=== PATIENT | male | born 1945 | race Caucasian/White ===

== ENCOUNTER → 2016-07-16 | Outpatient (CLI) | payer MEDICARE, OTHER ==
--- NOTE | 2016-07-16 17:12 | CT ---
EXAMINATION TYPE: CT chest w con DATE OF EXAM: 07/16/2016 4:45 PM COMPARISON: 12/24/2014, 09/03/2013, 08/23/2012. HISTORY: 71-year-old male with cough, Follow up nodule TECHNIQUE: Contiguous axial scanning of the chest after the administration of 100 mL of Omnipaque 300 . Coronal/sagittal reconstructions performed. CT DLP: 530.8mGycm. Automatic exposure control utilized for a dose reduction. FINDINGS: Heart is normal size without pericardial effusion. Left anterior chest wall AICD generator with right atrial and right ventricular leads. Upper descending thoracic aorta is borderline aneurysmal at 3.1 cm. There is conventional arch vessel branching anatomy. A mildly enlarged 1.3 cm left tracheobronchial angle lymph node is unchanged from 2013 compatible wit h a benign etiology. Otherwise, no thoracic lymphadenopathy. Evaluation of the lungs shows mild to moderate diffuse bronchial wall thickening and scattered mild c entrilobular emphysema. A right upper lobe pulmonary nodule shows minimal interval enlargement. This measured 5 mm on 3, 6 mm on 12/24/2014, now measures 7 mm, axial image 25. A 5 mm right midlung pulmonary nodule along t he major fissure, axial image 40 is stable and benign as is a 3 mm right middle lobe pulmonary nodule , axial image 44. No new pulmonary nodule is seen. No consolidation or pleural effusion. Left hemicolonic diverticulosis is noted. Bones: Endplate spondylosis mid to lower thoracic spine with chronic healed fracture deformities of m ultiple right-sided ribs. End-stage degenerative change at the right glenohumeral joint with the filomena ent's right arm down as a result. IMPRESSION: 1. COPD with mild emphysema and a prominent component of bronchitis. 2. A 7 mm right upper lobe pulmonary nodule. This is very slowly enlarging. It measured 5 mm in 2012. Consider annual follow-up. 3. Additional 5 and 3 mm pulmonary nodules in the right lung are stable and benign. 4. Left hemicolonic diverticulosis and end-stage right glenohumeral joint.
== END | disposition home or self-care (01) ==
LOC: RADCTMAIN 16:20
PROVIDERS: ATTEND Family Medicine
DX: J44.9 Chronic obstructive pulmonary disease, unspecified (principal); J40 Bronchitis, not specified as acute or chronic; R91.8 Other nonspecific abnormal finding of lung field
CPT/HCPCS: 71260; Q9967

== ENCOUNTER → 2017-01-19 | Outpatient (CLI) | payer MEDICARE, OTHER ==
[2017-01-19 08:45] LABS: Blood Urea Nitrogen 13 mg/dL (9-20); Non-African American GFR(MDRD) >60 (>60 ml/min/1.73 sqM)
--- NOTE | 2017-01-19 10:21 | CT ---
EXAMINATION TYPE: CT chest w con DATE OF EXAM: 01/19/2017 COMPARISON: CT chest July 16, 2016 and older studies back through May 19, 2012. HISTORY: Patient has no complaints at time of study. Follow up study for known lung nodule CT DLP: 613.1 mGycm. Automated Exposure Control for Dose Reduction was Utilized. TECHNIQUE: CT scan of the thorax is performed following with IV Contrast, patient injected with 100 mL of Omnipaque 300. FINDINGS: LUNGS: An 8 x 5 mm nodule in the posterior aspect right upper lobe on axial image 22 is stable or per haps slightly more prominent since 2012 and most recent study. A 5 x 4 mm nodular opacity along fissure right mid lung on axial image 36 is not significantly change d from 2012. A 3 mm hyperdense possibly calcified nodule anteriorly right middle lobe on axial image 41 is stable from 2012. Some linear scarring centrally in left lung base is present. There is no concerning new parenchymal n odule or mass. No pleural effusion or pneumothorax is present bilaterally. Tracheobronchial tree is p atent. Mild underlying emphysematous changes redemonstrated. Mild central peribronchial wall thickeni ng is redemonstrated. MEDIASTINUM: There is stable 1.4 x 1.3 cm left tracheobronchial angle lymph node on axial image 24. T here are no new greater than 1 cm hilar or mediastinal lymph nodes. No pericardial effusion is seen . Heart size is stable and upper limits of normal. A dual lead pacemaker/AICD is redemonstrated. OTHER: There is persistent advanced degenerative change right glenohumeral joint with marked spurring and joint space loss and loss of spherical shape of the humeral head. Moderate to advanced degenerat maria c change left glenohumeral joint is redemonstrated. There is multilevel moderate to severe spurring in the thoracic spine. Multiple old healed fractures posterior right ribs are redemonstrated. Some d iverticula in visualized colon are redemonstrated. IMPRESSION: Mild emphysematous change with persistent slightly more prominent 8 x 5 mm right upper lo be nodule. No new nodules or masses are identified. Consider continued CT monitoring in one year time
== END | disposition home or self-care (01) ==
LOC: RADCTMAIN 08:09
PROVIDERS: ATTEND Family Medicine
DX: J43.9 Emphysema, unspecified (principal); R91.1 Solitary pulmonary nodule; R91.8 Other nonspecific abnormal finding of lung field
CPT/HCPCS: 82565; 84520; 71260; 36415; Q9967

== ENCOUNTER → 2017-02-19 | Outpatient (CLI) | payer MEDICARE, OTHER ==
--- NOTE | 2017-02-20 13:54 | PE ---
EXAMINATION TYPE: PET CT fusion whole body DATE OF EXAM: 02/19/2017 COMPARISON: CT chest 01/19/2017 Prior PET/CT: None HISTORY: Solitary pulmonary nodule posterior right upper lobe TECHNIQUE: Following the intravenous administration of 13.11 mCi of F-18 FDG, whole body images are performed from the skull base to the midthigh. Images are reviewed on the computer in the coronal, a xial, and sagittal planes. Reconstructed rotating images are created on independent workstation and reviewed on the computer. A localization and attenuation correction CT is performed in conjunction with the PET scan. DLP: 453.90 mGycm SCAN: Initial Blood glucose: 121 mg/dL Average Mediastinum SUV: 1.7 Average Liver SUV: 2.5 FINDINGS: NECK: There is some subtle uptake within the left dredge mechanic space may be related to muscular activi ty. PET image 29 with an SUV value of 3.4 this is noted to be asymmetric with the contralateral side and additional dredge mechanic muscles. THORAX: No abnormal uptake is within the right middle lobe punctate nodularity. Image 113. No abnorma l uptake is within the right middle lobe nodule, image 89. No abnormal uptake is within the mediastin al adenopathy. The nodularity within the posterior right upper lobe appears smaller on the current examination than the previous exam. This currently nodule on image 83 has an SUV value of 0.67 the benign range. Monit oring with CT could be performed. ABDOMEN: No abnormal uptake PELVIS: No abnormal uptake OSSEOUS STRUCTURES: No abnormal uptake LOCALIZATION CT: The ascending thoracic aorta at the level of main pulmonary artery is 3.4 cm. The ma in pulmonary artery the bifurcation is 2.4 cm. Pacemaker overlies left chest. Small retention cyst or polyp is in the posterior left maxillary sinus. Degenerative changes are noted bilateral glenohumera l joints. Diverticular changes are through the sigmoid colon. COMPARISON: Lung nodules are stable. The largest may be slightly smaller in size. No lymphadenopathy does not appear increased compared to prior exam. IMPRESSION: 1. No suspicious uptake to suggest primary or metastatic lesions. 2. Pulmonary nodules identified does not have abnormal uptake. Monitoring can be performed with CT est in 6 months. 3. Enlarged mediastinal adenopathy and multiple shotty lymph nodes can be monitored with the CT exami [facility] in 6 months
== END | disposition home or self-care (01) ==
LOC: RADPETMAIN 08:07
PROVIDERS: ATTEND Family Medicine
DX: R91.8 Other nonspecific abnormal finding of lung field (principal); R59.0 Localized enlarged lymph nodes
CPT/HCPCS: 78816; A9552

== ENCOUNTER → 2017-10-04 | Outpatient (CLI) | payer MEDICARE, OTHER ==
[2017-10-04 12:16] LABS: Blood Urea Nitrogen 18 mg/dL (9-20)
--- NOTE | 2017-10-04 15:05 | CT ---
EXAMINATION TYPE: CT chest w con DATE OF EXAM: 10/04/2017 COMPARISON: 01/19/2017, 07/16/2016, 12/24/2014 HISTORY: 72-year-old male Enlarged lymph nodes TECHNIQUE: Contiguous axial scanning of the chest after the administration of 100 mL of Isovue 300. Coronal/sagittal reconstructions performed. CT DLP: 652mGycm. Automatic exposure control utilized for a dose reduction. FINDINGS: Left anterior chest wall AICD generator with right atrial and right ventricular leads. Heart normal size without pericardial effusion. Aorta normal caliber with conventional branching anatomy. A borderline enlarged left tracheobronchial angle lymph node measures 1 cm and is unchanged from 2014 compatible with a benign etiology. Additional scattered small mediastinal lymph nodes are noted. 7 mm right upper lobe pulmonary nodule axial image 20 unchanged from 01/19/2017 but slightly more prom inent from 07/16/2016. An additional one-year follow-up can be performed. 4 mm pulmonary nodule along the major fissure in the right midlung is unchanged from 2014 compatible with a benign etiology. Tiny calcified granuloma right middle lobe axial image 36 is unchanged. Mild emphysematous changes present. No consolidation or pleural effusion. Visualized upper abdomen shows mild diffuse thickening of the left adrenal gland which is unchanged. Low-attenuation of the liver suggests underlying fatty infiltration. Bones: Endplate spondylosis mid to lower thoracic spine. No osseous destructive process. IMPRESSION: 1. COPD with mild emphysema. 2. 7 mm right upper lobe pulmonary nodule unchanged for 9 months. It is slightly more pronounced as c ompared to older priors. Additional one-year follow-up is recommended. 3. Stable borderline enlarged left mediastinal lymph node from 2014 compatible with a benign etiology .
== END | disposition home or self-care (01) ==
LOC: RADCTMAIN 11:30
PROVIDERS: ATTEND Family Medicine
DX: J43.9 Emphysema, unspecified (principal); R91.1 Solitary pulmonary nodule
CPT/HCPCS: 82565; 84520; 71260; 36415; Q9967

== ENCOUNTER → 2019-08-01 | Outpatient (CLI) | payer MEDICARE, OTHER ==
[2019-08-01 12:20] VITALS: BP 134/78; PULSE 60; RESP 18
--- NOTE | 2019-08-01 13:03 | P.PAINCN ---
History of Present Illness - Reason for Consult Consult date: 08/01/19 - History of Present Illness This is initial consultation visit for this 74-year-old gentleman with a chronic history of severe low back pain, with radiation to the posterior aspect of lower extremity bilaterally, and she reported that he has this pain started almost 20 years ago, he denies any initiating event he denies any history of trauma or any falling accident, the pain is constant and increases with any activity, interfere with the quality of life , so patient had some numbness and tingling sensation in both feet, his diagnosed with diabetic neuropathy., Patient able to ambulate on his own but he has difficulty functioning and working more than 6 hours daily He denies any fever he denies any swelling, he denies any change in the bowel movement or urination. Past Medical History Past Medical History: Diabetes Mellitus, Hyperlipidemia, Hypertension, Osteoarthritis (OA) Additional Past Medical History / Comment(s): ARTHRITIS IN SHOULDERS History of Any Multi-Drug Resistant Organisms: None Reported Past Surgical History: Heart Catheterization, Joint Replacement, Pacemaker Additional Past Surgical History / Comment(s): RT KNEE REPLACEMENT 2001, COLONOSCOPY - multiple Past Anesthesia/Blood Transfusion Reactions: No Reported Reaction Type of Cardiac Device: Permanent Pacemaker Device Placement Date:: 2011 Past Psychological History: Anxiety, Depression Smoking Status: Current every day smoker Past Alcohol Use History: Heavy Additional Past Alcohol Use History / Comment(s): SMOKER SINCE AGE 20(1963) 1/2 PPD-HAS 3 OR 4 BEERS 4-5 X A WEEK Past Drug Use History: Marijuana Additional Drug Use History / Comment(s): SMOKES A JOINT 3-4 X A WEEK - Past Family History Mother Family Medical History: Diabetes Mellitus Additional Family Medical History / Comment(s): HEART PROBLEMS Father Family Medical History: Diabetes Mellitus, Hypertension Additional Family Medical History / Comment(s): HEART PROBLEMS Medications and Allergies Home Medications Medication Instructions Recorded Confirmed Type ALPRAZolam [Xanax] 1 mg PO BID 01/20/15 08/01/19 History Aspirin EC [Ecotrin] 81 mg PO DAILY 01/20/15 08/01/19 History Multivitamins, Thera [Theragran] 1 each PO DAILY 01/20/15 08/01/19 History Pravastatin Sodium [Pravachol] 80 mg PO HS 01/20/15 08/01/19 History Vitamin B-12(2500mg) 1,000 mcg PO BID 01/20/15 08/01/19 History Carvedilol 25 mg PO BID 08/01/19 08/01/19 History Diclofenac Sodium [Voltaren] 75 mg PO DAILY 08/01/19 08/01/19 History Glimepiride [Amaryl] 1 mg PO AC-BRKFST 08/01/19 08/01/19 History Sacubitril/Valsartan [Entresto 49 1 each PO BID 08/01/19 08/01/19 History mg-51 mg Tablet] Sertraline [Zoloft] 100 mg PO DAILY 08/01/19 08/01/19 History Sotalol [Betapace] 80 mg PO BID 08/01/19 08/01/19 History Allergies Allergy/AdvReac Type Severity Reaction Status Date / Time No Known Allergies Allergy Verified 08/01/19 12:01 Physical Exam Vitals: Vital Signs Pulse Resp BP Pulse Ox 08/01/19 11:55 60 18 134/78 94 L Intake and Output 07/31/19 08/01/19 08/01/19 22:59 06:59 14:59 Other: Weight 95.254 kg REVIEW OF ORGAN SYSTEMS: CONSTITUTIONAL: No fevers or chills. No recent weight loss. EYES: denies troubles with vision. HEENT: No difficulties with hearing. No nosebleeds. No difficulty swallowing. RESPIRATORY: Denies any troubles with breathing or dyspnea on exertion. CARDIOVASCULAR: Denies any chest pain, palpitations, or recent heart attacks. GASTROINTESTINAL: Denies fatty food intolerance. Has change in bowel habits and gas bloat. GENITOURINARY: Denies any blood in urine. Has increased urinary frequency. NEUROLOGICAL: + numbness and tingling along the distal extremities. No seizure disorders or headaches. MUSCULOSKELETAL: Has back pain. SKIN:no skin cancer. No rash. PSYCHIATRIC: Denies current depression or suicidal thoughts. ENDOCRINE: Denies current thyroid disorders. Denies any blood sugar glucose intolerance. HEME/LYMPHATIC: Denies any lumps and bumps around the neck. History of deep venous thrombosis. ALLERGY/IMMUNOLOGY: No immunoglobulin therapy. No immune deficiencies. BREAST: Denies current breast lumps, pain or nipple discharge. Physical Examinations : Constitutiona : Cooperative , not in acute distress . HEENT : nech : supple , no Lymphadenopathy , normal thyroid size . : eyes no ptosis , no icterus, no photophobia . : ENT normal of hearing , normal oropharynx , no Thrush . Respiratory : Chest clear to auscultations Bilaterally , no wheezing , no Rhonchi . Cardiovascula : regular rate and rhythem , S1 , S2 , no S3 , no S4. Gastrointestina : abdomen soft no tenderness , bowel sounds , no organomegally . Genitourinary : Defferred . neurologic : Cranial nerve II to XII intact , no focal neurological deffecit . psychatric : alert , oriented X 3 , appropriate affect , intact judgment and insight . Lymphatic : no Lymphadenopathy . musculoskeltal : Lumber spine moter stegnth lower extremities ,thigh and legs 5/5 Right side , 5/5 Left side deep tendon reflexes : normal Knee Jerk , normal ankle Jerk lumber facet Loading Test= positive Right , positive Left Range of motion of the lumbar spine Flexion 60 degrees, extension 10 degrees strait leg raising test = negative bilaterally Fabere test= negative bilaterally tenderness over the Sacroiliac joint on the Right , and Left sides Results Comments: Computed tomography scan of the lumbar spine done in 2015 multilevel lumbar degenerative disc disease and lumbar spinal stenosis and multilevel lumbar facet arthropathy Assessment and Plan Plan: Assessment and plan=1-lumbar spondylosis with lumbar facet arthropathy 2-lumbar spinal stenosis We'll order a computed tomography scan of the lumbar spine (he refused to have MRI of the lumbar spine because he is claustrophobic) Patient will be seen in the pain clinic in 1-2 week by that time hopefully we have the results of the computed tomography scan Time with Patient: Greater than 30 PQRS Measure Charge Sheet Measure #130: Documentation of Current Meds in Medical Chart: Patient's medications documented in chart Measure #226: Tobacco Use: Screen & Cessation Intervention: Pt screened for t obacco use AND intervention given Measure #111: Pneumonia Vaccination: Pneumococcal vaccine NOT administered or previously given Measure #47: Advance Care Plan: Advance care planning discussed & documented, pt chose/unable to give Measure #412: Opioid Treatment Agreement: No documentation of signed opioid treatment agreement Measure #408: Opioid Therapy Follow-up Evaluation: Patient had NO f/u eval minimum every 3 months during opioid therapy Measure #317: Preventitive Care & Scrn High Bld Press & F/U: Normal blood pressure, f/u not required Measure #128: Body Mass Index (BMI) Screening & Follow-up: BMI documented ABOVE normal parameters - f/u documented Measure #131: Pain Assessment & Follow-up: Pain positive & plan documented, Follow-up scheduled Measure #431: Unhealthy Alcohol Use Preventative Care & Scrn: Patient not identified as an unhealthy alcohol user PQRS Narrative: Smoking Status Current every day smoker Blood Pressure 134/78 Pain Intensity [Bilateral 9 Shoulder] Pain Intensity [Lower Back] 7 Scale Used Numeric (1 - 10) Hx Alcohol Use (MH) Yes: about 6 beers a day Home Medications: Ambulatory Orders ALPRAZolam [Xanax] 1 mg PO BID 01/20/15 Aspirin EC [Ecotrin] 81 mg PO DAILY 01/20/15 Multivitamins, Thera [Theragran] 1 each PO DAILY 01/20/15 Pravastatin Sodium [Pravachol] 80 mg PO HS 01/20/15 Vitamin B-12(2500mg) 1,000 mcg PO BID 01/20/15 Carvedilol 25 mg PO BID 08/01/19 Diclofenac Sodium [Voltaren] 75 mg PO DAILY 08/01/19 Glimepiride [Amaryl] 1 mg PO AC-BRKFST 08/01/19 Sacubitril/Valsartan [Entresto 49 mg-51 mg Tablet] 1 each PO BID 08/01/19 Sertraline [Zoloft] 100 mg PO DAILY 08/01/19 Sotalol [Betapace] 80 mg PO BID 08/01/19
== END | disposition home or self-care (01) ==
LOC: PNWHC3 11:38
PROVIDERS: ATTEND Specialist
DX: M47.816 Spondylosis without myelopathy or radiculopathy, lumbar region (principal); M48.061 Spinal stenosis, lumbar region without neurogenic claudication; E11.9 Type 2 diabetes mellitus without complications; E78.5 Hyperlipidemia, unspecified; I10 Essential (primary) hypertension; M19.012 Primary osteoarthritis, left shoulder; M19.011 Primary osteoarthritis, right shoulder; F17.200 Nicotine dependence, unspecified, uncomplicated; Z79.82 Long term (current) use of aspirin; Z79.1 Long term (current) use of non-steroidal anti-inflammatories (NSAID); Z79.84 Long term (current) use of oral hypoglycemic drugs; Z79.899 Other long term (current) drug therapy
CPT/HCPCS: 99201

== ENCOUNTER → 2020-06-17 | Outpatient (CLI) | payer MEDICARE, OTHER ==
--- NOTE | 2020-06-17 16:16 | CT ---
EXAMINATION TYPE: CT lumbar spine wo con DATE OF EXAM: 06/17/2020 COMPARISON: 02/14/2015 HISTORY: 75-year-old male chronic low back pain TECHNIQUE: Contiguous axial scanning of the lumbar spine without IV contrast. Coronal and sagittal re constructions performed. CT DLP: 999 mGycm Automated exposure control for dose reduction was used. FINDINGS: Vertebral body heights are preserved. Degenerative grade 1 retrolisthesis L2-L3. Moderate to advanced dissection change throughout the lumbar spine show slight progression from 2014. Especially in the lower lumbar spine at L4-L5, there is loss of disc height with endplate sclerosis, irregularity, and spondylosis. Bulging disks at multiple levels. This likely contributes to [id number] overall spinal canal stenosis at L2-L3 and L3-L4, L4-L5. Vertebral body heights are preserved. On the right, changes resulting in moderate neuroforaminal stenoses at L4-L5 and L5-S1, mild at L2-L3 and L3-L4. Possible moderate to severe at T11-T12. On the left, changes result in moderate to severe narrowing at L4-L5, L5-S1, and T11-T12. Moderate at L3-L4. IMPRESSION: 1. MODERATE TO ADVANCED DISC/ENDPLATE DEGENERATIVE CHANGE ESPECIALLY MID TO LOWER LUMBAR SPINE WITH H YPERTROPHIC FACET ARTHROPATHY, SLIGHTLY PROGRESSED FROM 2014. 2. DEGENERATIVE GRADE 1 RETROLISTHESIS AT L2/L3. NO VERTEBRAL COMPRESSION COLLAPSE. 3. BULGING DISKS CONTRIBUTE TO [id number] SPINAL CANAL NARROWING AT L2-L3, L3-L4, L4-L5. 4. VARIABLE BILATERAL NEUROFORAMINAL STENOSES OUTLINED ABOVE, GREATEST ON BOTH SIDES AT T11-T12 AN D ON THE LEFT AT L4-L5 AND L5-S1.
== END | disposition home or self-care (01) ==
LOC: RADCTMAIN 12:38
PROVIDERS: ATTEND Family Medicine
DX: M48.061 Spinal stenosis, lumbar region without neurogenic claudication (principal); M51.26 Other intervertebral disc displacement, lumbar region; M43.16 Spondylolisthesis, lumbar region; M47.26 Other spondylosis with radiculopathy, lumbar region
CPT/HCPCS: 72131

== ENCOUNTER → 2020-06-30 | Outpatient (CLI) | payer MEDICARE, OTHER ==
[2020-06-30 08:13] VITALS: BP 131/80; PULSE 89; RESP 16; TEMP 98.3
--- NOTE | 2020-06-30 08:43 | P.PN ---
Subjective Progress Note Date: 06/30/20 This is a 75-year-old gentleman with history of back pain with weakness in the lower extremities. The patient denies any pain in his legs however he does walk in a wobbly gait and he does feel some weakness in his legs when he goes up the stairs. He has some change in bowel habits and his last colonoscopy was about 2 years ago. He denies loss of control of his bowel or bladder. His last lumbar spine computed tomography scan showed moderate to advanced dissection throughout the lumbar spine especially in the lower lumbar spine at L4 5 level with moderate neural foraminal stenosis at L4 5 and L5-S1 on the right side and moderate to severe at T11-T12 level on the right side also severe narrowing at L4 5 and L5-S1 level on the left side. The patient takes diclofenac for his pain which does not help his pain. He does have history of pacemaker placement however he denies taking any anticoagulants. He does have history of diabetes with numbness in both feet. Patient denies new-onset weakness, bowel/bladder incontinence, or any other signs or symptoms of cauda equina syndrome. There are no signs of acute intoxication, and no indications of medication diversion or overuse. In addition to above, 13-point review of systems is also negative for chest p ain, shortness of breath, changes in vision, changes in hearing, new onset weakness, abdominal pain, diarrhea, extreme fatigue, malaise, fever, skin changes, homicidal or suicidal ideation, or bowel or bladder incontinence. Vital Signs: Reviewed in EMR Gen: AAOx3, NAD HEENT: PERRLA,hearing grossly normal Pulm: resp unlabored Neck: supple, trachea midline Neuro exam of the lower extremities: Normal muscle strength bilaterally. Decreased but symmetrical knee reflexes and absent ankle reflexes bilaterally Straight leg raising test: Negative bilaterally Malcom's test: Range of motion of the lumbar spine: Decreased Facet loading test: Positive Tenderness in the paravertebral musculature: Positive on the lumbar and thoracic paravertebral musculature bilaterally Neuro: CN II-XII grossly intact, Imaging: Reviewed in EMR/chart Assessment: Lumbar stenosis Lumbar spondylosis without myelopathy Lumbar DDD Diabetes Cardiac pacemaker in place Plan: 1. Explanation: Opioid and psychological risk scores were reviewed. Diagnoses, prognoses, and multiple treatment options including but not limited to physical therapy, interventional therapies, adjuvant medical therapies, narcotic medication therapies, and surgery were discussed with the patient and all questions were answered to the patient's satisfaction. 2. Opioid agreement: Signed with the patient and the patient is warned not to use opioids while driving or before driving and not to combine opioids with benzodiazepines or alcohol. 3. Counseling: The patient was counseled extensively on SMOKING CESSATION, BODY MASS INDEX, EXERCISE. Specifically, the patient was instructed regarding the importance of smoking cessation, obesity, and exercise in the context of both chronic pain and overall health. 4. Procedures: Due to the patient's axial lower back pain we will schedule for a diagnostic lumbar medial branch block under fluoroscopic guidance. The patient may benefit in the future from epidural steroid injection due to his lumbar stenosis. 5. Consultations: The patient may need to see a back surgeon if his weakness in the lower extremities gets worse 6. Investigations: None 7. Medications: None 8. Disposition: Return to the above-mentioned procedure as soon as possible 9. Maps were reviewed and were appropriate. Objective - Vital Signs Vital signs: Vital Signs Temp 98.3 F 06/30/20 08:11 Pulse 89 06/30/20 08:11 Resp 16 06/30/20 08:11 BP 131/80 06/30/20 08:11 Pulse Ox 98 06/30/20 08:11
== END | disposition home or self-care (01) ==
LOC: PNWHC3 07:59
PROVIDERS: ATTEND Anesthesiology
DX: M48.061 Spinal stenosis, lumbar region without neurogenic claudication (principal); M47.816 Spondylosis without myelopathy or radiculopathy, lumbar region; M51.36 Other intervertebral disc degeneration, lumbar region; E11.9 Type 2 diabetes mellitus without complications; Z95.0 Presence of cardiac pacemaker
CPT/HCPCS: 99211

== ENCOUNTER 2020-07-18 07:49 | Day surgery (SDC) | payer MEDICARE, OTHER ==
[2020-07-15 11:02] VITALS: BMI 32.5
[~2020-07-18 07:49] MED LIST: LACTATED RINGERS 1,000 ML IV SCH
[2020-07-18 08:37] LABS: Glucose,Whole Blood 116 mg/dL (75-99)
[2020-07-18 08:39] VITALS: RESP 16; TEMP 97.4
[2020-07-18] MEDS ORDERED: MIDAZOLAM 2 MG/2 ML VIAL ONE (08:51)
[2020-07-18] MEDS ORDERED: ROPIVACAINE 5MG/ML 20ML VIAL ONE (08:51)
--- NOTE | 2020-07-18 09:06 | P.PCN ---
Date of Procedure: 07/18/20 Description of Procedure: Procedure: BILATERAL L3-4, L4-5, L5-S1 Diagnosis: Lumbar spondylosis without myelopathy Anesthesia: Local and IV conscious sedation Imaging: Fluoroscopy was used, images where saved to the medical record The patient was seen and examined in the [facility]. Procedure risks and benefits were fully reviewed with the patient. The patient understands this is a diagnostic if local only is used, as will be the case today. The goal of the procedure is to inject medication onto the medial branch or small nerves that innervate the facet joints. In this way, we can hopefully identify which of these joints, if any, may be contributing to their pain. Informed consent for procedure was obtained. The patient was taken into the office fluoroscopy procedure room and placed prone on the table. A pillow was placed under the abdomen to reduce lumbar lordosis. Vital signs were closely monitored during the procedure. The skin over the area was prepped with Betadine X 3 and draped in usual sterile manner. Sterile technique was observed throughout procedure. Under biplanar fluoroscopic guidance, the target injection area of the L4, L5, Sacral Ala were targeted. A 25 gauge 31/2 inch spinal needle was then placed at the most medial and superior aspect of the transverse process near the "eye of the Philip dog". Aspiration for blood was negative. 1 cc of 0.5% Ropivacaine was injected into the targeted areas separately. [place] were withdrawn intact. No complications were noted during the procedure. The patient tolerated the procedure well. The patient was placed in supine position and transferred to the recovery area for observation and remained stable until discharged home. Home discharge instructions were given to the patient by the staff. The patient will schedule a follow up as directed.
[2020-07-18] MEDS ORDERED: IV FLUID CONTINUATION 1,000 ML IV ONE (09:08)
[2020-07-18 09:29] VITALS: BP 118/75; PULSE 64
--- NOTE | 2020-07-18 09:47 | FL ---
Fluoroscopy INDICATION: Pain FINDINGS: Fluoroscopy time: 10 seconds. Images obtained: 6. IMPRESSIONS: 1. Documentation of fluoroscopy.
== END 2020-07-18 09:39 | disposition home or self-care (01) ==
LOC: ORPAIN 07:49
PROVIDERS: ATTEND Hospitalist
DX: M47.816 Spondylosis without myelopathy or radiculopathy, lumbar region (principal); E11.9 Type 2 diabetes mellitus without complications; I10 Essential (primary) hypertension; E78.5 Hyperlipidemia, unspecified; Z95.0 Presence of cardiac pacemaker; F17.210 Nicotine dependence, cigarettes, uncomplicated; M19.90 Unspecified osteoarthritis, unspecified site; J44.9 Chronic obstructive pulmonary disease, unspecified; Z79.84 Long term (current) use of oral hypoglycemic drugs; Z79.899 Other long term (current) drug therapy; Z79.1 Long term (current) use of non-steroidal anti-inflammatories (NSAID)
CPT/HCPCS: 64493; 64494; 64495; J2250; J2795

== ENCOUNTER 2020-08-22 09:09 | Day surgery (SDC) | payer MEDICARE, OTHER ==
[2020-08-21 11:29] VITALS: BMI 31.7
[2020-08-22 09:38] VITALS: TEMP 97
[2020-08-22] MEDS ORDERED: LACTATED RINGERS 1,000 ML IV ONE (09:43)
[2020-08-22 09:45] LABS: Glucose,Whole Blood 117 mg/dL (75-99)
[2020-08-22] MEDS ORDERED: LIDOCAINE 1% INJ 10MG/ML (20 ML MDV) ONE (10:03)
[2020-08-22] MEDS ORDERED: DEXAMETHASONE SOD PHOSPHATE 10 MG/ML 1 ML VIAL ONE (10:03)
[2020-08-22] MEDS ORDERED: MIDAZOLAM 2 MG/2 ML VIAL ONE (10:03)
[2020-08-22] MEDS ORDERED: fentaNYL (PF) 50 MCG/ML 2 ML AMP ONE (10:03)
[2020-08-22] MEDS ORDERED: ROPIVACAINE 5MG/ML 20ML VIAL ONE (10:03)
--- NOTE | 2020-08-22 10:23 | P.PCN ---
Date of Procedure: 08/22/20 Preoperative Diagnosis: Procedure: BILATERAL L4-5, L5-S1 Diagnosis: Lumbar spondylosis without myelopathy Anesthesia: Local and IV conscious sedation Imaging: Fluoroscopy was used, images where saved to the medical record The patient was seen and examined in the [facility]. Procedure risks and benefits were fully reviewed with the patient. The patient understands this is a diagnostic if local only is used, as will be the case today. The goal of the procedure is to inject medication onto the medial branch or small nerves that innervate the facet joints. In this way, we can hopefully identify which of these joints, if any, may be contributing to their pain. Informed consent for procedure was obtained. The patient was taken into the office fluoroscopy procedure room and placed prone on the table. A pillow was placed under the abdomen to reduce lumbar lordosis. Vital signs were closely monitored during the procedure. The skin over the area was prepped with Betadine X 3 and draped in usual sterile manner. Sterile technique was observed throughout procedure. Under biplanar fluoroscopic guidance, the target injection area of the L4, L5, Sacral Ala were targeted. A 22 gauge 31/2 inch spinal needle was then placed at the most medial and superior aspect of the transverse process near the "eye of the Philip dog". Aspiration for blood was negative. 1 cc of 0.5% Ropivacaine with 2.5mg of dexamethasone and each site was injected into the targeted areas separately. [place] were withdrawn intact. No complications were noted during the procedure. The patient tolerated the procedure well. The patient was placed in supine position and transferred to the recovery area for observation and remained stable until discharged home. Home discharge instructions were given to the patient by the staff. The patient will schedule a follow up as directed.
[2020-08-22] MEDS ORDERED: IV FLUID CONTINUATION 1,000 ML IV ONE ×2 (10:24)
[2020-08-22 10:45] VITALS: BP 110/68; PULSE 64; RESP 20
--- NOTE | 2020-08-22 13:06 | FL ---
EXAMINATION TYPE: FL guided pain mgmt statistic DATE OF EXAM: 08/22/2020 FLUOROSCOPY Fluoroscopy time of 21 seconds was used during bilateral lumbar facet block. 4 image/s document/s th e procedure.
== END 2020-08-22 10:53 | disposition home or self-care (01) ==
LOC: ORPAIN 09:09
PROVIDERS: ATTEND Anesthesiology
DX: M54.5 Low back pain (principal); M47.26 Other spondylosis with radiculopathy, lumbar region; E11.9 Type 2 diabetes mellitus without complications; I11.0 Hypertensive heart disease with heart failure; I50.9 Heart failure, unspecified; E78.5 Hyperlipidemia, unspecified; J44.9 Chronic obstructive pulmonary disease, unspecified; F17.210 Nicotine dependence, cigarettes, uncomplicated; Z97.2 Presence of dental prosthetic device (complete) (partial); Z95.810 Presence of automatic (implantable) cardiac defibrillator
CPT/HCPCS: 64493; 64494; J2250; J1100; J2001; J3010; J2795

== ENCOUNTER → 2020-10-06 | Outpatient (CLI) | payer MEDICARE, OTHER ==
[2020-10-06 10:04] VITALS: BP 121/67; PULSE 64; RESP 18; TEMP 98.5
--- NOTE | 2020-10-06 10:41 | P.PN ---
Subjective Progress Note Date: 10/06/20 This is a follow-up visit for this 75 his old male with a chronic history of severe low back pain, is diagnosed with lumbar spondylosis with lumbar facet arthropathy, degenerative disc disease, lumbar spinal stenosis, and clearly we did diagnostic medial branch block lumbar area at L3, L4, L5 bilaterally, patient gets 80% improvement of his low back pain after each block, and the pain relief was only for short-term VAS was 8 /10 before the block dropped to 0-2/10 after the block, and the pain relief was only for short-term, currently patient complaining of severe low back pain the pain is constant and increases with any activity Objective - Vital Signs Vital signs: Vital Signs Temp 98.5 F 10/06/20 09:59 Pulse 64 10/06/20 09:59 Resp 18 10/06/20 09:59 BP 121/67 10/06/20 09:59 Pulse Ox 96 10/06/20 09:59 - Exam Physical Examinations : Constitutiona : Cooperative , not in acute distress . HEENT : nech : supple , no Lymphadenopathy , normal thyroid size . : eyes no ptosis , no icterus, no photophobia . : ENT normal of hearing , normal oropharynx , no Thrush . Respiratory : Chest clear to auscultations Bilaterally , no wheezing , no Rhonchi . Cardiovascula : regular rate and rhythem , S1 , S2 , no S3 , no S4. Gastrointestina : abdomen soft no tenderness , bowel sounds , no organomegally . Genitourinary : Defferred . neurologic : Cranial nerve II to XII intact , no focal neurological deffecit . psychatric : alert , oriented X 3 , appropriate affect , intact judgment and insight . Lymphatic : no Lymphadenopathy . musculoskeltal : Lumber spine moter stegnth lower extremities ,thigh and legs 5/5 Right side , 5/5 Left side deep tendon reflexes : normal Knee Jerk , normal ankle Jerk lumber facet Loading Test= positive Right , positive Left Range of motion of the lumbar spine Flexion 60 degrees, extension 10 degrees strait leg raising test = negative bilaterally Fabere test= negative bilaterally tenderness over the Sacroiliac joint on the Right , and Left sides Assessment and Plan Plan: Assessment and plan=1-lumbar degenerative disc disease 2-lumbar spinal stenosis. 3-lumbar spondylosis with lumbar facet arthropathy without myelopathy. Patient had 80% improvement in his low back pain after each diagnostic medial branch block, he will be good candidate for RFA The medial branch lumbar area at L3, L4, L5, bilaterally - PQRS measures = - Patient's medications are documented in the chart. -Tobacco use is negative and counseling.Given. -Patient's has not received pneumococcal vaccine. -Advanced care planning discussed, patient not eligible. -Opiate contract not signed. -Pain positive and follow-up visit/procedure is scheduled. -Patient's blood pressure measured [121/67 ] , and documented in the record ,and patient will follow up with the primary care. -Patient's weight was measured and body mass index [ ] above the normal limits and counseling was done. and patient instructed to follow-up with the primary care physician. -Patient was not identified as an unhealthy alcohol user Time with Patient: Less than 30
== END ==
LOC: PNWHC3 09:35
PROVIDERS: ATTEND Specialist
DX: M51.36 Other intervertebral disc degeneration, lumbar region (principal); M48.061 Spinal stenosis, lumbar region without neurogenic claudication; M47.816 Spondylosis without myelopathy or radiculopathy, lumbar region; F17.200 Nicotine dependence, unspecified, uncomplicated
CPT/HCPCS: 99211

== ENCOUNTER → 2020-10-31 | Day surgery (SDC) | payer MEDICARE, OTHER ==
[2020-10-29 14:11] VITALS: BMI 31.7
[~2020-10-31] MED LIST changes: +IV FLUID CONTINUATION 800 ML IV ONE; +LACTATED RINGERS 1,000 ML IV ONE; +MIDAZOLAM 2 MG/2 ML VIAL ONE; +ROPIVACAINE 5MG/ML 20ML VIAL ONE; +TRIAMCINOLONE ACETONIDE 40 MG/ML 1 ML VIAL ONE; +fentaNYL (PF) 50 MCG/ML 2 ML AMP ONE
[2020-10-31 13:25] VITALS: TEMP 97
[2020-10-31 13:35] LABS: Glucose,Whole Blood 101 mg/dL (75-99)
--- NOTE | 2020-10-31 14:35 | P.PCN ---
Date of Procedure: 10/31/20 Procedure(s) Performed: PREOPERATIVE DIAGNOSIS: 1-Lumbar Spondylosis with Facet Arthropathy without myelopathy. 2- Lumber degenerative disc disease. POSTOPERATIVE DIAGNOSIS: 1- Lumbar Spondylosis with Facet Arthropathy without myelopathy. 2- Lumber degenerative disc disease. PROCEDURES : Bilateral Radiofrequency thermocoagulation, L3 , L4 , and L5 medial branch, with fluoroscopic guidance (fluoroscopy images available in the radiology department) ( to denervate the facet joint at L4-5 ,and L5-S1 levels ). ANESTHESIA: monitored anesthesia care as per anesthesia department . EBL: Minimal PROCEDURE INDICATION: The patient with low back pain secondary to lumbar facet arthropathy who had more than 50% relief of her pain with previous diagnostic lumbar medial branch block with bupivacaine. PROCEDURE DESCRIPTION / TECHNIQUE: The patient was seen and identified in the preoperative area. Risks, benefits, complications, including but not limited to risk of infection ,bleeding , allergic reactions to the medications and no complete pain releife , and alternatives were discussed with the patient, the patient agreed to proceed with the procedure and signed the consent. IV was started. Vital signs remained stable throughout the procedure. Patient was taken to the OR and time out was completed. The patient was placed in the prone position on the procedure table. The lumber area was prepped and draped in the usual sterile fashion. . Vital signs were closely monitored during the procedure .IV sedation was used during the procedure to decrease patients anxiety. Using AP and then oblique fluoroscopy, the ``eye of the Philip dog corresponding to the connection between the superior and transverse articular processes of right L3, L4, and L5 were identified, marked, and localized with 1% lidocaine. Subsequently, a 18 -lx (VENUM ) radiofrequency cannula with a 10-mm active tip was advanced guided by fluoroscopy to each of the``eyes of the Philip dog at right L3, L4, and L5. Each site then underwent sensory testing at 50 Hz and 0 to 1 volt and motor testing at 2.5 Hz and 0 to 3 volt with local stimulation, but no radicular symptoms down the legs. Thereafter each sites underwent radiofrequency thermocoagulation at 80 degrees celsius for 90 seconds after injecting 0.5 ml of PF Ropivacaine 1ml, then after the thermocoagulation done , 1 ml of the block solution containing Kenalog 20 mg and 3 ml of Ropivacaine 0.5% was injected at the right L3 , L4 , and L5 , levels after negative aspiration of CSF and blood and with no paresthesias. Cannulas were retracted while injecting lidocaine 1% until the needle is out. The same procedure was repeated at the level of Left L3, L4, and L5 levels. At the end of the procedure, the skin was cleansed and bandages were applied. COMPLICATIONS: No acute complications. DISPOSITION / PLANS: The patient was placed in a supine position and transferred to the recovery area in a stable condition for observation and was discharged from the recovery room after meeting discharge criteria. Home discharge instructions given to the patient by the staff. The patient was reexamined prior to discharge. The patient will schedule a follow up in the clinic in 2-4 weeks.
[2020-10-31 14:41] VITALS: RESP 17
[2020-10-31 15:11] VITALS: BP 100/67; PULSE 64
[2020-10-31 15:21] LABS: Glucose,Whole Blood 89 mg/dL (75-99)
--- NOTE | 2020-11-03 03:55 | FL ---
EXAMINATION TYPE: FL guided pain mgmt statistic DATE OF EXAM: 10/31/2020 FLUOROSCOPY Fluoroscopy time of 27 seconds was used during lumbar radiofrequency ablation. 7 image/s document/s the procedure.
== END ==
LOC: ORPAIN 12:40
PROVIDERS: ATTEND Specialist
DX: M47.816 Spondylosis without myelopathy or radiculopathy, lumbar region (principal); M51.36 Other intervertebral disc degeneration, lumbar region; I10 Essential (primary) hypertension; E78.5 Hyperlipidemia, unspecified; Z87.891 Personal history of nicotine dependence; Z99.81 Dependence on supplemental oxygen; M19.90 Unspecified osteoarthritis, unspecified site; Z79.899 Other long term (current) drug therapy
CPT/HCPCS: 64635; 64636; J2250; J3301; J3010; J2795

== ENCOUNTER → 2020-12-08 | Outpatient (CLI) | payer MEDICARE, OTHER ==
[2020-12-08 09:50] VITALS: BP 149/91; PULSE 63; RESP 18; TEMP 97.6
--- NOTE | 2020-12-08 09:55 | P.PN ---
Subjective Progress Note Date: 12/08/20 This is a 75-year-old gentleman with history of lower back pain with radiation to the lower extremities bilaterally and mild weakness in the lower extremities which gets worse after walking. The patient had lumbar medial branch RFA recently which gave him good pain relief for only 2 weeks and his pain now is back to its baseline. The patient failed to respond to tramadol for his pain previously which was prescribed to him by his primary care physician. Right now he takes Neurontin and alprazolam 1 mg twice a day. Patient denies new-onset weakness, bowel/bladder incontinence, or any other signs or symptoms of cauda equina syndrome. There are no signs of acute intoxication, and no indications of medication diversion or overuse. In addition to above, 13-point review of systems is also negative for chest pain, shortness of breath, changes in vision, changes in hearing, new onset weakness, abdominal pain, diarrhea, extreme fatigue, malaise, fever, skin changes, homicidal or suicidal ideation, or bowel or bladder incontinence. Vital Signs: Reviewed in EMR Gen: AAOx3, NAD HEENT: PERRLA,hearing grossly normal Pulm: resp unlabored Neck: supple, trachea midline Neuro exam of the lower extremities: Decreased left knee reflex and absent right knee reflex due to previous knee replacement surgery on the right side, absent ankle reflex bilaterally, decreased but symmetrical muscle strength to 4 out of 5 bilaterally in the major muscle groups in the lower extremities. Straight leg raising test: Negative bilaterally Facet loading test: Negative Tenderness in the paravertebral musculature: Positive on the lumbar paravertebral musculature bilaterally Neuro: CN II-XII grossly intact, Imaging: Reviewed in EMR/chart Assessment: Lumbar spondylosis without myelopathy status post lumbar medial branch RFA bilaterally for the medial branches L3, L4 and L5 Lumbar DDD Lumbar stenosis Diabetes Pacemaker in place Plan: 1. Explanation: Opioid and psychological risk scores were reviewed. Diagnoses, prognoses, and multiple treatment options including but not limited to physical therapy, interventional therapies, adjuvant medical therapies, narcotic medication therapies, and surgery were discussed with the patient and all questions were answered to the patient's satisfaction. 2. Opioid agreement: Signed with the patient and the patient is warned not to use opioids while driving or before driving and not to combine opioids with benzodiazepines or alcohol. 3. Counseling: The patient was counseled extensively on SMOKING CESSATION, BODY MASS INDEX, EXERCISE. Specifically, the patient was instructed regarding the importance of smoking cessation, obesity, and exercise in the context of both chronic pain and overall health. 4. Procedures: The patient may benefit from getting lumbar epidural steroid injection for his lumbar stenosis however he prefers to try physical therapy first. 5. Consultations: Referral for a course of physical therapy 6. Investigations: None 7. Medications: Give him prescription for only 10 pills of Guston 5 mg to be used as needed for severe uncontrolled pain 8. Disposition: Return to clinic as needed 9. Maps were reviewed and were appropriate.
== END ==
LOC: PNWHC3 09:31
PROVIDERS: ATTEND Anesthesiology
DX: M47.816 Spondylosis without myelopathy or radiculopathy, lumbar region (principal); M51.36 Other intervertebral disc degeneration, lumbar region; M48.061 Spinal stenosis, lumbar region without neurogenic claudication; E11.9 Type 2 diabetes mellitus without complications; F17.200 Nicotine dependence, unspecified, uncomplicated; Z95.0 Presence of cardiac pacemaker
CPT/HCPCS: 99211

== ENCOUNTER 2021-12-29 07:45 | Day surgery (SDC) | payer MEDICARE, OTHER ==
[2021-12-29] MEDS ORDERED: diazePAM 5 MG TAB PO STA (08:56)
[2021-12-29 09:10] LABS: Glucose,Whole Blood 98 mg/dL (70-110)
[2021-12-29 09:25] VITALS: RESP 18; TEMP 97.7
--- NOTE | 2021-12-29 10:42 | FL ---
PROCEDURE: FL myelogram lumbosacral DATE: 12/29/2021 CLINICAL HISTORY: 76-year-old male M5 4.10, L5-S1 bilateral radiculopathy. COMPLICATIONS: None SEDATION: 5 mg oral Valium administered by radiology nursing. The patient and the patient's vital signs were m onitored by qualified independent radiology personnel. TECHNIQUE: The procedure and potential risks were explained to patient and an informed consent was obtained with teach back. Site and side was verified. A time out was performed. The patient was placed prone on the fluoroscopy table and the L3-L4 level was localized and the skin was marked and was prepped and draped in the usual sterile fashion. Lidocaine was used for local anesthesia. Utilizing fluoroscopic guidance and a 5 inch 22-gauge spinal needle, multiple attempts were made to access the subarachnoid space. 2 attempts were made via diffe rent trajectories at the L3-L4 level and an additional attempt was made at the L5-S1 level. These wer e the only levels where we could see possible patent interlaminar spaces for needle placement. Bone w as accounted prematurely at each attempt. Extensive patient manipulation and needle manipulation was utilized. A second radiologist also attempted patient positioning for visualization of access. We were unable to access the subarachnoid space. The patient tolerated the procedure well and was sent back to the recovery room in satisfactory condi tion. The estimated blood loss was minimal. The patient's condition was unchanged following the procedure. Fluoroscopy time: 2 minutes 52 seconds Total images: 3 IMPRESSION: Unsuccessful 3 separate attempts at lumbar spine subarachnoid access for CT myelogram. Attempts were made by 2 different radiologist.
[2021-12-29 10:52] VITALS: BP 118/72; PULSE 58
== END 2021-12-29 10:30 | disposition home or self-care (01) ==
LOC: RADPROMAIN 07:45
PROVIDERS: ATTEND Nurse Practitioner Family
DX: M54.10 Radiculopathy, site unspecified (principal); Z53.8 Procedure and treatment not carried out for other reasons
CPT/HCPCS: 62304; J2001

== ENCOUNTER 2022-08-03 08:07 | Inpatient (IN) | payer MEDICARE, OTHER ==
[2022-07-28 10:47] VITALS: BMI 31.7
--- NOTE | 2022-08-02 17:32 | P.HPOR ---
History of Present Illness H&P Date: 07/26/22 .D:Date: 07/26/22 : 02:09pm .T:Title: *[facility] H&P Date of :[birth year] Age: 76 year Height: 5'9" Weight: 210 lbs BP:130/80 BMI: 31.01 kg/m2 Occupation: Retired VAS: 5 CHIEF COMPLAINT: Pre operative appointment DOI:Chronic DOS: N/A Duration of current treatment regiment: >5 months HISTORY: Xrays No new xrays taken in office Trauma or injury No Work-Related No Pain description aching, burning, increasing . Location diffuse Patient notes that their pain radiates to bilateral lower extremities Activity Modification yes Cane Hand Dominance right TREATMENTS COMPLETED: 6 weeks of PT completed? Month and Year of last PT date? 2020 Yes How many sessions? 12 Did it help? yes he is continuing exercises at home. Physician directed home exercise completed? Patient has trialed the physician directed home exercise program for 1year with slight relief of their symptoms. Medications List: mobic without relief of his symptoms. Alternative interventions Chiropractic: No Massage therapy: No R.I.C.E: yes Brace: No Injections Yes, about a year ago How many? 2 Did they help? No RFA: yes with relief SUBJECTIVE: Mr. Nixon returns to the office today for a recheck of their low back pain. Patient reports worsening lumbar pain ongoing for greater than 1 year with no known injury or trauma to indicate an exact onset of their symptoms. In addition to their lumbar pain, they do report that it radiates into the bilateral lower extremities (R>L), associated with numbness and tingling through the bilateral feet. Overall the patient has seen a progressive increase in symptoms since their onset. Mr. Nixon symptoms are exacerbated with prolonged standing, ambulation, and high impact movements like walking up and down stairs, due to this they notes that it is increasingly difficult for Mr. Nixon to complete many of their daily tasks. Patient is having severe sleep disturbances as well due to their ongoing pain and associated symptoms. Regarding treatments, the patient has previously trialed both formal physical therapy in 2020 and currently a home exercise program with slight relief. Additionally he did have 2 prior lumbar JUANITO's without relief. Patient denies trialing any other modalities at this time. For their symptoms, the patient has been taking mobic without relief of his symptoms. Otherwise the patient denies any f/c/sob/cp, no incision concerns, no bladder or bowel reten tion/incontinence, no perineal numbness/tingling, and ambulates with the use of a cane. HPI: Mr. Nixon returns to the office 06/17/2022 for a recheck of their low back pain. Patient reports worsening lumbar pain ongoing for greater than 1 year with no known injury or trauma to indicate an exact onset of their symptoms. In addition to their lumbar pain, they do report that it radiates into the bilateral lower extremities (R>L), associated with numbness and tingling through the bilateral feet. Overall the patient has seen a progressive increase in symptoms since their onset. Mr. Nixon symptoms are exacerbated with prolonged standing, ambulation, and high impact movements like walking up and down stairs, due to this they notes that it is increasingly difficult for Mr. Nixon to complete many of their daily tasks. Patient is having severe sleep disturbances as well due to their ongoing pain and associated symptoms. Regarding treatments, the patient has previously trialed both formal physical therapy in 2020 and currently a home exercise program with slight relief. Additionally he did have 2 prior lumbar JUANITO's without relief. Patient denies trialing any other modalities at this time. For their symptoms, the patient has been taking Tramadol, Ibuprofen, and gabapentin all without relief of his symptoms. Otherwise the patient denies any f/c/sob/cp, no incision concerns, no bladder or bowel retention/incontinence, no perineal numbness/tingling, and ambulates with the use of a cane. Mr. Nixon last returned to the office on 01/15/22 for a recheck of their low back pain. Patient reports a worsening lumbar pain ongoing for greater than 1 year with no known injury or trauma to indicate an exact onset of their symptoms. In addition to their lumbar pain, they do report that it radiates into the bilateral lower extremities (R>L), associated with numbness and tingling through the bilateral feet. Overall the patient has seen a progressive increase in symptoms since their onset. Mr. Nixon symptoms are exacerbated with prolonged standing, ambulation, and high impact movements like walking up and down stairs, due to this they notes that it is increasingly difficult for Mr. Nixon to complete many of their daily tasks. Patient is having severe sleep disturbances as well due to their ongoing pain and associated symptoms. Regarding treatments, the patient has previously trialed both formal physical therapy in 2020 and currently a home exercise program with slight relief. Additionally he did have 2 prior lumbar JUANITO's without relief. Patient denies trialing any other modalities at this time. For their symptoms, the patient has been taking Tramadol, Ibuprofen, and gabapentin all without relief of his symptoms. Otherwise the patient denies any f/c/sob/cp, no incision concerns, no bladder or bowel retention/incontinence, no perineal numbness/tingling, and ambulates with the use of a cane. Mr. Nixon was last seen on 10/26/2021 regarding low back pain that has worsened over the past year. Patient states the pain radiates down bilateral lower extremities with the right side being worse. Patient has complaint of bilateral feet numbness. He does state that he loses his balance frequently. He denies any trauma or falls at this time. Patient is ambulatory with a cane. He states that he has no loss of bowel or bladder. Mr. Nixon states that he has completed a course of physical therapy and has been doing exercises with the bands for approximately a year 2-3 times a week. He had an ablation last year with relief, JUANITO injections about a year ago with no relief. Patient was prescribed tramadol by PCP, patient states that it does not really work. The patients' past social, medical, family, surgical history, as well as review of systems, have been reviewed. Please refer to the Neurosurgery History and Physical form that has been scanned in to our electronic medical record system. 16 points review of systems completed and as stated in HPI, all other systems r eviewed are negative. Social History: Reviewed, see appropriate section of the chart for details. P3 Social History: Smoking: significant cut back to 2 cig/day from previous. Pt is almost quit and will be 4 weeks quit by the time surgery happens. Alcohol: None P3 Family History: Reviewed, see appropriate section of the chart for details. P2 Past Medical History: Reviewed, see appropriate section of the chart for details. B2Dkselqb Medications: Rx: ALPRAZolam Ref: 0 Rx: ASPIRIN EC 81MG ORAL Tablet, Ref: 0 Rx: DICLOFENAC SODIUM 75MG ORAL Tablet, Ref: 0 Rx: glimepiride 1 mg tablet Ref: 0 Rx: PRAVASTATIN SODIUM 80MG ORAL Tablet, Ref: 0 Rx: sertraline 100 mg tablet Ref: 0 Rx: SOTALOL HCL (AF) 80MG ORAL Tablet, Ref: 0 Rx: bumetanide 0.5 mg tablet Ref: 0 Rx: Entresto 97 mg-103 mg tablet Ref: 0 Rx: traMADol 50 mg tablet Ref: 0 Rx: Vitamin Ref: 0 Rx: vitamin B complex Ref: 0 Rx: ibuprofen 600 mg tablet Ref: 0 Rx: meloxicam 15 mg tablet Ref: 0 PHYSICAL EXAMINATION: General: Awake, alert, appropriate for age, in no acute distress. HEENT: No unusual neck masses around region of lateral neck triangle, thyroid, supraclavicular groove Heart: Regular rate and rhythm, normal S1, S2 and no murmur/gallop. Lungs: Clear to auscultation bilaterally with no use of accessory muscles. Extremities: Skin warm and dry without acute lesions, coloration, temperature, skin intact, no tenderness or erythema Integument: Hairy patches: Absent Dorsal skin dimples: Absent Cafe au lait spots: Absent Surgical incisions: No Palpation: Please see Pain drawing on Intake sheet for further detail. Midline spinal tenderness: yes E6 Paralumbar tenderness: No E6 Parathoracic tenderness: No E6 Buttocks tenderness: No E6 Special findings: No POSTURAL and MUSCULO-SKELETAL EVALUATION: Coronal Balance: NEUTRAL Recumbent testing: Patient is able to lay flat on back Sagittal Balance: NEUTRAL Shoulder Profile: LEVEL Pelvic Girdle: LEVEL Neck ROM: UNRESTRICTED Lumbar ROM: RESTRICTED Shoulder ROM: Symmetrical Hip ROM: Symmetrical Knee ROM: Symmetrical Hands: Normal appearance, symmetrical Feet: Normal appearance, Symmetrical VASCULAR STATUS : LEFT RIGHT Wrist Pulses INTACT INTACT Pedal Pulses (Dors. pedis & post.tibialis) INTACT INTACT Color NORMAL NORMAL Edema Absent Absent NEUROLOGIC EXAMINATION: Mental Status:Awake and alert, fully oriented, with normal attention, concentration and memory, and fluent, appropriate speech. Cranial Nerves: I: Olfactory not tested. II: Visual acuity normal, no visual field deficit noted with confrontation. III,IV: Normal pupillary reflexes & intact extraocular movements without nystagmus. V,: Intact symmetrical facial sensation. VII: Intact symmetrical facial motor movement VIII: Hearing intact. IX,X: Intact gag, swallow, & normal voice. XI: Sternocleidomastoid, trapezius function intact. XII: Tongue midline with normal movements. L'hermitte's Sign: Negative / absent Spurling'Sign: Absent bilaterally. Cubital percussion test: Absent bilaterally. Borges-Tinel sign - Carpal region: Absent bilaterally. Straight Leg Raising: Absent bilaterally. Crossed straight leg raise: negative O8 MOTOR EXAM (0-5/5, N/T) STRENGTH RIGHT LEFT Shoulder Abd (not part of the TONY score) 5 5 Elbow Flexors 5 5 Elbow Extensor 5 5 Wrist Dorsiflexors 5 5 Finger Abductor 5 5 Fruit Packer 5 5 Hip Flexor (Not part of TONY Motor score) 4 5 Knee Flexor 4 5 Knee Extensor 4 5 Ankle dorsiflexor 4 4 Ankle plantarflexion 4 4 Extensor hallucis 4 4 Positive left foot drop REFLEXES(0-4/2, NT) RIGHT LEFT Upper Extremities 2 2 Lower Extremities 2 2 Pathological Reflexes RIGHT LEFT Borges's Absent Absent Clonus Absent Absent Babinski Absent Absent # Indicates mechanical impairment Muscle appearance: Symmetrical, without signs of atrophy or dystrophy. Sensory system (0-4, N/T) Test type RU MARYSOL RL LL Joint-Position 2 2 2 2 Vibration 2 2 2 2 Pain & LT sense 2 2 2 2 Dermatomal Deficit: None None None None Gait and Functional Evaluation: Ambulatory aids: Cane Romberg's test: Intact bilaterally Toe heel walk / heel-toe walk intact while maintaining satisfactory balance? yes Squatting/straightening w/o assistance to a min of 60 degree knee flexion? No Single leg stance: No Hand and finger dexterity intact bilaterally? yes Disdiadochokinesis examination negative bilaterally? yes RADIOGRAPHIC STUDIES: CT myelogram scan from06/03/22 at [facility] of LumbarSpine: This demonstrates severe spondylotic changes from L2-S1 with vacuum disc, disc collapse, osteophyte posteriorly, b/l facet arthrosis causing significant stenosis along with ligamental hypertyrophy and disc bulges that causes the same. No acute fractures. No lesions noted. XRay 5 views, multiview taken on 10/26/21 at [facility] of Lumbar Spine and Pelvis: lumbar spine alignment appears normal. Spondylytic changes noted throughout lumbar region. Facet arthropathy L4 to L5 and L5 to S1. L5 to S1 grade 1 retrolisthesis. No acute osseous abnormalities. CT scanwithout contrast from 06/17/2020 at [facility] of Lumbar Spine: 1. MODERATE TO ADVANCED DISC/ENDPLATE DEGENERATIVE CHANGE ESPECIALLY MID TO LOWER LUMBAR SPINE WITH HYPERTROPHIC FACET ARTHROPATHY, SLIGHTLY PROGRESSED FROM 2015. 2. DEGENERATIVE GRADE 1 RETROLISTHESIS AT L2/L3. NO VERTEBRAL COMPRESSION COLLAPSE. 3. BULGING DISKS CONTRIBUTE TO [id number] SPINAL CANAL NARROWING AT L2- L3, L3-L4, L4-L5. 4. VARIABLE BILATERAL NEUROFORAMINAL STENOSES OUTLINED ABOVE, GREATEST ON BOTH SIDES AT T11-T12 AND ON THE LEFT AT L4-L5 AND L5-S1. IMPRESSION: It was my pleasure to have seen and examined Lan. I reviewed the patient's clinical syndrome, physical findings, and imaging studies during the appointment today. It is my impression that the patient has a diagnosis of. 1. L2-S1 spondylosis with severe stenosis 2. neurogenic claudication 3. left lower extremity weakness 4. Left foot drop I outlined the natural course history without intervention and various interventional options. PLAN: Based on my findings I suggest the following course of action: - I discussed treatment options with the patient, including operative and non-operative options, and they have elected to proceed with the following surgical procedure: lumbar (L2-Pelvis) Decompression and Fusion The indications, risks, benefits, and alternatives to surgery were discussed wit h the patient and family at length. Specifically (but not limited to) the risks of infection, stiffness, recurrence of symptoms, need for revision surgery, local numbness, neurovascular injury, and blood clots were discussed. The patient's questions were answered. The decision to proceed was made. Consent will be obtained for the procedure. SMOKING CESSATION FOLLOW UP The patient and I have discussed their current Stop Smoking plan and how the plan has been going. They state they have been cutting back and are down to nearly less than 2 cigarettes a day wich is a large improvement, and that it is going well. They state they have noticed the effects of their plan and are happy with their progress. We discussed again their plan as well as the benefits of quitting. We have adjusted their plan as necessary, and the patient is comfortable with this. We will check back with them on our next visit to see how they are doing with this. Time Spent: 3-10 min Spine Surgery Risk Review Mr. Deriemacker is presenting for evaluation of low back pain. It was my pleasure to have seen and examined Mr. Nixon. In our visit today we have had a chance to go over subjective complaints, physical examination findings and treatments including the natural course history without intervention and various interventional options. The patients imaging demonstrates: CT myelogram scan from06/03/22 at [facility] of LumbarSpine: This demonstrates severe spondylotic changes from L2-S1 with vacuum disc, disc collapse, osteophyte posteriorly, b/l facet arthrosis causing significant stenosis along with ligamental hypertyrophy and disc bulges that causes the same. No acute fractures. No lesions noted. XRay 5 views, multiview taken on 10/26/21 at [facility] of Lumbar Spine and Pelvis: lumbar spine alignment appears normal. Spondylytic changes noted throughout lumbar region. Facet arthropathy L4 to L5 and L5 to S1. L5 to S1 grade 1 retrolisthesis. No acute osseous abnormalities. CT scanwithout contrast from 06/17/2020 at [facility] of Lumbar Spine: 1. MODERATE TO ADVANCED DISC/ENDPLATE DEGENERATIVE CHANGE ESPECIALLY MID TO LOW ER LUMBAR SPINE WITH HYPERTROPHIC FACET ARTHROPATHY, SLIGHTLY PROGRESSED FROM 2014. 2. DEGENERATIVE GRADE 1 RETROLISTHESIS AT L2/L3. NO VERTEBRAL COMPRESSION COLLAPSE. 3. BULGING DISKS CONTRIBUTE TO UOGU-DA-IEREHQLR SPINAL CANAL NARROWING AT L2- L3, L3-L4, L4-L5. 4. VARIABLE BILATERAL NEUROFORAMINAL STENOSES OUTLINED ABOVE, GREATEST ON BOTH SIDES AT T11-T12 AND ON THE LEFT AT L4-L5 AND L5-S1 On physical exam, Mr. Nixon demonstrates significantly restricted lumbar ROM regarding flexion/extension/twisting due to pain. Furthermore the patient demonstrates bilateral lower extremity raiduclopathy and weakness impacting his gait stability. Overall functional testing is very limited due to pain. Patient ambulating with the use of a cane for stability. I have explained to the patient that as their condition progresses it will cause further neurological deficits and eventual paralysis. Based on the patients imaging, physical exam, and the rapid progression and disabling nature of their symptoms, at this time I recommend surgery in the form or a: lumbar (L2- Pelvis) Decompression and Fusion . I discussed the risk and benefits of this procedure at length with Mr. Nixon. The patient agreed to considered pursuing the procedure abovementioned. Prior to surgery, she should follow up with her PCP (Cardio, ID, IM etc) for clearance. Questions were invited and answered, and the patient wishes to proceed as outlined below. Currently, I am recommendin.lumbar (L2-Pelvis) Decompression and Fusion 2.Follow up with PCP for surgical clearance 3.Review of surgical risks and benefits as well as an educational packet on the proposed surgical procedure. Risks: All surgical procedures come with inherent risks, including those related to positioning, anesthesia, intraoperative findings, and postoperative complications. It is important to understand that surgery does not come with any guarantee of a successful outcome as complications and adverse events are al ways possible. The patient was given a handout in office today discussing the surgical procedure and risks associated with the intervention, both of which were discussed with the patient. These risks include but are not limited to the following: * Experiencing same, different or even worse symptoms in back, neck, arms, or legs compared to before surgery. Requiring further surgery or other forms of treatment presently or at some time in the future at same or other levels of the intended spine surgery. On an extreme but fortunately relatively rare basis severe complication cormier ch as blindness, stroke, heart attack, temporary and/or permanent nerve injury, paralysis, coma, or may occur, sometimes without known explanation. Surgical complications may include but are not limited to risk of infection, fluid accumulation in the surgical dissection site, including a seroma or hematoma, that requires additional surgery, wound drainage, bleeding, new numbness or weakness, vision changes/loss, spinal fluid leakage, non-healing and/or infected incision, headaches, difficulty or inability to swallow, hoarseness, hemopneumothorax, pneumothorax, impotence, retrograde ejaculation, vaginal dryness; injury to nerves, spinal cord, blood vessels, lymphatics or other vital organs (i.e., bowel injury, injury to the great vessels); heterotopic bone formation; complications related to the hardware such as screws, rods, cages including misplaced hardware, device failure, instrumentation at the wrong spine level, hardware fracture/breakage, or hardware loosening; vertebral failure of the spinal column above or below the newly placed hardware; retained surgical instrumentations or devices and the need for further surgery. * Medical risks of the planned spine surgery include but are not limited to generalized Infections to the whole body or local areas outside of the surgical site (sepsis), heart attack, bleeding, anaphylaxis, meningitis, seizure, epilepsy, hearing loss, burn fowler, laceration of the head or other areas of the body, bruising, hypersensitivity of the skin, bladder over distension; allergic reaction; shoulder injury related to positioning; fat, blood and air clots to other areas of the body like heart, lungs, brain; failure of internal organs such as lungs, kidneys, liver and excessive bleeding. If blood transfusions are necessary, note that transfusions may cause intolerance reactions such as anaphylaxis or other complex reactions. Despite best efforts, the results of spine surgery might not heal in terms of bone, soft tissues such as skin, fascia, ligaments, and joints. Additionally, in order to achieve best possible results, spine surgery may be carried out beyond the initially planned levels and involve decompression, fusion including insertion of hardware at levels other than the original intended area of surgical interest change some portions of the procedure in order to ensure the best possible outcomes. With spine surgery and spinal fusion, there are different off label uses of instrumentation (devices, implants and hardware) as well as biological substances (bone morphogenic proteins, demineralized bone matrix) as well as using extra bone from allograft sources (i.e. cadaver bone) or autograft (iliac crest bone, ribs, or the spine itself). The patient has been given information about these practices and their inherent risks and benefits. [facility] is an educational center that serves as a training facility for neurosurgical and orthopedic COIL ASSEMBLER and Nursing students. Physician assistants are medically trained surgical providers who function in the outpatient, inpatient, and operating room setting under the direct supervision of the attending surgeon. [facility] has multiple operating rooms with single and overlapping rooms running daily. They currently function under the required guidelines as produced by the [facility] Finance Committee with regards to the overlapping rooms and will continue to comply with changes to this policy as they occur. The requirements include and are complied with as follows: (1) the critical portions of the overlapping rooms will not occur at the same time, (2) the attending physician will be physically present during the critical portions of the procedure and immediately available during the entire case, and (3) a back-up attending is designated should the primary attending not be immediately available. The patient has had a chance to review all the listed information, has been given print outs detailing this information, and has had all his/her questions answered to their satisfaction. It was my pleasure to have seen and examined Mr. Nixon. In our visit today we have had a chance to go over my understanding of our patient's current condition, the natural course history without intervention and various interventional options. Questions were invited and answered, and the patient wishes to proceed as outlined above. I have seen and examined the patient for 25 minutes and we have spent more than 50% of the time in repeat and detailed counseling about the patient's condition, its natural course history with out and as much as can be predicted with surgery and re-review of various surgical treatment options. In conclusion, Mr. Nixon requested we proceed with the above suggested surgery and are willing to accept risks and limitations of the suggested surgery as nature of the disease process and our best attempts at treatment for the condition. Thank you again for allowing us to be part of your patient's care. Please don't hesitate to contact me if you have any further questions. Signed and authenticated by: FOLLOW-UP DEL Post procedure Pt Education (Informational booklet, instructions, etc) given at today's appointment: DEL Yes .ED:Patient Education: Y Medications Reviewed: YES Attestation: In our visit today Mr. Nixon and I have had a chance to go over my understanding of the patient's current condition, the natural course history without intervention and various interventional options. Questions were invited and answered, and the patient wishes to proceed as outlined above. I will be sure to keep you updated afterMr. Nixon returns here for further follow-up. Thank you again for your referral. Please do not hesitate to contact me if you have any further questions. Signed and authenticated by: Abdi Tate [facility] [address] [facility], [address] [address] This message is confidential, intended only for the named recipient(s) and may contain information that is privileged or exempt from disclosure under applicable law. If you are not the intended recipient(s), you are notified that the dissemination, distribution or copying of this information is strictly prohibited. If you received this message in error, please notify the sender then delete this message. Patient verbalizes understanding of the information discussed. The above note was initiated by Debo Bravo, physician recording accounting manager assistant controller for Dr. Abdi Curry. This note has been reviewed by Dr. Curry, who has made his personal changes and impressions for this document. CC: Morro Kelly M.D. Past Medical History Past Medical History: Cancer, Heart Failure, COPD, Diabetes Mellitus, Hyperlipidemia, Hypertension, Osteoarthritis (OA), Renal Disease, Sleep Apnea/CPAP/BIPAP Additional Past Medical History / Comment(s): hx melanoma., arthritis back and shoulders., oxygen at 2L 3-4 hrs /day., uses c-pap machine. lower back pain, pacemaker. History of Any Multi-Drug Resistant Organisms: None Reported Past Surgical History: Heart Catheterization, Joint Replacement, Pacemaker Additional Past Surgical History / Comment(s): RT KNEE REPLACEMENT 2001, COLONOSCOPY - multiple pain clinic procedure , cataracts., pacemaker at [facility] and battery change 4-5 years ago. Past Anesthesia/Blood Transfusion Reactions: No Reported Reaction Type of Cardiac Device: Permanent Pacemaker Device Placement Date:: 2011 Past Psychological History: Anxiety, Depression Smoking Status: Former smoker Past Alcohol Use History: None Reported Additional Past Alcohol Use History / Comment(s): SMOKER SINCE AGE 20(1963) 1/2 PPD-quit 10/22/20 Past Drug Use History: Marijuana Additional Drug Use History / Comment(s): no current use - Past Family History Mother Family Medical History: Diabetes Mellitus Additional Family Medical History / Comment(s): HEART PROBLEMS. Father Family Medical History: Diabetes Mellitus, Hypertension Additional Family Medical History / Comment(s): HEART PROBLEMS. Medications and Allergies Home Medications Medication Instructions Recorded Confirmed Type ALPRAZolam [Xanax] 1 mg PO BID PRN 01/20/15 07/28/22 History Pravastatin Sodium [Pravachol] 80 mg PO HS 01/20/15 07/28/22 History Sertraline [Zoloft] 100 mg PO DAILY 08/01/19 07/28/22 History Sotalol [Betapace] 80 mg PO BID 08/01/19 07/28/22 History Sacubitril/Valsartan [Entresto 97 1 each PO BID 06/23/20 07/28/22 History mg-103 mg Tablet] Glimepiride [Amaryl] 1 mg PO AC-BRKFST 07/15/20 07/28/22 History Gabapentin 300 mg PO TID 11/19/21 07/28/22 History Fluticasone/Umeclidin/Vilanter 1 puff INHALATION DAILY 07/28/22 07/28/22 History [Trelegy Ellipta 200-62.5-25] Meloxicam [Mobic] 15 mg PO DAILY 07/28/22 07/28/22 History Vitamin B Complex 1 each PO DAILY 07/28/22 07/28/22 History Allergies Allergy/AdvReac Type Severity Reaction Status Date / Time No Known Allergies Allergy Verified 07/28/22 10:14 Physical Examination Osteopathic Statement: *. No significant issues noted on an osteopathic structural exam other than those noted in the History and Physical/Consult.
[~2022-08-03 08:07] MED LIST changes: +ACETAMINOPHEN TAB 500 MG TAB PO PRN; +GABAPENTIN 300 MG CAP PO PRN; -IV FLUID CONTINUATION 800 ML IV ONE; -LACTATED RINGERS 1,000 ML IV ONE; -LACTATED RINGERS 1,000 ML IV SCH; +LIDOCAINE 1% (10MG/ML) FOR IV START INTRADERMA PRN; -MIDAZOLAM 2 MG/2 ML VIAL ONE; +ONDANSETRON 4 MG/2 ML VIAL IVP ONE; +ONDANSETRON 4 MG/2 ML VIAL IVP PRN; -ROPIVACAINE 5MG/ML 20ML VIAL ONE; +TRANEXAMIC ACID IN NACL,ISO-OS 1,000 MG in SALINE 1 100ML.BAG IVPB PRN; -TRIAMCINOLONE ACETONIDE 40 MG/ML 1 ML VIAL ONE; -fentaNYL (PF) 50 MCG/ML 2 ML AMP ONE
[2022-08-03] MEDS: LACTATED RINGERS 1,000 ML IV SCH (09:04)
[2022-08-03 09:16] LABS: Glucose,Whole Blood 105 mg/dL (70-110)
[2022-08-03 09:43] LABS: Prothrombin Time 10.9 sec (9.0-12.0)
[2022-08-03] MEDS ORDERED: MIDAZOLAM 2 MG/2 ML VIAL IVP ONE (09:49)
[2022-08-03] MEDS ORDERED: fentaNYL (PF) 50 MCG/1 ML VIAL IVP ONE (09:49)
[2022-08-03] MEDS ORDERED: HYDROCORTISONE SUCCINATE 100 MG/2 ML VIAL IVP ONE (10:15)
[2022-08-03] MEDS ORDERED: ROCURONIUM 10 MG/ML (5 ML VIAL) IV ONE (10:28)
[2022-08-03] MEDS ORDERED: SUCCINYLCHOLINE CHLORIDE 200 MG/10 ML VIAL IV ONE (10:28)
[2022-08-03] MEDS ORDERED: PROPOFOL 10 MG/ML 20 ML VIAL IV ONE (10:28)
[2022-08-03] MEDS ORDERED: fentaNYL (PF) 50 MCG/ML 2 ML AMP ONE (10:28)
[2022-08-03] MEDS ORDERED: KETAMINE 10 MG/ML 20 ML VIAL ONE (10:28)
[2022-08-03] MEDS ORDERED: ceFAZolin 1,000 MG VIAL ONE (10:28)
[2022-08-03] MEDS ORDERED: LIDOCAINE 2% INJ 20 MG/ML (2 ML VIAL) ONE (10:28)
[2022-08-03] MEDS ORDERED: PHENYLEPHRINE-0.9% NACL SYG 1,000 MCG/10 ML SYRINGE ONE (10:28)
[2022-08-03] MEDS ORDERED: TRANEXAMIC ACID IN NACL,ISO-OS 1,000 MG/100 ML BAG ONE (10:28)
[2022-08-03] MEDS ORDERED: SODIUM CHLORIDE 0.9% 100 ML BAG ONE (10:28)
[2022-08-03] MEDS ORDERED: LACTATED RINGERS 1,000 ML IV ONE ×2 (11:48→15:58)
[2022-08-03] MEDS ORDERED: HYDROcodone/APAP 5-325MG 1 EACH TAB PO PRN (11:58)
[2022-08-03] MEDS ORDERED: HYDROcodone/APAP 10-325MG 1 EACH TAB PO PRN (11:58)
[2022-08-03] MEDS ORDERED: MAGNESIUM HYDROXIDE 2,400 MG/10 ML CUP PO PRN (11:58)
[2022-08-03] MEDS ORDERED: SENNOSIDES-DOCUSATE SODIUM 1 EACH TAB PO PRN (11:58)
[2022-08-03] MEDS ORDERED: HYDROmorphone 0.5 MG/0.5 ML SYRINGE IVP PRN (11:58)
[2022-08-03] MEDS ORDERED: GENTAMICIN 80 MG in SODIUM CHLORIDE 0.9% IRRIGATIO 3,000 ML IRRIGATION ONE (12:00)
[2022-08-03] MEDS ORDERED: ceFAZolin 3,000 MG in SODIUM CHLORIDE 0.9% IRRIGATIO 3,000 ML IRRIGATION ONE (12:02)
[2022-08-03] MEDS ORDERED: THROMBIN (BOVINE) 5,000 UNIT VIAL TOPICAL ONE ×2 (12:23)
[2022-08-03] MEDS ORDERED: GELATIN SPONGE,ABSORB (LARGE) 1 EACH SPONGE TOPICAL ONE (12:23)
[2022-08-03] MEDS ORDERED: VANCOMYCIN 1,000 MG VIAL MISCELLANE ONE (15:36)
--- NOTE | 2022-08-03 15:50 | XR ---
Intraoperative/procedural fluoroscopic services were provided for L2-pelvis fusion. Total fluoroscopy time is 1 minute 49 seconds with a total of 11 submitted images to PACS. Total DAP 2812.725. Please see the operative note for further details.
[2022-08-03] MEDS: HYDROmorphone 0.5 MG/0.5 ML SYRINGE IVP PRN ×2 (16:37→16:45)
--- NOTE | 2022-08-03 16:52 | XR ---
EXAMINATION TYPE: XR chest 1V confirm line [facility] DATE OF EXAM: 08/03/2022 COMPARISON: NONE HISTORY: Line placement TECHNIQUE: Single view FINDINGS: There is right jugular catheter with tip in the superior vena cava. There is coarsening of the interstitial markings. Heart is borderline enlarged. There is left axillary pacemaker. No heart f ailure seen. No definite pleural effusion. IMPRESSION: Mild Pulmonary fibrosis. Central venous catheter in good position in the superior vena ca va.
[2022-08-03 17:05] LABS: Glucose,Whole Blood 119 mg/dL (70-110)
[2022-08-03] MEDS: GABAPENTIN 300 MG CAP PO SCH ×2 (18:36→21:09)
[2022-08-03] MEDS: ACETAMINOPHEN TAB 325 MG TAB PO SCH ×2 (18:52→23:55)
[2022-08-03] MEDS: HYDROmorphone 1 MG/ML 1 ML SYRINGE IVP PRN (18:53)
[2022-08-03 20:21] LABS: Glucose,Whole Blood 108 mg/dL (70-110)
--- NOTE | 2022-08-03 22:25 | CT ---
EXAMINATION TYPE: CT lumbar spine wo con DATE OF EXAM: 08/03/2022 COMPARISON: None HISTORY: post op lumbar fusion CT DLP: 2215.6 mGycm Automated exposure control for dose reduction was used. Images obtained from the level of T12-S3 vertebra with no contrast. The vertebra have normal alignment. There are rods and screws fusing posteriorly the lumbar spine fro m the level of S2 to the L2 vertebral body. There is posterior skin dyllan. There is multilevel lami nectomy defect. There is some minimal soft tissue air at the incision site posteriorly. The exam is l imited by metal artifact. No compression fracture. There is disc prosthesis from L2 to S1. No evidence of paraspinal mass. Ther e is significant atrophy of the right psoas muscle. No retroperitoneal adenopathy. No focal bone dest ruction. IMPRESSION: 1 the level posterior fusion surgery. Spondylotic multilevel degenerative disc changes. No complicati ng process seen. Right psoas muscle atrophy.
--- NOTE | 2022-08-04 03:15 | P.CONS ---
History of Present Illness - Reason for Consult Consult date: 08/03/22 - History of Present Illness The patient is a 77-year-old male with a PMH of type II DM, hypertension, COPD, and chronic lower back pain who was admitted for an elective lumbar decompression and fusion. The patient underwent the procedure earlier today and was seen postoperatively on the surgical unit. Patient reported ongoing pain, rated at a 6 out of 10 at the time of interview in his lower back. The patient denied any additional complaints. He denied experiencing chest discomfort, shortness of breath, fever, chills, cough, sore throat, nausea, vomiting. Patient reports compliance with all his home medications. Review of systems: Pertinent positives and negatives as discussed in HPI, a complete review of s ystems was performed and all other systems are negative. Physical examination: Vital signs reviewed General: non toxic, no distress, appears at stated age, obese Derm: no unusual rashes/lesions, warm Head: atraumatic, normocephalic, symmetric Eyes: EOMI, no lid lag, anicteric sclera, pupils equal round reactive to light ENT: Nose and ears atraumatic Neck: No cervical lymphadenopathy, trachea midline, supple Mouth: no lip lesion, mucus membranes moist Cardiovascular: S1S2 reg, no murmur, positive dorsalis pedis pulse bilateral, no edema Lungs: CTA bilateral, no rhonchi, no rales, no accessory muscle use Abdominal: soft, nontender to palpation, no guarding Ext: muscle strength 4 out of 5 of bilateral lower extremities, strength 5 out of 5 in bilateral upper extremities, no gross muscle atrophy, no contractures, Neuro: CN II-XI grossly intact, no gross focal neuro deficits Psych: Alert, oriented, appropriate affect Assessment: Chronic conditions: Hypertension, COPD, type II DM Status post lumbar decompression and fusion Data Review: Laboratory evaluation reviewed with potassium 5.0, glucose 105, INR 1.0. Plan: Continue the following home medications: -Pravachol 80 mg by mouth daily at bedtime -Trelegy inhaler qd -Sotalol 80 mg po bid -Zoloft 100 mg po qd -Entresto po bid Insulin sliding scale blood glucose monitoring Defer management of pain control and DVT prophylaxis to the primary surgery ser vice Past Medical History Past Medical History: Cancer, Heart Failure, COPD, Diabetes Mellitus, Hyperlipidemia, Hypertension, Osteoarthritis (OA), Renal Disease, Sleep Apnea/CPAP/BIPAP Additional Past Medical History / Comment(s): hx melanoma., arthritis back and shoulders., oxygen at 2L 3-4 hrs /day., uses c-pap machine. lower back pain, pacemaker. History of Any Multi-Drug Resistant Organisms: None Reported Past Surgical History: Heart Catheterization, Joint Replacement, Pacemaker Additional Past Surgical History / Comment(s): RT KNEE REPLACEMENT 2001, COLONOSCOPY - multiple pain clinic procedure , cataracts., pacemaker at [facility] and battery change 4-5 years ago. Past Anesthesia/Blood Transfusion Reactions: No Reported Reaction Type of Cardiac Device: Permanent Pacemaker Device Placement Date:: 2011 Past Psychological History: Anxiety, Depression Smoking Status: Former smoker Past Alcohol Use History: None Reported Additional Past Alcohol Use History / Comment(s): SMOKER SINCE AGE 20(1962) 1/2 PPD-quit 10/22/20 Past Drug Use History: Marijuana Additional Drug Use History / Comment(s): no current use - Past Family History Mother Family Medical History: Diabetes Mellitus Additional Family Medical History / Comment(s): HEART PROBLEMS. Father Family Medical History: Diabetes Mellitus, Hypertension Additional Family Medical History / Comment(s): HEART PROBLEMS. Medications and Allergies Home Medications Medication Instructions Recorded Confirmed Type ALPRAZolam [Xanax] 1 mg PO BID PRN 01/20/15 07/28/22 History Pravastatin Sodium [Pravachol] 80 mg PO HS 01/20/15 08/03/22 History Sertraline [Zoloft] 100 mg PO DAILY 08/01/19 07/28/22 History Sotalol [Betapace] 80 mg PO BID 08/01/19 07/28/22 History Sacubitril/Valsartan [Entresto 97 1 each PO BID 06/23/20 07/28/22 History mg-103 mg Tablet] Glimepiride [Amaryl] 1 mg PO AC-BRKFST 07/15/20 08/03/22 History Gabapentin 300 mg PO TID 11/19/21 07/28/22 History Fluticasone/Umeclidin/Vilanter 1 puff INHALATION DAILY 07/28/22 08/03/22 History [Trelegy Ellipta 200-62.5-25] Meloxicam [Mobic] 15 mg PO DAILY 07/28/22 07/28/22 History Vitamin B Complex 1 each PO DAILY 07/28/22 08/03/22 History Allergies Allergy/AdvReac Type Severity Reaction Status Date / Time No Known Allergies Allergy Verified 08/03/22 08:38 Physical Exam Vitals: Vital Signs Temp Pulse Pulse Resp BP BP Pulse Ox 08/03/22 20:00 98.1 F 55 L 17 122/66 96 08/03/22 18:04 60 16 165/75 100 08/03/22 17:49 60 16 153/77 100 08/03/22 17:34 60 16 147/65 98 08/03/22 17:19 60 16 165/72 99 08/03/22 16:56 58 L 16 138/65 97 08/03/22 16:40 67 16 147/70 100 08/03/22 16:25 96.8 F L 62 18 154/77 99 08/03/22 10:19 64 16 135/71 99 08/03/22 10:14 64 16 125/76 99 08/03/22 10:09 62 16 126/65 97 08/03/22 10:04 64 16 108/67 93 L 08/03/22 09:59 64 16 101/63 93 L 08/03/22 08:41 97.5 F L 54 L 18 114/61 94 L Intake and Output 08/03/22 08/03/22 08/04/22 14:59 22:59 06:59 Intake Total 2051 250 Output Total 1655 Balance 2051 -140 Intake: IV 2051 250 Output: Urine 855 Estimated Blood Loss 800 Other: Voiding Method Indwelling Catheter Weight 97.7 kg 97.7 kg Results CBC & Chem 7: 08/03/22 09:09 Labs: Abnormal Lab Results - Last 24 Hours (Table) 08/03/22 Range/Units 17:03 POC Glucose (mg/dL) 119 H (70-110) mg/dL
[2022-08-04] MEDS: ACETAMINOPHEN TAB 325 MG TAB PO SCH ×4 (05:32→23:32)
[2022-08-04] MEDS: LACTATED RINGERS 1,000 ML IV SCH (06:03)
[2022-08-04 06:10] LABS: Glucose,Whole Blood 108 mg/dL (70-110)
[2022-08-04] MEDS: INSULIN ASPART (NovoLOG) 100 UNIT/ML VIAL SQ SCH ×4 (06:24→20:43)
[2022-08-04] MEDS: IPRATROPIUM 0.5 MG/2.5 ML NEBU INHALATION SCH ×4 (07:57→20:47)
[2022-08-04] MEDS: SYMBICORT 160-4.5 MCG INHALER INHALATION SCH ×2 (07:57→20:47)
[2022-08-04] MEDS: SERTRALINE 100 MG TAB PO SCH (08:07)
[2022-08-04] MEDS: HYDROmorphone 1 MG/ML 1 ML SYRINGE IVP PRN ×2 (08:07→15:42)
[2022-08-04] MEDS: GABAPENTIN 300 MG CAP PO SCH ×3 (08:07→20:43)
[2022-08-04] MEDS: SACUBITRIL/VALSARTAN 97 MG-103 MG TABLET PO SCH ×2 (08:08→20:43)
[2022-08-04] MEDS: SOTALOL 80 MG TAB PO SCH ×2 (08:08→20:43)
--- NOTE | 2022-08-04 08:20 | P.PN ---
Subjective Progress Note Date: 08/04/22 Principal diagnosis: 1. L2-S1 spondylosis with severe stenosis 2. Neurogenic claudication 3. Left lower extremity weakness 4. Left foot drop Patient seen and examined this morning. Patient was resting in bed. Upon entering the room Hemovac was laying on the floor, no longer able to hold suction due to being pulled from patient. Hemovac drain was removed, informed RN that there was an output of 180 mLs. Suture removed and dressing reapplied. Overall patient is doing well, states he has sat up in bed since procedure and is tolerating activity well. Patient reports improvement of his symptoms in bilateral lower extremities and feels that he has increased strength in his left foot. Carrillo catheter present, may be removed this morning. Encouraged patient to work with physical therapy today. LSO brace prescription has been placed in chart patient will require this for discharge, required to wear during transportation. Patient has been afebrile, denies nausea/vomiting, or chest pain. Objective - Vital Signs Vital signs: Vital Signs Temp 98.8 F 08/04/22 07:05 Pulse 66 08/04/22 07:05 Resp 16 08/04/22 07:05 BP 128/67 08/04/22 07:05 Pulse Ox 92 L 08/04/22 07:05 FiO2 Intake & Output 08/03/22 08/04/22 08/04/22 18:59 06:59 18:59 Intake Total 2302 Output Total 1655 750 Balance 647 -750 Weight 97.7 kg Intake: IV 2302 Output: Drainage 200 Back 200 Urine 855 550 Estimated Blood Loss 800 Other: Voiding Method Indwelling Catheter - Exam Physical Examination General: The patient is awake and alert, in no acute distress Skin: Skin is warm and dry with no obvious rashes or lesions. Surgical incision to the lumbar spine, dressing is clean dry and intact. Hemovac drain has been removed, 380 mL output overnight. Eye: Pupils are equal, round and reactive to light, extra-ocular movements are intact; there is normal conjunctiva bilaterally. Neck: The neck is supple, there is no tenderness and ROM intact. Cardiovascular: There is a regular rate and rhythm. No murmur, rub or gallop is appreciated. Respiratory: Lungs are clear to auscultation, respirations are non-labored, breath sounds are equal. Gastrointestinal: Soft, non-distended, non-tender abdomen. Back: There is no tenderness to palpation in the midline, paralumbar, parathoracic or buttocks region. There is no obvious deformity . Musculoskeletal: ROM limited secondary to pain and stiffness from surgical procedure. Muscle strength in all major muscle groups of bilateral upper extremities 5/5, bilateral lower extremities 4-/5, left dorsiflexion and plantar flexion 4/5. Neurological: CN 2-12 intact. There are no obvious motor or sensory deficits. Movement and coordination equal and intact. Sensory exam to light touch intact C5-T1 and intact from L2-S1. Reflexes 2/4 in bilateral upper and lower extremities. Negative Hoffmans, babinski, and clonus signs. Psychiatric: Cooperative, appropriate mood & affect, normal judgment. - Labs CBC & Chem 7: 08/03/22 09:09 Labs: Abnormal Lab Results - Last 24 Hours (Table) 08/03/22 Range/Units 17:03 POC Glucose (mg/dL) 119 H (70-110) mg/dL Assessment and Plan Assessment: Postop day 1: [id number] decompression and fusion 1. L2-S1 spondylosis with severe stenosis 2. neurogenic claudication 3. left lower extremity weakness 4. Left foot drop Plan: -Appreciate child development consultant and team management. -Activity: Ambulate QID, OOB all meals, up and about, limit lifting bending twisting to less than 5 lbs. Use walker or cane if needed for stability. -Daily PT/OT, increase ambulation strength and balance. -Brace when up and about, not needed in bed or chair -Prescription for LSO brace placed in chart. Pateint will require this before discharge. He will require to wear this during transportation. -Pain control: Adequate at this time -Meds: reviewed -GI ppx: senna, Miralax -DC carrillo when up and about, bedside commode if needed -DVT PPX: OK to restart Heparin tonight -Hygiene: Shower today. Maintain dressing clean and dry. Meticulous cleaning after BMs away from the incision site -Encourage IS 10x/hr -Dispo: Anticipate discharge home with homecare in the next 24-48hrs *I reviewed and discussed this case with my attending Dr. Curry, whom has reviewed this chart and films and is in agreement with assessment and plan of care as outlined above. I have personally seen and examined the patient, performed the documentation and the assessment and plan as written. Number of minutes spent on the visit: 20m.
[2022-08-04] MEDS ORDERED: HYDROcodone/APAP 5-325MG 1 EACH TAB PO PRN (09:03)
[2022-08-04 09:49] LABS: Basophils # (A) 0.03 X 10*3/uL (0.00-0.10); Basophils % (A) 0.2 %; Eosinophils # (A) 0 X 10*3/uL (0.04-0.35); Eosinophils % (A) 0 %; HCT 34.1 % (39.6-50.0); HGB 10.5 g/dL (13.0-17.0); Immature Grans, Automated 0.5 %; Lymphocytes # (A) 1.25 X 10*3/uL (0.90-5.00); Lymphocytes % (A) 7.3 %; MCH 28.8 pg (27.0-32.0); MCHC 30.8 g/dL (32.0-37.0); MCV 93.4 fL (80.0-97.0); Mean Platelet Volume 12.6 fL (9.5-12.2); Monocytes # (A) 1.17 X 10*3/uL (0.20-1.00); Monocytes % (A) 6.8 %; NRBC Per 100 WBC 0 /100 WBCS (0.0-0.0); Neutrophils # (A) 14.69 X 10*3/uL (1.80-7.70); Neutrophils % (A) 85.2 %; Platelet Count 176 X 10*3/uL (140-440); RBC 3.65 X 10*6/uL (4.40-5.60); RDW 12.8 % (11.5-14.5); WBC 17.22 X 10*3/uL (4.50-10.00)
[2022-08-04 10:03] LABS: Anion Gap 12.1 mmol/L (10.00-18.00); BUN/Creat Ratio 23.4 Ratio (12.00-20.00); Blood Urea Nitrogen 23.4 mg/dL (9.0-27.0); Calcium 8.6 mg/dL (8.7-10.3); Carbon Dioxide 24.9 mmol/L (20.0-27.5); Non-African American GFR(CKD) 73.3 (60.0-200.0); Potassium 4.7 mmol/L (3.5-5.5)
[2022-08-04 11:03] LABS: Glucose,Whole Blood 115 mg/dL (70-110)
[2022-08-04] MEDS: SENNOSIDES-DOCUSATE SODIUM 1 EACH TAB PO SCH (11:50)
[2022-08-04] MEDS: HYDROcodone/APAP 10-325MG 1 EACH TAB PO PRN ×2 (11:51→20:46)
--- NOTE | 2022-08-04 12:20 | P.PN ---
Progress Note - Text Diagnosis: Status post [id number] decompression and fusion We would like patient's hospital status to be considered inpatient at this time due to the severity of the patient's surgery along with his postoperative care. Patient is utilizing the urinary catheter at this time, we will hopefully be discontinuing in the next 2448 hours, we will definitely monitoring for urinary retention. Patient also will require a specific brace to be utilized for his postoperative care, this will require him to be in this brace while up ambulati ng with a walker. Patient may also require subacute rehab placement pending his progress his hospital stay.
--- NOTE | 2022-08-04 14:47 | P.PN ---
Subjective Progress Note Date: 08/04/22 The patient is a 77-year-old male with a PMH of type II DM, hypertension, COPD, and chronic lower back pain who was admitted for an elective lumbar decompression and fusion. Patient was seen and examined. No acute events overnight. Patient reports 8 out of 10 pain in his lower back. He is working with PT and OT. He has no other complaints. General: non toxic, no distress, appears at stated age Derm: warm, dry Head: atraumatic, normocephalic, symmetric Eyes: EOMI, no lid lag, anicteric sclera Mouth: no lip lesion, mucus membranes moist Cardiovascular: S1S2 reg, no murmur Lungs: CTA bilateral, no rhonchi, no rales , no accessory muscle use Ext: no gross muscle atrophy, no edema, no contractures Neuro: no focal neuro deficits Psych: Alert, oriented, appropriate affect #Leukocytosis #Acute blood loss anemia #Status post lumbar decompression and fusion Chronic conditions: Hypertension, COPD, type II DM, VELIA Based on my assessment of this patient, this patient meets a moderate complexity level of care. I have reviewed the following consultant electronics notes: Orthopedic surgery note 08/04, daily PT/OT, OK to restart Heparin tonight, anticipate discharge home with homecare in the next 24-48hrs. I have reviewed the results of the following tests: CBC shows WBC count of 17.2 and hemoglobin of 10.5. [id number] glucose 105-119 over the past 24 hours. I have ordered the following tests: Agree with CBC ordered for tomorrow morning. I have discussed the care of this patient with the following independent historian: None. I have independently interpreted the following test below: None. I have discussed the management of this patient with the following physician: None. This patient has a moderate risk of morbidity due to the following reasons: Patient has a new diagnosis of acute blood loss anemia and leukocytosis with uncertain prognosis. Patient is a hemoglobin of 10.5. Unknown baseline. Expected results of surgery. No indication for blood transfusion. Plans to repeat CBC tomorrow morning. Patient's WBC count of 17.2 with neutrophilia. Currently with no signs of active infection. Likely reactive. Plans to repeat CBC tomorrow morning. Objective - Vital Signs Vital signs: Vital Signs Temp 98.6 F 08/04/22 13:40 Pulse 68 08/04/22 13:40 Resp 16 08/04/22 13:40 BP 100/60 08/04/22 13:40 Pulse Ox 94 L 08/04/22 13:40 FiO2 Intake & Output 08/03/22 08/04/22 08/04/22 18:59 06:59 18:59 Intake Total 2302 Output Total 1655 750 500 Balance 647 -750 -500 Weight 97.7 kg Intake: IV 2302 Output: Drainage 200 200 Back 200 200 Urine 855 550 300 Estimated Blood Loss 800 Other: Voiding Method Indwelling Catheter Indwelling Catheter - Labs CBC & Chem 7: 08/04/22 05:30 08/04/22 05:30 Labs: Abnormal Lab Results - Last 24 Hours (Table) 08/03/22 08/04/22 08/04/22 Range/Units 17:03 05:30 05:30 WBC 17.22 H (4.50-10.00) X 10*3/uL RBC 3.65 L (4.40-5.60) X 10*6/uL Hgb 10.5 L (13.0-17.0) g/dL Hct 34.1 L (39.6-50.0) % MCHC 30.8 L (32.0-37.0) g/dL MPV 12.6 H (9.5-12.2) fL Immature Gran # 0.08 H (0.00-0.04) X 10*3/uL Neutrophils # 14.69 H (1.80-7.70) X 10*3/uL Monocytes # 1.17 H (0.20-1.00) X 10*3/uL Eosinophils # 0 L (0.04-0.35) X 10*3/uL BUN/Creatinine Ratio 23.40 H (12.00-20.00) Ratio Glucose 113 H (70-110) mg/dL POC Glucose (mg/dL) 119 H (70-110) mg/dL Calcium 8.6 L (8.7-10.3) mg/dL 08/04/22 Range/Units 11:02 WBC (4.50-10.00) X 10*3/uL RBC (4.40-5.60) X 10*6/uL Hgb (13.0-17.0) g/dL Hct (39.6-50.0) % MCHC (32.0-37.0) g/dL MPV (9.5-12.2) fL Immature Gran # (0.00-0.04) X 10*3/uL Neutrophils # (1.80-7.70) X 10*3/uL Monocytes # (0.20-1.00) X 10*3/uL Eosinophils # (0.04-0.35) X 10*3/uL BUN/Creatinine Ratio (12.00-20.00) Ratio Glucose (70-110) mg/dL POC Glucose (mg/dL) 115 H (70-110) mg/dL Calcium (8.7-10.3) mg/dL
[2022-08-04 16:11] LABS: Glucose,Whole Blood 199 mg/dL (70-110)
[2022-08-04] MEDS: PRAVASTATIN SODIUM 80 MG TAB PO SCH (20:43)
[2022-08-04 20:51] LABS: Glucose,Whole Blood 154 mg/dL (70-110)
--- NOTE | 2022-08-04 21:18 | CONS ---
CONSULTATION HISTORY OF PRESENT ILLNESS: This 77-year-old white male, type 2 diabetes mellitus, hypertension, COPD, lower back pain status post lumbar decompression and fusion. Pain 6/. Start all his home medications. back. REVIEW OF SYSTEMS: A 14-point review of systems otherwise negative. HOME MEDICINES: Reviewed. SURGICAL HISTORY: Reviewed. FAMILY HISTORY: Reviewed. ASSESSMENT: Chronic hypertension, chronic obstructive pulmonary disease, type 2 diabetes mellitus, status post decompression and fusion. Started his home medicines insulin to scale. Continue current treatment including home medicines. Consult over Morro my sign of. MMODL / IJN: [id number] /
[2022-08-05] MEDS: HYDROcodone/APAP 10-325MG 1 EACH TAB PO PRN ×4 (02:07→20:41)
[2022-08-05] MEDS: HYDROmorphone 1 MG/ML 1 ML SYRINGE IVP PRN ×3 (02:07→16:22)
[2022-08-05] MEDS: LACTATED RINGERS 1,000 ML IV SCH (05:46)
[2022-08-05 05:59] LABS: Glucose,Whole Blood 140 mg/dL (70-110)
[2022-08-05] MEDS: INSULIN ASPART (NovoLOG) 100 UNIT/ML VIAL SQ SCH ×4 (06:03→20:41)
[2022-08-05] MEDS: ACETAMINOPHEN TAB 325 MG TAB PO SCH ×4 (06:11→23:58)
[2022-08-05 06:38] LABS: Basophils % (A) 0 %; Eosinophils % (A) 0 %; HCT 33.4 % (39.0-53.0); HGB 10.8 gm/dL (13.0-17.5); Lymphocytes # (A) 1.3 k/uL (1.0-4.8); Lymphocytes % (A) 7 %; MCH 29.6 pg (25.0-35.0); MCHC 32.3 g/dL (31.0-37.0); MCV 91.8 fL (80.0-100.0); Mean Platelet Volume 10.6; Monocytes # (A) 0.9 k/uL (0-1.0); Monocytes % (A) 6 %; Neutrophils # (A) 14.7 k/uL (1.3-7.7); Neutrophils % (A) 86 %; Platelet Count 164 k/uL (150-450); RBC 3.64 m/uL (4.30-5.90); RDW 13.1 % (11.5-15.5); WBC 17.1 k/uL (3.8-10.6)
[2022-08-05 06:49] LABS: African American GFR (CKD) 89 (>60 ml/min/1.73 sqM); Anion Gap 6 mmol/L; Blood Urea Nitrogen 23 mg/dL (9-20); Calcium 8.2 mg/dL (8.4-10.2); Carbon Dioxide 27 mmol/L (22-30); Chloride 100 mmol/L (98-107); Glucose 123 mg/dL (74-99); Non-African American GFR(CKD) 77 (>60 ml/min/1.73 sqM); Potassium 4.6 mmol/L (3.5-5.1); Sodium 133 mmol/L (137-145)
--- NOTE | 2022-08-05 08:24 | P.PN ---
Subjective Progress Note Date: 08/05/22 Principal diagnosis: 1. L2-S1 spondylosis with severe stenosis 2. Neurogenic claudication 3. Left lower extremity weakness 4. Left foot drop Patient seen and examined this morning. Patient was resting in bed. Surgical incision is CDI, no shadowing present. Patient continues to report improvement of his symptoms in bilateral lower extremities. Patient states he has been up and about within room with walker and staff. Encouraged patient to work with physical therapy today. Prescriptions for LSO brace and rolling walker with seat provided. He is urinating without difficulty, passing gas, no BM as of yet. Patient has been afebrile, denies nausea/vomiting, or chest pain. Objective - Vital Signs Vital signs: Vital Signs Temp 98.2 F 08/05/22 07:00 Pulse 57 L 08/05/22 07:00 Resp 18 08/05/22 07:00 BP 99/50 08/05/22 07:00 Pulse Ox 94 L 08/05/22 07:00 FiO2 Intake & Output 08/04/22 08/05/22 08/05/22 18:59 06:59 18:59 Intake Total 340 Output Total 680 1050 Balance -680 -710 Intake: Oral 340 Output: Drainage 380 Back 380 Urine 300 1050 Other: Voiding Method Indwelling Catheter # Voids 1 - Exam Physical Examination General: The patient is awake and alert, in no acute distress Skin: Skin is warm and dry with no obvious rashes or lesions. Surgical incision to the lumbar spine, dressing is clean dry and intact. Eye: Pupils are equal, round and reactive to light, extra-ocular movements are intact; there is normal conjunctiva bilaterally. Neck: The neck is supple, there is no tenderness and ROM intact. Cardiovascular: There is a regular rate and rhythm. No murmur, rub or gallop is appreciated. Respiratory: Lungs are clear to auscultation, respirations are non-labored, breath sounds are equal. Gastrointestinal: Soft, non-distended, non-tender abdomen. Back: There is no tenderness to palpation in the midline, paralumbar, par athoracic or buttocks region. There is no obvious deformity . Musculoskeletal: ROM limited secondary to pain and stiffness from surgical procedure. Muscle strength in all major muscle groups of bilateral upper extremities 5/5, bilateral lower extremities 4/5. Neurological: CN 2-12 intact. There are no obvious motor or sensory deficits. Movement and coordination equal and intact. Sensory exam to light touch intact C5-T1 and intact from L2-S1. Reflexes 2/4 in bilateral upper and lower extremities. Negative Hoffmans, babinski, and clonus signs. Psychiatric: Cooperative, appropriate mood & affect, normal judgment. - Labs CBC & Chem 7: 08/05/22 05:43 08/05/22 05:43 Labs: Abnormal Lab Results - Last 24 Hours (Table) 08/04/22 08/04/22 08/04/22 Range/Units 05:30 05:30 11:02 WBC 17.22 H (4.50-10.00) X 10*3/uL RBC 3.65 L (4.40-5.60) X 10*6/uL Hgb 10.5 L (13.0-17.0) g/dL Hct 34.1 L (39.6-50.0) % MCHC 30.8 L (32.0-37.0) g/dL MPV 12.6 H (9.5-12.2) fL Immature Gran # 0.08 H (0.00-0.04) X 10*3/uL Neutrophils # 14.69 H (1.80-7.70) X 10*3/uL Monocytes # 1.17 H (0.20-1.00) X 10*3/uL Eosinophils # 0 L (0.04-0.35) X 10*3/uL Sodium (137-145) mmol/L BUN (9-20) mg/dL BUN/Creatinine Ratio 23.40 H (12.00-20.00) Ratio Glucose 113 H (70-110) mg/dL POC Glucose (mg/dL) 115 H (70-110) mg/dL Calcium 8.6 L (8.7-10.3) mg/dL 08/04/22 08/04/22 08/05/22 Range/Units 16:10 20:40 05:43 WBC 17.1 H (4.50-10.00) X 10*3/uL RBC 3.64 L (4.40-5.60) X 10*6/uL Hgb 10.8 L (13.0-17.0) g/dL Hct 33.4 L (39.6-50.0) % MCHC (32.0-37.0) g/dL MPV (9.5-12.2) fL Immature Gran # (0.00-0.04) X 10*3/uL Neutrophils # 14.7 H (1.80-7.70) X 10*3/uL Monocytes # (0.20-1.00) X 10*3/uL Eosinophils # (0.04-0.35) X 10*3/uL Sodium (137-145) mmol/L BUN (9-20) mg/dL BUN/Creatinine Ratio (12.00-20.00) Ratio Glucose (70-110) mg/dL POC Glucose (mg/dL) 199 H 154 H (70-110) mg/dL Calcium (8.7-10.3) mg/dL 08/05/22 08/05/22 Range/Units 05:43 05:57 WBC (4.50-10.00) X 10*3/uL RBC (4.40-5.60) X 10*6/uL Hgb (13.0-17.0) g/dL Hct (39.6-50.0) % MCHC (32.0-37.0) g/dL MPV (9.5-12.2) fL Immature Gran # (0.00-0.04) X 10*3/uL Neutrophils # (1.80-7.70) X 10*3/uL Monocytes # (0.20-1.00) X 10*3/uL Eosinophils # (0.04-0.35) X 10*3/uL Sodium 133 L (137-145) mmol/L BUN 23 H (9-20) mg/dL BUN/Creatinine Ratio (12.00-20.00) Ratio Glucose 123 H (70-110) mg/dL POC Glucose (mg/dL) 140 H (70-110) mg/dL Calcium 8.2 L (8.7-10.3) mg/dL Assessment and Plan Assessment: Postop day 2: [id number] decompression and fusion 1. L2-S1 spondylosis with severe stenosis 2. neurogenic claudication 3. left lower extremity weakness 4. Left foot drop Plan: -Appreciate sap plant maintenance consultant and team management. -Activity: Ambulate QID, OOB all meals, up and about, limit lifting bending twisting to less than 5 lbs. Use walker or cane if needed for stability. -Daily PT/OT, increase ambulation strength and balance. -Brace when up and about, not needed in bed or chair -Pain control: Adequate at this time -Meds: reviewed -GI ppx: senna, Miralax -DVT PPX: Heparin, TEDS -Hygiene: Shower today. Maintain dressing clean and dry. Meticulous cleaning after BMs away from the incision site -Encourage IS 10x/hr -Dispo: Anticipate discharge home with homecare in the next 24hrs *I reviewed and discussed this case with my attending Dr. Curry, whom has reviewed this chart and films and is in agreement with assessment and plan of care as outlined above. I have personally seen and examined the patient, performed the documentation and the assessment and plan as written. Number of minutes spent on the visit: 20m.
[2022-08-05] MEDS: SERTRALINE 100 MG TAB PO SCH (08:44)
[2022-08-05] MEDS: GABAPENTIN 300 MG CAP PO SCH ×3 (08:44→20:41)
[2022-08-05] MEDS: SACUBITRIL/VALSARTAN 97 MG-103 MG TABLET PO SCH ×2 (08:44→20:41)
[2022-08-05] MEDS: SOTALOL 80 MG TAB PO SCH ×2 (08:45→20:41)
[2022-08-05] MEDS: SENNOSIDES-DOCUSATE SODIUM 1 EACH TAB PO SCH (08:45)
[2022-08-05] MEDS: CYCLOBENZAPRINE 5 MG TAB PO PRN ×2 (08:54→20:41)
[2022-08-05] MEDS: IPRATROPIUM 0.5 MG/2.5 ML NEBU INHALATION SCH ×4 (09:31→20:11)
[2022-08-05] MEDS: SYMBICORT 160-4.5 MCG INHALER INHALATION SCH ×2 (09:31→20:11)
[2022-08-05 11:04] LABS: Glucose,Whole Blood 143 mg/dL (70-110)
--- NOTE | 2022-08-05 16:06 | P.PN ---
Subjective Progress Note Date: 08/05/22 The patient is a 77-year-old male with a PMH of type II DM, hypertension, COPD, and chronic lower back pain who was admitted for an elective lumbar decompression and fusion. Patient was seen and examined. No acute events overnight. Patient reports 8 out of 10 pain in his lower back. He is working with PT and OT. He has no other complaints. General: non toxic, no distress, appears at stated age Derm: warm, dry Head: atraumatic, normocephalic, symmetric Eyes: EOMI, no lid lag, anicteric sclera Mouth: no lip lesion, mucus membranes moist Cardiovascular: S1S2 reg, no murmur Lungs: CTA bilateral, no rhonchi, no rales , no accessory muscle use Ext: no gross muscle atrophy, no edema, no contractures Neuro: no focal neuro deficits Psych: Alert, oriented, appropriate affect #Leukocytosis #Acute blood loss anemia #Hyponatremia due to dehydration #Status post lumbar decompression and fusion Chronic conditions: Hypertension, COPD, type II DM, VELIA Based on my assessment of this patient, this patient meets a moderate complexity level of care. I have reviewed the following leadership development consultant notes: Orthopedic surgery note 08/05, daily PT/OT, anticipate discharge home with home care in the next 24hrs I have reviewed the results of the following tests: CBC shows WBC count of 17.1 and hemoglobin of 10.8. BMP shows sodium 133 BUN of 23. This is likely due to dehydration. [id number]-[id number] glucose 115-154 over the past 24 hours. I have ordered the following tests: None. I have discussed the care of this patient with the following independent histo su: None. I have independently interpreted the following test below: None. I have discussed the management of this patient with the following physician: None. This patient has a moderate risk of morbidity due to the following reasons: Patient has a new diagnosis of acute blood loss anemia and leukocytosis with uncertain prognosis. Patient is a hemoglobin of 10.8. Unknown baseline. Expected results of surgery. No indication for blood transfusion. Patient's WBC count of 17.1 with neutrophilia. Currently with no signs of active infection. Likely reactive. Objective - Vital Signs Vital signs: Vital Signs Temp 98.2 F 08/05/22 14:00 Pulse 81 08/05/22 14:00 Resp 16 08/05/22 14:00 BP 106/76 08/05/22 14:00 Pulse Ox 97 08/05/22 14:00 FiO2 Intake & Output 08/04/22 08/05/22 08/05/22 18:59 06:59 18:59 Intake Total 340 Output Total 680 1050 300 Balance -772 -059 -300 Intake: Oral 340 Output: Drainage 380 Back 380 Urine 300 1050 300 Other: Voiding Method Indwelling Catheter # Voids 1 1 - Labs CBC & Chem 7: 08/05/22 05:43 08/05/22 05:43 Labs: Abnormal Lab Results - Last 24 Hours (Table) 08/04/22 08/04/22 08/05/22 Range/Units 16:10 20:40 05:43 WBC 17.1 H (3.8-10.6) k/uL RBC 3.64 L (4.30-5.90) m/uL Hgb 10.8 L (13.0-17.5) gm/dL Hct 33.4 L (39.0-53.0) % Neutrophils # 14.7 H (1.3-7.7) k/uL Sodium (137-145) mmol/L BUN (9-20) mg/dL Glucose (74-99) mg/dL POC Glucose (mg/dL) 199 H 154 H (70-110) mg/dL Calcium (8.4-10.2) mg/dL 08/05/22 08/05/22 08/05/22 Range/Units 05:43 05:57 11:03 WBC (3.8-10.6) k/uL RBC (4.30-5.90) m/uL Hgb (13.0-17.5) gm/dL Hct (39.0-53.0) % Neutrophils # (1.3-7.7) k/uL Sodium 133 L (137-145) mmol/L BUN 23 H (9-20) mg/dL Glucose 123 H (74-99) mg/dL POC Glucose (mg/dL) 140 H 143 H (70-110) mg/dL Calcium 8.2 L (8.4-10.2) mg/dL
[2022-08-05 16:12] LABS: Glucose,Whole Blood 166 mg/dL (70-110)
[2022-08-05 20:03] LABS: Glucose,Whole Blood 160 mg/dL (70-110)
[2022-08-05] MEDS: PRAVASTATIN SODIUM 80 MG TAB PO SCH (20:41)
[2022-08-06] MEDS: HYDROcodone/APAP 10-325MG 1 EACH TAB PO PRN (00:07)
[2022-08-06] MEDS: HYDROmorphone 1 MG/ML 1 ML SYRINGE IVP PRN (03:34)
[2022-08-06] MEDS: ACETAMINOPHEN TAB 325 MG TAB PO SCH ×2 (06:00→11:35)
[2022-08-06 06:27] LABS: Glucose,Whole Blood 160 mg/dL (70-110)
[2022-08-06] MEDS: INSULIN ASPART (NovoLOG) 100 UNIT/ML VIAL SQ SCH ×2 (06:51→11:40)
--- NOTE | 2022-08-06 07:13 | P.PN ---
Subjective Progress Note Date: 08/06/22 Principal diagnosis: 1. L2-S1 spondylosis with severe stenosis 2. Neurogenic claudication 3. Left lower extremity weakness 4. Left foot drop Patient seen and examined this morning. Patient is currently sitting up in chair and eating breakfast, tolerating well. Surgical incision is well approximated with dyllan intact, slight shadowing to dressing, this has been changed this morning. Patient has been working with physical therapy and states he is tolerating activity well, although he feels unsteady. Patient would like to go to subacute rehab at discharge. He states his pain is managed on current regimen. Patient has been afebrile, denies nausea/vomiting, or chest pain. Objective - Vital Signs Vital signs: Vital Signs Temp 98.2 F 08/06/22 02:00 Pulse 80 08/06/22 02:00 Resp 17 08/06/22 02:00 BP 109/61 08/06/22 02:00 Pulse Ox 96 08/06/22 02:00 FiO2 Intake & Output 08/05/22 08/06/22 08/06/22 18:59 06:59 18:59 Intake Total 680 Output Total 300 900 Balance -300 -220 Intake: Oral 680 Output: Urine 300 900 Other: # Voids 1 1 # Bowel Movements 1 1 - Exam Physical Examination General: The patient is awake and alert, in no acute distress Skin: Skin is warm and dry with no obvious rashes or lesions. Surgical incision to the lumbar spine, dressing is clean dry and intact. Eye: Pupils are equal, round and reactive to light, extra-ocular movements are intact; there is normal conjunctiva bilaterally. Neck: The neck is supple, there is no tenderness and ROM intact. Cardiovascular: There is a regular rate and rhythm. No murmur, rub or gallop is appreciated. Respiratory: Lungs are clear to auscultation, respirations are non-labored, breath sounds are equal. Gastrointestinal: Soft, non-distended, non-tender abdomen. Back: There is no tenderness to palpation in the midline, paralumbar, parathoracic or buttocks region. There is no obvious deformity. . Musculoskeletal: ROM limited secondary to pain and stiffness from surgical procedure. Muscle strength in all major muscle groups of bilateral upper extremities 5/5, bilateral lower extremities 4/5. Neurological: CN 2-12 intact. There are no obvious motor or sensory deficits. Movement and coordination equal and intact. Sensory exam to light touch intact C5-T1 and intact from L2-S1. Reflexes 2/4 in bilateral upper and lower extremities. Negative Hoffmans, babinski, and clonus signs. Psychiatric: Cooperative, appropriate mood & affect, normal judgment. - Labs CBC & Chem 7: 08/05/22 05:43 08/05/22 05:43 Labs: Abnormal Lab Results - Last 24 Hours (Table) 08/05/22 08/05/22 08/05/22 Range/Units 11:03 16:11 20:01 POC Glucose (mg/dL) 143 H 166 H 160 H (70-110) mg/dL 08/06/22 Range/Units 06:25 POC Glucose (mg/dL) 160 H (70-110) mg/dL Assessment and Plan Assessment: Postop day 3: [id number] decompression and fusion 1. L2-S1 spondylosis with severe stenosis 2. neurogenic claudication 3. left lower extremity weakness 4. Left foot drop Plan: -Appreciate human capital consultant and team management. -Activity: Ambulate QID, OOB all meals, up and about, limit lifting bending twisting to less than 5 lbs. Use walker or cane if needed for stability. -Daily PT/OT, increase ambulation strength and balance. -Brace when up and about, not needed in bed or chair -Pain control: Adequate at this time -Meds: reviewed -GI ppx: senna, Miralax -DVT PPX: Heparin, TEDS -Hygiene: Shower today. Maintain dressing clean and dry. Meticulous cleaning after BMs away from the incision site -Encourage IS 10x/hr -Dispo: Patient is cleared from orthopedic standpoint for discharge to subacute rehab when bed available. *I reviewed and discussed this case with my attending Dr. Curry, whom has reviewed this chart and films and is in agreement with assessment and plan of care as outlined above. I have personally seen and examined the patient, performed the documentation and the assessment and plan as written. Number of minutes spent on the visit: 20m.
[2022-08-06 07:31] VITALS: RESP 18; TEMP 98.4
[2022-08-06] MEDS: SERTRALINE 100 MG TAB PO SCH (08:20)
[2022-08-06] MEDS: HYDROcodone/APAP 10-325MG 1 EACH TAB PO SCH ×3 (08:20→15:33)
[2022-08-06] MEDS: SOTALOL 80 MG TAB PO SCH (08:21)
[2022-08-06] MEDS: GABAPENTIN 300 MG CAP PO SCH ×2 (08:21→15:33)
[2022-08-06] MEDS: SENNOSIDES-DOCUSATE SODIUM 1 EACH TAB PO SCH (08:21)
[2022-08-06] MEDS: SACUBITRIL/VALSARTAN 97 MG-103 MG TABLET PO SCH (08:21)
--- NOTE | 2022-08-06 08:27 | P.OP ---
Date of Procedure: 08/03/22 Preoperative Diagnosis: 1. L2-S1 spondylosis, severe with severe stenosis 2. LE weakness with radiculopathy 3. LE paresthesias 4. Low back pain Postoperative Diagnosis: 1. L2-S1 spondylosis, severe with severe stenosis 2. LE weakness with radiculopathy 3. LE paresthesias 4. Low back pain Procedure(s) Performed: 1. L4-5, L5-S1 intradiscal osteotomy for deformity correction, 3 column (29103, 10295) 2. L2-3, L3-4, L4-5, L5-S1 posteriolateral and interbody fusion (86611, [id number]) 3. Bilateral laminectomy, complete facetectomy and foraminotomy L2-S1 for deformity correction and complete decompression beyond that needed for cage placement (52087, [id number]) 4. Segmental instrumentation L2-Pelvis (43028) 5. Attachment of the caudal end of the construct to the bony pelvis not the sacrum (61710) 6. INsertion of biomechanical devices ([id number]) 7. Use of Kliqed navigation for screw placement (21808) Use of IONM all screws testing above 18 mA Implants: Globus Cre o screw and mague system Zivation cages x4 MagnatOs, Allocel, iFactor, Autograft Anesthesia: GETA Surgeon: Abdi Curry Race Relations Professor #1: Theo Jin (Was present and assisted with all aspects of the case from positioning to dressing placement) Estimated Blood Loss (ml): 800 IV fluids (ml): 2,500 Urine output (ml): 405 Pathology: none sent Condition: stable Disposition: PACU Indications for Procedure: Mr. Nixon is presenting for evaluation of low back pain. It was my pleasure to have seen and examined Mr. Nixon. In our visit today we have had a chance to go over subjective complaints, physical examination findings and treatments including the natural course history without intervention and various interventional options. The patients imaging demonstrates: CT myelogram scan from06/03/22 at [facility]: This demonstrates severe spondylotic changes from L2-S1 with vacuum disc, disc collapse, osteophyte posteriorly, b/l facet arthrosis causing significant stenosis along with ligamental hypertyrophy and disc bulges that causes the same. No acute fractures. No lesions noted. XRay 5 views, multiview taken on 10/26/21 at [facility] of Lumbar Spine and Pelvis: lumbar spine alignment appears normal. Spondylytic changes noted throughout lumbar region. Facet arthropathy L4 to L5 and L5 to S1. L5 to S1 grade 1 retrolisthesis. No acute osseous abnormalities. CT scanwithout contrast from 06/17/2020 at [facility] of Lumbar Spine: 1. MODERATE TO ADVANCED DISC/ENDPLATE DEGENERATIVE CHANGE ESPECIALLY MID TO LOWER LUMBAR SPINE WITH HYPERTROPHIC FACET ARTHROPATHY, SLIGHTLY PROGRESSED FROM 2014. 2. DEGENERATIVE GRADE 1 RETROLISTHESIS AT L2/L3. NO VERTEBRAL COMPRESSION COLLAPSE. 3. BULGING DISKS CONTRIBUTE TO EUTO-EM-GAYDZYRS SPINAL CANAL NARROWING AT L2- L3, L3-L4, L4-L5. 4. VARIABLE BILATERAL NEUROFORAMINAL STENOSES OUTLINED ABOVE, GREATEST ON BOTH SIDES AT T11-T12 AND ON THE LEFT AT L4-L5 AND L5-S1 On physical exam, Mr. Nixon demonstrates significantly restricted lumbar ROM regarding flexion/extension/twisting due to pain. Furthermore the patient demonstrates bilateral lower extremity raiduclopathy and weakness impacting his gait stability. Overall functional testing is very limited due to pain. Patient ambulating with the use of a cane for stability. I have explained to the patient that as their condition progresses it will cause further neurological deficits and eventual paralysis. Based on the patients imaging, physical exam, and the rapid progression and disabling nature of their symptoms, at this time I recommend surgery in the form or a: lumbar (L2- Pelvis) Decompression and Fusion . I discussed the risk and benefits of this procedure at length with Mr. Nixon. The patient agreed to considered pursuing the procedure abovementioned. Prior to surgery, she should follow up with her PCP (Cardio, ID, IM etc) for clearance. Questions were invited and answered, and the patient wishes to proceed as outlined below. Currently, I am recommendin.lumbar (L2-Pelvis) Decompression and Fusion Description of Procedure: L2-Pelvis Decompression and fusion The patient was seen and examined in the preoperative area. All preoperative protocols were followed. Informed consent was obtained, risks and benefits of the procedure were discussed at length. Risks including bleeding infection damage to the surrounding tissue and risk of re-operation were discussed with the patient. Risk of anesthesia up to and including was discussed with the patient. These are outlined in the risk review. They were willing to accept these risks and all the risks of surgery. The patient was given a weight-based dose of antibiotics in the form of 3 g Ancef. The patient was seen and evaluated by the anesthesia team who deemed them fit for surgery. The site was marked, the patient was willing to proceed with the procedure. The patient was transferred to the operative suite by the Department of sekou avalos. They were then drifted off to sleep by the department anesthesia and GETA was performed. The patient tolerated this well. Mclaughlin catheter was placed by nursing staff, a-traumatically. Once confirmation of lines and ventilation the patient was transferred to a prone Trios spine table very carefully. The head was secured and stable. Xray confirmed alignment. All bony prominences including wrists, elbows, axilla, chest, hips, and thighs, and feet were padded very well. Special attention was paid to the genitalia, and these were padded accordingly. SCDs were placed on bilateral lower extremities and were connected. Arms were well padded and placed at 90/90 up and out and well padded. Safety strap and tape placed on the patient. Once in position, again we confirmed good ventilation capabilities and that lines were running appropriately. The patients lumbosacral pelvic was then exposed. Hair was removed for incision. 1010s were placed outlining the incision site. Standard a lcohol was used to clean the incision site and allowed to dry. C-arm was used to bio-desmond the patient and confirm level for incision which was marked with a skin marker. Operative briefing was performed with all teams and everyone in agreement to proceed. The patient was then prepped and draped in a normal sterile fashion. Timeout was then performed, and all parties agreed with the procedure to be performed. Midline skin incision was then made over the previously bookmarked area and dissection taken down to the lumbosacral fascia which was identified and cleaned with a farris. There was excessive sub-q adipose that was obtrusive and needed to be retracted. Once midline was identified, fasciotomy was made over the SP of L1-S1 and pelvis. Subperiosteal dissection was then taken down over the lamina and facet joints and TPs were exposed and trough made posterolateral. TPs were then decorticated with a high speed santo for lateral fusion. Dissection was taken out over the sacrum to the pelvis. SI joint identified and modified Blas starting point for pelvic screws identified as well. Retractors placed. Wound was irrigated and lateral image with penfield 4 placed at the pars of L4 confirmed levels for operation. SP clamp was then placed for the Kliqed navigation tracker and secured. The wound was then filled with NSS and Z-drape placed. A 3D Zhiem spin was then obtained and registered. Once confirmation of accuracy screws were then placed from L2-Pelvis using navigation. Navigated high speed santo was used to make a foundry tender hole followed by a navigated awl-tap passed through the pedicle into the body. A ball tip probe then confirmed within the pedicle. Screw was then measured and placed using a navigated screwdriver. After screws were placed from L2-S1, AP image confirmed safe placement of screws. Lateral images as well as navigation were then used to place bilateral pelvic screws. Starting point selected just lateral to the SI joint and S2 pseudo facet. Lateral image taken and santo used to make the foundry tender hole. Gearshift then used to pass into the pelvis under lateral imaging just above the sciatic notch. 30 deg/30deg iliac oblique then taken to confirm within the teardrop and ball tip probe used to probe good bone. Screw was then measured and selected and placed under lateral imaging. This was repeated on the contralateral side. Screws were then visualized and appeared safe. A second Zheim spin was obtained and confirmed safe screw placement. Only partial pelvis was viewed in this spin due to the patient's body habitus. Screws were then tested, and reliably tested screws tested above 20 mA. There was an issue with IONM that precluded all screws from being successfully tested at the time. We then proceeded to decompression and interbody placement. Starting at L5-S1, bilateral laminectomy, complete facetectomy and foraminotomies were performed using high speed bur, Kerrison rongure. There was exuberant bone formation, osteophytes and scar tissue surrounding these joints as well as the dura. Once exposed the neural elements were protected and an intradiscal osteotomy, 3 column, was performed for deformity correction at L5- S1. Osteotome was used to make osteotomy in L5 and S1 and for complete disc removal. A box osteotome was then used to widen this bilaterally. This was passed into the anterior 1/3 of L5. This allowed for loosening of this level and correction. A cage was then selected based on shaving and trials. Bleeding endplates were encountered and cartilage removed. Autograft, allograft were then placed anterior to the cage. The cage was then impacted into place under lateral imaging while protecting neural elements. The cage was then expanded into position and showed good lift and correction. Judaism of lordosis and height achieved. Meticulous hemostasis then performed. Cage was backfilled with DBM and the area irrigated. We then proceeded to L4-5. At L4-5, bilateral laminectomy, complete facetectomy and foraminotomy was performed as described above. Again, exuberant scar tissue and bone formation was encountered and at this level specifically around the pars due to the defect and slip in this area. There was also a large disc osteophyte complex that was identified once disc space was found. The dura was carefully dissected off this anteriorly and b/l. Once encountered, the disc space was then accessed in a similar fashion and neural elements protected. Intradiscal, 3 column osteotomies, for deformity correction was then performed again at this level as described above. Once completed and complete discectomy performed there was good mobility at this level. Cage was then sized and selected. Autograft and allograft was then placed anterior in the disc space and the cage was then inserted and impacted into place under lateral. AP image, as before, was taken to ensure midline placement. The cage was then expanded into position. During expansion, the cage seemed to fail to expand completely on the RHS. The LHS expanded very well and recreated height and lordosis. The cage was tested and was very stable and since it was in safe position without any other issues it was elected to keep the cage in position. The wound was irrigated. Meticulous hemostasis then performed, and attention turned to L3-4. At L3-4 again bilateral laminectomy, complete facetectomy and foraminotomy were performed. The neural elements were less scared at this level; however, it was very unstable. The elements were then protected, and disc space accessed. Sequential shaving performed until desired height and lordosis. Cage selected, and graft placed anterior to the cage within the disc space. Cage was then placed under lateral image, expanded and had good height, lordosis and deformity correction. The wound was irrigated, and meticulous hemostasis performed once again. At L2-3 bilateral laminectomy, complete facetectomy and foraminotomy were performed. The neural elements were less scared at this level. The elements were then protected, and disc space accessed. Sequential shaving performed until desired height and lordosis. Cage selected, and graft placed anterior to the cage within the disc space. Cage was then placed under lateral image, expanded and had good height, lordosis and deformity correction. The wound was irrigated, and meticulous hemostasis performed once again. Attention was then drawn to mague placement. Rods were selected, measured, cut and bent to appropriate lordosis. They were then secured into pelvic screws b/l. Sequential reduction then done into each screw and set screw placed. Set screws were then final tightened and lateral image showed good lordosis reduction with increase around 10 deg from starting. Once rods were secured, cross links were selected and placed and final tightened. The wound was then irrigated with 3L Ancef irrigation, 3L gentamicin irrigation and 3L NSS. Surgicel was then placed on the dura, which was inspected and had no injury. Then, in the posterolateral gutter was placed, MagnatOs, Autograft and allograft. This was impacted into position and surgical placed over it. 2g Vanco powder was then placed deep in the wound. A deep, subfascial drain was placed and a superficial facial drain placed. We then proceeded with layered closure. #1 PDS placed in the deep fascia. 0 Vicryl placed in the deep subq, 2-0 placed in the superficial subq and dyllan placed in the skin. The wound edges approximated very well. The wound was then cleaned with ETOH and dressed with optifoam dressing, drain sponges and tegaderms. Drains sewed into position. IONM confirmed no changes. The patient was then transferred off the [facility] spine table to their hospital bed a-traumatically. Drains continued to hold suction. The patient was then extubated and transferred to the ICU in stable condition having tolerated the procedure with no complications.
[2022-08-06] MEDS: IPRATROPIUM 0.5 MG/2.5 ML NEBU INHALATION SCH ×3 (09:24→15:06)
[2022-08-06] MEDS: SYMBICORT 160-4.5 MCG INHALER INHALATION SCH (09:25)
[2022-08-06] MEDS ORDERED: RX INFO: IV CONTRAST WAS GIVEN 1 EACH MISC MISCELLANE PRN (11:04)
[2022-08-06 11:35] LABS: Glucose,Whole Blood 136 mg/dL (70-110)
[2022-08-06] MEDS: ALBUTEROL NEBULIZED 2.5 MG/3 ML INHALATION SCH ×2 (11:49→15:05)
--- NOTE | 2022-08-06 13:06 | P.DS ---
Providers Date of admission: 08/04/22 12:20 Expected date of discharge: 08/06/22 Attending physician: Abdi Curry DO Consults: 08/03/22 11:58 Consult Physician Routine Consulting Provider: Kat Lopez Consult Reason/Comments: s/p L2-pelvis decompression-fusion Do you want consulting provider notified?: Yes 08/04/22 15:44 Consult Physician Routine Consulting Provider: Morro Kelly Reason/Comments: medical management Do you want consulting provider notified?: Yes Primary care physician: Morro Kelly [facility] Course: Date of admission: 08/03/2022 Date of discharge: 08/06/2022 Admission diagnosis: 1. L2-S1 spondylosis, severe with severe stenosis 2. LE weakness with radiculopathy 3. LE paresthesias 4. Low back pain Discharge diagnosis: Same Attending physician: Dr. Curry Surgical procedures: [id number] and decompression with posterior lateral and interbody fusion Brief history: Patient is a 77-year-old male with a history of low back pain, lower extremity paresthesias along with weakness and radiculopathy, severe lumbar spondylosis with stenosis. At this point patient has failed conservative treatment measures and has opted to proceed with a elective [id number] decompression with posterior lateral and interbody fusion. Hospital course: Details of patient's surgery can be found in operative report. Patient tolerated the procedure well and was subsequently transported to orthopedic floor. Patient's orthopeidc and medical care was provided daily. Patient had daily laboratory tests performed for evaluation of overall blood counts, Patient had daily physical therapy to include strengthening range of motion as well as education with walker ambulation. Patient was treated with compression stockings and SCDs for their postoperative DVT prophylaxis during their inpatient stay. Patient was noted to have a relatively uneventful postoperative course. Patient reported satisfactory pain control with oral pain medications by postoperative day 1. Patient showed satisfactory progress with physical therapy. Patient moved steadily through the program and had no difficulty meeting the goals by postoperative day 3. Given patient's otherwise satisfactory course and having met physical therapy goals, plan is to discharge patient rehab on postoperative day 3. Discharge condition/disposition: Patient will be discharged i rehabn stable condition. Discharge medications: Instructions are given on resumption of patient's normal daily medications per primary care recommendation, in addition patient will be prescribed [place] 10 mg/325 mg, gabapentin 300 mg, Flexeril 5 mg, senna S, Duricef 500 mg. Spine Discharge and Recovery Instructions All medication refills should be obtained through your primary care doctor or your clinic spine surgeon. Please discuss prescription refills at your follow up appointment. Do not call the hospital for medication refills. Dressing: Leave your dressing in place for a total of 5 days post operatively. Then you may remove your dressing and leave open to air. Keep the area clean and if not able to keep area clean, then cover with sterile gauze and tape. Showering: You may shower 3 days after your procedure allowing soap and water to run over incision. Do not scrub. Do not soak. Blot dry. Follow up: Please confirm a follow up appointment with your surgeon 3 weeks post operatively. Please make an appointment to follow up with your PCP in 1-2 weeks after surgery for evaluation 3 phase, 3-week plan POST OP WEEKS 1-3 1. Lifting/carrying/pushing/pulling limited to less than 5 pounds. 2. Do not sit for longer than 15 minutes at one time. Get up and walk around. Prolonged sitting is NOT advised. If you lay down, see if you can tolerate laying down on you front (belly side) 3. Walk for periods of 15 minutes = 1 mile but no longer; do it multiple times times each day. 4. Ice your low back after activity. POST OP WEEKS 3-6 1. Lifting limited to less than 20 pounds. 2. Do not sit for longer than 30 minutes at a time. Frequently change positions. Use a sit-to stand workstation or take frequent breaks from sitting if you have returned to work. 3. Walk for 30 minutes each day. If possible, do these three or more times a day POST OP WEEKS 6+ At your 6-week appointment we will give you a physical therapy referral to focus on a core stabilization and strengthening program. You should also work on leg & buttock strengthening, hamstring & quadriceps stretching, and continue a low impact aerobic activity program such as swimming, walking, or riding a stationary bicycle. During the initial 6 weeks after your surgery, you are at the highest risk of re-injuring your spine. You should generally avoid BLTs (bending, lifting and twisting combination motions) and follow the above guidelines to reduce the willis ce of reinjury. You can anticipate post op appointments in our office at approximately 3 weeks and 6 weeks after your surgery. INCISION CARE: If your incision is not draining you do NOT need to cover it with a dressing. Keep your incision clean, dry and intact. In most cases, we apply skin glue, dyllan or sutures to the incision at the time of surgery. This will be like a crust or have the appearance of a scab and will fall off in time on its own. The stitches or dyllan need to be removed at 3 weeks post op appointment. You may begin to shower 3 days after surgery (this allows the glue to abarca well). However, please avoid scrubbing the incision site or peeling off any of the skin glue. This will ensure optimal healing of your incision. Also, during this time avoid soaking the incision area in water - this includes swimming pools, hot tubs or baths. No ointments, lotions or oils on the incision until your surgeon allows. Leave dyllan, sutures or glue in place. Neurological dysfunction that comes on suddenly can also be a sign of a stroke. Below some common symptoms of a stroke are listed: B - balance difficulty such as sudden onset walking or leaning to one side - NEW E - eye problem such as sudden double vision or trouble seeing on one side - NEW F - Facial weakness or numbness on one side - NEW A - Arm or leg weakness or numbness on one side - NEW S - Slurred speech or difficulty with word finding - NEW T - Time is BRAIN! Call 911 as soon as you recognize these symptoms Diet: Consume a regular diet rich in vegetables and lean protein such as chicken or fish. You should consume in a ratio of approximately 20% fats|40% carbohydrates|40%protein. Vegetables, sweet potatoes, brown rice or quinoa are examples of good carbohydrates. Chips, white bread, cookies and sweets/sugar are examples of bad carbohydrates. Limit your bad carbs, go wild with good carbs. "Life's Simple 7" Guidelines as per [place] [employer] These will help you reclaim your life after surgery and car repairer helper in your recovery, keeping in mind your restrictions. (1) Get Active. Physical activity can help people lose weight, control high blood pressure and cholesterol, feel emotionally better, and sleep better. (2) Control Cholesterol. Avoid a diet high in saturated fat, trans fat, & cholesterol. Limit whole milk & cream, ice cream, butter, egg yolks, processed meats (like sausage and hot dogs), and fatty meats. Choose healthy foods that are low in saturated fat, trans fat and cholesterol which include: Fruits and vegetables, fiber rich grain products (like whole grain pasta and brown rice), lean meat such as chicken, fish, nuts, seeds, and legumes. (3) Eat Better. Eat small portions. Shop at the grocery with a list and do not stray from it. Tips for a healthy diet include: Limit sodium intake to less than 1500mg daily, avoid prepackaged, processed, and fast foods, choose a diet rich in fruits, vegetables, and whole grain, high fiber foods, and limit saturated & cholesterol in your diet. (4) Manage Blood Pressure. If you have high blood pressure, you should have a cuff at home so that you can check your blood pressure regularly. Be sure you have a good cuff. An arm one is generally better than a wrist one. Bring the cuff to a doctor's appointment to validate that the measurements that your cuff are taking are accurate. Take your blood pressure twice daily when you are sitting down and relaxing. Record the numbers in a log and bring this log with you to your doctors' appointments. (5) Lose Weight if your BMI is above 25. A healthy BMI is between 19-25. To calculate Your BMI, you may use a Standard BMI Calculator on the NIH BMI website: <www.nhlbi.nih.gov/guidelines/obesity/BMI/bmicalc.htm>. Weigh oneself daily. If you are overweight, set a goal to lose weight. A pound a week loss if needed is a good target. (6) Reduce Blood Sugar. Limit foods and liquids with "added sugars." (Added sugars include sucrose, fructose, glucose, maltose, dextrose, high fructose corn syrup, corn syrup, concentrated fruit juice and honey). (7) Stop Smoking. If you smoke, quitting smoking is one of the best things that you can do for your health. Smoking increases your risk of heart attack, stroke, and peripheral vascular disease, which is a build-up of plaque in your arteries. Please discard all the cigarettes and lighters in your house. Have a plan for what you will do when you have the urge to smoke. Direct and second- hand smoke shortens your life as well as the lives of your family, friends and others around you. For your health and the health of those around you, please consider quitting! Proper Bending Body Mechanics: Maintain a wide stance with one foot slightly in front of the other. Keep your back straight. Bend utilizing the strength in your hips and knees. Do not bend at the waist. Maintain the lifted object at your waist-level close to your body. Avoid lifting weight that causes immediately pain or pain anywhere in the body afterwards. Smoking/Nicotine If there was ever one thing that you could do to increase your overall health, decrease your risk of cardiovascular problems by about 39% the second you make the choice, it is to STOP SMOKING. Your body's most instant gratification is the second you stop smoking. We have all heard the studies, read the articles but it is true, smoking is extremely bad for your overall health, and moreover it is detrimental to your bone health. Nicotine, IN ANY FORM, kills bone cells, prevents your body from healing fractures, and significantly prolongs healing after surgery. In spine surgery specifically, it increases your risk of not healing your bones to create a fusion and increases your risk of having a revision surgery due to this up to 60%. I know it is hard. I know it feels impossible. But there are ways. Take control of your life. We are here to help you through it. And when you are ready, ask us and we can direct you to help if you desire. Use the START Plan to Quit Smoking (please visit the Helpguide.org website listed below for more information): S = Set a quit date. Choose a date within the next 2 weeks, so you have enough time to prepare without losing your motivation to quit. If you mainly smoke at work, quit on the weekend, so you have a few days to adjust to the change. T = Tell family, friends, and co-workers that you plan to quit. Let your friends and family in on your plan to quit smoking and tell them you need their support and encouragement to stop. Look for a quit aurelio who wants to stop smoking as well. You can help each other get through the rough times. A = Anticipate and plan for the challenges you'll face while quitting. Most people who begin smoking again do so within the first 3 months. You can help yourself make it through by preparing ahead for common challenges, such as nicotine withdrawal and cigarette cravings. R = Remove cigarettes and other tobacco products from your home, car, and work. Throw away all your cigarettes (no emergency pack!), lighters, ashtrays, and matches. Wash your clothes and freshen up anything that smells like smoke. Shampoo your car, clean your drapes and carpet, and steam your furniture. T = Talk to your doctor about getting help to quit. Your doctor can prescribe medication to help with withdrawal and suggest other alternatives. If you can't see a doctor, you can get many products over the counter at your local pharmacy or grocery store, including the nicotine patch, nicotine lozenges, and nicotine gum. Resources for Quitting Smoking: <https://www.[place].gov/documents/[facility]/Quit_Tobacco_Resources_for_patients_313 480_7.pdf> Supplementation: Take recommended dosages of Vitamin D and Calcium to help fortify your bones and help them to heal. See your health maintenance packet for dosages and recommended levels. DVT/VTE prophylaxis: You will be given compression stockings from the hospital. Wear these daily for the first two weeks after surgery. You may take them off at night. You may be prescribed a medication to help thin your blood. Take this as directed. If you are not prescribed this medication, early and frequent ambulation has been shown to be the best prophylaxis to deep vein thrombosis and sequelae related to this event. Procedures: [id number] decompression with posterolateral and interbody fusion Patient Condition at Discharge: Good Plan - Discharge Summary Discharge Rx Participant: No New Discharge Prescriptions: New Gabapentin 300 mg PO TID #90 cap HYDROcodone/APAP 10-325MG [[place] 10-325] 1 tab PO Q4HR PRN #56 tab PRN Reason: Pain Sennosides/Docusate Sodium [Senna Plus 8.6-50 mg Softgel] 1 each PO DAILY PRN #20 capsule PRN Reason: Constipation cefaDROXiL [Duricef] 500 mg PO Q12HR 5 Days #10 cap Cyclobenzaprine [Flexeril] 5 mg PO TID #90 tablet No Action ALPRAZolam [Xanax] 1 mg PO BID PRN PRN Reason: Anxiety Pravastatin Sodium [Pravachol] 80 mg PO HS Sotalol [Betapace] 80 mg PO BID Sertraline [Zoloft] 100 mg PO DAILY Sacubitril/Valsartan [Entresto 97 mg-103 mg Tablet] 1 each PO BID Glimepiride [Amaryl] 1 mg PO AC-BRKFST Gabapentin 300 mg PO TID Meloxicam [Mobic] 15 mg PO DAILY Fluticasone/Umeclidin/Vilanter [Trelegy Ellipta 200-62.5-25] 1 puff INHALATION DAILY Vitamin B Complex 1 each PO DAILY Discharge Medication List ALPRAZolam [Xanax] 1 mg PO BID PRN 01/20/15 [History] Pravastatin Sodium [Pravachol] 80 mg PO HS 01/20/15 [History] Sertraline [Zoloft] 100 mg PO DAILY 08/01/19 [History] Sotalol [Betapace] 80 mg PO BID 08/01/19 [History] Sacubitril/Valsartan [Entresto 97 mg-103 mg Tablet] 1 each PO BID 06/23/20 [History] Glimepiride [Amaryl] 1 mg PO AC-BRKFST 07/15/20 [History] Gabapentin 300 mg PO TID 11/19/21 [History] Fluticasone/Umeclidin/Vilanter [Trelegy Ellipta 200-62.5-25] 1 puff INHALATION DAILY 07/28/22 [History] Meloxicam [Mobic] 15 mg PO DAILY 07/28/22 [History] Vitamin B Complex 1 each PO DAILY 07/28/22 [History] Cyclobenzaprine [Flexeril] 5 mg PO TID #90 tablet 08/06/22 [Rx] Gabapentin 300 mg PO TID #90 cap 08/06/22 [Rx] HYDROcodone/APAP 10-325MG [[place] 10-325] 1 tab PO Q4HR PRN #56 tab 08/06/22 [Rx] Sennosides/Docusate Sodium [Senna Plus 8.6-50 mg Softgel] 1 each PO DAILY PRN #20 capsule 08/06/22 [Rx] cefaDROXiL [Duricef] 500 mg PO Q12HR 5 Days #10 cap 08/06/22 [Rx] Follow up Appointment(s)/Referral(s): Morro Kelly MD [Primary Care Provider] - 1 Week [facility] [[facility]] - 1-2 Days ([facility] will call you to schedule your in home physical therapy and nursing visits. ) Abdi Curry DO [Doctor of Osteopathic Medicine] - 08/17/22 10:40 am (With Tem[facility]) [employer] [NON-STAFF] - As Needed (Please call Deven if you have questions regarding your LSO brace. ) Activity/Diet/Wound Care/Special Instructions: Spine Discharge and Recovery Instructions Medications: See medication list All medication refills should be obtained through your primary care doctor or your clinic spine surgeon. Please discuss prescription refills at your follow up appointment. Do not call the hospital for medication refills. Dressing: Leave your dressing in place for a total of 5 days post operatively. Then you may remove your dressing and leave open to air. Keep the area clean and if not able to keep area clean, then cover with sterile gauze and tape. Showering: You may shower 3 days after your procedure allowing soap and water to run over incision. Do not scrub. Do not soak. Blot dry. Follow up: Please confirm a follow up appointment with your surgeon 3 weeks post operativ melissa. Please make an appointment to follow up with your PCP in 1-2 weeks after surgery for evaluation 3 phase, 3-week plan POST OP WEEKS 1-3 1. Lifting/carrying/pushing/pulling limited to less than 5 pounds. 2. Do not sit for longer than 15 minutes at one time. Get up and walk around. Prolonged sitting is NOT advised. If you lay down, see if you can tolerate laying down on you front (belly side) 3. Walk for periods of 15 minutes = 1 mile but no longer; do it multiple times times each day. 4. Ice your low back after activity. POST OP WEEKS 3-6 1. Lifting limited to less than 20 pounds. 2. Do not sit for longer than 30 minutes at a time. Frequently change positions. Use a sit-to stand workstation or take frequent breaks from sitting if you have returned to work. 3. Walk for 30 minutes each day. If possible, do these three or more times a day POST OP WEEKS 6+ At your 6-week appointment we will give you a physical therapy referral to focus on a core stabilization and strengthening program. You should also work on leg & buttock strengthening, hamstring & quadriceps stretching, and continue a low impact aerobic activity program such as swimming, walking, or riding a stationary bicycle. During the initial 6 weeks after your surgery, you are at the highest risk of re-injuring your spine. You should generally avoid BLTs (bending, lifting and twisting combination motions) and follow the above guidelines to reduce the chance of reinjury. You can anticipate post op appointments in our office at approximately 3 weeks and 6 weeks after your surgery. INCISION CARE: If your incision is not draining you do NOT need to cover it with a dressing. Keep your incision clean, dry and intact. In most cases, we apply skin glue, dyllan or sutures to the incision at the time of surgery. This will be like a crust or have the appearance of a scab and will fall off in time on its own. The stitches or dyllan need to be removed at 3 weeks post op appointment. You may begin to shower 3 days after surgery (this allows the glue to abarca well). However, please avoid scrubbing the incision site or peeling off any of the skin glue. This will ensure optimal healing of your incision. Also, during this time avoid soaking the incision area in water - this includes swimming pools, hot tubs or baths. No ointments, lotions or oil s on the incision until your surgeon allows. Leave dyllan, sutures or glue in place. Neurological dysfunction that comes on suddenly can also be a sign of a stroke. Below some common symptoms of a stroke are listed: B - balance difficulty such as sudden onset walking or leaning to one side - NEW E - eye problem such as sudden double vision or trouble seeing on one side - NEW F - Facial weakness or numbness on one side - NEW A - Arm or leg weakness or numbness on one side - NEW S - Slurred speech or difficulty with word finding - NEW T - Time is BRAIN! Call 911 as soon as you recognize these symptoms Diet: Consume a regular diet rich in vegetables and lean protein such as chicken or fish. You should consume in a ratio of approximately 20% fats|40% carbohydrates|40%protein. Vegetables, sweet potatoes, brown rice or quinoa are examples of good carbohydrates. Chips, white bread, cookies and sweets/sugar are examples of bad carbohydrates. Limit your bad carbs, go wild with good carbs. "Life's Simple 7" Guidelines as per [place] [employer] These will help you reclaim your life after surgery and car repairer helper in your recovery, keeping in mind your restrictions. (1) Get Active. Physical activity can help people lose weight, control high blood pressure and cholesterol, feel emotionally better, and sleep better. (2) Control Cholesterol. Avoid a diet high in saturated fat, trans fat, & cholesterol. Limit whole milk & cream, ice cream, butter, egg yolks, processed meats (like sausage and hot dogs), and fatty meats. Choose healthy foods that are low in saturated fat, trans fat and cholesterol which include: Fruits and vegetables, fiber rich grain products (like whole grain pasta and brown rice), lean meat such as chicken, fish, nuts, seeds, and legumes. (3) Eat Better. Eat small portions. Shop at the grocery with a list and do not stray from it. Tips for a healthy diet include: Limit sodium intake to less than 1500mg daily, avoid prepackaged, processed, and fast foods, choose a diet rich in fruits, vegetables, and whole grain, high fiber foods, and limit saturated & cholesterol in your diet. (4) Manage Blood Pressure. If you have high blood pressure, you should have a cuff at home so that you can check your blood pressure regularly. Be sure you have a good cuff. An arm one is generally better than a wrist one. Bring the cuff to a doctor's appointment to validate that the measurements that your cuff are taking are accurate. Take your blood pressure twice daily when you are sitting down and relaxing. Record the numbers in a log and bring this log with you to your doctors' appointments. (5) Lose Weight if your BMI is above 25. A healthy BMI is between 19-25. To calculate Your BMI, you may use a Standard BMI Calculator on the NIH BMI website: <www.nhlbi.nih.gov/guidelines/obesity/BMI/bmicalc.htm>. Weigh oneself daily. If you are overweight, set a goal to lose weight. A pound a week loss if needed is a good target. (6) Reduce Blood Sugar. Limit foods and liquids with "added sugars." (Added sugars include sucrose, fructose, glucose, maltose, dextrose, high fructose corn syrup, corn syrup, concentrated fruit juice and honey). (7) Stop Smoking. If you smoke, quitting smoking is one of the best things that you can do for your health. Smoking increases your risk of heart attack, stroke, and peripheral vascular disease, which is a build-up of plaque in your arteries. Please discard all the cigarettes and lighters in your house. Have a plan for what you will do when you have the urge to smoke. Direct and second- hand smoke shortens your life as well as the lives of your family, friends and others around you. For your health and the health of those around you, please consider quitting! Proper Bending Body Mechanics: Maintain a wide stance with one foot slightly in front of the other. Keep your back straight. Bend utilizing the strength in your hips and knees. Do not bend at the waist. Maintain the lifted object at your waist-level close to your body. Avoid lifting weight that causes immediately pain or pain anywhere in the body afterwards. Smoking/Nicotine If there was ever one thing that you could do to increase your overall health, decrease your risk of cardiovascular problems by about 39% the second you make the choice, it is to STOP SMOKING. Your body's most instant gratification is the second you stop smoking. We have all heard the studies, read the articles but it is true, smoking is extremely bad for your overall health, and moreover it is detrimental to your bone health. Nicotine, IN ANY FORM, kills bone cells, prevents your body from healing fractures, and significantly prolongs healing after surgery. In spine surgery specifically, it increases your risk of not healing your bones to create a fusion and increases your risk of having a revision surgery due to this up to 60%. I know it is hard. I know it feels impossible. But there are ways. Take control of your life. We are here to help you through it. And when you are ready, ask us and we can direct you to help if you desire. Use the START Plan to Quit Smoking (please visit the Helpguide.org website listed below for more information): S = Set a quit date. Choose a date within the next 2 weeks, so you have enough time to prepare without losing your motivation to quit. If you mainly smoke at work, quit on the weekend, so you have a few days to adjust to the change. T = Tell family, friends, and co-workers that you plan to quit. Let your friends and family in on your plan to quit smoking and tell them you need their support and encouragement to stop. Look for a quit aurelio who wants to stop smoking as well. You can help each other get through the rough times. A = Anticipate and plan for the challenges you'll face while quitting. Most people who begin smoking again do so within the first 3 months. You can help yourself make it through by preparing ahead for common challenges, such as nicotine withdrawal and cigarette cravings. R = Remove cigarettes and other tobacco products from your home, car, and work. Throw away all your cigarettes (no emergency pack!), lighters, ashtrays, and matches. Wash your clothes and freshen up anything that smells like smoke. Shampoo your car, clean your drapes and carpet, and steam your furniture. T = Talk to your doctor about getting help to quit. Your doctor can prescribe medication to help with withdrawal and suggest other alternatives. If you can't see a doctor, you can get many products over the counter at your local pharmacy or grocery store, including the nicotine patch, nicotine lozenges, and nicotine gum. Resources for Quitting Smoking: <https://www.[place].gov/documents/[facility]/Quit_Tobacco_Resources_for_patients_313 480_7.pdf> Supplementation: Take recommended dosages of Vitamin D and Calcium to help fortify your bones and help them to heal. See your health maintenance packet for dosages and recommended levels. DVT/VTE prophylaxis: You will be given compression stockings from the hospital. Wear these daily for the first two weeks after surgery. You may take them off at night. You may be prescribed a medication to help thin your blood. Take this as directed. If you are not prescribed this medication, early and frequent ambulation has been shown to be the best prophylaxis to deep vein thrombosis and sequelae related to this event. Discharge Disposition: TRANSFER TO SNF/ECF
--- NOTE | 2022-08-06 13:39 | PN ---
PROGRESS NOTE SUBJECTIVE: He is improving with his mobility. Wants to go to a [place] [facility]. Wait for placement. His breathing is low. He is on 2 L oxygen, 92% oxygen. We are going to do a CAT scan of his chest today. Continue home medicines, order [employer] gatesrafts q.i.d. OBJECTIVE: GENERAL: He is alert and oriented x3, giving appropriate answers, wearing oxygen, does not appear in any respiratory distress. CARDIOVASCULAR: S1, S2. LUNGS: Clear. GI: Soft. EXTREMITIES: Negative Homans. ASSESSMENT: Status post lumbar laminectomy, chronic obstructive pulmonary disease, anxiety, chronic hypoxemic respiratory failure. We will wean him off oxygen and order CAT scan of the chest. Continue with breathing treatments. Prognosis guarded. [place] [facility] [place]. MMODL / IJN: [id number] /
--- NOTE | 2022-08-06 13:45 | PN ---
PROGRESS NOTE DATE OF SERVICE: 08/05/2022 give him updrafts for his breathing. Continue with PT, OT, came in to [facility] [place] [facility] for rehab per his 's request. CHIDI / BRIAN: [id number] /
--- NOTE | 2022-08-06 13:52 | CT ---
EXAMINATION TYPE: CT chest w con DATE OF EXAM: 08/06/2022 COMPARISON: 10/04/2017 HISTORY: COPD, hypoxemia CT DLP: 835.8 mGycm Automated exposure control for dose reduction was used. TECHNIQUE: CT scan of the chest is performed with IV Contrast, patient injected with 100 mL of Isovue 370. MIP Images are created on CT scanner and reviewed. 3D reconstructed images are created on an independent workstation and reviewed. FINDINGS: There are 3 stable right lung pulmonary nodules largest of which is approximately 8 mm. No new or gayatri picious lung nodule is seen. There is no abnormal airspace or interstitial density. There is no pleural effusion or pneumothorax. The great vessels chest are normal. No mediastinal, hilar or axillary adenopathy. There is cardiac pa cemaker. Limited scanning the upper and reveals stable mild thickening of the left adrenal gland. The osseous structures are grossly intact postsurgical changes visualized portion thoracolumbar junct ion. IMPRESSION: 1. No acute cardiopulmonary disease. 2. 3 stable right lung nodules. 3. Continue routine screening yearly intervals.
--- NOTE | 2022-08-06 14:14 | P.PN ---
Subjective Progress Note Date: 08/06/22 The patient is a 77-year-old male with a PMH of type II DM, hypertension, COPD, and chronic lower back pain who was admitted for an elective lumbar decompression and fusion. Patient was seen and examined. No acute events overnight. Patient reports well controlled pain in his lower back. He is agreeable for SNF. General: non toxic, no distress, appears at stated age Derm: warm, dry Head: atraumatic, normocephalic, symmetric Eyes: EOMI, no lid lag, anicteric sclera Mouth: no lip lesion, mucus membranes moist Cardiovascular: S1S2 reg, no murmur Lungs: CTA bilateral, no rhonchi, no rales , no accessory muscle use Ext: no gross muscle atrophy, no edema, no contractures Neuro: no focal neuro deficits Psych: Alert, oriented, appropriate affect #Leukocytosis #Acute blood loss anemia #Hyponatremia due to dehydration #Status post lumbar decompression and fusion Chronic conditions: Hypertension, COPD, type II DM, VELIA Based on my assessment of this patient, this patient meets a moderate complexity level of care. I have reviewed the following labor relations consultant notes: Orthopedic surgery note 08/06, patient is cleared from orthopedic standpoint I have reviewed the results of the following tests: [id number]-[id number] glucose 136-166 over the past 24 hours. I have ordered the following tests: None. I have discussed the care of this patient with the following independent historian: None. I have independently interpreted the following test below: None. I have discussed the management of this patient with the following physician: None. This patient has a moderate risk of morbidity due to the following reasons: Patient has a new diagnosis of acute blood loss anemia and leukocytosis with uncertain prognosis. Patient is a hemoglobin of 10.8. Unknown baseline. Expected results of surgery. No indication for blood transfusion. Patient's WBC count of 17.1 with neutrophilia. Currently with no signs of active infection. Likely reactive. Objective - Vital Signs Vital signs: Vital Signs Temp 98.4 F 08/06/22 07:11 Pulse 86 08/06/22 07:11 Resp 18 08/06/22 07:11 BP 91/61 08/06/22 07:11 Pulse Ox 92 L 08/06/22 09:32 FiO2 Intake & Output 08/05/22 08/06/22 08/06/22 18:59 06:59 18:59 Intake Total 680 Output Total 300 900 Balance -300 -220 Intake: Oral 680 Output: Urine 300 900 Other: # Voids 1 1 # Bowel Movements 1 1 - Labs CBC & Chem 7: 08/05/22 05:43 08/05/22 05:43 Labs: Abnormal Lab Results - Last 24 Hours (Table) 08/05/22 08/05/22 08/06/22 Range/Units 16:11 20:01 06:25 POC Glucose (mg/dL) 166 H 160 H 160 H (70-110) mg/dL 08/06/22 Range/Units 11:34 POC Glucose (mg/dL) 136 H (70-110) mg/dL
[2022-08-06 14:41] VITALS: BP 95/53; PULSE 67
[2022-08-06] MEDS ORDERED: PANTOPRAZOLE 40 MG TABLET PO SCH (17:30)
== END 2022-08-06 16:52 | DRG 454 ==
LOC: OR 08:07 → 4SSUR 16:09 → OR 08-04 12:20 → 4SSUR 08-04 12:20
PROVIDERS: ADMIT Orthopaedic Surgery; ATTEND Orthopaedic Surgery
PROC: 0SG1071 Fusion of 2 or more Lumbar Vertebral Joints with Autologous Tissue Substitute, Posterior Approach, Posterior Column, Open Approach (ICD-10-PCS; 2022-08-03)
PROC: 0QS00ZZ Reposition Lumbar Vertebra, Open Approach (ICD-10-PCS; 2022-08-03)
PROC: 0QS10ZZ Reposition Sacrum, Open Approach (ICD-10-PCS; 2022-08-03)
PROC: 01NB0ZZ Release Lumbar Nerve, Open Approach (ICD-10-PCS; 2022-08-03)
PROC: 01NR0ZZ Release Sacral Nerve, Open Approach (ICD-10-PCS; 2022-08-03)
PROC: 0SG3071 Fusion of Lumbosacral Joint with Autologous Tissue Substitute, Posterior Approach, Posterior Column, Open Approach (ICD-10-PCS; 2022-08-03)
PROC: 0ST40ZZ Resection of Lumbosacral Disc, Open Approach (ICD-10-PCS; 2022-08-03)
PROC: 0SB20ZZ Excision of Lumbar Vertebral Disc, Open Approach (ICD-10-PCS; 2022-08-03)
PROC: 8E0WXBZ Computer Assisted Procedure of Trunk Region (ICD-10-PCS; 2022-08-03)
PROC: 0SG10AJ Fusion of 2 or more Lumbar Vertebral Joints with Interbody Fusion Device, Posterior Approach, Anterior Column, Open Approach (ICD-10-PCS; principal; 2022-08-03 10:15)
DX: M47.26 Other spondylosis with radiculopathy, lumbar region (principal); D62 Acute posthemorrhagic anemia; E87.1 Hypo-osmolality and hyponatremia; J96.11 Chronic respiratory failure with hypoxia; I11.0 Hypertensive heart disease with heart failure; I50.9 Heart failure, unspecified; E86.0 Dehydration; D72.829 Elevated white blood cell count, unspecified; E11.9 Type 2 diabetes mellitus without complications; J44.9 Chronic obstructive pulmonary disease, unspecified; M48.062 Spinal stenosis, lumbar region with neurogenic claudication; M47.27 Other spondylosis with radiculopathy, lumbosacral region; M48.07 Spinal stenosis, lumbosacral region; M21.372 Foot drop, left foot; G47.33 Obstructive sleep apnea (adult) (pediatric); F41.9 Anxiety disorder, unspecified; E78.5 Hyperlipidemia, unspecified; G89.29 Other chronic pain; M25.78 Osteophyte, vertebrae; Z96.651 Presence of right artificial knee joint; Z99.81 Dependence on supplemental oxygen; Z28.311 Partially vaccinated for COVID-19; Z95.0 Presence of cardiac pacemaker; Z87.891 Personal history of nicotine dependence; Z79.84 Long term (current) use of oral hypoglycemic drugs; Z79.899 Other long term (current) drug therapy; Z79.1 Long term (current) use of non-steroidal anti-inflammatories (NSAID); Z79.51 Long term (current) use of inhaled steroids
CPT/HCPCS: 71260; 72100; 72131; 80048; 84132; 85025; 85610; 86850; 86900; 86901; 94640; 94660; 94760

== ENCOUNTER 2022-08-30 07:59 | Inpatient (IN) | payer MEDICARE, OTHER ==
[2022-08-30] MEDS ORDERED: MORPHINE SULFATE 4 MG/ML SYRINGE IV STA (08:34)
[2022-08-30] MEDS ORDERED: SODIUM CHLORIDE 0.9% 1,000 ML IV STA ×3 (08:34→08:59)
[2022-08-30] MEDS ORDERED: ACETAMINOPHEN TAB 500 MG TAB PO STA (08:34)
[2022-08-30] MEDS ORDERED: VANCOMYCIN IV PER PHARMACY 1 EACH MISC MISCELLANE PRN (08:38)
[2022-08-30] MEDS ORDERED: VANCOMYCIN 1,500 MG in SODIUM CHLORIDE 0.9% 500 ML 500 ML IVPB STA (08:43)
--- NOTE | 2022-08-30 08:50 | ED ---
General Adult HPI - General Chief complaint: Skin/Abscess/Foreign Body Stated complaint: Poss Sepsis Time Seen by Provider: 08/30/22 08:32 Source: patient, EMS, RN notes reviewed, old records reviewed Mode of arrival: EMS Limitations: no limitations - History of Present Illness Initial comments: Patient is a 77-year-old male who [facility] where he has been since a spinal fusion done by Dr. Curry last month who presents emergency Department after being sent in by nursing staff over concern for infection. Patient has a skin tear over his left arm from last week that has had purulent discharge. Patient also has recent surgery. He's had high fevers as well as tachycardia. He has also had some increasing confusion. Patient endorses chronic low back pain as well as chronic feet paresthesias. Endorses some mild left arm discomfort as well as mild confusion but otherwise is oriented. Denies any shortness of breath or chest pain. Does have a history of COPD and 2-3 L baseline nasal cannula at home. Patient does have a pacemaker as well. History of pulmonary fibrosis. Presents for further evaluation at this time. He seems somewhat confused but is able to answer basic questions. Denies chest pain or shortness of breath. Denies abdominal pain, nausea, vomiting. Denies any urinary complaints at this time. Denies any saddle anesthesias. Denies any urinary or bowel retention or incontinence. Denies any acute weakness in the bilateral lower extremities. Presents for further evaluation at this time.[facility] paperwork from 08/07/2022 shows that the patient was made DO NOT RESUSCITATE by Dr. Renate Ardon. - Related Data Home Medications Medication Instructions Recorded Confirmed Sertraline [Zoloft] 100 mg PO DAILY 08/01/19 08/30/22 Sotalol [Betapace] 80 mg PO BID@0700,1900 08/01/19 08/30/22 Sacubitril/Valsartan [Entresto 97 1 tab PO BID 06/23/20 08/30/22 mg-103 mg Tablet] Glimepiride [Amaryl] 1 mg PO AC-BRKFST 07/15/20 08/30/22 Gabapentin 300 mg PO BID@0700,1800 11/19/21 08/30/22 Fluticasone/Umeclidin/Vilanter 1 puff INHALATION RT-DAILY 07/28/22 08/30/22 [Trelegy Ellipta 200-62.5-25] Acetaminophen Tab [Tylenol] 650 mg PO Q6H PRN MDD 3 grams 08/30/22 08/30/22 Atorvastatin [Lipitor] 20 mg PO HS 08/30/22 08/30/22 Cephalexin [Keflex] 500 mg PO BID@0700,1900 08/30/22 08/30/22 Cyclobenzaprine [Flexeril] 5 mg PO DIRECTED 08/30/22 08/30/22 Melatonin 3 mg PO HS PRN 08/30/22 08/30/22 Omeprazole [PriLOSEC] 20 mg PO BID 08/30/22 08/30/22 Previous Rx's Medication Instructions Recorded HYDROcodone/APAP 10-325MG [[place] 1 tab PO Q4HR PRN #56 tab 08/06/22 10-325] Allergies Allergy/AdvReac Type Severity Reaction Status Date / Time No Known Allergies Allergy Verified 08/30/22 08:43 Review of Systems ROS Statement: Those systems with pertinent positive or pertinent negative responses have been documented in the HPI. Review of Systems: CONST: Endorses fever EYES: Denies blurry vision ENT: Denies nasal congestion C/V: Denies Chest pain RESP: Denies shortness of breath GI: Denies abdominal pain : Denies dysuria SKIN: Denies rash. MSK: Endorses chronic back pain, elbow pain NEURO: Denies headache ROS Other: All systems not noted in ROS Statement are negative. Past Medical History Past Medical History: Cancer, Heart Failure, COPD, Diabetes Mellitus, Hyperlipidemia, Hypertension, Osteoarthritis (OA), Renal Disease, Sleep Apnea/CPAP/BIPAP Additional Past Medical History / Comment(s): hx melanoma., arthritis back and s houlders., oxygen at 2L 3-4 hrs /day., uses c-pap machine. lower back pain, pacemaker. History of Any Multi-Drug Resistant Organisms: None Reported Past Surgical History: Heart Catheterization, Joint Replacement, Pacemaker Additional Past Surgical History / Comment(s): RT KNEE REPLACEMENT 2001, COLONOSCOPY - multiple pain clinic procedure , cataracts., pacemaker at formerly [facility] and battery change 4-5 years ago. Past Anesthesia/Blood Transfusion Reactions: No Reported Reaction Type of Cardiac Device: Permanent Pacemaker Device Placement Date:: 2011 Past Psychological History: Anxiety, Depression Smoking Status: Former smoker Past Alcohol Use History: None Reported Past Drug Use History: Marijuana - Past Family History Mother Family Medical History: Diabetes Mellitus Additional Family Medical History / Comment(s): HEART PROBLEMS. Father Family Medical History: Diabetes Mellitus, Hypertension Additional Family Medical History / Comment(s): HEART PROBLEMS. General Exam - General Exam Comments Initial Comments: General: Appears in mild discomfort. Febrile. HEAD: Normal with no signs of head trauma. EYES: PERRLA, EOMI, conjunctiva normal, no discharge. ENT: Hearing grossly intact, normal oropharynx. RESPIRATORY: Clear breath sounds bilaterally. No wheezes, rales, or rhonchi. C/V: Tachycardic with a regular rhythm. S1 and S2 auscultated. Peripheral pulses 2+ and intact throughout. No peripheral edema. ABD: Abd is soft, nontender, nondistended EXT: Normal range of motion, no obvious deformity SKIN: Abrasions located over both anterior shins. Patient also has a erythematous, warm draining wound located over the left elbow that has some purulent material draining from it. Surgical incision appears well healed and clean. No erythema. Low concern for skin infection at this time. Minimal tenderness to palpation. NEURO: Alert and oriented x 4. Cranial nerves II-XII intact. No focal sensory or strength deficits. Slight confusion, however patient appears to be alert and oriented. GCS of 15. Limitations: no limitations Course Vital Signs 08/30/22 08/30/22 08/30/22 07:59 09:41 10:45 Temperature 102.6 F H 101.0 F H 100.8 F H Pulse Rate 117 H 111 H Respiratory 20 24 Rate Blood Pressure 161/86 146/82 O2 Sat by Pulse 96 96 Oximetry 08/30/22 12:00 Temperature 100.1 F H Pulse Rate 112 H Respiratory 22 Rate Blood Pressure 141/95 O2 Sat by Pulse 96 Oximetry Procedures - Sepsis Sepsis Focused Exam #1 Time Sepsis Criteria Met: 08:44 Sepsis Focused Exam Date: 08/30/22 Sepsis Focused Exam Time: 11:50 Sepsis Focused Exam Complete: Yes Vital Signs & RN Notes Reviewed: Yes Capillary Refill: < 2 Seconds: Fingers, Toes Peripheral Pulses: Normal: Radial (R), Radial (L) Skin Color: Normal for Patient Respiratory Exam: normal lung sounds Cardiovascular Exam: regular rate, normal rhythm Medical Decision Making - Medical Decision Making Was pt. sent in by a medical professional or institution (, PA, TRANSCRIBING OPERATOR HEAD, urgent care, hospital, or senior care...) When possible be specific @ -Sent by nursing facility [facility] Did you speak to anyone other than the patient for history (EMS, parent, family, police, friend...)? What history was obtained from this source @ -No Did you review nursing and triage notes (agree or disagree)? Why? @ -I reviewed and agree with nursing and triage notes Were old charts reviewed (outside hosp., previous admission, EMS record, old EKG, old radiological studies, urgent care reports/EKG's, senior care records)? Report findings @ -Old charts from previous admission from July 2022 were reviewed Differential Diagnosis (chest pain, altered mental status, abdominal pain women, abdominal pain men, vaginal bleeding, weakness, fever, dyspnea, syncope, headache, dizziness, GI bleed, back pain, seizure, CVA, palpatations, mental health, musculoskeletal)? @ -Differential Fever: Pneumonia, viral URI, endocarditis, myocarditis, pericarditis, otitis, sinusitis, peritonsillar Abscess, retropharyngeal Abscess, epiglottitis, peritonitis, appendicitis, Yenny cystitis, diverticulitis, hepatitis, colitis, UTI, PID, TOA, pyelonephritis, prostatitis, epididymitis, meningitis, encephalitis, pulmonary embolism, CVA, thyroid storm, pancreatitis, adrenal crisis, cavernous sinus thrombosis, spinal epidural abscess this is not meant to be an all-inclusive list. EKG interpreted by me (3pts min.). @ -As above X-rays interpreted by me (1pt min.). @ -Elbow x-ray reveals no obvious bony trauma or injury. Chest x-ray reveals no obvious cardio pulmonary process. CT interpreted by me (1pt min.). @ -CT brain reveals a contusion to the posterior occiput but no obvious acute intracranial process. Spinal CT with contrast reveals no obvious evidence for infection at this time. There is limited due to artifact imaging. U/S interpreted by me (1pt. min.). @ -None done What testing was considered but not performed or refused? (CT, X-rays, U/S, labs)? Why? @ -None What meds were considered but not given or refused? Why? @ -None Did you discuss the management of the patient with other professionals (professionals i.e. , PA, TRANSCRIBING OPERATOR HEAD, lab, RT, psych nurse, social media editor, housekeeping aid, teacher, surveillance sensor officer, nurse case management)? Give summary @ -No Was smoking cessation discussed for >3mins.? @ -No Was critical care preformed (if so, how long)? @ -Yes, 35 minutes Were there social determinants of health that impacted care today? How? (Homelessness, low income, unemployed, alcoholism, drug addiction, transportation, low edu. Level, literacy, decrease access to med. care, long term, rehab)? @ -No Was there de-escalation of care discussed even if they declined (Discuss DNR or withdrawal of care, Hospice)? DNR status @ -No What co-morbidities impacted this encounter? (DM, HTN, Smoking, COPD, CAD, Cancer, CVA, ARF, Chemo, Hep., AIDS, mental health diagnosis, sleep apnea, morbid obesity)? @ -History of recent spinal fusion. Was patient admitted / discharged? Hospital course, mention meds given and route, prescriptions, significant lab abnormalities, going to OR and other pertinent info. @ -Based on the patient's presentation and physical exam, he presents complaining of some weakness, as well as fevers and tachycardia. has generalized lower back pain which is chronic. Concern for sepsis from senior care. Patient is tachycardic with a fever but otherwise blood pressure is with in acceptable limits. Patient is chronically on 2-3 L nasal cannula and is saturating well on it. Has no upper respiratory symptoms. Does have the obvious skin wound located over the left elbow. He is actively draining. We will obtain broad workup including CT imaging the spine to evaluate for possible spinal abscess status post surgery. Source is still likely the left elbow skin wound. Patient was in agreement this plan. Patient did meet sepsis criteria at 0844 due to meeting 2/4 serious criteria. Patient was started on broad-spectrum vancomycin and cefepime. He was given a 2 L IV fluid bolus and will be then started on maintenance fluids. He'll be given 4 mg of IV morphine for pain control. She Is updated. He'll also receive oral Tylenol for his fever. Patient was in agreement this plan. Vital signs within acceptable limits other than the fever which is likely causing his tachycardia. He'll continue his home nasal cannula oxygen. EKG showed no signs of acute ischemia. Imaging was unremarkable including no evidence of spinal abscess. Labs remarkable for mild leukocytosis of 11. ESR is elevated at 32. CRP is elevated to 18. Patient is hyponatremic and hypokalemic clinic at 128 and 93. Lactic acid within normal limits. Covid/flu/rsv negative. Remainder of the labs are within acceptable limits. On reevaluation, I discussed the workup the patient. He expressed understanding. I do suspect that the likely source of his infection is the left arm as he does have purulent discharge as well as erythema and warmth at the site. We will continue the broad-spectrum vancomycin and cefepime at this time. I will consult the patient's orthopedic surgeon who performed the spine surgery, Dr. Curry for evaluation of the patient. I spoke with the admitting physician, Dr. Cormier who accepted the admission. Patient was admitted and serous condition. Vital signs remained improved at this time. Heart rate as well as temporal are both improved at this time. Remains hemodynamically stable. Undiagnosed new problem with uncertain prognosis? @ -No Drug Therapy requiring intensive monitoring for toxicity (Heparin, Nitro, Insulin, Cardizem)? @ -No Were any procedures done? @ -No Diagnosis/symptom? @ -Sepsis, likely source cellulitis of the left arm Acute, or Chronic, or Acute on Chronic? @ -Acute Uncomplicated (without systemic symptoms) or Complicated (systemic symptoms)? @ -Complicated Side effects of treatment? @ -none Exacerbation, Progression, or Severe Exacerbation] @ -no Poses a threat to life or bodily function? @ -Yes Diagnosis/symptom? @ -Hyponatremia Acute, or Chronic, or Acute on Chronic? @ -Acute Uncomplicated (without systemic symptoms) or Complicated (systemic symptoms)? @ -Uncomplicated Side effects of treatment? @ -none Exacerbation, Progression, or Severe Exacerbation] @ -no Poses a threat to life or bodily function? @ -no. Diagnosis/symptom? @ -Recent spinal fusion Acute, or Chronic, or Acute on Chronic? @ -Acute Uncomplicated (without systemic symptoms) or Complicated (systemic symptoms)? @ -Uncomplicated Side effects of treatment? @ -none Exacerbation, Progression, or Severe Exacerbation] @ -no Poses a threat to life or bodily function? @ -no - Lab Data Result diagrams: 08/30/22 08:40 08/30/22 08:40 Lab Results 08/30/22 08/30/22 08/30/22 Range/Units 08:40 08:40 08:40 WBC 11.0 H (3.8-10.6) k/uL RBC 3.80 L (4.30-5.90) m/uL Hgb 10.7 L (13.0-17.5) gm/dL Hct 32.4 L (39.0-53.0) % MCV 85.3 D (80.0-100.0) fL MCH 28.1 (25.0-35.0) pg MCHC 32.9 (31.0-37.0) g/dL RDW 13.3 (11.5-15.5) % Plt Count 186 (150-450) k/uL MPV 8.8 Neutrophils % 93 % Lymphocytes % 2 % Monocytes % 4 % Eosinophils % 0 % Basophils % 0 % Neutrophils # 10.2 H (1.3-7.7) k/uL Lymphocytes # 0.2 L (1.0-4.8) k/uL Monocytes # 0.5 (0-1.0) k/uL Eosinophils # 0.0 (0-0.7) k/uL Basophils # 0.0 (0-0.2) k/uL ESR 32 H (0-15) mm/hr PT 12.0 (9.0-12.0) sec INR 1.2 H (<1.2) APTT 27.8 (22.0-30.0) sec Sodium (137-145) mmol/L Potassium (3.5-5.1) mmol/L Chloride (98-107) mmol/L Carbon Dioxide (22-30) mmol/L Anion Gap mmol/L BUN (9-20) mg/dL Creatinine (0.66-1.25) mg/dL Est GFR (CKD-EPI)AfAm (>60 ml/min/1.73 sqM) Est GFR (CKD-EPI)NonAf (>60 ml/min/1.73 sqM) Glucose (74-99) mg/dL Plasma Lactic Acid Angel (0.7-2.0) mmol/L Calcium (8.4-10.2) mg/dL Magnesium (1.6-2.3) mg/dL Total Bilirubin (0.2-1.3) mg/dL AST (17-59) U/L ALT (4-49) U/L Alkaline Phosphatase (38-126) U/L C-Reactive Protein (<1.0) mg/dL Total Protein (6.3-8.2) g/dL Albumin (3.5-5.0) g/dL Urine Color Yellow Urine Appearance Clear (Clear) Urine pH 5.5 (5.0-8.0) Ur Specific [place] 1.024 (1.001-1.035) Urine Protein 2+ H (Negative) Urine Glucose (UA) Negative (Negative) Urine Ketones 1+ H (Negative) Urine Blood Small H (Negative) Urine Nitrite Negative (Negative) Urine Bilirubin Negative (Negative) Urine Urobilinogen 2.0 (<2.0) mg/dL Ur Leukocyte Esterase Negative (Negative) Urine WBC 1 (0-5) /hpf Ur Squamous Epith Cells <1 (0-4) /hpf Hyaline Casts 1 (0-2) /lpf Urine Mucus Rare H (None) /hpf Influenza Type A (PCR) (Not Detectd) Influenza Type B (PCR) (Not Detectd) RSV (PCR) (Not Detectd) SARS-CoV-2 (PCR) (Not Detectd) 08/30/22 08/30/22 08/30/22 Range/Units 08:40 08:40 09:42 WBC (3.8-10.6) k/uL RBC (4.30-5.90) m/uL Hgb (13.0-17.5) gm/dL Hct (39.0-53.0) % MCV (80.0-100.0) fL MCH (25.0-35.0) pg MCHC (31.0-37.0) g/dL RDW (11.5-15.5) % Plt Count (150-450) k/uL MPV Neutrophils % % Lymphocytes % % Monocytes % % Eosinophils % % Basophils % % Neutrophils # (1.3-7.7) k/uL Lymphocytes # (1.0-4.8) k/uL Monocytes # (0-1.0) k/uL Eosinophils # (0-0.7) k/uL Basophils # (0-0.2) k/uL ESR (0-15) mm/hr PT (9.0-12.0) sec INR (<1.2) APTT (22.0-30.0) sec Sodium 128 L (137-145) mmol/L Potassium 3.8 (3.5-5.1) mmol/L Chloride 93 L (98-107) mmol/L Carbon Dioxide 27 (22-30) mmol/L Anion Gap 8 mmol/L BUN 18 (9-20) mg/dL Creatinine 0.73 (0.66-1.25) mg/dL Est GFR (CKD-EPI)AfAm >90 (>60 ml/min/1.73 sqM) Est GFR (CKD-EPI)NonAf >90 (>60 ml/min/1.73 sqM) Glucose 106 H (74-99) mg/dL Plasma Lactic Acid Angel 0.9 (0.7-2.0) mmol/L Calcium 7.7 L (8.4-10.2) mg/dL Magnesium 1.9 (1.6-2.3) mg/dL Total Bilirubin 0.6 (0.2-1.3) mg/dL AST 35 (17-59) U/L ALT 32 (4-49) U/L Alkaline Phosphatase 136 H (38-126) U/L C-Reactive Protein 18.1 H (<1.0) mg/dL Total Protein 5.8 L (6.3-8.2) g/dL Albumin 3.0 L (3.5-5.0) g/dL Urine Color Urine Appearance (Clear) Urine pH (5.0-8.0) Ur Specific [place] (1.001-1.035) Urine Protein (Negative) Urine Glucose (UA) (Negative) Urine Ketones (Negative) Urine Blood (Negative) Urine Nitrite (Negative) Urine Bilirubin (Negative) Urine Urobilinogen (<2.0) mg/dL Ur Leukocyte Esterase (Negative) Urine WBC (0-5) /hpf Ur Squamous Epith Cells (0-4) /hpf Hyaline Casts (0-2) /lpf Urine Mucus (None) /hpf Influenza Type A (PCR) Not Detected (Not Detectd) Influenza Type B (PCR) Not Detected (Not Detectd) RSV (PCR) Not Detected (Not Detectd) SARS-CoV-2 (PCR) Not Detected (Not Detectd) - EKG Data -: EKG Interpreted by Me EKG Comments: 12-lead Electrocardiogram Interpretation Note EKG was reviewed and interpreted by myself. 12-lead ECG performed at 0812 is interpreted by me as revealing normal sinus rhythm at a rate of 113 beats per minute. [place] is normal. OK interval is 125 ms, QRS duration is 93 ms, QTc is 127 ms.. There are subtle ST segment depressions in V5 and V6 with reciprocal changes. No old EKG for comparison. PVCs are present.. R wave progression across the precordium was satisfactory. No prior EKGs for comparison in our system.. Critical Care Time Critical Care Time: Yes Total Critical Care Time: 35 Critical Care Time: Upon my evaluation, this patient had a high probability of imminent or life- threatening deterioration due to sepsis, which required my direct attention, intervention, and personal management. I have personally provided 35 minutes of critical care time exclusive of time spent on separately billable procedures. Time includes review of laboratory data, radiology results, discussion with consultants, and monitoring for potential decompensation. Interventions were performed as documented in my note. Disposition Clinical Impression: Sepsis, Cellulitis, Hyponatremia, History of spinal fusion Disposition: ADMITTED IP TO THIS HOSP Condition: Serious Time of Disposition: 11:15
[2022-08-30 08:52] LABS: Basophils % (A) 0 %; Eosinophils % (A) 0 %; HCT 32.4 % (39.0-53.0); HGB 10.7 gm/dL (13.0-17.5); Lymphocytes # (A) 0.2 k/uL (1.0-4.8); Lymphocytes % (A) 2 %; MCH 28.1 pg (25.0-35.0); MCHC 32.9 g/dL (31.0-37.0); Mean Platelet Volume 8.8; Monocytes # (A) 0.5 k/uL (0-1.0); Monocytes % (A) 4 %; Neutrophils # (A) 10.2 k/uL (1.3-7.7); Neutrophils % (A) 93 %; Platelet Count 186 k/uL (150-450); RDW 13.3 % (11.5-15.5)
[2022-08-30] MEDS ORDERED: DIPH,PERTUS(ACELL)TETVAC-LF 0.5 ML VIAL IM ONE (08:53)
[2022-08-30] MEDS: CEFEPIME 2 GM in SODIUM CHLORIDE 0.9% 100 ML IVPB SCH ×3 (08:54→23:29)
[2022-08-30 08:57] LABS: INR 1.2 (<1.2); Partial Thromboplastin Time 27.8 sec (22.0-30.0)
[2022-08-30 09:01] LABS: ALT 32 U/L (4-49); AST 35 U/L (17-59); African American GFR (CKD) >90 (>60 ml/min/1.73 sqM); Alkaline Phosphatase 136 U/L (38-126); Anion Gap 8 mmol/L; Blood Urea Nitrogen 18 mg/dL (9-20); Calcium 7.7 mg/dL (8.4-10.2); Carbon Dioxide 27 mmol/L (22-30); Chloride 93 mmol/L (98-107); Glucose 106 mg/dL (74-99); Magnesium 1.9 mg/dL (1.6-2.3); Non-African American GFR(CKD) >90 (>60 ml/min/1.73 sqM); Potassium 3.8 mmol/L (3.5-5.1); Sodium 128 mmol/L (137-145); Total Bilirubin 0.6 mg/dL (0.2-1.3); Total Protein 5.8 g/dL (6.3-8.2)
[2022-08-30 09:18] LABS: MCV 85.3 fL (80.0-100.0)
--- NOTE | 2022-08-30 09:25 | XR ---
EXAMINATION TYPE: XR chest 2V DATE OF EXAM: 08/30/2022 COMPARISON: 08/03/2022 HISTORY: Shortness of breath TECHNIQUE: Frontal and lateral views of the chest are obtained. FINDINGS: Scattered senescent parenchymal changes noted. Hyperinflation compatible with COPD. No evidence for infiltrate. No evidence for atelectasis. Heart size is stable. Mediastinal structures are stable and grossly unremarkable. No evidence for hilar prominence. Degenerative changes dorsal spine. IMPRESSION: 1. No evidence for acute pulmonary disease.
--- NOTE | 2022-08-30 09:26 | XR ---
EXAMINATION TYPE: XR elbow complete LT DATE OF EXAM: 08/30/2022 CLINICAL HISTORY: pain TECHNIQUE: Frontal, lateral and oblique images of the left elbow are obtained. COMPARISON: None. FINDINGS: There is no acute fracture/dislocation evident of the elbow. No abnormal fat pad signs ar e seen. Posterior soft tissue calcifications. Soft tissue swelling olecranon region may reflect olecr anon bursitis. IMPRESSION: There is no acute fracture or dislocation of the elbow. ICD 10 NO FRACTURE, INITIAL EVALUATION
[2022-08-30 09:31] LABS: Appearance,Urine Clear (Clear); Bilirubin,Urine Negative (Negative); Blood,Urine Small (Negative); Color,Urine Yellow; Glucose,Urine (UA) Negative (Negative); Hyaline Casts,Urine 1 /lpf (0-2); Ketones,Urine 1+ (Negative); Leukocyte Esterase,Urine Negative (Negative); Mucus,Urine Rare /hpf; Nitrite,Urine Negative (Negative); PH, Urine 5.5 (5.0-8.0); Protein,Urine 2+ (Negative); Specific Gravity,Urine 1.024 (1.001-1.035); Squamous Epithelial Cell,Urine <1 /hpf (0-4); WBC,Urine 1 /hpf (0-5)
[2022-08-30 09:44] LABS: C Reactive Protein 18.1 mg/dL (<1.0)
--- NOTE | 2022-08-30 10:49 | CT ---
EXAMINATION TYPE: CT brain wo con DATE OF EXAM: 08/30/2022 COMPARISON: None INDICATION: Fever, Recent spinal fusion DLP: 1217.4 mGycm, Automated exposure control for dose reduction was used. CONTRAST: None CT of the brain is performed utilizing 3 mm thick sections through the posterior fossa and 3 mm thick sections through the remaining calvarium. Study is performed within 24 hours of arrival to the hosp ital. No abnormal hyperdensity is present to suggest an acute intracranial hemorrhage. No mass lesion is evident. No acute infarcts are evident. Some minimal periventricular white matter hypodensity may be present s uggesting some mild chronic underlying microvascular ischemic change. Ventricles and sulci are prominent for the patient age. Paranasal sinuses and mastoid air cells within the [id number] are clear. There is a higher density collection in the posterior right occipital region. Correlate for recent he ad trauma. Hemorrhage could be considered. Given the patient's fever consider infection within the di fferential. Series 201, image 41. IMPRESSIONS: 1. Atrophy with minimal chronic appearing periventricular white matter ischemic-type changes. 2. High density collection posterior right occipital region. Correlate for recent trauma and extracra nial hematoma. Given the patient's fever, consider infection.
[2022-08-30 10:51] LABS: Erythrocyte Sedimentation Rate 32 mm/hr (0-15)
--- NOTE | 2022-08-30 11:13 | CT ---
EXAMINATION TYPE: CT CervThorLumbar spine w con DATE OF EXAM: 08/30/2022 COMPARISON: CT lumbar spine 08/03/2022 HISTORY: Fever, Recent spinal fusion CT DLP: 2376.6 mGycm Automated exposure control for dose reduction was used. Contrast: 100 mL [id number] Technique: Axial images 2 mm thick sections. Reconstructed images in the coronal and sagittal plane. FINDINGS: Cervical spine: Some uncovertebral joint hypertrophy is present on left with mild foraminal narrowing . Lower cervical spine and right foraminal narrowing from uncovertebral joint hypertrophy is noted. N o AP spinal canal stenosis present. Anterior vertebral body spurring is noted. A disc bulge at C2-3 i s present. No spinal canal stenosis is present. There may be disc bulging is seen 3 4 Thoracic spine: Very minimal right posterior lateral endplate change may be present with anterior the renzo sac compression. No cord contact or spinal canal stenosis is present. Note made of degenerative d isc change this level. Small amount of air is within the spinal canal in the left paraspinal region at this level can be related to recent surgery. No suspicious enhancement is identified. Lumbar spine: There is been interval placement of pedicle screws L2-S1. This causes some beam hardeni ng artifact limiting portions of the evaluation. Disc spacers are present. No suspicious epidural abscess is identified by CT. No soft tissue abscess or infection is identified . IMPRESSION: 1. NO SUSPICIOUS CHANGES TO ACCOUNT FOR FEVER POSTSURGERY. 2. THERE IS SOME LIMITATION DURING PORTIONS OF THE EXAMINATION DUE TO BEAM HARDENING ARTIFACT.
[2022-08-30] MEDS ORDERED: NALOXONE 0.4 MG/ML 1 ML VIAL IV PRN (11:29)
[2022-08-30] MEDS ORDERED: IBUPROFEN 800 MG TAB PO STA (11:32)
[2022-08-30] MEDS ORDERED: IBUPROFEN 400 MG TAB PO PRN (11:32)
[2022-08-30] MEDS ORDERED: ACETAMINOPHEN TAB 500 MG TAB PO PRN (11:33)
[2022-08-30] MEDS: HYDROcodone/APAP 10-325MG 1 EACH TAB PO PRN ×3 (11:57→21:14)
[2022-08-30] MEDS ORDERED: ACETAMINOPHEN TAB 325 MG TAB PO PRN (12:41)
--- NOTE | 2022-08-30 13:28 | P.HPIM ---
History of Present Illness H&P Date: 08/30/22 Chief Complaint: Fever 77-year-old gentleman with past medical history significant for degenerative disease of lumbar spine, patient had recent spinal surgery, history of diabetes mellitus, COPD, hypertension, heart failure, sleep apnea presented to the emergency department with complaints of fever and left arm pain. Patient said he has been having fever for the last 48 hours, he decided to come to the emergency since we will was breaking. CBC obtained showed white cell count of 11, basic metabolic panel showed sodium of 128. Patient had x-ray of left elbow done which was negative for acute fracture. CT brain was done which was negative for acute process however density collection in the posterior right occipital region was noted. Patient was alert and oriented 4 nonspecific finding is noted on CT however we will continue to monitor. Infectious disease sr solutions consultant and spine surgery consulted as well since patient had recent surgery Review of Systems REVIEW OF SYSTEMS: CONSTITUTIONAL: Fever, elbow pain diaphoresis. HEENT: No recent visual problems or hearing problems. Denied any sore throat. CARDIOVASCULAR: No chest pain, orthopnea, PND, no palpitations, no syncope. PULMONARY: No shortness of breath, no cough, no hemoptysis. GASTROINTESTINAL: No diarrhea, no nausea, no vomiting, no abdominal pain. NEUROLOGICAL: No headaches, no weakness, no numbness. HEMATOLOGICAL: Denies any bleeding or petechiae. GENITOURINARY: Denies any burning micturition, frequency, or urgency. MUSCULOSKELETAL/RHEUMATOLOGICAL: Denies any joint pain, swelling, or any muscle pain. ENDOCRINE: Denies any polyuria or polydipsia. Past Medical History Past Medical History: Cancer, Heart Failure, COPD, Diabetes Mellitus, Hyperlipidemia, Hypertension, Osteoarthritis (OA), Renal Disease, Sleep Apnea/CPAP/BIPAP Additional Past Medical History / Comment(s): hx melanoma., arthritis back and shoulders., oxygen at 2L 3-4 hrs /day., uses c-pap machine. lower back pain, pacemaker. History of Any Multi-Drug Resistant Organisms: None Reported Past Surgical History: Heart Catheterization, Joint Replacement, Pacemaker Additional Past Surgical History / Comment(s): RT KNEE REPLACEMENT 2001, COLONOSCOPY - multiple pain clinic procedure , cataracts., pacemaker at [facility] and battery change 4-5 years ago. Past Anesthesia/Blood Transfusion Reactions: No Reported Reaction Type of Cardiac Device: Permanent Pacemaker Device Placement Date:: 2011 Past Psychological History: Anxiety, Depression Smoking Status: Former smoker Past Alcohol Use History: None Reported Past Drug Use History: Marijuana - Past Family History Mother Family Medical History: Diabetes Mellitus Additional Family Medical History / Comment(s): HEART PROBLEMS. Father Family Medical History: Diabetes Mellitus, Hypertension Additional Family Medical History / Comment(s): HEART PROBLEMS. Medications and Allergies Home Medications Medication Instructions Recorded Confirmed Type Sertraline [Zoloft] 100 mg PO DAILY 08/01/19 08/30/22 History Sotalol [Betapace] 80 mg PO BID@0700,1900 08/01/19 08/30/22 History Sacubitril/Valsartan [Entresto 97 1 tab PO BID 06/23/20 08/30/22 History mg-103 mg Tablet] Glimepiride [Amaryl] 1 mg PO AC-BRKFST 07/15/20 08/30/22 History Gabapentin 300 mg PO BID@0700,1800 11/19/21 08/30/22 History Fluticasone/Umeclidin/Vilanter 1 puff INHALATION RT-DAILY 07/28/22 08/30/22 History [Trelegy Ellipta 200-62.5-25] HYDROcodone/APAP 10-325MG [[place] 1 tab PO Q4HR PRN #56 tab 08/06/22 08/30/22 Rx 10-325] Acetaminophen Tab [Tylenol] 650 mg PO Q6H PRN MDD 3 grams 08/30/22 08/30/22 History Atorvastatin [Lipitor] 20 mg PO HS 08/30/22 08/30/22 History Cephalexin [Keflex] 500 mg PO BID@0700,1900 08/30/22 08/30/22 History Cyclobenzaprine [Flexeril] 5 mg PO DIRECTED 08/30/22 08/30/22 History Melatonin 3 mg PO HS PRN 08/30/22 08/30/22 History Omeprazole [PriLOSEC] 20 mg PO BID 08/30/22 08/30/22 History Allergies Allergy/AdvReac Type Severity Reaction Status Date / Time No Known Allergies Allergy Verified 08/30/22 08:43 Physical Exam Vitals: Vital Signs Temp Pulse Pulse Resp BP BP Pulse Ox 08/30/22 12:43 98.2 F 109 H 18 122/83 97 08/30/22 12:00 100.1 F H 112 H 22 141/95 96 08/30/22 10:45 100.8 F H 08/30/22 09:41 101.0 F H 111 H 24 146/82 96 08/30/22 07:59 102.6 F H 117 H 20 161/86 96 Intake and Output 08/29/22 08/30/22 08/30/22 22:59 06:59 14:59 Other: Weight 97.522 kg PHYSICAL EXAMINATION: GENERAL: The patient is alert and oriented x3, in appearance, diaphoretic a more toxic HEENT: Pupils are round and equally reacting to light. EOMI. No scleral icterus. No conjunctival pallor. Normocephalic, atraumatic. No pharyngeal erythema. No thyromegaly. CARDIOVASCULAR: S1 and S2 present. No murmurs, rubs, or gallops. PULMONARY: Chest is clear to auscultation, no wheezing or crackles. ABDOMEN: Soft, nontender, nondistended, normoactive bowel sounds. No palpable organomegaly. MUSCULOSKELETAL: Left elbow swelling, purulent drainage noted, cellulitis noted. EXTREMITIES: No cyanosis, clubbing, or pedal edema. NEUROLOGICAL: Alert and oriented 4, no focal deficit noted SKIN: tenderness from left elbow Results CBC & Chem 7: 08/30/22 08:40 08/30/22 08:40 Labs: Abnormal Lab Results - Last 24 Hours (Table) 08/30/22 08/30/22 08/30/22 Range/Units 08:40 08:40 08:40 WBC 11.0 H (3.8-10.6) k/uL RBC 3.80 L (4.30-5.90) m/uL Hgb 10.7 L (13.0-17.5) gm/dL Hct 32.4 L (39.0-53.0) % Neutrophils # 10.2 H (1.3-7.7) k/uL Lymphocytes # 0.2 L (1.0-4.8) k/uL ESR 32 H (0-15) mm/hr INR 1.2 H (<1.2) Sodium (137-145) mmol/L Chloride (98-107) mmol/L Glucose (74-99) mg/dL Calcium (8.4-10.2) mg/dL Alkaline Phosphatase (38-126) U/L C-Reactive Protein (<1.0) mg/dL Total Protein (6.3-8.2) g/dL Albumin (3.5-5.0) g/dL Urine Protein 2+ H (Negative) Urine Ketones 1+ H (Negative) Urine Blood Small H (Negative) Urine Mucus Rare H (None) /hpf 08/30/22 Range/Units 08:40 WBC (3.8-10.6) k/uL RBC (4.30-5.90) m/uL Hgb (13.0-17.5) gm/dL Hct (39.0-53.0) % Neutrophils # (1.3-7.7) k/uL Lymphocytes # (1.0-4.8) k/uL ESR (0-15) mm/hr INR (<1.2) Sodium 128 L (137-145) mmol/L Chloride 93 L (98-107) mmol/L Glucose 106 H (74-99) mg/dL Calcium 7.7 L (8.4-10.2) mg/dL Alkaline Phosphatase 136 H (38-126) U/L C-Reactive Protein 18.1 H (<1.0) mg/dL Total Protein 5.8 L (6.3-8.2) g/dL Albumin 3.0 L (3.5-5.0) g/dL Urine Protein (Negative) Urine Ketones (Negative) Urine Blood (Negative) Urine Mucus (None) /hpf Assessment and Plan Assessment: Assessment and plan * Left elbow cellulitis * Sepsis secondary to left elbow cellulitis * History of congestive heart failure * Hypertension * Recent lumbar spine surgery * History of COPD * For left elbow cellulitis and abscess CT left elbow ordered to rule out posterior mellitus, x-rays reviewed, infectious disease consulted , patient had bedside I&D done in ED. Continue cefepime and vancomycin * Blood cultures collected * Regards to hypertension patient is on Crestor which will be continued * Regards to COPD continue patient on breathing treatments bronchodilator * On subcu heparin for DVT prophylaxis * CODE STATUS is no CODE
[2022-08-30] MEDS: MORPHINE SULFATE 4 MG/ML SYRINGE IV PRN (14:14)
[2022-08-30] MEDS: IPRATROPIUM 0.5 MG/2.5 ML NEBU INHALATION SCH ×2 (15:21→20:24)
[2022-08-30] MEDS: GABAPENTIN 300 MG CAP PO SCH (17:56)
[2022-08-30] MEDS: PANTOPRAZOLE 40 MG TABLET PO SCH (17:56)
[2022-08-30] MEDS: SOTALOL 80 MG TAB PO SCH (17:58)
[2022-08-30] MEDS: SYMBICORT 80-4.5 MCG INHALER INHALATION SCH (20:24)
[2022-08-30] MEDS: SACUBITRIL/VALSARTAN 97 MG-103 MG TABLET PO SCH (20:44)
[2022-08-30] MEDS: HEPARIN SODIUM,PORCINE/PF 5,000 UNIT/0.5 ML SYRINGE SQ SCH (20:44)
[2022-08-30] MEDS: ATORVASTATIN 20 MG TAB PO SCH (20:44)
[2022-08-30] MEDS: VANCOMYCIN 1,500 MG in SODIUM CHLORIDE 0.9% 500 ML 500 ML IVPB SCH (20:49)
--- NOTE | 2022-08-30 21:31 | P.CONS ---
History of Present Illness - Reason for Consult Consult date: 08/30/22 - History of Present Illness 1 patient is a 77-year-old male with a past medical his significant for hypertension hyperlipidemia COPD heart failure with recently did have a lumbar surgery done by Dr. Luis 7 on 08/03/2022 patient is now presenting to the ER this morning from the local assisted as nursing staff was concern for infection to his left elbow area apparently the patient did have a skin tear from a fall to the left elbow area last week and the patient did have a nonhealing wound to that area and the nursing staff noticed some purulent drainage patient did have a fever and was also noted to be tachycardic and did have some confusion for the patient was sent to the ER for further evaluation p atient currently denies having any headache or URI symptoms no chest pain no shortness of breath or cough no nausea no vomiting no abdominal pain no diarrhea he did have some mild dull aching pain to the left elbow area and minimal drainage as mentioned above patient did mention that his abdominal incision site is healing well and denies any worsening lower back pain no bowel or bladder problem patient on presentation to the hospital was febrile with a temperature of 102 F patient did have a white count of 11,000 with a left shift kidney function has been normal liver enzymes are normal CRP was elevated urine was negative influenza RSV and COVID testing was negative patient did have a chest x-ray no evidence of acute cardiopulmonary disease patient did have a CT of the cervical thoracic and lumbar spine no suspicious changes to account for fever or surgery patient has been started on cefepime and vancomycin infectious disease was consulted for further management of antibiotic therapy Past Medical History Past Medical History: Cancer, Heart Failure, COPD, Diabetes Mellitus, Hyperlipidemia, Hypertension, Osteoarthritis (OA), Renal Disease, Sleep Apnea/CPAP/BIPAP Additional Past Medical History / Comment(s): hx melanoma., arthritis back and shoulders., oxygen at 2L 3-4 hrs /day., uses c-pap machine. lower back pain, pacemaker. History of Any Multi-Drug Resistant Organisms: None Reported Past Surgical History: Heart Catheterization, Joint Replacement, Pacemaker Additional Past Surgical History / Comment(s): RT KNEE REPLACEMENT 2001, [place] LONOSCOPY - multiple pain clinic procedure , cataracts., pacemaker at [facility] and battery change 4-5 years ago. Past Anesthesia/Blood Transfusion Reactions: No Reported Reaction Type of Cardiac Device: Permanent Pacemaker Device Placement Date:: 2011 Past Psychological History: Anxiety, Depression Smoking Status: Former smoker Past Alcohol Use History: None Reported Past Drug Use History: Marijuana - Past Family History Mother Family Medical History: Diabetes Mellitus Additional Family Medical History / Comment(s): HEART PROBLEMS. Father Family Medical History: Diabetes Mellitus, Hypertension Additional Family Medical History / Comment(s): HEART PROBLEMS. Medications and Allergies Home Medications Medication Instructions Recorded Confirmed Type Sertraline [Zoloft] 100 mg PO DAILY 08/01/19 08/30/22 History Sotalol [Betapace] 80 mg PO BID@0700,1900 08/01/19 08/30/22 History Sacubitril/Valsartan [Entresto 97 1 tab PO BID 06/23/20 08/30/22 History mg-103 mg Tablet] Glimepiride [Amaryl] 1 mg PO AC-BRKFST 07/15/20 08/30/22 History Gabapentin 300 mg PO BID@0700,1800 11/19/21 08/30/22 History Fluticasone/Umeclidin/Vilanter 1 puff INHALATION RT-DAILY 07/28/22 08/30/22 History [Trelegy Ellipta 200-62.5-25] HYDROcodone/APAP 10-325MG [[place] 1 tab PO Q4HR PRN #56 tab 08/06/22 08/30/22 Rx 10-325] Acetaminophen Tab [Tylenol] 650 mg PO Q6H PRN MDD 3 grams 08/30/22 08/30/22 History Atorvastatin [Lipitor] 20 mg PO HS 08/30/22 08/30/22 History Cephalexin [Keflex] 500 mg PO BID@0700,1900 08/30/22 08/30/22 History Cyclobenzaprine [Flexeril] 5 mg PO DIRECTED 08/30/22 08/30/22 History Melatonin 3 mg PO HS PRN 08/30/22 08/30/22 History Omeprazole [PriLOSEC] 20 mg PO BID 08/30/22 08/30/22 History Allergies Allergy/AdvReac Type Severity Reaction Status Date / Time No Known Allergies Allergy Verified 08/30/22 08:43 Physical Exam Vitals: Vital Signs Temp Pulse Pulse Resp BP BP Pulse Ox 08/30/22 12:43 98.2 F 109 H 18 122/83 97 08/30/22 12:00 100.1 F H 112 H 22 141/95 96 08/30/22 10:45 100.8 F H 08/30/22 09:41 101.0 F H 111 H 24 146/82 96 08/30/22 07:59 102.6 F H 117 H 20 161/86 96 Intake and Output 08/30/22 08/30/22 08/30/22 06:59 14:59 22:59 Other: Weight 97.522 kg Results CBC & Chem 7: 08/30/22 08:40 08/30/22 08:40 Labs: Abnormal Lab Results - Last 24 Hours (Table) 08/30/22 08/30/22 08/30/22 Range/Units 08:40 08:40 08:40 WBC 11.0 H (3.8-10.6) k/uL RBC 3.80 L (4.30-5.90) m/uL Hgb 10.7 L (13.0-17.5) gm/dL Hct 32.4 L (39.0-53.0) % Neutrophils # 10.2 H (1.3-7.7) k/uL Lymphocytes # 0.2 L (1.0-4.8) k/uL ESR 32 H (0-15) mm/hr INR 1.2 H (<1.2) Sodium (137-145) mmol/L Chloride (98-107) mmol/L Glucose (74-99) mg/dL Calcium (8.4-10.2) mg/dL Alkaline Phosphatase (38-126) U/L C-Reactive Protein (<1.0) mg/dL Total Protein (6.3-8.2) g/dL Albumin (3.5-5.0) g/dL Urine Protein 2+ H (Negative) Urine Ketones 1+ H (Negative) Urine Blood Small H (Negative) Urine Mucus Rare H (None) /hpf 08/30/22 Range/Units 08:40 WBC (3.8-10.6) k/uL RBC (4.30-5.90) m/uL Hgb (13.0-17.5) gm/dL Hct (39.0-53.0) % Neutrophils # (1.3-7.7) k/uL Lymphocytes # (1.0-4.8) k/uL ESR (0-15) mm/hr INR (<1.2) Sodium 128 L (137-145) mmol/L Chloride 93 L (98-107) mmol/L Glucose 106 H (74-99) mg/dL Calcium 7.7 L (8.4-10.2) mg/dL Alkaline Phosphatase 136 H (38-126) U/L C-Reactive Protein 18.1 H (<1.0) mg/dL Total Protein 5.8 L (6.3-8.2) g/dL Albumin 3.0 L (3.5-5.0) g/dL Urine Protein (Negative) Urine Ketones (Negative) Urine Blood (Negative) Urine Mucus (None) /hpf Assessment and Plan Plan: 1patient presented to hospital with sepsis since we did have a fever elevated white count has been complaining of pain and drainage from the left elbow area in this patient recently did have a trauma and nonhealing wound daily concern for possible olecranon bursitis and no need to call for the gram-positive skin isaias to be the likely pathogen patient currently did have a negative UA chest x-ray was negative and the lumbosacral spine incision looks clean CT did not show any evidence of fluid collection suspicious for postoperative infection at that site 2-await Ortho evaluation for the left elbow area 3-we will follow-up on the cultures obtained in the ER 4-continue with the vancomycin and cefepime while waiting for the culture to finalize We will follow on clinical condition and cultures to further adjust medication if needed Thank you for this consultation we will follow the patient along with you Time with Patient: Greater than 30
[2022-08-31] MEDS: MORPHINE SULFATE 4 MG/ML SYRINGE IV PRN ×2 (01:29→07:31)
[2022-08-31] MEDS: SYMBICORT 80-4.5 MCG INHALER INHALATION SCH ×3 (08:27→20:13)
[2022-08-31] MEDS: IPRATROPIUM 0.5 MG/2.5 ML NEBU INHALATION SCH ×4 (08:27→20:10)
[2022-08-31] MEDS: CEFEPIME 2 GM in SODIUM CHLORIDE 0.9% 100 ML IVPB SCH (08:29)
[2022-08-31] MEDS: GABAPENTIN 300 MG CAP PO SCH ×2 (08:39→17:51)
[2022-08-31] MEDS: HEPARIN SODIUM,PORCINE/PF 5,000 UNIT/0.5 ML SYRINGE SQ SCH ×2 (08:39→20:35)
[2022-08-31] MEDS: PANTOPRAZOLE 40 MG TABLET PO SCH (08:40)
[2022-08-31] MEDS: GLIMEPIRIDE 1 MG TAB PO SCH (08:40)
[2022-08-31] MEDS: SERTRALINE 100 MG TAB PO SCH (08:40)
[2022-08-31] MEDS: SOTALOL 80 MG TAB PO SCH ×2 (08:40→17:50)
[2022-08-31] MEDS: SACUBITRIL/VALSARTAN 97 MG-103 MG TABLET PO SCH ×2 (08:40→20:35)
[2022-08-31] MEDS: CYCLOBENZAPRINE 5 MG TAB PO SCH ×2 (08:46→17:51)
[2022-08-31] MEDS: VANCOMYCIN 1,500 MG in SODIUM CHLORIDE 0.9% 500 ML 500 ML IVPB SCH ×2 (10:35→20:35)
[2022-08-31 11:19] LABS: HCT 35.9 % (39.6-50.0); HGB 10.8 g/dL (13.0-17.0); MCH 26.7 pg (27.0-32.0); MCHC 30.1 g/dL (32.0-37.0); MCV 88.6 fL (80.0-97.0); Mean Platelet Volume 11.4 fL (9.5-12.2); NRBC Per 100 WBC 0 /100 WBCS (0.0-0.0); Platelet Count 185 X 10*3/uL (140-440); RBC 4.05 X 10*6/uL (4.40-5.60); RDW 13.6 % (11.5-14.5); WBC 11.42 X 10*3/uL (4.50-10.00)
[2022-08-31 11:27] LABS: African American GFR (CKD) 101.1 (60.0-200.0); Anion Gap 12.5 mmol/L (10.00-18.00); BUN/Creat Ratio 27.49 Ratio (12.00-20.00); Blood Urea Nitrogen 22.1 mg/dL (9.0-27.0); Calcium 8.3 mg/dL (8.7-10.3); Carbon Dioxide 21.5 mmol/L (20.0-27.5); Non-African American GFR(CKD) 87.2 (60.0-200.0); Potassium 3.6 mmol/L (3.5-5.5)
--- NOTE | 2022-08-31 12:14 | P.CNOR ---
History of Present Illness - [facility] Consult date: 08/31/22 Consult reason: other (Recent back surgery, left olecranon bursitis ) History of present illness: Patient is a 77-year-old male who was recently admitted to [facility] after being transferred from a subacute rehab due to concerns of an infection involving his left elbow region. Upon arrival to the hospital, imaging and lab tests were done. Elevated white count and CRP was noted. Patient was also running a fever and tachycardic. He was admitted under internal medicine sepsis protocol for further workup and evaluation, infectious disease has been consulted, our orthopedic team was also consulted. Patient was evaluated today at bedside, Dr. Curry was also available to examine the patient. Patient does seem confused on exam today. He seems quite out of it when asking him questions and very irritable while resting in bed. He notes discomfort to the left elbow. He also has some minor discomfort in the low back. He cannot tell me any further orthopedic issues is having at this time. Patient was evaluated in the outpatient setting for his postop visit for his recent lumbar surgery a week or so ago, incision was well healing, a few dyllan were left in width instructions for rehab to remove within a few days. According to previous notes were reviewed, there was concern for a fall with possible skin tear of the left elbow. Review of Systems Constitutional: Reports as per HPI Past Medical History Past Medical History: Cancer, Heart Failure, COPD, Diabetes Mellitus, Hyperlipidemia, Hypertension, Osteoarthritis (OA), Renal Disease, Sleep Apnea/CPAP/BIPAP Additional Past Medical History / Comment(s): hx melanoma., arthritis back and shoulders., oxygen at 2L 3-4 hrs /day., uses c-pap machine. lower back pain, pacemaker. History of Any Multi-Drug Resistant Organisms: None Reported Past Surgical History: Heart Catheterization, Joint Replacement, Pacemaker Additional Past Surgical History / Comment(s): RT KNEE REPLACEMENT 2001, COLONOSCOPY - multiple pain clinic procedure , cataracts., pacemaker at [facility] and battery change 4-5 years ago. Past Anesthesia/Blood Transfusion Reactions: No Reported Reaction Type of Cardiac Device: Permanent Pacemaker Device Placement Date:: 2011 Past Psychological History: Anxiety, Depression Smoking Status: Former smoker Past Alcohol Use History: None Reported Past Drug Use History: Marijuana - Past Family History Mother Family Medical History: Diabetes Mellitus Additional Family Medical History / Comment(s): HEART PROBLEMS. Father Family Medical History: Diabetes Mellitus, Hypertension Additional Family Medical History / Comment(s): HEART PROBLEMS. Medications and Allergies Home Medications Medication Instructions Recorded Confirmed Type Sertraline [Zoloft] 100 mg PO DAILY 08/01/19 08/30/22 History Sotalol [Betapace] 80 mg PO BID@0700,1900 08/01/19 08/30/22 History Sacubitril/Valsartan [Entresto 97 1 tab PO BID 06/23/20 08/30/22 History mg-103 mg Tablet] Glimepiride [Amaryl] 1 mg PO AC-BRKFST 07/15/20 08/30/22 History Gabapentin 300 mg PO BID@0700,1800 11/19/21 08/30/22 History Fluticasone/Umeclidin/Vilanter 1 puff INHALATION RT-DAILY 07/28/22 08/30/22 History [Trelegy Ellipta 200-62.5-25] HYDROcodone/APAP 10-325MG [[place] 1 tab PO Q4HR PRN #56 tab 08/06/22 08/30/22 Rx 10-325] Acetaminophen Tab [Tylenol] 650 mg PO Q6H PRN MDD 3 grams 08/30/22 08/30/22 History Atorvastatin [Lipitor] 20 mg PO HS 08/30/22 08/30/22 History Cephalexin [Keflex] 500 mg PO BID@0700,1900 08/30/22 08/30/22 History Cyclobenzaprine [Flexeril] 5 mg PO DIRECTED 08/30/22 08/30/22 History Melatonin 3 mg PO HS PRN 08/30/22 08/30/22 History Omeprazole [PriLOSEC] 20 mg PO BID 08/30/22 08/30/22 History Allergies Allergy/AdvReac Type Severity Reaction Status Date / Time No Known Allergies Allergy Verified 08/30/22 08:43 Physical Examination Gen. orthopedic exam: Lumbar incision is well healing at this time, there are no dyllan visible. There is no erythema surrounding the area. The skin remains completely closed at this time. There is no fluctuance appreciated on exam. There is no tenderness with palpation surrounding the midline or paraspinal region Left upper extremity: Bandage was removed from the elbow at bedside. There is a small skin opening noted over the olecranon bursa with granulation tissue and purulent material noted on dressing. There is surrounding erythema in that region. No effusion is appreciated involving the elbow Passive range of motion with extension and flexion along with pronation and supination reproduces no significant pain at the elbow. He has mild tenderness with palpation surrounding the olecranon region. Passive range of motion of the shoulder reproduces no pain, passive range of motion of the wrist and hand also reproduces no pain Extension and flexion are intact at the wrist and elbow. [employer] strength is intact Sensation to light touch is intact throughout the extremity Radial and ulnar pulses are 2+ Results - Labs Labs: Abnormal Lab Results - Last 24 Hours (Table) 08/31/22 08/31/22 Range/Units 06:17 06:17 WBC 11.42 H (4.50-10.00) X 10*3/uL RBC 4.05 L (4.40-5.60) X 10*6/uL Hgb 10.8 L (13.0-17.0) g/dL Hct 35.9 L (39.6-50.0) % MCH 26.7 L (27.0-32.0) pg MCHC 30.1 L (32.0-37.0) g/dL BUN/Creatinine Ratio 27.49 H (12.00-20.00) Ratio Calcium 8.3 L (8.7-10.3) mg/dL Microbiology - Last 24 Hours (Table) 08/30/22 09:42 Gram Stain - Preliminary Elbow - Left Wound Culture - Preliminary Presumptive MRSA 08/30/22 08:40 Blood Culture Gram Stain - Preliminary Blood 08/30/22 08:40 Blood Culture Gram Stain - Preliminary Blood 08/30/22 08:40 Blood Culture - Final Blood 08/30/22 08:40 Blood Culture - Final Blood 08/30/22 09:42 Anaerobic Culture - Preliminary Elbow - Left H & H 08/30/22 08/31/22 Range/Units 08:40 06:17 Hgb 10.7 L 10.8 L (13.0-17.5) gm/dL Hct 32.4 L 35.9 L (39.0-53.0) % Coagulation 08/30/22 Range/Units 08:40 INR 1.2 H (<1.2) Result Diagrams: 08/31/22 06:17 08/31/22 06:17 - Diagnostic results Elbow x-ray: report reviewed, image reviewed (X-rays of the left elbow demonstrate no acute fractures or dislocations, no obvious foreign bodies) Assessment and Plan Assessment: Left elbow septic olecranon bursitis Recent lumbar surgery, [id number] decompression with posterior/lateral and interbody fusion, stable appearing components Other medical comorbidities Plan: After discussion with attending Dr. Curry, we will like to proceed with surgical intervention, this including incision and drainage with irrigation and debridement of left elbow. Plan is to proceed with surgery on 09/02/2022. We will continue to update the patient along with family with regards to current treatment plan. Hardware involving the lumbar spine appears stable at this time, no acute signs or symptoms along with imaging studies result that point at infective process Recommend IV fluids and continuing IV antibiotics Internal medicine and infectious disease recommendations appreciated Pain control, patient has resumed his normal prescribed pain medication DVT prophylaxis per primary medical service Weight-bear as tolerated with walker, would recommend use of LSO brace when up and ambulating Nothing by mouth after midnight on 09/01/2022 Further recommendations to follow Time with Patient: Less than 30
[2022-08-31 12:40] LABS: Basophils # (A) 0.02 X 10*3/uL (0.00-0.10); Basophils % (A) 0.2 %; Eosinophils # (A) 0 X 10*3/uL (0.04-0.35); Eosinophils % (A) 0 %; Immature Grans, Automated 0.6 %; Lymphocytes # (A) 0.33 X 10*3/uL (0.90-5.00); Lymphocytes % (A) 2.9 %; Monocytes % (A) 7.9 %; Neutrophils % (A) 88.4 %; RBC Morphology NORMAL
--- NOTE | 2022-08-31 13:41 | P.PN ---
Subjective Progress Note Date: 08/31/22 Principal diagnosis: Sepsis from left elbow cellulitis SUBJECTIVE : 08/31> patient seen and evaluated bedside, patient is alert however does get full wakeful during conversation sleeping easily arousable. Blood culture positive for MRSA wound culture positive for MRSA REVIEW OF SYSTEMS: NEGATIVE EXCEPT FOR left elbow pain improved, fever, diaphoresis improved CONSTITUTIONAL: No fever, no malaise, no fatigue. HEENT: No recent visual problems or hearing problems. Denied any sore throat. CARDIOVASCULAR: No chest pain, orthopnea, PND, no palpitations, no syncope. PULMONARY: No shortness of breath, no cough, no hemoptysis. GASTROINTESTINAL: No diarrhea, no nausea, no vomiting, no abdominal pain. NEUROLOGICAL: No headaches, no weakness, no numbness. HEMATOLOGICAL: Denies any bleeding or petechiae. GENITOURINARY: Denies any burning micturition, frequency, or urgency. MUSCULOSKELETAL/RHEUMATOLOGICAL: Denies any joint pain, swelling, or any muscle pain. ENDOCRINE: Denies any polyuria or polydipsia. PHYSICAL EXAMINATION: Vitals reviewed GENERAL: The patient is alert and oriented x 2 , not in any acute distress. Well developed, well nourished. Slow to respond easily arousable HEENT: Pupils are round and equally reacting to light. EOMI. No scleral icterus. No conjunctival pallor. Normocephalic, atraumatic. No pharyngeal erythema. No thyromegaly. CARDIOVASCULAR: S1 and S2 present. No murmurs, rubs, or gallops. PULMONARY: Chest is clear to auscultation, no wheezing or crackles. ABDOMEN: Soft, nontender, nondistended, normoactive bowel sounds. No palpable organomegaly. MUSCULOSKELETAL: Left ELBOW incision and drainage EXTREMITIES: No cyanosis, clubbing, or pedal edema. NEUROLOGICAL: Gross neurological examination did not reveal any focal deficits. SKIN: No rashes. ASSESMENT & PLAN * Left elbow septic Olecranon Bursitis * Sepsis with MRSA bacteremia * MRSA bursitis * History of congestive heart failure not in exacerbation * Hypertension * History of COPD * Recent lumbar spine surgery * Diabetes mellitus type 2 * For sepsis and MRSA bacteremia patient seen by infectious disease. Initially on cefepime discontinued, continue IV vancomycin. Blood cultures 08/30 +1 out of 2 bottles, will repeat blood cultures * For septic bursitis wound culture positive for MRSA continue IV antibiotics orthopedic following * For history of congestive heart failure continue to monitor for fluid overload continue Entresto * For diabetes mellitus continue oral hypoglycemic agent continue sliding-scale insulin * On subcu heparin for DVT prophylaxis Objective - Vital Signs Vital signs: Vital Signs Temp 98.4 F 08/31/22 07:58 Pulse 108 H 08/31/22 11:43 Resp 13 08/31/22 07:58 BP 148/59 08/31/22 07:58 Pulse Ox 94 L 08/31/22 08:28 FiO2 Intake & Output 08/30/22 08/31/22 08/31/22 18:59 06:59 18:59 Intake Total 1100 Output Total 300 Balance 1100 -300 Weight 97.522 kg Intake: Intake, IV Titration 600 Amount Cefepime 2 gm In Sodium 100 Chloride 0.9% 100 ml @ 25 mls/hr IVPB Q8HR [facility] Rx# :[id number] Vancomycin 1,500 mg In 500 Sodium Chloride 0.9% 500 ml 500 ml @ 167 mls/hr IVPB Q12HR [facility] Rx#: [id number] Oral 500 Output: Urine 300 Other: Voiding Method Incontinent Urinal # Voids 1 2 1 - Labs CBC & Chem 7: 08/31/22 06:17 08/31/22 06:17 Labs: Abnormal Lab Results - Last 24 Hours (Table) 08/31/22 08/31/22 Range/Units 06:17 06:17 WBC 11.42 H (4.50-10.00) X 10*3/uL RBC 4.05 L (4.40-5.60) X 10*6/uL Hgb 10.8 L (13.0-17.0) g/dL Hct 35.9 L (39.6-50.0) % MCH 26.7 L (27.0-32.0) pg MCHC 30.1 L (32.0-37.0) g/dL Immature Gran # 0.07 H (0.00-0.04) X 10*3/uL Neutrophils # 10.10 H (1.80-7.70) X 10*3/uL Lymphocytes # 0.33 L (0.90-5.00) X 10*3/uL Eosinophils # 0 L (0.04-0.35) X 10*3/uL BUN/Creatinine Ratio 27.49 H (12.00-20.00) Ratio Calcium 8.3 L (8.7-10.3) mg/dL Microbiology - Last 24 Hours (Table) 08/30/22 08:40 Blood Culture Gram Stain - Preliminary Blood Blood Culture - Preliminary Staphylococcus aureus 08/30/22 09:42 Gram Stain - Preliminary Elbow - Left Wound Culture - Preliminary Presumptive MRSA 08/30/22 08:40 Blood Culture Gram Stain - Preliminary Blood 08/30/22 08:40 Blood Culture - Final Blood 08/30/22 08:40 Blood Culture - Final Blood 08/30/22 09:42 Anaerobic Culture - Preliminary Elbow - Left
[2022-08-31] MEDS ORDERED: MORPHINE SULFATE 2 MG/ML SYRINGE IV PRN (13:44)
[2022-08-31] MEDS ORDERED: SODIUM CHLORIDE 0.9% 1,000 ML IV SCH (13:45)
--- NOTE | 2022-08-31 15:39 | P.PN ---
Progress Note - Text Progress Note Date: 08/31/22 Pt s/e. Left septic olecranon bursitis with purulent drainage and pain. Pt is poor historian and not with it currently. Will place him on schedule for to follow for washout.
--- NOTE | 2022-08-31 15:46 | CT ---
EXAMINATION TYPE: CT elbow LT w con DATE OF EXAM: 08/31/2022 COMPARISON: HISTORY: abscess CT DLP: 721.1 mGycm Automated exposure control for dose reduction was used. CONTRAST: Performed with IV Contrast, patient injected with 100ml mL of Isovue 300. FINDINGS: Exam is limited as the patient had difficulty cooperate with exam and there is significant artifact. Diffuse soft tissue edema. There is soft tissue ossification seen along the posterior margin of the d istal humerus. Tiny olecranon spur noted and there appears to be a questionable ulceration or soft tissue injury inv olving the soft tissues just posterior to the olecranon process. No obvious osseous destruction. Bony densities along the radial margin of the distal humeral lateral epicondyles and radial head appear chronic and well corticated. There does appear to be arthropathy o f the humeral\radials\ulnar joints. No erosive changes. No diagnostic evidence of acute fracture. Assessment for abscess is limited and grossly no enhancing encapsulated fluid collection identified. There does appear to be a small amount of fluid posterior t o the distal humerus which is nondescript and nonspecific. IMPRESSION: 1. Markedly limited exam due to artifact demonstrates no obvious diagnostic evidence of abscess cavit y. There is soft tissue edema greater posteriorly near the olecranon correlate for cellulitis. Mild o lecranon bursitis would not be excluded given limitations of exam. Due to the limitations of the exam if there is a strong consideration for abscess or infected joint effusion recommend correlation with MRI.
[2022-08-31 17:14] LABS: Glucose,Whole Blood 80 mg/dL (70-110)
[2022-08-31] MEDS: INSULIN ASPART (NovoLOG) 100 UNIT/ML VIAL SQ SCH ×2 (17:17→20:44)
[2022-08-31] MEDS: HYDROcodone/APAP 10-325MG 1 EACH TAB PO PRN (17:50)
--- NOTE | 2022-08-31 19:22 | P.PN ---
Subjective Progress Note Date: 08/31/22 Principal diagnosis: Left elbow infection and bacteremia Patient is a 77 year old male with multiple comorbidities has been sent to the hospital for evaluation of left elbow wound and drainage concerning for infection. On today's evaluation that is 08/31/2022, the patient is afebrile the patient is currently sleepy and did not provide any history no changes has been reported by the nursing staff Objective - Vital Signs Vital signs: Vital Signs Temp 98.4 F 08/31/22 07:58 Pulse 108 H 08/31/22 11:43 Resp 13 08/31/22 07:58 BP 148/59 08/31/22 07:58 Pulse Ox 94 L 08/31/22 08:28 FiO2 Intake & Output 08/30/22 08/31/22 08/31/22 18:59 06:59 18:59 Intake Total 1100 Output Total 300 Balance 1100 -300 Weight 97.522 kg Intake: Intake, IV Titration 600 Amount Cefepime 2 gm In Sodium 100 Chloride 0.9% 100 ml @ 25 mls/hr IVPB Q8HR [facility] Rx# :[id number] Vancomycin 1,500 mg In 500 Sodium Chloride 0.9% 500 ml 500 ml @ 167 mls/hr IVPB Q12HR [facility] Rx#: [id number] Oral 500 Output: Urine 300 Other: Voiding Method Incontinent Urinal # Voids 1 2 1 - Exam GENERAL DESCRIPTION: An elderly male lying in bed in no distress RESPIRATORY SYSTEM: Unlabored breathing , decreased breath sounds at bases HEART: S1 S2 regular rate and rhythm , ABDOMEN: Soft , no tenderness EXTREMITIES: Left elbow is currently dressed no drainage on the dressing - Labs CBC & Chem 7: 08/31/22 06:17 08/31/22 06:17 Labs: Abnormal Lab Results - Last 24 Hours (Table) 08/31/22 08/31/22 Range/Units 06:17 06:17 WBC 11.42 H (4.50-10.00) X 10*3/uL RBC 4.05 L (4.40-5.60) X 10*6/uL Hgb 10.8 L (13.0-17.0) g/dL Hct 35.9 L (39.6-50.0) % MCH 26.7 L (27.0-32.0) pg MCHC 30.1 L (32.0-37.0) g/dL Immature Gran # 0.07 H (0.00-0.04) X 10*3/uL Neutrophils # 10.10 H (1.80-7.70) X 10*3/uL Lymphocytes # 0.33 L (0.90-5.00) X 10*3/uL Eosinophils # 0 L (0.04-0.35) X 10*3/uL BUN/Creatinine Ratio 27.49 H (12.00-20.00) Ratio Calcium 8.3 L (8.7-10.3) mg/dL Microbiology - Last 24 Hours (Table) 08/30/22 08:40 Blood Culture Gram Stain - Preliminary Blood Blood Culture - Preliminary Staphylococcus aureus 08/30/22 09:42 Gram Stain - Preliminary Elbow - Left Wound Culture - Preliminary Presumptive MRSA 08/30/22 08:40 Blood Culture Gram Stain - Preliminary Blood 08/30/22 08:40 Blood Culture - Final Blood 08/30/22 08:40 Blood Culture - Final Blood 08/30/22 09:42 Anaerobic Culture - Preliminary Elbow - Left Assessment and Plan (1) Olecranon bursitis, left elbow Current Visit: Yes Status: Acute Code(s): M70.22 - OLECRANON BURSITIS, LEFT ELBOW SNOMED Code(s): 741933336405454 (2) MRSA bacteremia Current Visit: Yes Status: Acute Code(s): R78.81 - BACTEREMIA; B95.62 - METHICILLIN RESIS STAPH INFCT CAUSING DISEASES [facility] SNOMED Code(s): 99849990333334782 Plan: 1patient presented to hospital with sepsis since we did have a fever elevated white count has been complaining of pain and drainage from the left elbow area in this patient recently did have a trauma and nonhealing wound daily concern for possible olecranon bursitis and no need to cover for the gram-positive skin isaias to be the likely pathogen patient currently did have a negative UA chest x-ray was negative and the lumbosacral spine incision looks clean CT did not show any evidence of fluid collection suspicious for postoperative infection at that site 2- patient did have a positive blood culture with presumptive MRSA and local cultures also growing staph aureus likely the source of bacteremia, blood cultures will be repeated documented redness of his bacteremia 3-patient to continue with vancomycin we will discontinue cefepime
[2022-08-31] MEDS: ATORVASTATIN 20 MG TAB PO SCH (20:35)
[2022-08-31 20:36] LABS: Glucose,Whole Blood 247 mg/dL (70-110)
[2022-09-01] MEDS: CYCLOBENZAPRINE 5 MG TAB PO SCH ×2 (06:09→17:59)
[2022-09-01] MEDS: SOTALOL 80 MG TAB PO SCH ×2 (06:09→17:59)
[2022-09-01] MEDS: GABAPENTIN 300 MG CAP PO SCH ×2 (06:09→17:59)
[2022-09-01 07:08] LABS: Glucose,Whole Blood 76 mg/dL (70-110)
[2022-09-01] MEDS ORDERED: VANCOMYCIN TROUGH DUE 1 EACH MISC MISCELLANE ONE (08:00)
[2022-09-01] MEDS: IPRATROPIUM 0.5 MG/2.5 ML NEBU INHALATION SCH ×4 (08:34→20:40)
[2022-09-01] MEDS: SYMBICORT 80-4.5 MCG INHALER INHALATION SCH ×2 (08:34→20:40)
[2022-09-01 09:16] LABS: HCT 36.5 % (39.0-53.0); HGB 11.3 gm/dL (13.0-17.5); Hypochromasia Marked; MCH 27.8 pg (25.0-35.0); MCHC 31.1 g/dL (31.0-37.0); MCV 89.6 fL (80.0-100.0); Mean Platelet Volume 9.6; Platelet Count 187 k/uL (150-450); RBC 4.07 m/uL (4.30-5.90); RDW 13.8 % (11.5-15.5); WBC 12.6 k/uL (3.8-10.6)
[2022-09-01] MEDS: SACUBITRIL/VALSARTAN 97 MG-103 MG TABLET PO SCH ×2 (09:16→20:09)
[2022-09-01] MEDS: PANTOPRAZOLE 40 MG TABLET PO SCH (09:16)
[2022-09-01] MEDS: SERTRALINE 100 MG TAB PO SCH (09:16)
[2022-09-01] MEDS: HEPARIN SODIUM,PORCINE/PF 5,000 UNIT/0.5 ML SYRINGE SQ SCH ×2 (09:16→20:09)
[2022-09-01] MEDS: GLIMEPIRIDE 1 MG TAB PO SCH (09:16)
[2022-09-01] MEDS: INSULIN ASPART (NovoLOG) 100 UNIT/ML VIAL SQ SCH ×4 (09:25→20:23)
--- NOTE | 2022-09-01 09:44 | P.PN ---
Subjective Progress Note Date: 09/01/22 Principal diagnosis: Left elbow septic olecranon bursitis, sepsis, history of recent back surgery Patient is evaluated today at bedside, he is resting comfortably in his hospital bed. Patient is much more alert and oriented today bedside. He states he is feeling a little bit better. He does complain of left elbow pain. He notes minimal discomfort in his back at this time. He was able to get up at bedside with the help of physical therapy today. He is being followed by multiple medical specialties at this time Objective - Vital Signs Vital signs: Vital Signs Temp 94.5 F L 09/01/22 07:50 Pulse 86 09/01/22 09:13 Resp 20 09/01/22 07:50 BP 150/92 09/01/22 09:13 Pulse Ox 98 09/01/22 08:36 FiO2 Intake & Output 08/31/22 09/01/22 09/01/22 18:59 06:59 18:59 Output Total 600 Balance -600 Output: Urine 600 Other: Voiding Method Urinal Urinal # Voids 1 3 1 - Exam Left upper extremity: Bandages in position and condition at this time No effusion is appreciated involving the elbow Passive range of motion with extension and flexion along with pronation and supination reproduces no significant pain at the elbow. He has mild tenderness with palpation surrounding the olecranon region. Passive range of motion of the shoulder reproduces no pain, passive range of motion of the wrist and hand also reproduces no pain Extension and flexion are intact at the wrist and elbow. Cooker Pie Filling strength is intact Sensation to light touch is intact throughout the extremity Radial and ulnar pulses are 2+ - Labs CBC & Chem 7: 09/01/22 08:35 08/31/22 06:17 Labs: Abnormal Lab Results - Last 24 Hours (Table) 08/31/22 08/31/22 08/31/22 Range/Units 06:17 06:17 20:35 WBC 11.42 H (4.50-10.00) X 10*3/uL RBC 4.05 L (4.40-5.60) X 10*6/uL Hgb 10.8 L (13.0-17.0) g/dL Hct 35.9 L (39.6-50.0) % MCH 26.7 L (27.0-32.0) pg MCHC 30.1 L (32.0-37.0) g/dL Immature Gran # 0.07 H (0.00-0.04) X 10*3/uL Neutrophils # 10.10 H (1.80-7.70) X 10*3/uL Lymphocytes # 0.33 L (0.90-5.00) X 10*3/uL Eosinophils # 0 L (0.04-0.35) X 10*3/uL BUN/Creatinine Ratio 27.49 H (12.00-20.00) Ratio POC Glucose (mg/dL) 247 H (70-110) mg/dL Calcium 8.3 L (8.7-10.3) mg/dL 09/01/22 Range/Units 08:35 WBC 12.6 H (4.50-10.00) X 10*3/uL RBC 4.07 L (4.40-5.60) X 10*6/uL Hgb 11.3 L (13.0-17.0) g/dL Hct 36.5 L (39.6-50.0) % MCH (27.0-32.0) pg MCHC (32.0-37.0) g/dL Immature Gran # (0.00-0.04) X 10*3/uL Neutrophils # (1.80-7.70) X 10*3/uL Lymphocytes # (0.90-5.00) X 10*3/uL Eosinophils # (0.04-0.35) X 10*3/uL BUN/Creatinine Ratio (12.00-20.00) Ratio POC Glucose (mg/dL) (70-110) mg/dL Calcium (8.7-10.3) mg/dL Microbiology - Last 24 Hours (Table) 08/30/22 08:40 Blood Culture Gram Stain - Preliminary Blood Blood Culture - Preliminary Presumptive MRSA 08/30/22 08:40 Blood Culture Gram Stain - Preliminary Blood Blood Culture - Preliminary Staphylococcus aureus 08/30/22 09:42 Gram Stain - Preliminary Elbow - Left Wound Culture - Preliminary Presumptive MRSA Assessment and Plan Assessment: Left elbow septic olecranon bursitis Recent lumbar surgery, [id number] decompression with posterior/lateral and interbody fusion, stable appearing components Other medical comorbidities Plan: Planning for surgery on 09/02/2022, incision and drainage with irrigation and debridement left elbow Recommend IV fluids and continuing IV antibiotics Internal medicine and infectious disease recommendations appreciated Pain control, patient has resumed his normal prescribed pain medication DVT prophylaxis per primary medical service Weight-bear as tolerated with walker, would recommend use of LSO brace when up and ambulating Nothing by mouth after midnight on 09/01/2022 Continue to follow during inpatient stay Time with Patient: Less than 30
[2022-09-01] MEDS: VANCOMYCIN 1,500 MG in SODIUM CHLORIDE 0.9% 500 ML 500 ML IVPB SCH ×2 (09:51→20:32)
[2022-09-01] MEDS: HYDROcodone/APAP 10-325MG 1 EACH TAB PO PRN ×3 (09:56→20:36)
[2022-09-01 10:49] LABS: African American GFR (CKD) >90 (>60 ml/min/1.73 sqM); Anion Gap 10 mmol/L; Blood Urea Nitrogen 24 mg/dL (9-20); Calcium 8.3 mg/dL (8.4-10.2); Carbon Dioxide 20 mmol/L (22-30); Chloride 104 mmol/L (98-107); Glucose 65 mg/dL (74-99); Non-African American GFR(CKD) >90 (>60 ml/min/1.73 sqM); Potassium 3.8 mmol/L (3.5-5.1); Sodium 134 mmol/L (137-145)
[2022-09-01 11:02] LABS: C Reactive Protein 25.3 mg/dL (<1.0)
[2022-09-01 11:10] LABS: Glucose,Whole Blood 84 mg/dL (70-110)
--- NOTE | 2022-09-01 12:08 | CA ---
Transthoracic Echo Report Name: Lan Nixon Age: 77 Gender: M : 1945 Exam Date: 09/01/2022 11:15 Exam Location: [facility] Ht (in): 69 Wt (lb): 215 Ordering Physician: Paula Cormier MD Attending/Referring Phys: Caramel Cutter Machine Ailyn Carver RDCS Procedure CPT: Indications: Marsa bacteremia rule out endocarditis Cardiac Hx: Technical Quality: Fair Contrast 1: Total Dose (mL): Contrast 2: Total Dose (mL): MEASUREMENTS (Male / Female) Normal Values 2D ECHO LV Diastolic Diameter PLAX 5.2 cm 4.2 - 5.9 / 3.9 - 5.3 cm LV Systolic Diameter PLAX 4.7 cm IVS Diastolic Thickness 1.1 cm 0.6 - 1.0 / 0.6 - 0.9 cm LVPW Diastolic Thickness 1.0 cm 0.6 - 1.0 / 0.6 - 0.9 cm LV Relative Wall Thickness 0.4 RV Internal Dim ED PLAX 3.4 cm LA Systolic Diameter LX 3.3 cm 3.0 - 4.0 / 2.7 - 3.8 cm LV Diastolic Volume MOD 4C 168.3 cm??? LV Systolic Volume MOD 4C 123.1 cm??? LV Ejection Fraction MOD 4C 26.9 % LV Diastolic Length 4C 8.5 cm LV Systolic Length 4C 7.3 cm LV Diastolic Volume MOD 2C 121.4 cm??? LV Systolic Volume MOD 2C 94.1 cm??? LV Ejection Fraction MOD 2C 22.5 % LV Diastolic Length 2C 9.2 cm LV Systolic Length 2C 8.5 cm LA Volume 64.0 cm??? 18 - 58 / 22 - 52 cm??? M-MODE Aortic Root Diameter MM 3.5 cm MV E Point Septal Separation 2.1 cm AV Cusp Separation MM 2.2 cm DOPPLER AV Peak Velocity 134.5 cm/s AV Peak Gradient 7.2 mmHg MV Area PHT 7.1 cm??? Mitral E Point Velocity 83.1 cm/s Mitral A Point Velocity 113.5 cm/s Mitral E to A Ratio 0.7 MV Deceleration Time 106.2 ms MV E' Velocity 3.8 cm/s Mitral E to MV E' Ratio 22.0 TR Peak Velocity 250.3 cm/s TR Peak Gradient 25.1 mmHg Right Ventricular Systolic Press 29.0 mmHg FINDINGS Left Ventricle Left ventricular ejection fraction is estimated at 20-25 %. Left ventricular cavity size normal. Left ventricular wall thickness normal. Severely reduced global left ventricular systolic function. Right Ventricle Mild right ventricular dilatation. Right ventricular systolic pressure within normal limits. Right Atrium Normal right atrial size. Left Atrium Mildly increased left atrial volume. Mildly increased left atrial area. Mitral Valve Structurally normal mitral valve. Trace to mild mitral regurgitation. Aortic Valve Trileaflet aortic valve. No aortic valve stenosis or regurgitation. Tricuspid Valve Structurally normal tricuspid valve. Mild tricuspid regurgitation. Pulmonic Valve Structurally normal pulmonic valve. No pulmonic regurgitation. Pericardium Normal pericardium. No pericardial effusion. Aorta Normal size aortic root and proximal ascending aorta. CONCLUSIONS Severe LV dysfunction Previewed by: Dr. Kenji Elena MD (Electronically Signed) Final Date: 01 September 2022 12:07
--- NOTE | 2022-09-01 14:47 | P.PN ---
Subjective Progress Note Date: 09/01/22 Principal diagnosis: Sepsis from left elbow cellulitis Interval history: 77-year-old gentleman with past medical history significant for degenerative di sease of lumbar spine, patient had recent spinal surgery, history of diabetes mellitus, COPD, hypertension, heart failure, sleep apnea presented to the emergency department with complaints of fever and left arm pain. Patient was noted to have MRSA bacteremia and left elbow cellulitis, bursitis with MRSA and blood. Seen by orthopedic and infectious disease SUBJECTIVE : 08/31> patient seen and evaluated bedside, patient is alert however does get full wakeful during conversation sleeping easily arousable. Blood culture positive for MRSA wound culture positive for MRSA 09/01: Patient seen and evaluated bedside, patient states left elbow pain is better, orthopedic pending incision and drainage, repeat blood cultures ordered REVIEW OF SYSTEMS: NEGATIVE EXCEPT FOR left elbow pain improved, fever, diaphoresis improved CONSTITUTIONAL: No fever, no malaise, no fatigue. HEENT: No recent visual problems or hearing problems. Denied any sore throat. CARDIOVASCULAR: No chest pain, orthopnea, PND, no palpitations, no syncope. PULMONARY: No shortness of breath, no cough, no hemoptysis. GASTROINTESTINAL: No diarrhea, no nausea, no vomiting, no abdominal pain. NEUROLOGICAL: No headaches, no weakness, no numbness. HEMATOLOGICAL: Denies any bleeding or petechiae. GENITOURINARY: Denies any burning micturition, frequency, or urgency. MUSCULOSKELETAL/RHEUMATOLOGICAL: Denies any joint pain, swelling, or any muscle pain. ENDOCRINE: Denies any polyuria or polydipsia. PHYSICAL EXAMINATION: Vitals reviewed GENERAL: The patient is alert and oriented x 2 , not in any acute distress. Well developed, well nourished. Slow to respond easily arousable HEENT: Pupils are round and equally reacting to light. EOMI. No scleral icterus. No conjunctival pallor. Normocephalic, atraumatic. No pharyngeal erythema. No thyromegaly. CARDIOVASCULAR: S1 and S2 present. No murmurs, rubs, or gallops. PULMONARY: Chest is clear to auscultation, no wheezing or crackles. ABDOMEN: Soft, nontender, nondistended, normoactive bowel sounds. No palpable organomegaly. MUSCULOSKELETAL: Left ELBOW incision and drainage EXTREMITIES: No cyanosis, clubbing, or pedal edema. NEUROLOGICAL: Gross neurological examination did not reveal any focal deficits. SKIN: No rashes. ASSESMENT & PLAN * Left elbow septic Olecranon Bursitis * Sepsis with MRSA bacteremia * MRSA bursitis * History of congestive heart failure not in exacerbation * Hypertension * History of COPD * Recent lumbar spine surgery * Diabetes mellitus type 2 * For sepsis and MRSA bacteremia patient seen by infectious disease. Initially on cefepime discontinued, continue IV vancomycin. Blood cultures 08/30 +1 out of 2 bottles, will repeat blood cultures 09/01>> echocardiogram ordered * For septic bursitis wound culture positive for MRSA continue IV antibiotics orthopedic following>> plan for incision and drainage * For history of congestive heart failure continue to monitor for fluid overload continue Entresto * For diabetes mellitus continue oral hypoglycemic agent continue sliding-scale insulin * On subcu heparin for DVT prophylaxis Objective - Vital Signs Vital signs: Vital Signs Temp 97.7 F 09/01/22 13:57 Pulse 98 09/01/22 13:57 Resp 20 09/01/22 13:57 BP 108/69 09/01/22 13:57 Pulse Ox 94 L 09/01/22 13:57 FiO2 Intake & Output 08/31/22 09/01/22 09/01/22 18:59 06:59 18:59 Output Total 600 Balance -600 Output: Urine 600 Other: Voiding Method Urinal Urinal Diaper # Voids 1 3 1 - Labs CBC & Chem 7: 09/01/22 08:35 09/01/22 08:35 Labs: Abnormal Lab Results - Last 24 Hours (Table) 08/31/22 09/01/22 09/01/22 Range/Units 20:35 08:35 08:35 WBC 12.6 H (3.8-10.6) k/uL RBC 4.07 L (4.30-5.90) m/uL Hgb 11.3 L (13.0-17.5) gm/dL Hct 36.5 L (39.0-53.0) % ESR (0-15) mm/hr Sodium 134 L (137-145) mmol/L Carbon Dioxide 20 L (22-30) mmol/L BUN 24 H (9-20) mg/dL Creatinine 0.59 L (0.66-1.25) mg/dL Glucose 65 L (74-99) mg/dL POC Glucose (mg/dL) 247 H (70-110) mg/dL Calcium 8.3 L (8.4-10.2) mg/dL C-Reactive Protein 25.3 H (<1.0) mg/dL 09/01/22 Range/Units 11:42 WBC (3.8-10.6) k/uL RBC (4.30-5.90) m/uL Hgb (13.0-17.5) gm/dL Hct (39.0-53.0) % ESR 48 H (0-15) mm/hr Sodium (137-145) mmol/L Carbon Dioxide (22-30) mmol/L BUN (9-20) mg/dL Creatinine (0.66-1.25) mg/dL Glucose (74-99) mg/dL POC Glucose (mg/dL) (70-110) mg/dL Calcium (8.4-10.2) mg/dL C-Reactive Protein (<1.0) mg/dL Microbiology - Last 24 Hours (Table) 08/30/22 09:42 Gram Stain - Final Elbow - Left Wound Culture - Final Methicillin resist S. aureus 08/30/22 08:40 Blood Culture Gram Stain - Preliminary Blood Blood Culture - Preliminary Presumptive MRSA 08/30/22 08:40 Blood Culture Gram Stain - Preliminary Blood Blood Culture - Preliminary Staphylococcus aureus
--- NOTE | 2022-09-01 15:03 | P.PN ---
Subjective Progress Note Date: 09/01/22 Principal diagnosis: Left elbow infection and bacteremia Patient is a 77 year old male with multiple comorbidities has been sent to the hospital for evaluation of left elbow wound and drainage concerning for infection. On today's evaluation that is 09/01/2022, the patient remains to be afebrile the patient is more awake and alert today, patient mentioned feeling better breathing comfortably no chest pain shortness of breath or cough and denies any worsening pain to the left elbow area Objective - Vital Signs Vital signs: Vital Signs Temp 94.5 F L 09/01/22 07:50 Pulse 85 09/01/22 12:11 Resp 20 09/01/22 10:55 BP 150/92 09/01/22 09:13 Pulse Ox 98 09/01/22 08:36 FiO2 Intake & Output 08/31/22 09/01/22 09/01/22 18:59 06:59 18:59 Output Total 600 Balance -600 Output: Urine 600 Other: Voiding Method Urinal Urinal Diaper # Voids 1 3 1 - Exam GENERAL DESCRIPTION: An elderly male lying in bed in no distress RESPIRATORY SYSTEM: Unlabored breathing , decreased breath sounds at bases HEART: S1 S2 regular rate and rhythm , ABDOMEN: Soft , no tenderness EXTREMITIES: Left elbow is currently dressed no drainage on the dressing - Labs CBC & Chem 7: 09/01/22 08:35 09/01/22 08:35 Labs: Abnormal Lab Results - Last 24 Hours (Table) 08/31/22 09/01/22 09/01/22 Range/Units 20:35 08:35 08:35 WBC 12.6 H (3.8-10.6) k/uL RBC 4.07 L (4.30-5.90) m/uL Hgb 11.3 L (13.0-17.5) gm/dL Hct 36.5 L (39.0-53.0) % Sodium 134 L (137-145) mmol/L Carbon Dioxide 20 L (22-30) mmol/L BUN 24 H (9-20) mg/dL Creatinine 0.59 L (0.66-1.25) mg/dL Glucose 65 L (74-99) mg/dL POC Glucose (mg/dL) 247 H (70-110) mg/dL Calcium 8.3 L (8.4-10.2) mg/dL C-Reactive Protein 25.3 H (<1.0) mg/dL Microbiology - Last 24 Hours (Table) 08/30/22 09:42 Gram Stain - Final Elbow - Left Wound Culture - Final Methicillin resist S. aureus 08/30/22 08:40 Blood Culture Gram Stain - Preliminary Blood Blood Culture - Preliminary Presumptive MRSA 08/30/22 08:40 Blood Culture Gram Stain - Preliminary Blood Blood Culture - Preliminary Staphylococcus aureus Assessment and Plan (1) Olecranon bursitis, left elbow Current Visit: Yes Status: Acute Code(s): M70.22 - OLECRANON BURSITIS, LEFT ELBOW SNOMED Code(s): 583695795261887 (2) MRSA bacteremia Current Visit: Yes Status: Acute Code(s): R78.81 - BACTEREMIA; B95.62 - METHICILLIN RESIS STAPH INFCT [facility] Code(s): 85916811017669788 Plan: 1patient presented to hospital with sepsis since we did have a fever elevated white count has been complaining of pain and drainage from the left elbow area in this patient recently did have a trauma and nonhealing wound daily concern for possible olecranon bursitis and no need to cover for the gram-positive skin isaias to be the likely pathogen patient currently did have a negative UA chest x-ray was negative and the lumbosacral spine incision looks clean CT did not show any evidence of fluid collection suspicious for postoperative infection at that site, orthopedic is planning for a I&D of the left elbow tomorrow 2- patient did have a positive blood culture with presumptive MRSA and local cultures also growing staph aureus likely the source of bacteremia, blood cultures has been be repeated documented clearance of his bacteremia 3-patient to continue with vancomycin and monitor his kidney function closely Time with Patient: Less than 30
[2022-09-01 16:56] LABS: Glucose,Whole Blood 94 mg/dL (70-110)
[2022-09-01] MEDS: ATORVASTATIN 20 MG TAB PO SCH (20:08)
[2022-09-01 20:17] LABS: Glucose,Whole Blood 104 mg/dL (70-110)
[2022-09-02 07:10] LABS: Glucose,Whole Blood 90 mg/dL (70-110)
[2022-09-02] MEDS: GABAPENTIN 300 MG CAP PO SCH ×2 (07:54→17:05)
[2022-09-02] MEDS: CYCLOBENZAPRINE 5 MG TAB PO SCH ×2 (07:54→18:31)
[2022-09-02] MEDS: SOTALOL 80 MG TAB PO SCH ×2 (07:55→18:31)
[2022-09-02] MEDS: GLIMEPIRIDE 1 MG TAB PO SCH (07:55)
[2022-09-02] MEDS: PANTOPRAZOLE 40 MG TABLET PO SCH (07:55)
[2022-09-02] MEDS: INSULIN ASPART (NovoLOG) 100 UNIT/ML VIAL SQ SCH ×4 (07:57→21:12)
[2022-09-02] MEDS: VANCOMYCIN 1,500 MG in SODIUM CHLORIDE 0.9% 500 ML 500 ML IVPB SCH ×2 (08:44→21:13)
[2022-09-02] MEDS: SACUBITRIL/VALSARTAN 97 MG-103 MG TABLET PO SCH ×2 (08:52→21:13)
[2022-09-02] MEDS: SERTRALINE 100 MG TAB PO SCH (08:52)
[2022-09-02] MEDS: HEPARIN SODIUM,PORCINE/PF 5,000 UNIT/0.5 ML SYRINGE SQ SCH ×2 (08:52→21:13)
[2022-09-02 09:14] LABS: C Reactive Protein 17.8 mg/dL (0.00-0.80)
[2022-09-02] MEDS: IPRATROPIUM 0.5 MG/2.5 ML NEBU INHALATION SCH ×4 (09:14→19:50)
[2022-09-02] MEDS: SYMBICORT 80-4.5 MCG INHALER INHALATION SCH ×2 (09:14→19:50)
[2022-09-02 09:23] LABS: Anion Gap 9.4 mmol/L (10.00-18.00); BUN/Creat Ratio 29.67 Ratio (12.00-20.00); Blood Urea Nitrogen 17.8 mg/dL (9.0-27.0); Calcium 8.4 mg/dL (8.7-10.3); Carbon Dioxide 23.6 mmol/L (20.0-27.5); Non-African American GFR(CKD) 98.4 (60.0-200.0); Potassium 3.7 mmol/L (3.5-5.5)
[2022-09-02 09:28] LABS: HCT 33.4 % (39.6-50.0); HGB 10.5 g/dL (13.0-17.0); MCH 27.3 pg (27.0-32.0); MCHC 31.4 g/dL (32.0-37.0); Mean Platelet Volume 11.7 fL (9.5-12.2); NRBC Per 100 WBC 0 /100 WBCS (0.0-0.0); Platelet Count 198 X 10*3/uL (140-440); RBC 3.84 X 10*6/uL (4.40-5.60); RDW 14.1 % (11.5-14.5)
[2022-09-02 11:40] LABS: Glucose,Whole Blood 81 mg/dL (70-110)
--- NOTE | 2022-09-02 14:21 | P.PN ---
Subjective Progress Note Date: 09/02/22 Principal diagnosis: Left elbow infection and bacteremia Patient is a 77 year old male with multiple comorbidities has been sent to the hospital for evaluation of left elbow wound and drainage concerning for infection. On today's evaluation that is 09/02/2022, the patient continues to be afebrile the patient is breathing comfortably on 2.5 L nasal cannula oxygen, the patient denies chest pain shortness of breath or cough and denies any worsening pain to the left elbow area Objective - Vital Signs Vital signs: Vital Signs Temp 98.1 F 09/02/22 11:33 Pulse 112 H 09/02/22 12:27 Resp 18 09/02/22 11:33 BP 157/89 09/02/22 11:33 Pulse Ox 95 09/02/22 11:33 FiO2 Intake & Output 09/01/22 09/02/22 09/02/22 18:59 06:59 18:59 Intake Total 118 Balance 118 Intake: Oral 118 Other: Voiding Method Diaper Diaper Diaper # Voids 2 1 - Exam GENERAL DESCRIPTION: An elderly male lying in bed in no distress RESPIRATORY SYSTEM: Unlabored breathing , decreased breath sounds at bases HEART: S1 S2 regular rate and rhythm , ABDOMEN: Soft , no tenderness EXTREMITIES: Left elbow open wound with some slough tissue and surrounding swelling - Labs CBC & Chem 7: 09/02/22 05:22 09/02/22 05:22 Labs: Abnormal Lab Results - Last 24 Hours (Table) 09/01/22 09/02/22 09/02/22 Range/Units 11:42 05:22 05:22 WBC 11.40 H (4.50-10.00) X 10*3/uL RBC 3.84 L (4.40-5.60) X 10*6/uL Hgb 10.5 L (13.0-17.0) g/dL Hct 33.4 L (39.6-50.0) % MCHC 31.4 L (32.0-37.0) g/dL ESR 48 H (0-15) mm/hr Sodium 134 L (135-145) mmol/L Anion Gap 9.40 L (10.00-18.00) mmol/L BUN/Creatinine Ratio 29.67 H (12.00-20.00) Ratio Calcium 8.4 L (8.7-10.3) mg/dL C-Reactive Protein 17.80 H (0.00-0.80) mg/dL Microbiology - Last 24 Hours (Table) 08/30/22 08:40 Blood Culture Gram Stain - Final Blood Blood Culture - Final Methicillin resist S. aureus 08/30/22 08:40 Blood Culture Gram Stain - Final Blood Blood Culture - Final Methicillin resist S. aureus 09/01/22 08:35 Blood Culture - Preliminary Blood No Growth after 24 hours 08/30/22 09:42 Anaerobic Culture - Preliminary Elbow - Left 08/30/22 09:42 Gram Stain - Final Elbow - Left Wound Culture - Final Methicillin resist S. aureus Assessment and Plan (1) Olecranon bursitis, left elbow Current Visit: Yes Status: Acute Code(s): M70.22 - OLECRANON BURSITIS, LEFT ELBOW SNOMED Code(s): 265364796056038 (2) MRSA bacteremia Current Visit: Yes Status: Acute Code(s): R78.81 - BACTEREMIA; B95.62 - METHICILLIN RESIS STAPH INFCT [facility] Code(s): 45966297155392344 Plan: 1patient presented to hospital with sepsis since we did have a fever elevated white count has been complaining of pain and drainage from the left elbow area in this patient recently did have a trauma and nonhealing wound daily concern for possible olecranon bursitis and no need to cover for the gram-positive skin isaias to be the likely pathogen patient currently did have a negative UA chest x-ray was negative and the lumbosacral spine incision looks clean CT did not show any evidence of fluid collection suspicious for postoperative infection at that site, orthopedic is planning for a I&D of the left elbow this afternoon 2- patient did have a positive blood culture with presumptive MRSA and local cultures also growing MRSA likely the source of bacteremia, blood cultures has b een be repeated documented clearance of his bacteremia, which are negative so far 3-patient to continue with vancomycin and continue supportive care Time with Patient: Less than 30
--- NOTE | 2022-09-02 14:34 | P.PN ---
Subjective Progress Note Date: 09/02/22 77-year-old gentleman with past medical history significant for degenerative disease of lumbar spine, patient had recent spinal surgery, history of diabetes mellitus, COPD, hypertension, heart failure, sleep apnea presented to the emergency department with complaints of fever and left arm pain. Patient was noted to have MRSA bacteremia and left elbow cellulitis, bursitis with MRSA and blood. Seen by orthopedic and infectious disease 09/02. Patient seen and examined. Currently nothing by mouth getting for surgery today. Still has pain in left elbow REVIEW OF SYSTEMS: CONSTITUTIONAL: No fever, no malaise,. CARDIOVASCULAR: No chest pain, no palpitations, no syncope. PULMONARY: No shortness of breath, no cough, GASTROINTESTINAL: No diarrhea, no nausea, no vomiting, no abdominal pain. NEUROLOGICAL: No headaches, no weakness, PHYSICAL EXAMINATION: GENERAL: The patient is alert and oriented x3, not in any acute distress. Well developed, well nourished. HEENT: Pupils are round and equally reacting to light. EOMI. No scleral icterus. No conjunctival pallor. Normocephalic, atraumatic. No pharyngeal erythema. No thyromegaly. CARDIOVASCULAR: S1 and S2 present. No murmurs, rubs, or gallops. PULMONARY: Chest is clear to auscultation, no wheezing or crackles. ABDOMEN: Soft, nontender, nondistended, normoactive bowel sounds. No palpable organomegaly. MUSCULOSKELETAL: Left elbow swollen, opened wound seen EXTREMITIES: No cyanosis, clubbing, or pedal edema. NEUROLOGICAL: Gross neurological examination did not reveal any focal deficits. SKIN: No rashes. Assessment and plan Left elbow septic Olecranon Bursitis * Sepsis with MRSA bacteremia * MRSA bursitis * History of congestive heart failure not in exacerbation * Hypertension * History of COPD * Recent lumbar spine surgery * Diabetes mellitus type 2 Plan; * Monitor vital signs * Monitor CBC * Monitor CMP * continue IV vancomycin. Blood cultures 08/30 +1 out of 2 bottles, will repeat blood cultures 09/01>> * Echocardiogram done showed LVEF of 20% to 25%, no vegetations seen * For septic bursitis wound culture positive for MRSA continue IV antibiotics orthopedic following>> plan for incision and drainage today * For history of congestive heart failure continue to monitor for fluid overload continue Entresto * For diabetes mellitus continue oral hypoglycemic agent continue sliding-scale insulin * Follow-up on ID recommendations Objective - Vital Signs Vital signs: Vital Signs Temp 97.5 F L 09/02/22 07:06 Pulse 113 H 09/02/22 09:24 Resp 18 09/02/22 07:06 BP 152/97 09/02/22 07:06 Pulse Ox 98 09/02/22 09:16 FiO2 Intake & Output 09/01/22 09/02/22 09/02/22 18:59 06:59 18:59 Intake Total 118 Balance 118 Intake: Oral 118 Other: Voiding Method Diaper Diaper # Voids 2 1 - Labs CBC & Chem 7: 09/02/22 05:22 09/02/22 05:22 Labs: Abnormal Lab Results - Last 24 Hours (Table) 09/01/22 09/01/22 09/02/22 Range/Units 08:35 11:42 05:22 WBC 11.40 H (4.50-10.00) X 10*3/uL RBC 3.84 L (4.40-5.60) X 10*6/uL Hgb 10.5 L (13.0-17.0) g/dL Hct 33.4 L (39.6-50.0) % MCHC 31.4 L (32.0-37.0) g/dL ESR 48 H (0-15) mm/hr Sodium 134 L (137-145) mmol/L Carbon Dioxide 20 L (22-30) mmol/L Anion Gap (10.00-18.00) mmol/L BUN 24 H (9-20) mg/dL Creatinine 0.59 L (0.66-1.25) mg/dL BUN/Creatinine Ratio (12.00-20.00) Ratio Glucose 65 L (74-99) mg/dL Calcium 8.3 L (8.4-10.2) mg/dL C-Reactive Protein 25.3 H (<1.0) mg/dL 09/02/22 Range/Units 05:22 WBC (4.50-10.00) X 10*3/uL RBC (4.40-5.60) X 10*6/uL Hgb (13.0-17.0) g/dL Hct (39.6-50.0) % MCHC (32.0-37.0) g/dL ESR (0-15) mm/hr Sodium 134 L (137-145) mmol/L Carbon Dioxide (22-30) mmol/L Anion Gap 9.40 L (10.00-18.00) mmol/L BUN (9-20) mg/dL Creatinine (0.66-1.25) mg/dL BUN/Creatinine Ratio 29.67 H (12.00-20.00) Ratio Glucose (74-99) mg/dL Calcium 8.4 L (8.4-10.2) mg/dL C-Reactive Protein 17.80 H (<1.0) mg/dL Microbiology - Last 24 Hours (Table) 08/30/22 09:42 Anaerobic Culture - Preliminary Elbow - Left 08/30/22 09:42 Gram Stain - Final Elbow - Left Wound Culture - Final Methicillin resist S. aureus 08/30/22 08:40 Blood Culture Gram Stain - Preliminary Blood Blood Culture - Preliminary Presumptive MRSA
[2022-09-02] MEDS ORDERED: LACTATED RINGERS 1,000 ML IV ONE (15:04)
--- NOTE | 2022-09-02 15:09 | P.PN ---
Progress Note - Text Progress Note Date: 09/02/22 Orthopedic Surgery Risk Review Lan Nixon is a 77-year-old male presenting for evaluation of sudden onset right elbow pain, painful range of motion and drainage. It was my pleasure to have seen and examined Lan Nixon. In our visit today we have had a chance to go over subjective complaints, physical examination findings and treatments including the natural course history without intervention and various interventional options. His imaging demonstrates no acute fracture or dislocation of the elbow no significant osseous abnormalities. CT of the lumbar spine shows postsurgical changes with hardware in good position no evidence of fracture dislocation interval changes or fluid collections.. On physical exam, Lan Nixon demonstrates pain with motion of left elbow with drainage from a lesion along the olecranon bursa, which is NV intact at this time. I have explained to the patient that this fracture needs stabilization. Based on the patients imaging, physical exam, and the rapid progression and disabling nature of her symptoms, at this time I recommend surgery in the form or a: Incision and drainage with irrigation debridement left elbow olecranon bursa I discussed the risk and benefits of this procedure at length with Lan Nixon and his family at bedside. Questions were invited and answered, and the patient wishes to proceed as outlined below. Currently, I am recommendin. Incision and drainage with irrigation and debridement left elbow olecranon bursa 2. Review of surgical risks and benefits as well as an educational packet on the proposed surgical procedure. Risks: All surgical procedures come with inherent risks, including those related to positioning, anesthesia, intraoperative findings, and postoperative complications. It is important to understand that surgery does not come with any guarantee of a successful outcome as complications and adverse events are always possible. The patient was given a handout discussing the surgical procedure and risks associated with the intervention, both of which were discussed with the patient. These risks include but are not limited to the following: - Experiencing same, different or even worse symptoms compared to before surgery. - Requiring further surgery or other forms of treatment presently or at some time in the future . - On an extreme but fortunately relatively rare basis severe complication such as blindness, stroke, heart attack, temporary and/or permanent nerve injury, paralysis, coma, or may occur, sometimes without known explanation. - Surgical complications may include but are not limited to risk of infection, fluid accumulation in the surgical dissection site, including a seroma or hematoma, that requires additional surgery, wound drainage, bleeding, new numbness or weakness, vision changes/loss, spinal fluid leakage, non-healing and/or infected incision, headaches, difficulty or inability to swallow, hoarseness, hemopneumothorax, pneumothorax, injury to nerves, spinal cord, blood vessels, lymphatics or other vital organs (i.e., bowel injury, injury to the great vessels); heterotopic bone formation; complications related to the hardware such as screws, rods, including misplaced hardware, device failure, hardware fracture/breakage, or hardware loosening; retained surgical instrumentations or devices and the need for further surgery. - Medical risks of the planned surgery include but are not limited to generalized Infections to the whole body or local areas outside of the surgical site (sepsis), heart attack, bleeding, anaphylaxis, meningitis, seizure, epilepsy, hearing loss, burn fowler, laceration of the head or other areas of the body, bruising, hypersensitivity of the skin, bladder over distension; allergic reaction; shoulder injury related to positioning; fat, blood and air clots to other areas of the body like heart, lungs, brain; failure of internal organs such as lungs, kidneys, liver and excessive bleeding. If blood transfusions are necessary, note that transfusions may cause intolerance reactions such as anaphylaxis or other complex reactions. Despite best efforts, the results of surgery might not heal in terms of bone, soft tissues such as skin, fascia, ligaments, and joints. [facility] has multiple operating rooms with single and overlapping rooms running daily. They currently function under the required guidelines as produced by the Senate Finance Committee with regards to the overlapping rooms and will continue to comply with changes to this policy as they occur. The requirements include and are complied with as follows: (1) the critical portions of the overlapping rooms will not occur at the same time, (2) the attending physician will be physically present during the critical portions of the procedure and immediately available during the entire case, and (3) a back-up attending is designated should the primary attending not be immediately available. The patient has had a chance to review all the listed information, has been given print outs detailing this information, and has had all his/her questions answered to their satisfaction. It was my pleasure to have seen and examined Lan Nixon. In our visit today we have had a chance to go over my understanding of our patient's current condition, the natural course history without intervention and various interventional options. Questions were invited and answered, and the patient wi shes to proceed as outlined above. I have seen and examined the patient for 25 minutes and we have spent more than 50% of the time in repeat and detailed counseling about the patient's condition, its natural course history with out and as much as can be predicted with surgery and re-review of various surgical treatment options. In conclusion, Lan Nixon and family at bedside requested we proceed with the above suggested surgery and are willing to accept risks and limitations of the suggested surgery as nature of the disease process and our best attempts at treatment for the condition. Thank you again for allowing us to be part of your patient's care. Please don't hesitate to contact me if you have any further questions. Signed and authenticated by: Abdi De La [facility] [address] [facility], [address] [address]
[2022-09-02 15:11] LABS: Glucose,Whole Blood 81 mg/dL (70-110)
[2022-09-02] MEDS ORDERED: ONDANSETRON 4 MG/2 ML VIAL ONE (15:37)
[2022-09-02] MEDS ORDERED: PROPOFOL 10 MG/ML 20 ML VIAL IV ONE (15:38)
[2022-09-02] MEDS ORDERED: fentaNYL (PF) 50 MCG/ML 2 ML AMP ONE (15:38)
[2022-09-02] MEDS ORDERED: LIDOCAINE 2% INJ 20 MG/ML (2 ML VIAL) ONE (15:38)
[2022-09-02] MEDS ORDERED: MIDAZOLAM 2 MG/2 ML VIAL ONE (15:38)
[2022-09-02] MEDS ORDERED: ONDANSETRON 4 MG/2 ML VIAL IVP ONE (15:41)
[2022-09-02] MEDS ORDERED: DEXAMETHASONE SOD PHOSPHATE 4 MG/ML 1 ML VIAL IVP ONE (15:41)
[2022-09-02] MEDS ORDERED: SODIUM CHLORIDE 0.9% 50 ML with ceFAZolin 2,000 MG IV ONE ×2 (16:03)
[2022-09-02] MEDS ORDERED: ceFAZolin 3,000 MG in SODIUM CHLORIDE 0.9% IRRIGATIO 3,000 ML IRRIGATION ONE (16:05)
[2022-09-02 16:56] LABS: Glucose,Whole Blood 75 mg/dL (70-110)
--- NOTE | 2022-09-02 17:12 | CDI ---
This patient has the documented diagnosis of "history of congestive heart failure not in exacerbation" in the H&P 08/30 and daily PN. Additional information regarding the type of CHF is requested. History/Risk Factors: Per the H&P 08/30 "history of diabetes mellitus, COPD, hypertension, heart failure, sleep apnea" Patient presented to ED with c/o left elbow pain and fever. Clinical Indicators: Echocardiogram Results: 09/01 Severe LV dysfunction, EF 20-25% Chest X Ray 08/30 - no acute process PN 09/01 "For history of congestive heart failure continue to monitor for fluid overload continue Entresto" Treatment: Entresto 1 tab po BID (home medication continued on admission) Betapace 80 mg po QD (home medication continued on admission) O2 at 2L NC In your professional opinion, can you please clarify the type of CHF if known? [ ] Chronic Systolic Heart Failure (reduced EF) [ ] Other, please specify [ ] Unable to determine MTDD
[2022-09-02 20:11] LABS: Glucose,Whole Blood 92 mg/dL (70-110)
[2022-09-02] MEDS: ATORVASTATIN 20 MG TAB PO SCH (21:13)
[2022-09-02] MEDS: HYDROcodone/APAP 10-325MG 1 EACH TAB PO PRN (21:23)
[2022-09-03] MEDS: SOTALOL 80 MG TAB PO SCH ×2 (06:19→16:57)
[2022-09-03] MEDS: GABAPENTIN 300 MG CAP PO SCH ×2 (06:19→16:57)
[2022-09-03] MEDS: CYCLOBENZAPRINE 5 MG TAB PO SCH ×2 (06:19→16:57)
[2022-09-03 07:27] LABS: Glucose,Whole Blood 103 mg/dL (70-110)
[2022-09-03] MEDS: INSULIN ASPART (NovoLOG) 100 UNIT/ML VIAL SQ SCH ×4 (07:41→21:34)
[2022-09-03] MEDS: SERTRALINE 100 MG TAB PO SCH (08:24)
[2022-09-03] MEDS: GLIMEPIRIDE 1 MG TAB PO SCH (08:24)
[2022-09-03] MEDS: PANTOPRAZOLE 40 MG TABLET PO SCH (08:24)
[2022-09-03] MEDS: HEPARIN SODIUM,PORCINE/PF 5,000 UNIT/0.5 ML SYRINGE SQ SCH ×2 (08:24→21:41)
[2022-09-03] MEDS: VANCOMYCIN 1,500 MG in SODIUM CHLORIDE 0.9% 500 ML 500 ML IVPB SCH ×2 (08:25→21:41)
[2022-09-03] MEDS: IPRATROPIUM 0.5 MG/2.5 ML NEBU INHALATION SCH ×4 (08:44→20:27)
[2022-09-03] MEDS: SYMBICORT 80-4.5 MCG INHALER INHALATION SCH ×2 (08:44→20:27)
[2022-09-03] MEDS: SACUBITRIL/VALSARTAN 97 MG-103 MG TABLET PO SCH ×2 (09:33→21:40)
[2022-09-03 11:08] LABS: Glucose,Whole Blood 96 mg/dL (70-110)
--- NOTE | 2022-09-03 13:07 | P.PN ---
Subjective Progress Note Date: 09/03/22 77-year-old gentleman with past medical history significant for degenerative disease of lumbar spine, patient had recent spinal surgery, history of diabetes mellitus, COPD, hypertension, heart failure, sleep apnea presented to the emergency department with complaints of fever and left arm pain. Patient was noted to have MRSA bacteremia and left elbow cellulitis, bursitis with MRSA and blood. Seen by orthopedic and infectious disease 09/02. Patient seen and examined. Currently nothing by mouth getting for surgery today. Still has pain in left elbow 09/03. Patient seen and examined. Status post I and D of left elbow. States pain is better controlled REVIEW OF SYSTEMS: CONSTITUTIONAL: No fever, no malaise,. CARDIOVASCULAR: No chest pain, no palpitations, no syncope. PULMONARY: No shortness of breath, no cough, GASTROINTESTINAL: No diarrhea, no nausea, no vomiting, no abdominal pain. NEUROLOGICAL: No headaches, no weakness, PHYSICAL EXAMINATION: GENERAL: The patient is alert and oriented x3, not in any acute distress. Well developed, well nourished. HEENT: Pupils are round and equally reacting to light. EOMI. No scleral icterus. No conjunctival pallor. Normocephalic, atraumatic. No pharyngeal erythema. No thyromegaly. CARDIOVASCULAR: S1 and S2 present. No murmurs, rubs, or gallops. PULMONARY: Chest is clear to auscultation, no wheezing or crackles. ABDOMEN: Soft, nontender, nondistended, normoactive bowel sounds. No palpable organomegaly. MUSCULOSKELETAL: Left elbow bandage seen EXTREMITIES: No cyanosis, clubbing, or pedal edema. NEUROLOGICAL: Gross neurological examination did not reveal any focal deficits. SKIN: No rashes. Assessment and plan Left elbow septic Olecranon Bursitis * Sepsis with MRSA bacteremia * MRSA bursitis * Chronic systolic heart failure * Hypertension * History of COPD * Recent lumbar spine surgery * Diabetes mellitus type 2 Plan; * Monitor vital signs * Monitor CBC * Monitor CMP * continue IV vancomycin. Blood cultures 08/30 +1 out of 2 bottles, will repeat blood cultures 09/01>> * Echocardiogram done showed LVEF of 20% to 25%, no vegetations seen * For septic bursitis wound culture positive for MRSA continue IV antibiotics orthopedic following>> underwent incision and drainage on 09/02 * For history of congestive heart failure continue to monitor for fluid overload continue Entresto * For diabetes mellitus continue oral hypoglycemic agent continue sliding-scale insulin * Follow-up on ID recommendations Objective - Vital Signs Vital signs: Vital Signs Temp 98.0 F 09/03/22 07:22 Pulse 90 09/03/22 08:57 Resp 16 09/03/22 08:40 BP 122/91 09/03/22 07:22 Pulse Ox 95 09/03/22 08:44 FiO2 Intake & Output 09/02/22 09/03/22 09/03/22 18:59 06:59 18:59 Intake Total 3870 500 Output Total 5 Balance 3865 500 Intake: IV 3750 Intake, IV Titration 500 Amount Vancomycin 1,500 mg In 500 Sodium Chloride 0.9% 500 ml 500 ml @ 167 mls/hr IVPB Q12HR [facility] Rx#: [id number] Oral 120 Output: Estimated Blood Loss 5 Other: Voiding Method Diaper Diaper Diaper # Voids 1 3 - Labs CBC & Chem 7: 09/02/22 05:22 09/02/22 05:22 Labs: Microbiology - Last 24 Hours (Table) 08/30/22 08:40 Blood Culture Gram Stain - Final Blood Blood Culture - Final Methicillin resist S. aureus 08/30/22 08:40 Blood Culture Gram Stain - Final Blood Blood Culture - Final Methicillin resist S. aureus 09/01/22 08:35 Blood Culture - Preliminary Blood No Growth after 24 hours
--- NOTE | 2022-09-03 14:38 | P.PN ---
Subjective Progress Note Date: 09/03/22 Principal diagnosis: Left elbow olecranon septic bursitis Patient was seen at bedside is morning with Jules bandage present to left elbow and holding left elbow in semiflexed position. Patient says he is having minimal pain to the left elbow at this time. Patient says he has been performing some gentle range of motion exercises on the left elbow. Patient has no other complaints at this time about his left elbow. Patient does mention some pain in the left wrist secondary to IV placement. Patient denies chest pain, nausea, vomiting, change in vision, loss pulse of bladder control. Objective - Vital Signs Vital signs: Vital Signs Temp 98.0 F 09/03/22 07:22 Pulse 90 09/03/22 08:57 Resp 16 09/03/22 08:40 BP 122/91 09/03/22 07:22 Pulse Ox 95 09/03/22 08:44 FiO2 Intake & Output 09/02/22 09/03/22 09/03/22 18:59 06:59 18:59 Intake Total 3870 500 Output Total 5 Balance 3865 500 Intake: IV 3750 Intake, IV Titration 500 Amount Vancomycin 1,500 mg In 500 Sodium Chloride 0.9% 500 ml 500 ml @ 167 mls/hr IVPB Q12HR [facility] Rx#: [id number] Oral 120 Output: Estimated Blood Loss 5 Other: Voiding Method Diaper Diaper Diaper # Voids 1 3 - Exam Jules bandage was present over left elbow. Patient is holding left elbow in semiflexed position. The Jules bandage was taken down and Kerlix and Telfa was present beneath. Sutures appear to be well aligned and intact at this time. some swelling present. Negative for any active drainage. Negative for any fluctuance/purulence. There is some spotting over the Telfa. new kerlix bandage placed over incision. Patient does have some limited range of motion left elbow secondary to referred pain in the left elbow. Patient has full range of motion in left wrist and flexion. There is some limited range of motion in left wrist and extension secondary to IV and pain referred from the left elbow. Patient does have full range of motion in throughout right upper extremity and in left upper extremity in shoulder for elevation/abduction/external and internal rotation. There is some tenderness to palpation over the incision on left elbow. Nontender to palpation throughout rest of exam. 4+/5 in all major motor groups in right upper extremity. 4/5 in resisted left elbow flexion/extension. Neurovascular status intact 5. Cap refill under 3 seconds in digits upper extremity. Radial pulses intact, 2+ bilaterally. Negative Homans bilaterally. - Labs CBC & Chem 7: 09/02/22 05:22 09/02/22 05:22 Labs: Microbiology - Last 24 Hours (Table) 09/01/22 08:35 Blood Culture - Preliminary Blood No Growth after 48 hours 08/30/22 08:40 Blood Culture Gram Stain - Final Blood Blood Culture - Final Methicillin resist S. aureus 08/30/22 08:40 Blood Culture Gram Stain - Final Blood Blood Culture - Final Methicillin resist S. aureus Assessment and Plan Assessment: 1. Left elbow olecranon septic bursitis - Postop day 1 status post left elbow irrigation debridement of olecranon bursa Plan: 1. Left elbow olecranon septic bursitis - patient sterile bedside this morning with Jules wrap bandage present over left elbow. Surgery was performed yesterday for irrigation debridement left elbow olecranon bursa. Jules bandage was taken down at bedside. There was some spotting present over Telfa. Sutures over the elbow seemed to be well aligned and intact at this time. New kerlix dressing placed over incision. Continue pain medication as needed. We'll continue to be available as needed for the elbow. 2. Appreciate medical and infectious disease management - patient currently on Vanco IV 3. Pain management - [place]; Tylenol; gabapentin; Flexeril 4. DVT prophylaxis - heparin 5. GI prophylaxis - Protonix 6. PT/OT - weightbearing as tolerated with walker. May perform gentle range of motion exercises the LUE 7. Encourage incentive spirometer use Time with Patient: Less than 30
[2022-09-03 17:00] LABS: Glucose,Whole Blood 81 mg/dL (70-110)
[2022-09-03 21:20] LABS: Glucose,Whole Blood 110 mg/dL (70-110)
[2022-09-03] MEDS: ATORVASTATIN 20 MG TAB PO SCH (21:40)
[2022-09-04] MEDS: SOTALOL 80 MG TAB PO SCH ×2 (06:36→18:09)
[2022-09-04] MEDS: GABAPENTIN 300 MG CAP PO SCH ×2 (06:36→18:09)
[2022-09-04] MEDS: CYCLOBENZAPRINE 5 MG TAB PO SCH ×2 (06:36→18:09)
[2022-09-04 07:04] LABS: ALT 34 U/L (4-49); AST 53 U/L (17-59); African American GFR (CKD) >90 (>60 ml/min/1.73 sqM); Albumin 2.3 g/dL (3.5-5.0); Albumin/Globulin Ratio 0.9; Alkaline Phosphatase 131 U/L (38-126); Anion Gap 9 mmol/L; Blood Urea Nitrogen 16 mg/dL (9-20); Calcium 7.9 mg/dL (8.4-10.2); Carbon Dioxide 24 mmol/L (22-30); Chloride 100 mmol/L (98-107); Globulin 2.6 g/dL; Glucose 91 mg/dL (74-99); Non-African American GFR(CKD) >90 (>60 ml/min/1.73 sqM); Potassium 3.3 mmol/L (3.5-5.1); Sodium 133 mmol/L (137-145); Total Bilirubin 0.5 mg/dL (0.2-1.3); Total Protein 4.9 g/dL (6.3-8.2)
[2022-09-04] MEDS: IPRATROPIUM 0.5 MG/2.5 ML NEBU INHALATION SCH ×4 (08:20→20:11)
[2022-09-04] MEDS: SYMBICORT 80-4.5 MCG INHALER INHALATION SCH ×2 (08:20→20:11)
[2022-09-04 08:33] LABS: Glucose,Whole Blood 112 mg/dL (70-110)
[2022-09-04] MEDS: INSULIN ASPART (NovoLOG) 100 UNIT/ML VIAL SQ SCH ×4 (08:38→21:08)
[2022-09-04 09:49] LABS: HCT 33.1 % (39.6-50.0); HGB 10.3 g/dL (13.0-17.0); MCH 26.6 pg (27.0-32.0); MCHC 31.1 g/dL (32.0-37.0); MCV 85.5 fL (80.0-97.0); Mean Platelet Volume 10.9 fL (9.5-12.2); NRBC Per 100 WBC 0 /100 WBCS (0.0-0.0); Platelet Count 295 X 10*3/uL (140-440); RBC 3.87 X 10*6/uL (4.40-5.60); RDW 14.4 % (11.5-14.5)
[2022-09-04] MEDS: GLIMEPIRIDE 1 MG TAB PO SCH (10:03)
[2022-09-04] MEDS: VANCOMYCIN 1,500 MG in SODIUM CHLORIDE 0.9% 500 ML 500 ML IVPB SCH ×2 (10:03→21:07)
[2022-09-04] MEDS: HEPARIN SODIUM,PORCINE/PF 5,000 UNIT/0.5 ML SYRINGE SQ SCH ×2 (10:03→21:08)
[2022-09-04] MEDS: SERTRALINE 100 MG TAB PO SCH (10:03)
[2022-09-04] MEDS: PANTOPRAZOLE 40 MG TABLET PO SCH (10:03)
[2022-09-04] MEDS: SACUBITRIL/VALSARTAN 97 MG-103 MG TABLET PO SCH ×2 (10:03→21:08)
[2022-09-04 11:18] LABS: Glucose,Whole Blood 100 mg/dL (70-110)
--- NOTE | 2022-09-04 12:02 | P.PN ---
Subjective Progress Note Date: 09/04/22 Principal diagnosis: Left elbow septic olecranon bursitis, sepsis, history of recent back surgery Patient was examined today at bedside, nursing staff was in the room putting a new IV and. After discussion with the nurse, she states that overnight they had to put in multiple IVs due to patient's confusion/agitation. Patient at bedside today is an oh 2. He does seem gently confused on exam. He notes minimal discomfort in his low back and elbow. He states that the elbow pain seems improved since surgery in the back pain hasn't worsened significantly since his recent surgery. Patient had a very difficult time moving around in bed, specifically when attempting a lower extremity exam. He states that he trying to but he is getting no movement of the lower extremities. There is been no acute signs of loss of bowel or bladder function at this time. Patient denies a ny numbness or tingling in the peroneal or genital region. Objective - Vital Signs Vital signs: Vital Signs Temp 97.9 F 09/04/22 08:05 Pulse 84 09/04/22 08:31 Resp 18 09/04/22 08:05 BP 157/77 09/04/22 08:05 Pulse Ox 97 09/04/22 08:05 FiO2 Intake & Output 09/03/22 09/04/22 09/04/22 18:59 06:59 18:59 Intake Total 360 Balance 360 Intake: Oral 360 Other: Voiding Method Diaper Diaper Diaper Incontinent Incontinent # Voids 5 4 - Exam Left upper extremity: Bandage was changed today at bedside, nylon sutures are all in good position and condition. A new bulky padded dressing was placed. No effusion is appreciated involving the elbow Passive range of motion with extension and flexion along with pronation and supination reproduces no significant pain at the elbow. He has mild tenderness with palpation surrounding the olecranon region. Passive range of motion of the shoulder reproduces no pain, passive range of motion of the wrist and hand also reproduces no pain Extension and flexion are intact at the wrist and elbow. Cover Creaser strength is intact Sensation to light touch is intact throughout the extremity Radial and ulnar pulses are 2+ Bilateral lower extremity exam: Passive range of motion of the bilateral lower extremities reproduces no pain throughout the extremities, this to include the groin bilaterally, he demonstrates a negative straight leg raise Patient is unable to actively move the lower extremities after significant coaching, I did appreciate mild wiggling of the toes on the left lower extremity I was unable to reproduce any clonus in the bilateral lower extremities Patient sensation to light touch was intact throughout the upper thigh, knee, lower leg. He admits to numbness and tingling in the bilateral feet have been present for many years I was able to roll the patient to examine his previous lumbar incision, it remains well healed, there is no openings in the skin, there is no erythema, there is no fluctuance appreciated - Labs CBC & Chem 7: 09/04/22 06:09 09/04/22 06:09 Labs: Abnormal Lab Results - Last 24 Hours (Table) 09/04/22 09/04/22 09/04/22 Range/Units 06:09 06:09 08:31 WBC 14.00 H (4.50-10.00) X 10*3/uL RBC 3.87 L (4.40-5.60) X 10*6/uL Hgb 10.3 L (13.0-17.0) g/dL Hct 33.1 L (39.6-50.0) % MCH 26.6 L (27.0-32.0) pg MCHC 31.1 L (32.0-37.0) g/dL Sodium 133 L (137-145) mmol/L Potassium 3.3 L (3.5-5.1) mmol/L Creatinine 0.61 L (0.66-1.25) mg/dL POC Glucose (mg/dL) 112 H (70-110) mg/dL Calcium 7.9 L (8.4-10.2) mg/dL Alkaline Phosphatase 131 H (38-126) U/L Total Protein 4.9 L (6.3-8.2) g/dL Albumin 2.3 L (3.5-5.0) g/dL Microbiology - Last 24 Hours (Table) 09/01/22 08:35 Blood Culture - Preliminary Blood No Growth after 72 hours 09/02/22 16:01 Gram Stain - Preliminary Elbow - Left Wound Culture - Preliminary 09/02/22 16:01 Gram Stain - Preliminary Elbow - Left Wound Culture - Preliminary 09/02/22 16:01 Fungal Culture - Preliminary Elbow - Left 09/02/22 16:01 Anaerobic Culture - Preliminary Elbow - Left 09/02/22 16:01 Fungal Culture - Preliminary Elbow - Left 09/02/22 16:01 Anaerobic Culture - Preliminary Elbow - Left 08/30/22 09:42 Anaerobic Culture - Final Elbow - Left Assessment and Plan Assessment: Left elbow septic olecranon bursitis, postoperative day #2 status post incision and drainage with irrigation and debridement left olecranon bursa Recent lumbar surgery, [id number] decompression with posterior/lateral and interbody fusion Severe bilateral lower extremity weakness Other medical comorbidities Plan: I was able to discuss my acute exam findings with Dr. Curry over the phone. I did order a stat CT with and without contrast to compare to most recent computed tomography scan that was without contrast. Patient is unable to have an MRI due to his pacemaker. Difficult to determine if this is a lumbar pathology causing the severe weakness/paralysis of the lower extremities versus patient's recent history noted mental confusion and septic state. Patient's white blood cell count was noted to be elevated today when compared to yesterday's labs I did adjust oral pain medication today to see if that helps with patient's confusion Continue to monitor bandage on the left upper extremity DVT prophylaxis, continue current medication Internal medicine recommendations appreciated Further recommendations to follow Time with Patient: Less than 30
--- NOTE | 2022-09-04 14:14 | CT ---
EXAMINATION TYPE: CT lumbar spine wo/w con CT DLP: 4623.40 mGycm, Automated exposure control for dose reduction was used. DATE OF EXAM: 09/04/2022 1:59 PM COMPARISON: CT cervical thoracolumbar spine 08/30/2022, CT lumbar spine 08/03/2022. CLINICAL INDICATION:Male, 77 years old with history of bilateral lower extremity paralysis, hx of sep sis; PHH, bilateral lower extremity paralysis, hx of sepsis TECHNIQUE: Multiple axial images were obtained from the midportion of T11 through the sacroiliac nyasia nts performed after the uneventful administration of 100 cc of Isovue-300 intravenously. Soft tissue and bone windows in coronal and sagittal planes were obtained and reviewed. FINDINGS: Alignment: There are 5 lumbar type vertebral bodies within normal alignment. Bone: Acute appearing fracture involving the superior and posterior endplate of the L1 vertebral body without retropulsion or vertebral body height loss (series 4, image 37). There is associated paraspi nal edema. Remote air right 11th and posterior left 12th rib fractures. Post surgical changes with bi lateral pedicular screws and rods involving L2-L5 with laminectomy changes and disc spacers. Addition al screws extend into the bilateral ischial bones. Hardware appears intact. This creates streak artif act limiting evaluation. No osseous erosions demonstrated. Atrophy of the right iliopsoas muscle. No rim-enhancing fluid collections identified to suggest absce ss. Multilevel degenerative disc disease without significant central canal or neural foraminal stenos is within limitations of streak artifact from fusion hardware. Small bilateral pleural effusions with associated atelectasis. Partial visualization of cardiac pacem aking leads. Small hiatal hernia. As described calcification of the aorta and its branches. Colonic d iverticulosis without evidence for acute diverticulitis. Moderate distended urinary bladder. Presacra l edema. IMPRESSION: 1. Acute appearing L1 vertebral body fracture involving the superior and posterior endplates. No retr opulsion or height loss. 2. Extensive postsurgical changes of the lumbosacral spine. This creates streak artifact limiting linda luation. No organized fluid collection identified. 3. Small bilateral pleural effusions associated atelectasis.
--- NOTE | 2022-09-04 14:53 | P.PN ---
Subjective Progress Note Date: 09/04/22 77-year-old gentleman with past medical history significant for degenerative disease of lumbar spine, patient had recent spinal surgery, history of diabetes mellitus, COPD, hypertension, heart failure, sleep apnea presented to the emergency department with complaints of fever and left arm pain. Patient was noted to have MRSA bacteremia and left elbow cellulitis, bursitis with MRSA and blood. Seen by orthopedic and infectious disease 09/02. Patient seen and examined. Currently nothing by mouth getting for surgery today. Still has pain in left elbow 09/03. Patient seen and examined. Status post I and D of left elbow. States pain is better controlled 09/04. Patient seen and examined. at the bedside. White count this morning is 14, hemoglobin is 10.3, potassium is 3.3. Patient is having a difficult time getting out of the bed REVIEW OF SYSTEMS: CONSTITUTIONAL: No fever, no malaise,. CARDIOVASCULAR: No chest pain, no palpitations, no syncope. PULMONARY: No shortness of breath, no cough, GASTROINTESTINAL: No diarrhea, no nausea, no vomiting, no abdominal pain. NEUROLOGICAL: No headaches, no weakness, PHYSICAL EXAMINATION: GENERAL: The patient is alert , not in any acute distress. Well developed, well nourished. HEENT: Pupils are round and equally reacting to light. EOMI. No scleral icterus. No conjunctival pallor. Normocephalic, atraumatic. No pharyngeal erythema. No thyromegaly. CARDIOVASCULAR: S1 and S2 present. No murmurs, rubs, or gallops. PULMONARY: Chest is clear to auscultation, no wheezing or crackles. ABDOMEN: Soft, nontender, nondistended, normoactive bowel sounds. No palpable organomegaly. MUSCULOSKELETAL: Left elbow bandage seen EXTREMITIES: No cyanosis, clubbing, or pedal edema. NEUROLOGICAL: Gross neurological examination did not reveal any focal deficits. SKIN: No rashes. Assessment and plan Left elbow septic Olecranon Bursitis * Sepsis with MRSA bacteremia * MRSA bursitis * Chronic systolic heart failure * Hypertension * History of COPD * Recent lumbar spine surgery * Diabetes mellitus type 2 Plan; * Monitor vital signs * Monitor CBC * Monitor CMP * continue IV vancomycin. Blood cultures 08/30 +1 out of 2 bottles, will repeat blood cultures 09/01>> * Echocardiogram done showed LVEF of 20% to 25%, no vegetations seen * For septic bursitis wound culture positive for MRSA continue IV antibiotics orthopedic following>> underwent incision and drainage on 09/02 * For history of congestive heart failure continue to monitor for fluid overload continue Entresto * For diabetes mellitus continue oral hypoglycemic agent continue sliding-scale insulin * Follow-up on ID recommendations * Orthopedic order CT lumbar spine Objective - Vital Signs Vital signs: Vital Signs Temp 97.9 F 09/04/22 08:05 Pulse 83 09/04/22 12:26 Resp 18 09/04/22 08:05 BP 157/77 09/04/22 08:05 Pulse Ox 97 09/04/22 08:05 FiO2 Intake & Output 09/03/22 09/04/22 09/04/22 18:59 06:59 18:59 Intake Total 360 Balance 360 Intake: Oral 360 Other: Voiding Method Diaper Diaper Diaper Incontinent Incontinent # Voids 5 4 - Labs CBC & Chem 7: 09/04/22 06:09 09/04/22 06:09 Labs: Abnormal Lab Results - Last 24 Hours (Table) 09/04/22 09/04/22 09/04/22 Range/Units 06:09 06:09 08:31 WBC 14.00 H (4.50-10.00) X 10*3/uL RBC 3.87 L (4.40-5.60) X 10*6/uL Hgb 10.3 L (13.0-17.0) g/dL Hct 33.1 L (39.6-50.0) % MCH 26.6 L (27.0-32.0) pg MCHC 31.1 L (32.0-37.0) g/dL Sodium 133 L (137-145) mmol/L Potassium 3.3 L (3.5-5.1) mmol/L Creatinine 0.61 L (0.66-1.25) mg/dL POC Glucose (mg/dL) 112 H (70-110) mg/dL Calcium 7.9 L (8.4-10.2) mg/dL Alkaline Phosphatase 131 H (38-126) U/L Total Protein 4.9 L (6.3-8.2) g/dL Albumin 2.3 L (3.5-5.0) g/dL Microbiology - Last 24 Hours (Table) 09/02/22 16:01 Gram Stain - Preliminary Elbow - Left Wound Culture - Preliminary Presumptive Staph aureus 09/02/22 16:01 Gram Stain - Preliminary Elbow - Left Wound Culture - Preliminary Presumptive Staph aureus 09/01/22 08:35 Blood Culture - Preliminary Blood No Growth after 72 hours 09/02/22 16:01 Fungal Culture - Preliminary Elbow - Left 09/02/22 16:01 Anaerobic Culture - Preliminary Elbow - Left 09/02/22 16:01 Fungal Culture - Preliminary Elbow - Left 09/02/22 16:01 Anaerobic Culture - Preliminary Elbow - Left 08/30/22 09:42 Anaerobic Culture - Final Elbow - Left
--- NOTE | 2022-09-04 15:42 | P.PN ---
Subjective Progress Note Date: 09/03/22 Principal diagnosis: Left elbow infection and bacteremia Patient is a 77 year old male with multiple comorbidities has been sent to the hospital for evaluation of left elbow wound and drainage concerning for infection. Patient is status post left elbow bursectomy I&D completed on 09/02/2022 On today's evaluation that is 09/03/2022, the patient remains to be afebrile the patient is breathing comfortably on 2 L nasal cannula oxygen, the patient denies chest pain shortness of breath or cough and the patient pain to the left elbow area is currently controlled Objective - Vital Signs Vital signs: Vital Signs Temp 97.4 F L 09/03/22 11:03 Pulse 90 09/03/22 12:12 Resp 16 09/03/22 11:03 BP 150/81 09/03/22 11:03 Pulse Ox 94 L 09/03/22 11:03 FiO2 Intake & Output 09/02/22 09/03/22 09/03/22 18:59 06:59 18:59 Intake Total 3870 500 Output Total 5 Balance 3865 500 Intake: IV 3750 Intake, IV Titration 500 Amount Vancomycin 1,500 mg In 500 Sodium Chloride 0.9% 500 ml 500 ml @ 167 mls/hr IVPB Q12HR [facility] Rx#: [id number] Oral 120 Output: Estimated Blood Loss 5 Other: Voiding Method Diaper Diaper Diaper # Voids 1 3 - Exam GENERAL DESCRIPTION: An elderly male lying in bed in no distress RESPIRATORY SYSTEM: Unlabored breathing , decreased breath sounds at bases HEART: S1 S2 regular rate and rhythm , ABDOMEN: Soft , no tenderness EXTREMITIES: Left elbow open wound with some slough tissue and surrounding swelling - Labs CBC & Chem 7: 09/04/22 06:09 09/04/22 06:09 Labs: Microbiology - Last 24 Hours (Table) 08/30/22 09:42 Anaerobic Culture - Final Elbow - Left 09/01/22 08:35 Blood Culture - Preliminary Blood No Growth after 48 hours 08/30/22 08:40 Blood Culture Gram Stain - Final Blood Blood Culture - Final Methicillin resist S. aureus 08/30/22 08:40 Blood Culture Gram Stain - Final Blood Blood Culture - Final Methicillin resist S. aureus Assessment and Plan (1) Olecranon bursitis, left elbow Current Visit: Yes Status: Acute Code(s): M70.22 - OLECRANON BURSITIS, LEFT ELBOW SNOMED Code(s): 426079589653517 (2) MRSA bacteremia Current Visit: Yes Status: Acute Code(s): R78.81 - BACTEREMIA; B95.62 - METHICILLIN RESIS STAPH INFCT CAUSING DISEASES CLASSD [id number] SNOMED Code(s): 47434208651579600 Plan: 1patient presented to hospital with sepsis since we did have a fever elevated white count has been complaining of pain and drainage from the left elbow area in this patient recently did have a trauma and nonhealing wound daily concern for possible olecranon bursitis and no need to cover for the gram-positive skin isaias to be the likely pathogen patient currently did have a negative UA chest x-ray was negative and the lumbosacral spine incision looks clean CT did not show any evidence of fluid collection suspicious for postoperative infection at that site, patient is status post I&D of the left elbow and bursectomy completed on 09/02/2022 2- patient did have a positive blood culture with presumptive MRSA and local cultures also growing MRSA likely the source of bacteremia, blood cultures has been be repeated on 09/01/2022 and they have been negative so far 3-patient to continue with vancomycin and monitor his clinical course closely
--- NOTE | 2022-09-04 15:44 | P.PN ---
Subjective Progress Note Date: 09/04/22 Principal diagnosis: Left elbow infection and bacteremia Patient is a 77 year old male with multiple comorbidities has been sent to the hospital for evaluation of left elbow wound and drainage concerning for infection. Patient is status post left elbow bursectomy I&D completed on 09/02/2022 On today's evaluation that is 09/04/2022, the patient continues to be afebrile the patient is breathing comfortably on 2 L nasal cannula oxygen, the patient denies chest pain shortness of breath or cough and the patient pain to the left elbow area is currently controlled, patient noticed to have a acute weakness to the lower extremity CT lumbosacral spine has been done by orthopedics Objective - Vital Signs Vital signs: Vital Signs Temp 97.3 F L 09/04/22 14:55 Pulse 78 09/04/22 14:55 Resp 19 09/04/22 14:55 BP 149/93 09/04/22 14:55 Pulse Ox 92 L 09/04/22 14:55 FiO2 Intake & Output 09/03/22 09/04/22 09/04/22 18:59 06:59 18:59 Intake Total 360 Balance 360 Intake: Oral 360 Other: Voiding Method Diaper Diaper Diaper Incontinent Incontinent # Voids 5 4 - Exam GENERAL DESCRIPTION: An elderly male lying in bed in no distress RESPIRATORY SYSTEM: Unlabored breathing , decreased breath sounds at bases HEART: S1 S2 regular rate and rhythm , ABDOMEN: Soft , no tenderness EXTREMITIES: Left elbow open wound with some slough tissue and surrounding swelling - Labs CBC & Chem 7: 09/04/22 06:09 09/04/22 06:09 Labs: Abnormal Lab Results - Last 24 Hours (Table) 09/04/22 09/04/22 09/04/22 Range/Units 06:09 06:09 08:31 WBC 14.00 H (4.50-10.00) X 10*3/uL RBC 3.87 L (4.40-5.60) X 10*6/uL Hgb 10.3 L (13.0-17.0) g/dL Hct 33.1 L (39.6-50.0) % MCH 26.6 L (27.0-32.0) pg MCHC 31.1 L (32.0-37.0) g/dL Sodium 133 L (137-145) mmol/L Potassium 3.3 L (3.5-5.1) mmol/L Creatinine 0.61 L (0.66-1.25) mg/dL POC Glucose (mg/dL) 112 H (70-110) mg/dL Calcium 7.9 L (8.4-10.2) mg/dL Alkaline Phosphatase 131 H (38-126) U/L Total Protein 4.9 L (6.3-8.2) g/dL Albumin 2.3 L (3.5-5.0) g/dL Microbiology - Last 24 Hours (Table) 09/02/22 16:01 Gram Stain - Preliminary Elbow - Left Wound Culture - Preliminary Presumptive Staph aureus 09/02/22 16:01 Gram Stain - Preliminary Elbow - Left Wound Culture - Preliminary Presumptive Staph aureus 09/01/22 08:35 Blood Culture - Preliminary Blood No Growth after 72 hours 09/02/22 16:01 Fungal Culture - Preliminary Elbow - Left 09/02/22 16:01 Anaerobic Culture - Preliminary Elbow - Left 09/02/22 16:01 Fungal Culture - Preliminary Elbow - Left 09/02/22 16:01 Anaerobic Culture - Preliminary Elbow - Left Assessment and Plan (1) Olecranon bursitis, left elbow Current Visit: Yes Status: Acute Code(s): M70.22 - OLECRANON BURSITIS, LEFT ELBOW SNOMED Code(s): 126195184859843 (2) MRSA bacteremia Current Visit: Yes Status: Acute Code(s): R78.81 - BACTEREMIA; B95.62 - METHICILLIN RESIS STAPH INFCT CAUSING DISEASES CLASSD [facility] SNOMED Code(s): 71893974433124318 Plan: 1patient presented to hospital with sepsis since we did have a fever elevated white count has been complaining of pain and drainage from the left elbow area in this patient recently did have a trauma and nonhealing wound daily concern for possible olecranon bursitis and no need to cover for the gram-positive skin isaias to be the likely pathogen patient currently did have a negative UA chest x-ray was negative and the lumbosacral spine incision looks clean CT did not show any evidence of fluid collection suspicious for postoperative infection at that site, patient is status post I&D of the left elbow and bursectomy completed on 09/02/2022 2- patient did have a positive blood culture with presumptive MRSA and local cultures also growing MRSA likely the source of bacteremia, blood cultures has been be repeated on 09/01/2022 and they have been negative so far 3-patient to continue with vancomycin and plan is for IV vancomycin on discharge for which PICC line will be placed 4patient did have a acute L1 fracture on the CT being ordered by orthopedics a wait further recommendation at the bedside questions concerns were answered Time with Patient: Less than 30
[2022-09-04 17:39] LABS: Glucose,Whole Blood 96 mg/dL (70-110)
[2022-09-04] MEDS ORDERED: POTASSIUM CHLORIDE ER 20 MEQ TAB.ER PO STA (18:27)
[2022-09-04 20:40] LABS: Glucose,Whole Blood 103 mg/dL (70-110)
[2022-09-04] MEDS: ATORVASTATIN 20 MG TAB PO SCH (21:08)
[2022-09-05] MEDS: CYCLOBENZAPRINE 5 MG TAB PO SCH ×2 (06:13→17:28)
[2022-09-05] MEDS: SOTALOL 80 MG TAB PO SCH ×2 (06:14→20:31)
[2022-09-05] MEDS: GABAPENTIN 300 MG CAP PO SCH ×2 (06:14→17:28)
[2022-09-05] MEDS ORDERED: VANCOMYCIN TROUGH DUE 1 EACH MISC MISCELLANE ONE (08:00)
[2022-09-05] MEDS: INSULIN ASPART (NovoLOG) 100 UNIT/ML VIAL SQ SCH ×4 (08:03→20:32)
[2022-09-05 08:11] LABS: Glucose,Whole Blood 100 mg/dL (70-110)
[2022-09-05] MEDS: VANCOMYCIN 1,500 MG in SODIUM CHLORIDE 0.9% 500 ML 500 ML IVPB SCH ×2 (08:44→09:51)
[2022-09-05] MEDS: HEPARIN SODIUM,PORCINE/PF 5,000 UNIT/0.5 ML SYRINGE SQ SCH ×2 (08:44→20:32)
[2022-09-05] MEDS: SERTRALINE 100 MG TAB PO SCH (08:44)
[2022-09-05] MEDS: SACUBITRIL/VALSARTAN 97 MG-103 MG TABLET PO SCH ×2 (08:44→20:32)
[2022-09-05] MEDS: PANTOPRAZOLE 40 MG TABLET PO SCH (08:44)
[2022-09-05] MEDS: GLIMEPIRIDE 1 MG TAB PO SCH (08:44)
[2022-09-05] MEDS: HYDROcodone/APAP 5-325MG 1 EACH TAB PO PRN ×2 (08:50→17:27)
[2022-09-05 08:55] LABS: Basophils % (A) 0 %; Eosinophils % (A) 0 %; HCT 37.2 % (39.0-53.0); HGB 11.4 gm/dL (13.0-17.5); Hypochromasia Moderate; Lymphocytes # (A) 0.6 k/uL (1.0-4.8); Lymphocytes % (A) 5 %; MCHC 30.6 g/dL (31.0-37.0); MCV 88.1 fL (80.0-100.0); Mean Platelet Volume 8.1; Monocytes # (A) 0.7 k/uL (0-1.0); Monocytes % (A) 6 %; Neutrophils # (A) 10.8 k/uL (1.3-7.7); Neutrophils % (A) 89 %; Platelet Count 312 k/uL (150-450); RBC 4.22 m/uL (4.30-5.90); RDW 14.3 % (11.5-15.5); WBC 12.2 k/uL (3.8-10.6)
[2022-09-05] MEDS: SYMBICORT 80-4.5 MCG INHALER INHALATION SCH ×2 (08:56→19:39)
[2022-09-05] MEDS: IPRATROPIUM 0.5 MG/2.5 ML NEBU INHALATION SCH ×4 (08:56→19:39)
--- NOTE | 2022-09-05 09:14 | P.PN ---
Subjective Progress Note Date: 09/05/22 Pt s/e this AM. He is somewhat more with it cognitively. He does not c/o of any pain in his back, legs, elbow or any other areas at this time. He states he has not walked now tho in 2 weeks. In asking him about this more he states he has had two falls at rehab and the last one about two weeks ago and since then he has been declining and getting more weak in his legs. He states after the fall he had pain in his back but it has gotten somewhat better on pain meds here. He states he has no issues with surgery on elbow. No f/c/sob/cp overnight. Objective - Vital Signs Vital signs: Vital Signs Temp 98.9 F 09/05/22 07:45 Pulse 81 09/05/22 07:45 Resp 18 09/05/22 07:45 BP 131/86 09/05/22 07:45 Pulse Ox 97 09/05/22 07:45 FiO2 Intake & Output 09/04/22 09/05/22 09/05/22 18:59 06:59 18:59 Intake Total 500 120 Balance 500 120 Intake: Intake, IV Titration 500 Amount Vancomycin 1,500 mg In 500 Sodium Chloride 0.9% 500 ml 500 ml @ 167 mls/hr IVPB Q12HR [facility] Rx#: [id number] Oral 120 Other: Voiding Method Diaper Diaper Incontinent Incontinent # Voids 1 - Exam Patient is alert and oriented 3 appears well-nourished well-hydrated is in no acute distress. They do not appear septic. On exam the patient has no tenderness to palpation of her thoracic or lumbar sp ine. There is no edema or ballottement sign. Lower extremities with 2/5 strength in all major muscle groups. Which is apparently new since the fall 2 weeks ago Upper extremities show [4]/5 strength in all major muscle groups. [2]/4DTR all UE and LE b/l Patient shows a negative Homans, Borges's, negative Babinski's negative clonus bilaterally. negative straight leg raise bilaterally. No tensioning signs. Cranial nerves II through XII are grossly intact. There is FROM that is painless of the b/l UE and LE in all major joints [w/o pain]. They are intact to light touch sensation in L2 to S1 nerve distribution. Patient has palpable dorsalis pedis was posterior tibial pulses. Compartments are soft and compressible. - Labs CBC & Chem 7: 09/05/22 08:16 09/04/22 06:09 Labs: Abnormal Lab Results - Last 24 Hours (Table) 09/04/22 09/05/22 Range/Units 06:09 08:16 WBC 14.00 H 12.2 H (4.50-10.00) X 10*3/uL RBC 3.87 L 4.22 L (4.40-5.60) X 10*6/uL Hgb 10.3 L 11.4 L (13.0-17.0) g/dL Hct 33.1 L 37.2 L (39.6-50.0) % MCH 26.6 L (27.0-32.0) pg MCHC 31.1 L 30.6 L (32.0-37.0) g/dL Neutrophils # 10.8 H (1.3-7.7) k/uL Lymphocytes # 0.6 L (1.0-4.8) k/uL Microbiology - Last 24 Hours (Table) 09/02/22 16:01 Gram Stain - Preliminary Elbow - Left Wound Culture - Preliminary Presumptive Staph aureus 09/02/22 16:01 Gram Stain - Preliminary Elbow - Left Wound Culture - Preliminary Presumptive Staph aureus 09/01/22 08:35 Blood Culture - Preliminary Blood No Growth after 72 hours Assessment and Plan Assessment: 1. POD3 Left elbow olecranon bursa I&D 2. L2 fracture with L2-3 extension type injury, disc involvement, pending instability 3. s/p ffs at rehab 4. LE weakness 5. s/p L2-P decompression fusion 6. Complex medical patient Plan: -Discussed with the patient different options. At this time due to the fracture and his leg weakness I would recommend extension of his surgery up to at least T11 along with exploration and decompression. CT scan of the back shows an L2 vertebral body fracture with L2-3 disc involvement in a hyperextension type injury with pending instability. There is propogation of the fracture through the pedicle and SAP of L2 creating L2-3 instability. -Spoke with and updated her. -Tentatively on schedule for Tuesday to follow
[2022-09-05 09:29] LABS: African American GFR (CKD) >90 (>60 ml/min/1.73 sqM); Anion Gap 8 mmol/L; Blood Urea Nitrogen 17 mg/dL (9-20); C Reactive Protein 8.1 mg/dL (<1.0); Calcium 7.8 mg/dL (8.4-10.2); Carbon Dioxide 23 mmol/L (22-30); Chloride 103 mmol/L (98-107); Glucose 77 mg/dL (74-99); Non-African American GFR(CKD) >90 (>60 ml/min/1.73 sqM); Potassium 3.2 mmol/L (3.5-5.1); Sodium 134 mmol/L (137-145)
[2022-09-05 09:48] LABS: Erythrocyte Sedimentation Rate 30 mm/hr (0-15)
[2022-09-05 11:09] LABS: Glucose,Whole Blood 114 mg/dL (70-110)
[2022-09-05] MEDS ORDERED: Potassium Replacement Protocol 1 EACH MISC MISCELLANE PRN (14:19)
[2022-09-05] MEDS: POTASSIUM CHLORIDE ER 20 MEQ TAB.ER PO SCH (14:27)
--- NOTE | 2022-09-05 14:27 | P.PN ---
Subjective Progress Note Date: 09/05/22 77-year-old gentleman with past medical history significant for degenerative disease of lumbar spine, patient had recent spinal surgery, history of diabetes mellitus, COPD, hypertension, heart failure, sleep apnea presented to the emergency department with complaints of fever and left arm pain. Patient was noted to have MRSA bacteremia and left elbow cellulitis, bursitis with MRSA and blood. Seen by orthopedic and infectious disease 09/02. Patient seen and examined. Currently nothing by mouth getting for surgery today. Still has pain in left elbow 09/03. Patient seen and examined. Status post I and D of left elbow. States pain is better controlled 09/04. Patient seen and examined. at the bedside. White count this morning is 14, hemoglobin is 10.3, potassium is 3.3. Patient is having a difficult time getting out of the bed 09/05. Patient seen and examined. Temperature 98.7, heart rate 76, respirations 16 blood pressure 132/75. WBC 12.2, hemoglobin 11.4. CT lumbar spine showed acute. L1 vertebral body fracture involving the superior posterior and posterior end plates Patient currently not having bowel or urinary incontinence REVIEW OF SYSTEMS: CONSTITUTIONAL: No fever, no malaise,. CARDIOVASCULAR: No chest pain, no palpitations, no syncope. PULMONARY: No shortness of breath, no cough, GASTROINTESTINAL: No diarrhea, no nausea, no vomiting, no abdominal pain. NEUROLOGICAL: No headaches, no weakness, PHYSICAL EXAMINATION: GENERAL: The patient is alert , not in any acute distress. Well developed, well nourished. HEENT: Pupils are round and equally reacting to light. EOMI. No scleral icterus. No conjunctival pallor. Normocephalic, atraumatic. No pharyngeal erythema. No thyromegaly. CARDIOVASCULAR: S1 and S2 present. No murmurs, rubs, or gallops. PULMONARY: Chest is clear to auscultation, no wheezing or crackles. ABDOMEN: Soft, nontender, nondistended, normoactive bowel sounds. No palpable organomegaly. MUSCULOSKELETAL: Left elbow bandage seen EXTREMITIES: No cyanosis, clubbing, or pedal edema. NEUROLOGICAL: Cranial nerves II to 12 intact, has weakness of lower extremities SKIN: No rashes. Assessment and plan Left elbow septic Olecranon Bursitis L2 fracture with L2-3 extension type injury, disc involvement, pending instability * Sepsis with MRSA bacteremia * MRSA bursitis * Chronic systolic heart failure * Hypertension * History of COPD * Recent lumbar spine surgery * Diabetes mellitus type 2 Plan; * Monitor vital signs * Monitor CBC * Monitor CMP * continue IV vancomycin * Echocardiogram done showed LVEF of 20% to 25%, no vegetations seen * For septic bursitis wound culture positive for MRSA continue IV antibiotics orthopedic following>> underwent incision and drainage on 09/02 * For history of congestive heart failure continue to monitor for fluid overload continue Entresto * For diabetes mellitus continue oral hypoglycemic agent continue sliding-scale insulin * Follow-up on ID recommendations, possible discharge on IV vancomycin with PICC line placement * CT lumbar spine showed acute. L1 vertebral body fracture involving the superior posterior and posterior end plates. Orthopedic surgery reviewed CT scans recommend extension of his surgery up to at least T11 along with exploration and decompression. Discussed with patient and patient's , surgery is scheduled for Objective - Vital Signs Vital signs: Vital Signs Temp 98.7 F 09/05/22 02:47 Pulse 76 09/05/22 02:47 Resp 16 09/05/22 02:47 BP 132/75 09/05/22 02:47 Pulse Ox 95 09/05/22 02:47 FiO2 Intake & Output 09/04/22 09/05/22 09/05/22 18:59 06:59 18:59 Intake Total 500 120 Balance 500 120 Intake: Intake, IV Titration 500 Amount Vancomycin 1,500 mg In 500 Sodium Chloride 0.9% 500 ml 500 ml @ 167 mls/hr IVPB Q12HR [facility] Rx#: [id number] Oral 120 Other: Voiding Method Diaper Diaper Incontinent Incontinent # Voids 1 - Labs CBC & Chem 7: 09/05/22 08:16 09/05/22 08:16 Labs: Abnormal Lab Results - Last 24 Hours (Table) 09/04/22 09/05/22 Range/Units 06:09 08:16 WBC 14.00 H 12.2 H (4.50-10.00) X 10*3/uL RBC 3.87 L 4.22 L (4.40-5.60) X 10*6/uL Hgb 10.3 L 11.4 L (13.0-17.0) g/dL Hct 33.1 L 37.2 L (39.6-50.0) % MCH 26.6 L (27.0-32.0) pg MCHC 31.1 L 30.6 L (32.0-37.0) g/dL Neutrophils # 10.8 H (1.3-7.7) k/uL Lymphocytes # 0.6 L (1.0-4.8) k/uL Microbiology - Last 24 Hours (Table) 09/02/22 16:01 Gram Stain - Preliminary Elbow - Left Wound Culture - Preliminary Presumptive Staph aureus 09/02/22 16:01 Gram Stain - Preliminary Elbow - Left Wound Culture - Preliminary Presumptive Staph aureus 09/01/22 08:35 Blood Culture - Preliminary Blood No Growth after 72 hours
--- NOTE | 2022-09-05 16:56 | P.PN ---
Subjective Progress Note Date: 09/05/22 Principal diagnosis: Left elbow infection and bacteremia Patient is a 77 year old male with multiple comorbidities has been sent to the hospital for evaluation of left elbow wound and drainage concerning for infection. Patient is status post left elbow bursectomy I&D completed on 09/02/2022 On today's evaluation that is 09/05/2022, the patient remains to be afebrile the patient is breathing comfortably on 2 L nasal cannula oxygen, the patient slightly lethargic today and did not answer any question no vomiting diarrhea or any other changes reported by the nursing staff Objective - Vital Signs Vital signs: Vital Signs Temp 97.5 F L 09/05/22 14:10 Pulse 76 09/05/22 16:07 Resp 17 09/05/22 14:10 BP 126/74 09/05/22 14:10 Pulse Ox 97 09/05/22 14:10 FiO2 Intake & Output 09/04/22 09/05/22 09/05/22 18:59 06:59 18:59 Intake Total 500 120 Balance 500 120 Intake: Intake, IV Titration 500 Amount Vancomycin 1,500 mg In 500 Sodium Chloride 0.9% 500 ml 500 ml @ 167 mls/hr IVPB Q12HR [facility] Rx#: [id number] Oral 120 Other: Voiding Method Diaper Diaper Diaper Incontinent Incontinent Incontinent # Voids 1 - Exam GENERAL DESCRIPTION: An elderly male lying in bed in no distress RESPIRATORY SYSTEM: Unlabored breathing , decreased breath sounds at bases HEART: S1 S2 regular rate and rhythm , ABDOMEN: Soft , no tenderness EXTREMITIES: Left elbow open wound with some slough tissue and surrounding swelling - Labs CBC & Chem 7: 09/05/22 08:16 09/05/22 08:16 Labs: Abnormal Lab Results - Last 24 Hours (Table) 09/05/22 09/05/22 09/05/22 Range/Units 08:16 08:16 11:08 WBC 12.2 H (3.8-10.6) k/uL RBC 4.22 L (4.30-5.90) m/uL Hgb 11.4 L (13.0-17.5) gm/dL Hct 37.2 L (39.0-53.0) % MCHC 30.6 L (31.0-37.0) g/dL Neutrophils # 10.8 H (1.3-7.7) k/uL Lymphocytes # 0.6 L (1.0-4.8) k/uL ESR 30 H (0-15) mm/hr Sodium 134 L (137-145) mmol/L Potassium 3.2 L (3.5-5.1) mmol/L Creatinine 0.65 L (0.66-1.25) mg/dL POC Glucose (mg/dL) 114 H (70-110) mg/dL Calcium 7.8 L (8.4-10.2) mg/dL C-Reactive Protein 8.1 H (<1.0) mg/dL Microbiology - Last 24 Hours (Table) 09/02/22 16:01 Anaerobic Culture - Preliminary Elbow - Left 09/02/22 16:01 Anaerobic Culture - Preliminary Elbow - Left 09/02/22 16:01 Gram Stain - Final Elbow - Left Wound Culture - Final Methicillin resist S. aureus 09/02/22 16:01 Gram Stain - Final Elbow - Left Wound Culture - Final Methicillin resist S. aureus 09/01/22 08:35 Blood Culture - Preliminary Blood No Growth after 96 hours Assessment and Plan (1) Olecranon bursitis, left elbow Current Visit: Yes Status: Acute Code(s): M70.22 - OLECRANON BURSITIS, LEFT ELBOW SNOMED Code(s): 299417974580510 (2) MRSA bacteremia Current Visit: Yes Status: Acute Code(s): R78.81 - BACTEREMIA; B95.62 - METHICILLIN RESIS STAPH INFCT CAUSING DISEASES [facility] SNOMED Code(s): 73757764941563520 Plan: 1patient presented to hospital with sepsis since we did have a fever elevated white count has been complaining of pain and drainage from the left elbow area in this patient recently did have a trauma and nonhealing wound daily concern for possible olecranon bursitis and no need to cover for the gram-positive skin isaias to be the likely pathogen patient currently did have a negative UA chest x-ray was negative and the lumbosacral spine incision looks clean CT did not show any evidence of fluid collection suspicious for postoperative infection at that site, patient is status post I&D of the left elbow and bursectomy completed on 09/02/2022 2- patient did have a positive blood culture with presumptive MRSA and local cultures also growing MRSA likely the source of bacteremia, blood cultures has been be repeated on 09/01/2022 and they have been negative so far 3-patient to continue with vancomycin and plan is for IV vancomycin on discharge for which PICC line will be placed 4patient did have a acute L1 fracture on the CT being ordered by orthopedics and possible plan for repeat surgery on Tuesday will monitor his clinical course closely Time with Patient: Less than 30
[2022-09-05 17:22] LABS: Glucose,Whole Blood 113 mg/dL (70-110)
[2022-09-05] MEDS ORDERED: POTASSIUM CHLORIDE ER 20 MEQ TAB.ER PO SCH (20:00)
[2022-09-05 20:29] LABS: Glucose,Whole Blood 243 mg/dL (70-110)
[2022-09-05] MEDS: ATORVASTATIN 20 MG TAB PO SCH (20:32)
[2022-09-05] MEDS: VANCOMYCIN 1,250 MG in SODIUM CHLORIDE 0.9% 250 ML IVPB SCH (22:25)
[2022-09-06] MEDS: CYCLOBENZAPRINE 5 MG TAB PO SCH ×2 (06:34→17:10)
[2022-09-06] MEDS: GABAPENTIN 300 MG CAP PO SCH ×2 (06:34→17:10)
[2022-09-06] MEDS: SOTALOL 80 MG TAB PO SCH ×2 (06:34→22:00)
[2022-09-06 07:16] LABS: Glucose,Whole Blood 146 mg/dL (70-110)
[2022-09-06] MEDS: INSULIN ASPART (NovoLOG) 100 UNIT/ML VIAL SQ SCH ×4 (08:08→20:50)
[2022-09-06] MEDS: SYMBICORT 80-4.5 MCG INHALER INHALATION SCH ×2 (08:31→18:26)
[2022-09-06] MEDS: IPRATROPIUM 0.5 MG/2.5 ML NEBU INHALATION SCH ×4 (08:31→18:26)
--- NOTE | 2022-09-06 08:34 | P.PN ---
Subjective Progress Note Date: 09/06/22 Principal diagnosis: Left elbow septic olecranon bursitis Sepsis History of recent back surgery: L2-Pelvis decompression and fusion Patient seen and examined this morning. Patient is resting comfortably in bed. Pain has been managed on current regimen. Dressing to left elbow CDI. No acute events overnight. Order for carrillo catheter is present, instructed RN that it may be placed prior to scheduled surgery on Tuesday09/07/22. Patient has been afebrile, no complaints of nausea/vomiting, or chest pain. Objective - Vital Signs Vital signs: Vital Signs Temp 98.4 F 09/06/22 07:12 Pulse 78 09/06/22 07:12 Resp 18 09/06/22 07:12 BP 128/79 09/06/22 07:12 Pulse Ox 98 09/06/22 07:12 FiO2 Intake & Output 09/05/22 09/06/22 09/06/22 18:59 06:59 18:59 Other: Voiding Method Diaper Diaper Incontinent Incontinent # Voids 2 - Exam Physical Examination General: The patient is awake and alert, in no acute distress Skin: Skin is warm and dry with no obvious rashes or lesions. Surgical incision to left elbow, dressing CDI. Healing lumbar incision. Eye: Pupils are equal, round and reactive to light, extra-ocular movements are intact; there is normal conjunctiva bilaterally. Neck: The neck is supple, there is no tenderness and ROM intact. Cardiovascular: There is a regular rate and rhythm. No murmur, rub or gallop is appreciated. Respiratory: Lungs are clear to auscultation, respirations are non-labored, breath sounds are equal. Gastrointestinal: Soft, non-distended, non-tender abdomen. Back: There is moderate tenderness to palpation in the midline lumbar region. There is no obvious deformity . Musculoskeletal: ROM limited secondary to pain and stiffness from surgical procedure. Muscle strength in all major muscle groups of bilateral upper extremities 4/5, bilateral lower extremities 3+/5. Neurological: CN 2-12 intact. There are no obvious motor or sensory deficits. Movement and coordination equal and intact. Sensory exam to light touch intact C 5-T1 and intact from L2-S1. Reflexes 2/4 in bilateral upper and lower extremities. Negative Hoffmans, babinski, and clonus signs. Psychiatric: Cooperative, appropriate mood & affect, normal judgment. - Labs CBC & Chem 7: 09/05/22 08:16 09/05/22 18:04 Labs: Abnormal Lab Results - Last 24 Hours (Table) 09/05/22 09/05/22 09/05/22 Range/Units 08:16 08:16 11:08 WBC 12.2 H (3.8-10.6) k/uL RBC 4.22 L (4.30-5.90) m/uL Hgb 11.4 L (13.0-17.5) gm/dL Hct 37.2 L (39.0-53.0) % MCHC 30.6 L (31.0-37.0) g/dL Neutrophils # 10.8 H (1.3-7.7) k/uL Lymphocytes # 0.6 L (1.0-4.8) k/uL ESR 30 H (0-15) mm/hr Sodium 134 L (137-145) mmol/L Potassium 3.2 L (3.5-5.1) mmol/L Creatinine 0.65 L (0.66-1.25) mg/dL POC Glucose (mg/dL) 114 H (70-110) mg/dL Calcium 7.8 L (8.4-10.2) mg/dL C-Reactive Protein 8.1 H (<1.0) mg/dL 09/05/22 09/05/22 09/06/22 Range/Units 17:21 20:19 07:15 WBC (3.8-10.6) k/uL RBC (4.30-5.90) m/uL Hgb (13.0-17.5) gm/dL Hct (39.0-53.0) % MCHC (31.0-37.0) g/dL Neutrophils # (1.3-7.7) k/uL Lymphocytes # (1.0-4.8) k/uL ESR (0-15) mm/hr Sodium (137-145) mmol/L Potassium (3.5-5.1) mmol/L Creatinine (0.66-1.25) mg/dL POC Glucose (mg/dL) 113 H 243 H 146 H (70-110) mg/dL Calcium (8.4-10.2) mg/dL C-Reactive Protein (<1.0) mg/dL Microbiology - Last 24 Hours (Table) 09/02/22 16:01 Anaerobic Culture - Preliminary Elbow - Left 09/02/22 16:01 Anaerobic Culture - Preliminary Elbow - Left 09/02/22 16:01 Gram Stain - Final Elbow - Left Wound Culture - Final Methicillin resist S. aureus 09/02/22 16:01 Gram Stain - Final Elbow - Left Wound Culture - Final Methicillin resist S. aureus 09/01/22 08:35 Blood Culture - Preliminary Blood No Growth after 96 hours Assessment and Plan Assessment: 1. Post-Op Day 4: Left elbow olecranon bursa I&D 2. L2 fracture with L2-3 extension type injury, disc involvement, pending instability 3. s/p ffs at rehab 4. LE weakness 5. s/p L2-P decompression fusion 6. Complex medical patient Plan: Appreciate consult and team management Surgical procedure scheduled for Tuesday09/07/22: Revision of L2-Pelvis to stabilize fracture to include T11 along with exploration and decompression NPO at [place] Insert carrillo cath prior to patient going to Pre-Op Continue with pain management Continue to monitor bandage on the left upper extremity DVT prophylaxis, continue current medication Internal medicine recommendations appreciated
[2022-09-06] MEDS: GLIMEPIRIDE 1 MG TAB PO SCH (08:50)
[2022-09-06] MEDS: HEPARIN SODIUM,PORCINE/PF 5,000 UNIT/0.5 ML SYRINGE SQ SCH ×2 (08:50→22:00)
[2022-09-06] MEDS: VANCOMYCIN 1,250 MG in SODIUM CHLORIDE 0.9% 250 ML IVPB SCH ×2 (08:50→22:05)
[2022-09-06] MEDS: SACUBITRIL/VALSARTAN 97 MG-103 MG TABLET PO SCH ×2 (08:50→22:00)
[2022-09-06] MEDS: PANTOPRAZOLE 40 MG TABLET PO SCH (08:51)
[2022-09-06] MEDS: SERTRALINE 100 MG TAB PO SCH (08:51)
[2022-09-06 08:59] LABS: Basophils # (A) 0.04 X 10*3/uL (0.00-0.10); Basophils % (A) 0.3 %; Eosinophils # (A) 0.08 X 10*3/uL (0.04-0.35); Eosinophils % (A) 0.6 %; HCT 34.6 % (39.6-50.0); HGB 10.4 g/dL (13.0-17.0); Lymphocytes # (A) 0.92 X 10*3/uL (0.90-5.00); Lymphocytes % (A) 7.3 %; MCH 26.7 pg (27.0-32.0); MCHC 30.1 g/dL (32.0-37.0); MCV 88.7 fL (80.0-97.0); Mean Platelet Volume 11.5 fL (9.5-12.2); Monocytes # (A) 1.39 X 10*3/uL (0.20-1.00); Monocytes % (A) 11.1 %; NRBC Per 100 WBC 0 /100 WBCS (0.0-0.0); Neutrophils # (A) 9.85 X 10*3/uL (1.80-7.70); Neutrophils % (A) 78.7 %; Platelet Count 350 X 10*3/uL (140-440); RDW 14.6 % (11.5-14.5); WBC 12.53 X 10*3/uL (4.50-10.00)
[2022-09-06 09:09] LABS: Albumin 2.3 g/dL (3.8-4.9); Albumin/Globulin Ratio 0.96 (1.60-3.17); BUN/Creat Ratio 26.43 Ratio (12.00-20.00); Blood Urea Nitrogen 18.5 mg/dL (9.0-27.0); Calcium 7.8 mg/dL (8.7-10.3); Globulin 2.4 g/dL (1.6-3.3); Non-African American GFR(CKD) 92.3 (60.0-200.0); Potassium 3.9 mmol/L (3.5-5.5); Total Bilirubin 0.3 mg/dL (0.30-1.20); Total Protein 4.7 g/dL (6.2-8.2)
[2022-09-06 11:41] LABS: Glucose,Whole Blood 151 mg/dL (70-110)
[2022-09-06 13:49] VITALS: BMI 31.7
--- NOTE | 2022-09-06 15:38 | P.PN ---
Subjective Progress Note Date: 09/06/22 77-year-old gentleman with past medical history significant for degenerative disease of lumbar spine, patient had recent spinal surgery, history of diabetes mellitus, COPD, hypertension, heart failure, sleep apnea presented to the emergency department with complaints of fever and left arm pain. Patient was noted to have MRSA bacteremia and left elbow cellulitis, bursitis with MRSA and blood. Seen by orthopedic and infectious disease 09/02. Patient seen and examined. Currently nothing by mouth getting for surgery today. Still has pain in left elbow 09/03. Patient seen and examined. Status post I and D of left elbow. States pain is better controlled 09/04. Patient seen and examined. at the bedside. White count this morning is 14, hemoglobin is 10.3, potassium is 3.3. Patient is having a difficult time getting out of the bed 09/05. Patient seen and examined. Temperature 98.7, heart rate 76, respirations 16 blood pressure 132/75. WBC 12.2, hemoglobin 11.4. CT lumbar spine showed acute. L1 vertebral body fracture involving the superior posterior and posterior end plates Patient currently not having bowel or urinary incontinence 09/06. Patient seen and examined. Surgical procedure scheduled for Tuesday09/07/22: Revision of L2-Pelvis to stabilize fracture to include T11 along with exploration and decompression, updated by orthopedics. Labs this morning white count 4.53, hemoglobin 10.4, platelet count 350, sodium 140, potassium 3.9, BUN is 18.5, creatinine 0.7 at the bedside, all questions answered REVIEW OF SYSTEMS: CONSTITUTIONAL: No fever, no malaise,. CARDIOVASCULAR: No chest pain, no palpitations, no syncope. PULMONARY: No shortness of breath, no cough, GASTROINTESTINAL: No diarrhea, no nausea, no vomiting, no abdominal pain. NEUROLOGICAL: No headaches, no weakness, PHYSICAL EXAMINATION: GENERAL: The patient is alert , not in any acute distress. Well developed, well nourished. HEENT: Pupils are round and equally reacting to light. EOMI. No scleral icterus. No conjunctival pallor. Normocephalic, atraumatic. No pharyngeal erythema. No thyromegaly. CARDIOVASCULAR: S1 and S2 present. No murmurs, rubs, or gallops. PULMONARY: Chest is clear to auscultation, no wheezing or crackles. ABDOMEN: Soft, nontender, nondistended, normoactive bowel sounds. No palpable organomegaly. MUSCULOSKELETAL: Left elbow bandage seen EXTREMITIES: No cyanosis, clubbing, or pedal edema. NEUROLOGICAL: Cranial nerves II to 12 intact, has weakness of lower extremities SKIN: No rashes. Assessment and plan Left elbow septic Olecranon Bursitis L2 fracture with L2-3 extension type injury, disc involvement, pending i nstability * Sepsis with MRSA bacteremia * MRSA bursitis * Chronic systolic heart failure * Hypertension * History of COPD * Recent lumbar spine surgery * Diabetes mellitus type 2 Plan; * Monitor vital signs * Monitor CBC * Monitor CMP * continue IV vancomycin * Echocardiogram done showed LVEF of 20% to 25%, no vegetations seen * For septic bursitis wound culture positive for MRSA continue IV antibiotics orthopedic following>> underwent incision and drainage on 09/02 * For history of congestive heart failure continue to monitor for fluid overload continue Entresto * For diabetes mellitus continue oral hypoglycemic agent continue sliding-scale insulin * Follow-up on ID recommendations, possible discharge on IV vancomycin with PICC line placement * CT lumbar spine showed acute. L1 vertebral body fracture involving the superior posterior and posterior end plates. Orthopedic surgery reviewed CT scans recommend extension of his surgery up to at least T11 along with exploration and decompression. Discussed with patient and patient's , surgery is scheduled for . Nothing by mouth after midnight Objective - Vital Signs Vital signs: Vital Signs Temp 98.4 F 09/06/22 07:12 Pulse 78 09/06/22 07:12 Resp 18 09/06/22 07:12 BP 128/79 09/06/22 07:12 Pulse Ox 98 09/06/22 08:32 FiO2 Intake & Output 09/05/22 09/06/22 09/06/22 18:59 06:59 18:59 Other: Voiding Method Diaper Diaper Diaper Incontinent Incontinent Incontinent # Voids 2 1 # Bowel Movements 1 - Labs CBC & Chem 7: 09/06/22 03:23 09/06/22 03:23 Labs: Abnormal Lab Results - Last 24 Hours (Table) 09/05/22 09/05/22 09/05/22 Range/Units 11:08 17:21 20:19 WBC (4.50-10.00) X 10*3/uL RBC (4.40-5.60) X 10*6/uL Hgb (13.0-17.0) g/dL Hct (39.6-50.0) % MCH (27.0-32.0) pg MCHC (32.0-37.0) g/dL RDW (11.5-14.5) % Immature Gran # (0.00-0.04) X 10*3/uL Neutrophils # (1.80-7.70) X 10*3/uL Monocytes # (0.20-1.00) X 10*3/uL BUN/Creatinine Ratio (12.00-20.00) Ratio POC Glucose (mg/dL) 114 H 113 H 243 H (70-110) mg/dL Calcium (8.7-10.3) mg/dL Total Protein (6.2-8.2) g/dL Albumin (3.8-4.9) g/dL Albumin/Globulin Ratio (1.60-3.17) g/dL 09/06/22 09/06/22 09/06/22 Range/Units 03:23 03:23 07:15 WBC 12.53 H (4.50-10.00) X 10*3/uL RBC 3.90 L (4.40-5.60) X 10*6/uL Hgb 10.4 L (13.0-17.0) g/dL Hct 34.6 L (39.6-50.0) % MCH 26.7 L (27.0-32.0) pg MCHC 30.1 L (32.0-37.0) g/dL RDW 14.6 H (11.5-14.5) % Immature Gran # 0.25 H (0.00-0.04) X 10*3/uL Neutrophils # 9.85 H (1.80-7.70) X 10*3/uL Monocytes # 1.39 H (0.20-1.00) X 10*3/uL BUN/Creatinine Ratio 26.43 H (12.00-20.00) Ratio POC Glucose (mg/dL) 146 H (70-110) mg/dL Calcium 7.8 L (8.7-10.3) mg/dL Total Protein 4.7 L (6.2-8.2) g/dL Albumin 2.3 L (3.8-4.9) g/dL Albumin/Globulin Ratio 0.96 L (1.60-3.17) g/dL Microbiology - Last 24 Hours (Table) 09/02/22 16:01 Anaerobic Culture - Preliminary Elbow - Left 09/02/22 16:01 Anaerobic Culture - Preliminary Elbow - Left 09/02/22 16:01 Gram Stain - Final Elbow - Left Wound Culture - Final Methicillin resist S. aureus 09/02/22 16:01 Gram Stain - Final Elbow - Left Wound Culture - Final Methicillin resist S. aureus 09/01/22 08:35 Blood Culture - Preliminary Blood No Growth after 96 hours
[2022-09-06 16:58] LABS: Glucose,Whole Blood 127 mg/dL (70-110)
[2022-09-06 20:43] LABS: Glucose,Whole Blood 125 mg/dL (70-110)
[2022-09-06] MEDS: ATORVASTATIN 20 MG TAB PO SCH (22:00)
[2022-09-07] MEDS: CYCLOBENZAPRINE 5 MG TAB PO SCH ×2 (06:47→22:14)
[2022-09-07] MEDS: GABAPENTIN 300 MG CAP PO SCH ×2 (06:47→18:32)
[2022-09-07] MEDS: SOTALOL 80 MG TAB PO SCH (06:49)
[2022-09-07 07:44] LABS: Glucose,Whole Blood 152 mg/dL (70-110)
--- NOTE | 2022-09-07 08:04 | P.PN ---
Subjective Progress Note Date: 09/07/22 Principal diagnosis: Left elbow septic olecranon bursitis Sepsis History of recent back surgery: L2-Pelvis decompression and fusion Patient seen and examined this morning. Patient is resting comfortably in bed. Pain has been managed on current regimen. Dressing to left elbow CDI. Patient has been NPO since midnight for scheduled procedure today. Patient verbalizes his frustration over not being able to move his lower extremities. Patient with much concentration is able to wiggle toes of his left foot. When asked to wiggle toes on right foot, his quad muscles engage without movement in the right foot. Patient has been afebrile, no complaints of nausea/vomiting, or chest pain. Objective - Vital Signs Vital signs: Vital Signs Temp 97.8 F 09/07/22 02:00 Pulse 70 09/07/22 02:00 Resp 16 09/07/22 02:00 BP 130/85 09/07/22 02:00 Pulse Ox 99 09/07/22 02:00 FiO2 Intake & Output 09/06/22 09/07/22 09/07/22 18:59 06:59 18:59 Intake Total 250 Balance 250 Weight 97.522 kg Intake: Intake, IV Titration 250 Amount Vancomycin 1,250 mg In 250 Sodium Chloride 0.9% 250 ml @ 125 mls/hr IVPB Q12H [facility] Rx#:[id number] Other: Voiding Method Diaper Diaper Incontinent Incontinent # Voids 1 3 # Bowel Movements 1 1 - Exam Physical Examination General: The patient is awake and alert, in no acute distress Skin: Skin is warm and dry with no obvious rashes or lesions. Surgical incision to left elbow, dressing CDI. Healing lumbar incision. Eye: Pupils are equal, round and reactive to light, extra-ocular movements are intact; there is normal conjunctiva bilaterally. Neck: The neck is supple, there is no tenderness and ROM intact. Cardiovascular: There is a regular rate and rhythm. No murmur, rub or gallop is appreciated. Respiratory: Lungs are clear to auscultation, respirations are non-labored, breath sounds are equal. Gastrointestinal: Soft, non-distended, non-tender abdomen. Back: There is moderate tenderness to palpation in the midline lumbar region. There is no obvious deformity . Musculoskeletal: ROM limited secondary to pain and stiffness from surgical procedure. Muscle strength in all major muscle groups of bilateral upper extremities 4/5, right lower extremity 2/5, left lower extremity 3/5 Neurological: CN 2-12 intact. There are no obvious motor or sensory deficits. Movement and coordination equal and intact. Sensory exam to light touch intact C5-T1 and intact from L2-S1. Reflexes 2/4 in bilateral upper and lower extremities. Negative Hoffmans, babinski, and clonus signs. Psychiatric: Cooperative, appropriate mood & affect, normal judgment. - Labs CBC & Chem 7: 09/06/22 03:23 09/06/22 03:23 Labs: Abnormal Lab Results - Last 24 Hours (Table) 09/06/22 09/06/22 09/06/22 Range/Units 03:23 03:23 11:40 WBC 12.53 H (4.50-10.00) X 10*3/uL RBC 3.90 L (4.40-5.60) X 10*6/uL Hgb 10.4 L (13.0-17.0) g/dL Hct 34.6 L (39.6-50.0) % MCH 26.7 L (27.0-32.0) pg MCHC 30.1 L (32.0-37.0) g/dL RDW 14.6 H (11.5-14.5) % Immature Gran # 0.25 H (0.00-0.04) X 10*3/uL Neutrophils # 9.85 H (1.80-7.70) X 10*3/uL Monocytes # 1.39 H (0.20-1.00) X 10*3/uL BUN/Creatinine Ratio 26.43 H (12.00-20.00) Ratio POC Glucose (mg/dL) 151 H (70-110) mg/dL Calcium 7.8 L (8.7-10.3) mg/dL Total Protein 4.7 L (6.2-8.2) g/dL Albumin 2.3 L (3.8-4.9) g/dL Albumin/Globulin Ratio 0.96 L (1.60-3.17) g/dL 09/06/22 09/06/22 Range/Units 16:57 20:42 WBC (4.50-10.00) X 10*3/uL RBC (4.40-5.60) X 10*6/uL Hgb (13.0-17.0) g/dL Hct (39.6-50.0) % MCH (27.0-32.0) pg MCHC (32.0-37.0) g/dL RDW (11.5-14.5) % Immature Gran # (0.00-0.04) X 10*3/uL Neutrophils # (1.80-7.70) X 10*3/uL Monocytes # (0.20-1.00) X 10*3/uL BUN/Creatinine Ratio (12.00-20.00) Ratio POC Glucose (mg/dL) 127 H 125 H (70-110) mg/dL Calcium (8.7-10.3) mg/dL Total Protein (6.2-8.2) g/dL Albumin (3.8-4.9) g/dL Albumin/Globulin Ratio (1.60-3.17) g/dL Microbiology - Last 24 Hours (Table) 09/01/22 08:35 Blood Culture - Preliminary Blood No Growth after 120 hours Assessment and Plan Assessment: 1. Post-Op Day 5: Left elbow olecranon bursa I&D 2. L2 fracture with L2-3 extension type injury, disc involvement, pending instability 3. s/p ffs at rehab 4. LE weakness 5. s/p L2-P decompression fusion 6. Complex medical patient Plan: Appreciate consult and team management Surgical procedure scheduled for this afternoon 09/07/22: Revision of L2-Pelvis to stabilize fracture to include T11 along with exploration and decompression Maintain NPO Insert carrillo cath prior to patient going to Pre-Op Continue with pain management Continue to monitor bandage on the left upper extremity DVT prophylaxis, continue current medication Internal medicine recommendations appreciated
[2022-09-07] MEDS: INSULIN ASPART (NovoLOG) 100 UNIT/ML VIAL SQ SCH ×4 (08:17→22:16)
[2022-09-07] MEDS: IPRATROPIUM 0.5 MG/2.5 ML NEBU INHALATION SCH ×4 (08:46→18:27)
[2022-09-07] MEDS: SYMBICORT 80-4.5 MCG INHALER INHALATION SCH ×2 (08:46→18:27)
[2022-09-07 09:10] LABS: Basophils % (A) 0 %; Eosinophils # (A) 0.1 k/uL (0-0.7); Eosinophils % (A) 1 %; HCT 35.8 % (39.0-53.0); HGB 10.8 gm/dL (13.0-17.5); Hypochromasia Moderate; Lymphocytes # (A) 0.9 k/uL (1.0-4.8); Lymphocytes % (A) 7 %; MCH 26.8 pg (25.0-35.0); MCHC 30.2 g/dL (31.0-37.0); MCV 88.6 fL (80.0-100.0); Monocytes # (A) 0.6 k/uL (0-1.0); Monocytes % (A) 5 %; Neutrophils # (A) 11.1 k/uL (1.3-7.7); Neutrophils % (A) 86 %; Platelet Count 333 k/uL (150-450); RBC 4.04 m/uL (4.30-5.90); RDW 14.5 % (11.5-15.5); WBC 12.9 k/uL (3.8-10.6)
[2022-09-07 09:24] LABS: ALT 34 U/L (4-49); AST 36 U/L (17-59); African American GFR (CKD) >90 (>60 ml/min/1.73 sqM); Albumin/Globulin Ratio 0.7; Alkaline Phosphatase 102 U/L (38-126); Anion Gap 1 mmol/L; Blood Urea Nitrogen 20 mg/dL (9-20); Calcium 7.6 mg/dL (8.4-10.2); Carbon Dioxide 33 mmol/L (22-30); Chloride 102 mmol/L (98-107); Globulin 2.7 g/dL; Glucose 134 mg/dL (74-99); Non-African American GFR(CKD) >90 (>60 ml/min/1.73 sqM); Sodium 136 mmol/L (137-145); Total Bilirubin 0.2 mg/dL (0.2-1.3); Total Protein 4.7 g/dL (6.3-8.2)
[2022-09-07] MEDS: PANTOPRAZOLE 40 MG TABLET PO SCH (10:19)
[2022-09-07] MEDS: SERTRALINE 100 MG TAB PO SCH (10:19)
[2022-09-07] MEDS: GLIMEPIRIDE 1 MG TAB PO SCH (10:20)
[2022-09-07] MEDS: SACUBITRIL/VALSARTAN 97 MG-103 MG TABLET PO SCH (10:20)
[2022-09-07] MEDS: HEPARIN SODIUM,PORCINE/PF 5,000 UNIT/0.5 ML SYRINGE SQ SCH ×2 (10:21→22:16)
[2022-09-07] MEDS: VANCOMYCIN 1,250 MG in SODIUM CHLORIDE 0.9% 250 ML IVPB SCH (10:24)
[2022-09-07 11:57] LABS: Glucose,Whole Blood 128 mg/dL (70-110)
--- NOTE | 2022-09-07 13:43 | CDI ---
Documentation Clarification Form Date: 09/07/2022 From: Brie Valero Phone: [phone] Admit Date: 08/30/2022 11:29:00 AM Patient Name: Lan Nixon Visit Number: [id number] Discharge Date: ATTENTION: The Clinical Documentation Specialists (CDI) and [facility] Coding Staff appreciate your assistance in clarifying documentation. Please respond to the clarification below the line at the bottom and electronically sign. The CDI & [facility] Coding staff will review the response and follow-up if needed. Please note: Queries are made part of the Legal Health Record. If you have any questions, please contact the author of this message via ITS. Dr. Abdi Curry Paraspinal edema is documented in the CT lumbar spine report on 09/04. Additional clarification is requested. History/Risk Factors: 77yo presented after falling twice at rehab. He recently underwent a L2-pelvis decompression with posterior/lateral and interbody fusion. Clinical Indicators: Ortho PN 09/04 noted severe bilateral lower extremity weakness CT lumbar spine 09/04, Acute appearing fracture involving the superior and posterior endplate of the L1 vertebral body without retropulsion or vertebral body height loss. There is associated paraspinal edema. Ortho PN 09/05, L2 fracture with L2-3 extension type injury, disc involvement, pending instability Treatment: Patient to undergo revision of L2-pelvis to stabilize fracture to include T11 along with exploration and decompression on 09/07 Please clarify if the paraspinal edema is clinically significant? [ ] Yes, the paraspinal edema is clinically significant [ ] No, the paraspinal edema is not clinically significant [ ] Other [ ] Unable to determine (Template Last Revised: July 2020) [ ] Unable to determine at this time as pt cannot have MRI or CT myelogram. MTDD
--- NOTE | 2022-09-07 13:54 | CDI ---
Documentation Clarification Form Date: 09/07/2022 From: Brie Valero Phone: [phone] Admit Date: 08/30/2022 11:29:00 AM Patient Name: Lan Nixon Visit Number: [id number] Discharge Date: ATTENTION: The Clinical Documentation Specialists (CDI) and [facility] Coding Staff appreciate your assistance in clarifying documentation. Please respond to the clarification below the line at the bottom and electronically sign. The CDI & [facility] Coding staff will review the response and follow-up if needed. Please note: Queries are made part of the Legal Health Record. If you have any questions, please contact the author of this message via ITS. Dr. Charles Loja Your patient has the documented confusion noted in the ED, ID consult and in ortho PN on 09/04. Additional clarification regarding the etiology/cause of this symptom is requested. History/Risk Factors: 77yo presented with sepsis d/t septic left olecranon bursitis. Clinical Indicators: Per ER note 08/30 he had some increasing confusion, ID consult noted purulent drainage from the left elbow, sepsis and some confusion. Ortho PN on 09/04 noted, after discussion with the nurse, she states that overnight they had to put in multiple IVs due to patients confusion/agitation Treatment: I&D of L elbow, Vanco IV Please clarify the etiology of the confusion [ x ] Septic encephalopathy [ ] Toxic encephalopathy due to pain meds [ ] Other encephalopathy (please specify) [ ] Delirium (specify cause): [ ] Dementia (if know, specify Type and if with/without Behavioral Disturbance) [ ] Other condition (please specify) [ ] Unable to determine (Template Last Revised: June 2020) MTDD
--- NOTE | 2022-09-07 14:18 | P.PN ---
Subjective Progress Note Date: 09/07/22 77-year-old gentleman with past medical history significant for degenerative disease of lumbar spine, patient had recent spinal surgery, history of diabetes mellitus, COPD, hypertension, heart failure, sleep apnea presented to the emergency department with complaints of fever and left arm pain. Patient was noted to have MRSA bacteremia and left elbow cellulitis, bursitis with MRSA and blood. Seen by orthopedic and infectious disease 09/02. Patient seen and examined. Currently nothing by mouth getting for surgery today. Still has pain in left elbow 09/03. Patient seen and examined. Status post I and D of left elbow. States pain is better controlled 09/04. Patient seen and examined. at the bedside. White count this morning is 14, hemoglobin is 10.3, potassium is 3.3. Patient is having a difficult time getting out of the bed 09/05. Patient seen and examined. Temperature 98.7, heart rate 76, respirations 16 blood pressure 132/75. WBC 12.2, hemoglobin 11.4. CT lumbar spine showed acute. L1 vertebral body fracture involving the superior posterior and posterior end plates Patient currently not having bowel or urinary incontinence 09/06. Patient seen and examined. Surgical procedure scheduled for Tuesday09/07/22: Revision of L2-Pelvis to stabilize fracture to include T11 along with exploration and decompression, updated by orthopedics. Labs this morning white count 4.53, hemoglobin 10.4, platelet count 350, sodium 140, potassium 3.9, BUN is 18.5, creatinine 0.7 at the bedside, all questions answered 09/07. Patient seen and examined. at the bedside. Patient currently nothing by mouth going for the procedure today. REVIEW OF SYSTEMS: CONSTITUTIONAL: No fever, no malaise,. CARDIOVASCULAR: No chest pain, no palpitations, no syncope. PULMONARY: No shortness of breath, no cough, GASTROINTESTINAL: No diarrhea, no nausea, no vomiting, no abdominal pain. NEUROLOGICAL: No headaches, no weakness, PHYSICAL EXAMINATION: GENERAL: The patient is alert , not in any acute distress. Well developed, well nourished. HEENT: Pupils are round and equally reacting to light. EOMI. No scleral icterus. No conjunctival pallor. Normocephalic, atraumatic. No pharyngeal erythema. No thyromegaly. CARDIOVASCULAR: S1 and S2 present. No murmurs, rubs, or gallops. PULMONARY: Chest is clear to auscultation, no wheezing or crackles. ABDOMEN: Soft, nontender, nondistended, normoactive bowel sounds. No palpable organomegaly. MUSCULOSKELETAL: Left elbow bandage seen EXTREMITIES: No cyanosis, clubbing, or pedal edema. NEUROLOGICAL: Cranial nerves II to 12 intact, has weakness of lower extremities SKIN: No rashes. Assessment and plan Left elbow septic Olecranon Bursitis L2 fracture with L2-3 extension type injury, disc involvement, pending instability * Sepsis with MRSA bacteremia * MRSA bursitis * Chronic systolic heart failure * Hypertension * History of COPD * Recent lumbar spine surgery * Diabetes mellitus type 2 Plan; * Monitor vital signs * Monitor CBC * Monitor CMP * continue IV vancomycin * Echocardiogram done showed LVEF of 20% to 25%, no vegetations seen * For septic bursitis wound culture positive for MRSA continue IV antibiotics orthopedic following>> underwent incision and drainage on 09/02 * For history of congestive heart failure continue to monitor for fluid overload continue Entresto * For diabetes mellitus continue oral hypoglycemic agent continue sliding-scale insulin * Follow-up on ID recommendations, possible discharge on IV vancomycin with PICC line placement * CT lumbar spine showed acute. L1 vertebral body fracture involving the superior posterior and posterior end plates. Orthopedic surgery reviewed CT scans recommend extension of his surgery up to at least T11 along with exploration and decompression. Discussed with patient and patient's , surgery is scheduled for . Currently nothing by mouth awaiting for surgery today Objective - Vital Signs Vital signs: Vital Signs Temp 97.4 F L 09/07/22 07:40 Pulse 78 09/07/22 12:36 Resp 18 09/07/22 07:40 BP 134/79 09/07/22 07:40 Pulse Ox 97 09/07/22 07:40 FiO2 Intake & Output 09/06/22 09/07/22 09/07/22 18:59 06:59 18:59 Intake Total 250 Balance 250 Weight 97.522 kg Intake: Intake, IV Titration 250 Amount Vancomycin 1,250 mg In 250 Sodium Chloride 0.9% 250 ml @ 125 mls/hr IVPB Q12H [facility] Rx#:[id number] Other: Voiding Method Diaper Diaper Diaper Incontinent Incontinent Incontinent # Voids 1 3 # Bowel Movements 1 1 - Labs CBC & Chem 7: 09/07/22 08:45 04/18/23 08:45 Labs: Abnormal Lab Results - Last 24 Hours (Table) 09/06/22 09/06/22 09/07/22 Range/Units 16:57 20:42 07:43 WBC (3.8-10.6) k/uL RBC (4.30-5.90) m/uL Hgb (13.0-17.5) gm/dL Hct (39.0-53.0) % MCHC (31.0-37.0) g/dL Neutrophils # (1.3-7.7) k/uL Lymphocytes # (1.0-4.8) k/uL Sodium (137-145) mmol/L Carbon Dioxide (22-30) mmol/L Glucose (74-99) mg/dL POC Glucose (mg/dL) 127 H 125 H 152 H (70-110) mg/dL Calcium (8.4-10.2) mg/dL Total Protein (6.3-8.2) g/dL Albumin (3.5-5.0) g/dL 09/07/22 09/07/22 09/07/22 Range/Units 08:45 08:45 11:55 WBC 12.9 H (3.8-10.6) k/uL RBC 4.04 L (4.30-5.90) m/uL Hgb 10.8 L (13.0-17.5) gm/dL Hct 35.8 L (39.0-53.0) % MCHC 30.2 L (31.0-37.0) g/dL Neutrophils # 11.1 H (1.3-7.7) k/uL Lymphocytes # 0.9 L (1.0-4.8) k/uL Sodium 136 L (137-145) mmol/L Carbon Dioxide 33 H (22-30) mmol/L Glucose 134 H (74-99) mg/dL POC Glucose (mg/dL) 128 H (70-110) mg/dL Calcium 7.6 L (8.4-10.2) mg/dL Total Protein 4.7 L (6.3-8.2) g/dL Albumin 2.0 L (3.5-5.0) g/dL Microbiology - Last 24 Hours (Table) 09/01/22 08:35 Blood Culture - Final Blood No Growth after 144 hours 09/02/22 16:01 Anaerobic Culture - Final Elbow - Left 09/02/22 16:01 Anaerobic Culture - Final Elbow - Left
[2022-09-07] MEDS ORDERED: LACTATED RINGERS 1,000 ML IV ONE ×2 (15:10→19:00)
[2022-09-07] MEDS ORDERED: MIDAZOLAM 2 MG/2 ML VIAL IV ONE (15:30)
[2022-09-07 15:37] LABS: Glucose,Whole Blood 107 mg/dL (70-110)
--- NOTE | 2022-09-07 15:59 | P.PN ---
Progress Note - Text Progress Note Date: 09/07/22 Spine Surgery Clinical and Risk Review Lan Nixon is a 77 yo male presenting for evaluation of Left elbow septic arthritis. Subsequently during his stay it was found that he has b/l LE paresis and a fracture at L2 s/p L2-P decompression and fusion. It was my pleasure to have seen and examined Lan Nixon. In our visit today we have had a chance to go over subjective complaints, physical examination findings and treatments including the natural course history without intervention and various interventional options. The patients imaging demonstrates L2 body fracture with propogation posteriorly through the pedicle as well as extension type injury of L1-2 with splaying of the L1-2 disc space and posterior propogation. On physical exam, Lan Nixon demonstrates b/l LE weakness with paresis as well as decreased sensation b/l LE, inability to ambulate for the past 2 weeks. Hx of 4x falls at his care facility of which he is unsure which caused his issues. I have explained to the patient that as their condition progresses it will cause further neurological deficits and eventual paralysis. Based on the patients imaging, physical exam, and the rapid progression and disabling nature of their symptoms, at this time I recommend surgery in the form or a: Stabilization and decompression of L1-2 fracture with T11-L2 stabilization and decompression L1-2. I discussed the risk and benefits of this procedure at length with Lan Nixon and his and daughter at bedside. The patient and his and daughter at bedside agreed to considered pursuing the procedure abovementioned. Prior to surgery, she should follow up with her PCP (Cardio, ID, IM etc) for marii arance. Questions were invited and answered, and the patient wishes to proceed as outlined below. Currently, I am recommendin. Stabilization and decompression of L1-2 fracture with T11-L2 stabilization and decompression L1-2 2. Follow up with PCP for surgical clearance 3. Review of surgical risks and benefits as well as an educational packet on the proposed surgical procedure. Risks: All surgical procedures come with inherent risks, including those related to positioning, anesthesia, intraoperative findings, and postoperative complications. It is important to understand that surgery does not come with any guarantee of a successful outcome as complications and adverse events are always possible. The patient was given a handout in office today discussing the surgical procedure and risks associated with the intervention, both of which were discussed with the patient. These risks include but are not limited to the following: * Experiencing same, different or even worse symptoms in back, neck, arms, or legs compared to before surgery. * Requiring further surgery or other forms of treatment presently or at some time in the future at same or other levels of the intended spine surgery. * On an extreme but fortunately relatively rare basis severe complication such as blindness, stroke, heart attack, temporary and/or permanent nerve injury, paralysis, coma, or may occur, sometimes without known explanation. * Surgical complications may include but are not limited to risk of infection, fluid accumulation in the surgical dissection site, including a seroma or hematoma, that requires additional surgery, wound drainage, bleeding, new numbness or weakness, vision changes/loss, spinal fluid leakage, non-healing and/or infected incision, headaches, difficulty or inability to swallow, hoarseness, hemopneumothorax, pneumothorax, impotence, retrograde ejaculation, vaginal dryness; injury to nerves, spinal cord, blood vessels, lymphatics or other vital organs (i.e., bowel injury, injury to the great vessels); heterotopic bone formation; complications related to the hardware such as screws, rods, cages including misplaced hardware, device failure, instrumentation at the wrong spine level, hardware fracture/breakage, or hardware loosening; vertebral failure of the spinal column above or below the newly placed hardware; retained surgical instrumentations or devices and the need for further surgery. * Medical risks of the planned spine surgery include but are not limited to generalized Infections to the whole body or local areas outside of the surgical site (sepsis), heart attack, bleeding, anaphylaxis, meningitis, seiz ure, epilepsy, hearing loss, burn fowler, laceration of the head or other areas of the body, bruising, hypersensitivity of the skin, bladder over distension; allergic reaction; shoulder injury related to positioning; fat, blood and air clots to other areas of the body like heart, lungs, brain; failure of internal organs such as lungs, kidneys, liver and excessive bleeding. If blood transfusions are necessary, note that transfusions may cause intolerance reactions such as anaphylaxis or other complex reactions. * Despite best efforts, the results of spine surgery might not heal in terms of bone, soft tissues such as skin, fascia, ligaments, and joints. Additionally, in order to achieve best possible results, spine surgery may be carried out beyond the initially planned levels and involve decompression, fusion including insertion of hardware at levels other than the original intended area of surgical interest change some portions of the procedure in order to ensure the best possible outcomes. * With spine surgery and spinal fusion, there are different off label uses of instrumentation (devices, implants and hardware) as well as biological substances (bone morphogenic proteins, demineralized bone matrix) as well as using extra bone from allograft sources (i.e. cadaver bone) or autograft (iliac crest bone, ribs, or the spine itself). The patient has been given information about these practices and their inherent risks and benefits. The patient has had a chance to review all the listed information, has been given print outs detailing this information, and has had all his/her questions answered to their satisfaction. It was my pleasure to have seen and examined Lan Nixon and family. In our visit today we have had a chance to go over my understanding of our patient's current condition, the natural course history without intervention and various interventional options. Questions were invited and answered, and the patient wishes to proceed as outlined above. I have seen and examined the patient for 25 minutes and we have spent more than 50% of the time in repeat and detailed counseling about the patient's condition, its natural course history with out and as much as can be predicted with surgery and re-review of various surgical treatment options. In conclusion, Lan Nixon and HIs and daughter at bedside requested we proceed with the above suggested surgery and are willing to accept risks and limitations of the suggested surgery as nature of the disease process and our best attempts at treatment for the condition. Thank you again for allowing us to be part of your patient's care. Please don't hesitate to contact me if you have any further questions. Signed and authenticated by: Abdi De La [facility] [address], [address] [address]
[2022-09-07] MEDS ORDERED: ONDANSETRON 4 MG/2 ML VIAL ONE (16:34)
[2022-09-07] MEDS ORDERED: ONDANSETRON 4 MG/2 ML VIAL IVP ONE ×2 (16:38→21:22)
--- NOTE | 2022-09-07 16:39 | XR ---
EXAMINATION TYPE: XR chest 1V DATE OF EXAM: 09/07/2022 COMPARISON: 08/30/2022 INDICATION: Post line placement TECHNIQUE: Single frontal view of the chest is obtained. FINDINGS: The heart size is normal. The pulmonary vasculature is normal. Lung baker appear clear. No pneumothorax is evident. There is placement of a right central venous catheter with the tip within the right atrium. No pneumo thorax is evident. Degenerative changes are at the bilateral shoulders. Pacemaker overlies left chest . IMPRESSION: 1. No pneumothorax post right central venous catheter. Tip is within the right atrium
[2022-09-07] MEDS ORDERED: PHENYLEPHRINE-0.9% NACL SYG 1,000 MCG/10 ML SYRINGE ONE (17:06)
[2022-09-07] MEDS ORDERED: BEBTELOVIMAB (EUA) 175 MG/2 ML VIAL IV ONE (17:06)
[2022-09-07] MEDS ORDERED: fentaNYL (PF) 50 MCG/ML 2 ML AMP ONE (17:06)
[2022-09-07] MEDS ORDERED: ROCURONIUM 10 MG/ML (5 ML VIAL) IV ONE (17:06)
[2022-09-07] MEDS ORDERED: KETOROLAC 15 MG/ML 1 ML VIAL ONE (17:06)
[2022-09-07] MEDS ORDERED: PROPOFOL 10 MG/ML 20 ML VIAL IV ONE (17:06)
[2022-09-07] MEDS ORDERED: BUPIVACAINE (PF) 0.25% 30 ML VIAL SQ ONE (17:09)
[2022-09-07] MEDS ORDERED: THROMBIN (BOVINE) 5,000 UNIT VIAL TOPICAL ONE (17:10)
[2022-09-07] MEDS ORDERED: GELATIN SPONGE,ABSORB (LARGE) 1 EACH SPONGE TOPICAL ONE (17:10)
--- NOTE | 2022-09-07 19:03 | P.PN ---
Subjective Progress Note Date: 09/06/22 Principal diagnosis: Left elbow infection and bacteremia Patient is a 77 year old male with multiple comorbidities has been sent to the hospital for evaluation of left elbow wound and drainage concerning for infection. Patient is status post left elbow bursectomy I&D completed on 09/02/2022 On today's evaluation that is 09/06/2022, the patient continues to be afebrile , the patient is breathing comfortably on 2 L nasal cannula oxygen, the patient sleepy today and did not answer any question, no vomiting diarrhea or any other changes reported by the nursing staff Objective - Vital Signs Vital signs: Vital Signs Temp 97.5 F L 09/06/22 11:35 Pulse 75 09/06/22 11:35 Resp 16 09/06/22 11:35 BP 131/82 09/06/22 11:35 Pulse Ox 97 09/06/22 11:35 FiO2 Intake & Output 09/05/22 09/06/22 09/06/22 18:59 06:59 18:59 Weight 97.522 kg Other: Voiding Method Diaper Diaper Diaper Incontinent Incontinent Incontinent # Voids 2 1 # Bowel Movements 1 - Exam GENERAL DESCRIPTION: An elderly male lying in bed in no distress RESPIRATORY SYSTEM: Unlabored breathing , decreased breath sounds at bases HEART: S1 S2 regular rate and rhythm , ABDOMEN: Soft , no tenderness EXTREMITIES: Left elbow open wound with some slough tissue and surrounding swelling - Labs CBC & Chem 7: 09/07/22 08:45 09/07/22 08:45 Labs: Abnormal Lab Results - Last 24 Hours (Table) 09/05/22 09/05/22 09/06/22 Range/Units 17:21 20:19 03:23 WBC 12.53 H (4.50-10.00) X 10*3/uL RBC 3.90 L (4.40-5.60) X 10*6/uL Hgb 10.4 L (13.0-17.0) g/dL Hct 34.6 L (39.6-50.0) % MCH 26.7 L (27.0-32.0) pg MCHC 30.1 L (32.0-37.0) g/dL RDW 14.6 H (11.5-14.5) % Immature Gran # 0.25 H (0.00-0.04) X 10*3/uL Neutrophils # 9.85 H (1.80-7.70) X 10*3/uL Monocytes # 1.39 H (0.20-1.00) X 10*3/uL BUN/Creatinine Ratio (12.00-20.00) Ratio POC Glucose (mg/dL) 113 H 243 H (70-110) mg/dL Calcium (8.7-10.3) mg/dL Total Protein (6.2-8.2) g/dL Albumin (3.8-4.9) g/dL Albumin/Globulin Ratio (1.60-3.17) g/dL 09/06/22 09/06/22 09/06/22 Range/Units 03:23 07:15 11:40 WBC (4.50-10.00) X 10*3/uL RBC (4.40-5.60) X 10*6/uL Hgb (13.0-17.0) g/dL Hct (39.6-50.0) % MCH (27.0-32.0) pg MCHC (32.0-37.0) g/dL RDW (11.5-14.5) % Immature Gran # (0.00-0.04) X 10*3/uL Neutrophils # (1.80-7.70) X 10*3/uL Monocytes # (0.20-1.00) X 10*3/uL BUN/Creatinine Ratio 26.43 H (12.00-20.00) Ratio POC Glucose (mg/dL) 146 H 151 H (70-110) mg/dL Calcium 7.8 L (8.7-10.3) mg/dL Total Protein 4.7 L (6.2-8.2) g/dL Albumin 2.3 L (3.8-4.9) g/dL Albumin/Globulin Ratio 0.96 L (1.60-3.17) g/dL Microbiology - Last 24 Hours (Table) 09/01/22 08:35 Blood Culture - Preliminary Blood No Growth after 120 hours 09/02/22 16:01 Anaerobic Culture - Preliminary Elbow - Left 09/02/22 16:01 Anaerobic Culture - Preliminary Elbow - Left 09/02/22 16:01 Gram Stain - Final Elbow - Left Wound Culture - Final Methicillin resist S. aureus 09/02/22 16:01 Gram Stain - Final Elbow - Left Wound Culture - Final Methicillin resist S. aureus Assessment and Plan (1) Olecranon bursitis, left elbow Current Visit: Yes Status: Acute Code(s): M70.22 - OLECRANON BURSITIS, LEFT ELBOW SNOMED Code(s): 380126043176247 (2) MRSA bacteremia Current Visit: Yes Status: Acute Code(s): R78.81 - BACTEREMIA; B95.62 - METHICILLIN RESIS STAPH INFCT CAUSING DISEASES CLASSD [facility] SNOMED Code(s): 28029791703114956 Plan: 1patient presented to hospital with sepsis since we did have a fever elevated white count has been complaining of pain and drainage from the left elbow area in this patient recently did have a trauma and nonhealing wound daily concern for possible olecranon bursitis and no need to cover for the gram-positive skin isaias to be the likely pathogen patient currently did have a negative UA chest x-ray was negative and the lumbosacral spine incision looks clean CT did not show any evidence of fluid collection suspicious for postoperative infection at that site, patient is status post I&D of the left elbow and bursectomy completed on 09/02/2022, those cultures are growing MRSA 2- patient did have a positive blood culture with presumptive MRSA and local cultures also growing MRSA likely the source of bacteremia, blood cultures has been be repeated on 09/01/2022 and they have been negative so far 3-patient to continue with vancomycin while watching his kidney function closely 4patient did have a acute L1 fracture on the CT being ordered by orthopedics and possible plan for repeat surgery on Tuesday at the bedside questions and concerns were answered Time with Patient: Less than 30
--- NOTE | 2022-09-07 19:04 | P.PN ---
Subjective Progress Note Date: 09/07/22 Principal diagnosis: Left elbow infection and bacteremia Patient is a 77 year old male with multiple comorbidities has been sent to the hospital for evaluation of left elbow wound and drainage concerning for infection. Patient is status post left elbow bursectomy I&D completed on 09/02/2022 On today's evaluation that is 09/07/2022, the patient remains to be afebrile , the patient is breathing comfortably on 2 L nasal cannula oxygen, the patient is more awake and alert today patient denies having any chest pain shortness of breath or cough pain to the left elbow is currently controlled and denies any worsening pain to lower back area, no diarrhea reported Objective - Vital Signs Vital signs: Vital Signs Temp 97.4 F L 09/07/22 07:40 Pulse 78 09/07/22 12:36 Resp 18 09/07/22 07:40 BP 134/79 09/07/22 07:40 Pulse Ox 97 09/07/22 07:40 FiO2 Intake & Output 09/06/22 09/07/22 09/07/22 18:59 06:59 18:59 Intake Total 250 Balance 250 Weight 97.522 kg Intake: Intake, IV Titration 250 Amount Vancomycin 1,250 mg In 250 Sodium Chloride 0.9% 250 ml @ 125 mls/hr IVPB Q12H [facility] Rx#:[id number] Other: Voiding Method Diaper Diaper Diaper Incontinent Incontinent Incontinent # Voids 1 3 # Bowel Movements 1 1 - Exam GENERAL DESCRIPTION: An elderly male lying in bed in no distress RESPIRATORY SYSTEM: Unlabored breathing , decreased breath sounds at bases HEART: S1 S2 regular rate and rhythm , ABDOMEN: Soft , no tenderness EXTREMITIES: Left elbow open wound with some slough tissue and surrounding swelling - Labs CBC & Chem 7: 09/07/22 08:45 09/07/22 08:45 Labs: Abnormal Lab Results - Last 24 Hours (Table) 09/06/22 09/06/22 09/07/22 Range/Units 16:57 20:42 07:43 WBC (3.8-10.6) k/uL RBC (4.30-5.90) m/uL Hgb (13.0-17.5) gm/dL Hct (39.0-53.0) % MCHC (31.0-37.0) g/dL Neutrophils # (1.3-7.7) k/uL Lymphocytes # (1.0-4.8) k/uL Sodium (137-145) mmol/L Carbon Dioxide (22-30) mmol/L Glucose (74-99) mg/dL POC Glucose (mg/dL) 127 H 125 H 152 H (70-110) mg/dL Calcium (8.4-10.2) mg/dL Total Protein (6.3-8.2) g/dL Albumin (3.5-5.0) g/dL 09/07/22 09/07/22 09/07/22 Range/Units 08:45 08:45 11:55 WBC 12.9 H (3.8-10.6) k/uL RBC 4.04 L (4.30-5.90) m/uL Hgb 10.8 L (13.0-17.5) gm/dL Hct 35.8 L (39.0-53.0) % MCHC 30.2 L (31.0-37.0) g/dL Neutrophils # 11.1 H (1.3-7.7) k/uL Lymphocytes # 0.9 L (1.0-4.8) k/uL Sodium 136 L (137-145) mmol/L Carbon Dioxide 33 H (22-30) mmol/L Glucose 134 H (74-99) mg/dL POC Glucose (mg/dL) 128 H (70-110) mg/dL Calcium 7.6 L (8.4-10.2) mg/dL Total Protein 4.7 L (6.3-8.2) g/dL Albumin 2.0 L (3.5-5.0) g/dL Microbiology - Last 24 Hours (Table) 09/01/22 08:35 Blood Culture - Final Blood No Growth after 144 hours 09/02/22 16:01 Anaerobic Culture - Final Elbow - Left 09/02/22 16:01 Anaerobic Culture - Final Elbow - Left Assessment and Plan (1) Olecranon bursitis, left elbow Current Visit: Yes Status: Acute Code(s): M70.22 - OLECRANON BURSITIS, LEFT ELBOW SNOMED Code(s): 332674576516028 (2) MRSA bacteremia Current Visit: Yes Status: Acute Code(s): R78.81 - BACTEREMIA; B95.62 - METHICILLIN RESIS STAPH INFCT CAUSING DISEASES [facility]SD [facility] SNOMED Code(s): 69807825171354649 Plan: 1patient presented to hospital with sepsis since we did have a fever elevated white count has been complaining of pain and drainage from the left elbow area in this patient recently did have a trauma and nonhealing wound daily concern for possible olecranon bursitis and no need to cover for the gram-positive skin isaias to be the likely pathogen patient currently did have a negative UA chest x-ray was negative and the lumbosacral spine incision looks clean CT did not show any evidence of fluid collection suspicious for postoperative infection at that site, patient is status post I&D of the left elbow and bursectomy completed on 09/02/2022, those cultures are growing MRSA 2- patient did have a positive blood culture with presumptive MRSA and local cultures also growing MRSA likely the source of bacteremia, blood cultures has been be repeated on 09/01/2022 and they have been negative so far 3-patient to continue with vancomycin while watching his kidney function closely 4patient did have a acute L1 fracture on the CT being ordered by orthopedics and possible plan for stabilization of the spine surgery to be completed this afternoon at time of surgery deep culture should be obtained to make sure no car dence of any infection of the lumbosacral spine area, at the bedside questions were answered Time with Patient: Less than 30
--- NOTE | 2022-09-07 19:16 | P.ANPRN ---
Procedure Note - Anesthesia - Invasive Line Right Central Line Time Out Performed: Yes Date of Procedure: 09/07/22 Time of Procedure: 16:00 Location of Patient: PreOp Preparation: Sterile Prep, Sterile Dressing Central Line Location: Internal Jugular Ultrasound Used: No Narrative: Central line placement per sterile protocol utilized.
--- NOTE | 2022-09-07 19:17 | P.ANPRN ---
Procedure Note - Anesthesia - Invasive Line Right Arterial Line Time Out Performed: Yes Date of Procedure: 09/07/22 Time of Procedure: 15:35 Location of Patient: PreOp Preparation: Sterile Prep, Sterile Dressing Arterial Line Location: Briachial (mutiple attempte to do R radial A line unable canulate even with ultrasound) Ultrasound Used: Yes Purpose - Visualization and Identification of Vasculature: Yes Image Stored and Saved: Yes Narrative: Central line placement per sterile protocol utilized.
[2022-09-07] MEDS ORDERED: VANCOMYCIN 1,000 MG VIAL MISCELLANE ONE (19:59)
[2022-09-07] MEDS ORDERED: SENNOSIDES-DOCUSATE SODIUM 1 EACH TAB PO PRN (20:38)
[2022-09-07] MEDS ORDERED: HYDROmorphone 1 MG/ML 1 ML SYRINGE IVP PRN (20:38)
[2022-09-07] MEDS ORDERED: MAGNESIUM HYDROXIDE 2,400 MG/10 ML CUP PO PRN (20:38)
[2022-09-07] MEDS: ATORVASTATIN 20 MG TAB PO SCH (22:14)
[2022-09-07 22:19] LABS: Glucose,Whole Blood 98 mg/dL (70-110)
[2022-09-07] MEDS: HYDROcodone/APAP 10-325MG 1 EACH TAB PO PRN (22:24)
[2022-09-08] MEDS: SACUBITRIL/VALSARTAN 97 MG-103 MG TABLET PO SCH ×3 (00:49→20:52)
[2022-09-08] MEDS: VANCOMYCIN 1,250 MG in SODIUM CHLORIDE 0.9% 250 ML IVPB SCH (00:49)
[2022-09-08] MEDS: SOTALOL 80 MG TAB PO SCH ×3 (00:49→18:40)
[2022-09-08 06:28] LABS: Glucose,Whole Blood 100 mg/dL (70-110)
[2022-09-08] MEDS: INSULIN ASPART (NovoLOG) 100 UNIT/ML VIAL SQ SCH ×4 (06:31→20:55)
[2022-09-08] MEDS: GABAPENTIN 300 MG CAP PO SCH ×2 (06:32→18:06)
[2022-09-08] MEDS: GLIMEPIRIDE 1 MG TAB PO SCH (06:32)
[2022-09-08] MEDS: PANTOPRAZOLE 40 MG TABLET PO SCH (06:32)
[2022-09-08] MEDS: CYCLOBENZAPRINE 5 MG TAB PO SCH ×2 (06:32→18:06)
--- NOTE | 2022-09-08 07:24 | FL ---
Fluoroscopy INDICATION: Pain FINDINGS: Fluoroscopy time: 18 seconds. DAP: Not recorded mGycm^2 Images obtained: 0. IMPRESSIONS: 1. Documentation of fluoroscopy.
--- NOTE | 2022-09-08 08:22 | CT ---
EXAMINATION TYPE: CT thor lumbar spine wo con CT DLP: 2460.2 mGycm, Automated exposure control for dose reduction was used. DATE OF EXAM: 09/08/2022 8:09 AM CLINICAL INDICATION:Male, 77 years old with history of s/p [id number] decompression fusion; s/p T11-p som decomp fusion COMPARISON: CT 09/04/2022 TECHNIQUE: Axial images of the thoracic and lumbar spine were obtained without contrast. Coronal and sagittal reformats were performed. CT Contrast: Contrast used: none. Oral contrast used: none. FINDINGS: Interval fixation of T11, T12 and L1. There remains fixation of L2-S1. With bilateral sacroiliac join t fixation hardware. Hardware appears intact. There is vertebroplasty changes of T11. Discectomy willis ges at L2-L3, L3-L4, L4-L5 and L5-S1. Fracture of the L2 vertebral body remains present. Laminectomy changes are seen throughout the lower lumbar spine extending from L2 to L5. Postsurgical changes to the back subcutaneous tissues with skin dyllan obtaining and gas are present . There is a drainage catheter with distal tip within the surgical bed. Visualization of the neural f oramen spinal canal is limited due to streak artifact throughout the exam. There is T11 bilateral mod erate to severe neural foraminal stenosis. The remainder of the neural foramen are grossly patent. Visualized anterior abdominal structures demonstrate trace bilateral pleural effusions with associate d atelectasis. Cardiac conduction device partially visualized. Atherosclerosis of the arterial vascul ature. There is trace ascites present. IMPRESSION: 1. Postsurgical changes without evidence of immediate post postoperative comp location. 2. Persistent L2 fracture. 3. Limited evaluation of the spinal canal and neural foramen secondary to streak artifact.
[2022-09-08] MEDS ORDERED: VANCOMYCIN TROUGH DUE 1 EACH MISC MISCELLANE ONE (09:00)
[2022-09-08] MEDS: SYMBICORT 80-4.5 MCG INHALER INHALATION SCH ×2 (09:01→21:57)
[2022-09-08] MEDS: IPRATROPIUM 0.5 MG/2.5 ML NEBU INHALATION SCH ×4 (09:02→21:57)
--- NOTE | 2022-09-08 09:18 | P.PN ---
Subjective Progress Note Date: 09/08/22 Principal diagnosis: Left elbow septic olecranon bursitis Sepsis History of recent back surgery: L2-Pelvis decompression and fusion Bilateral lower extremity paresis and a fracture at L2 s/p L2-P decompression and fusion Patient seen and examined this morning. Patient is resting comfortably in bed. Patient reports mild back pain, states that his pain is managed on current regimen. Surgical dressing to the lumbar region is clean dry and intact with Hemovac present, 160 mL output overnight. Surgical dressing to the left elbow is clean dry and intact. Patient does have a large blister with drainage present over the left hip. There has been no change in patients sensation or muscle strength into bilateral lower extremities since procedure, Patient with much concentration is still able to wiggle toes of his left foot. When asked to wiggle toes on right foot, his quad muscles continue to engage without any movement in the right foot. Mclaughlin catheter is present and patent. Encouraged patient to continue with bed exercises and to work with PT OT today. Patient has been afebrile, denies nausea/vomiting, or chest pain. Objective - Vital Signs Vital signs: Vital Signs Temp 97.9 F 09/08/22 02:10 Pulse 56 L 09/08/22 02:10 Resp 16 09/07/22 22:22 BP 122/78 09/08/22 02:10 Pulse Ox 90 L 09/08/22 02:10 FiO2 Intake & Output 09/07/22 09/08/22 09/08/22 18:59 06:59 18:59 Intake Total 850 900 Output Total 1450 980 Balance -600 -80 Intake: IV 600 900 Intake, IV Titration 250 Amount Vancomycin 1,250 mg In 250 Sodium Chloride 0.9% 250 ml @ 125 mls/hr IVPB Q12H [facility] Rx#:[id number] Output: Drainage 160 Back 160 Urine 1250 800 Estimated Blood Loss 200 20 Other: Voiding Method Diaper Indwelling Catheter Incontinent # Voids 2 # Bowel Movements 1 - Exam Physical Examination General: The patient is awake and alert, in no acute distress Skin: Skin is warm and dry with no obvious rashes, large blister over left hip from a liquid burn. Surgical incision to left elbow, dressing CDI. Surgical incision into the lumbar region, dressing is clean dry and intact with Hemovac present, 160 mL output overnight. Eye: Pupils are equal, round and reactive to light, extra-ocular movements are intact; there is normal conjunctiva bilaterally. Neck: The neck is supple, there is no tenderness and ROM intact. Cardiovascular: There is a regular rate and rhythm. No murmur, rub or gallop is appreciated. Respiratory: Lungs are clear to auscultation, respirations are non-labored, breath sounds are equal. Gastrointestinal: Soft, non-distended, non-tender abdomen. Back: There is moderate tenderness to palpation in the midline lumbar region. There is no obvious deformity . Musculoskeletal: ROM limited secondary to pain and stiffness from surgical procedure. Muscle strength in all major muscle groups of bilateral upper extremities 4/5, right lower extremity 2/5, left lower extremity 3/5 Neurological: CN 2-12 intact. There are no obvious motor or sensory deficits. Sensory exam to light touch intact C5-T1, patient is able to feel sensation in left lower extremity throughout L5-S1 dermatomal distribution. He is able to feel sensation in the right lower extremity throughout the L3-L4 dermatomal distribution to the knee. He is Reflexes 2/4 in bilateral upper and lower extremities. Negative Hoffmans, babinski, and clonus signs. Psychiatric: Cooperative, appropriate mood & affect, normal judgment. - Labs CBC & Chem 7: 09/07/22 08:45 09/07/22 08:45 Labs: Abnormal Lab Results - Last 24 Hours (Table) 09/07/22 09/07/22 09/07/22 Range/Units 07:43 08:45 08:45 WBC 12.9 H (3.8-10.6) k/uL RBC 4.04 L (4.30-5.90) m/uL Hgb 10.8 L (13.0-17.5) gm/dL Hct 35.8 L (39.0-53.0) % MCHC 30.2 L (31.0-37.0) g/dL Neutrophils # 11.1 H (1.3-7.7) k/uL Lymphocytes # 0.9 L (1.0-4.8) k/uL Sodium 136 L (137-145) mmol/L Carbon Dioxide 33 H (22-30) mmol/L Glucose 134 H (74-99) mg/dL POC Glucose (mg/dL) 152 H (70-110) mg/dL Calcium 7.6 L (8.4-10.2) mg/dL Total Protein 4.7 L (6.3-8.2) g/dL Albumin 2.0 L (3.5-5.0) g/dL 09/07/22 Range/Units 11:55 WBC (3.8-10.6) k/uL RBC (4.30-5.90) m/uL Hgb (13.0-17.5) gm/dL Hct (39.0-53.0) % MCHC (31.0-37.0) g/dL Neutrophils # (1.3-7.7) k/uL Lymphocytes # (1.0-4.8) k/uL Sodium (137-145) mmol/L Carbon Dioxide (22-30) mmol/L Glucose (74-99) mg/dL POC Glucose (mg/dL) 128 H (70-110) mg/dL Calcium (8.4-10.2) mg/dL Total Protein (6.3-8.2) g/dL Albumin (3.5-5.0) g/dL Microbiology - Last 24 Hours (Table) 09/01/22 08:35 Blood Culture - Final Blood No Growth after 144 hours 09/02/22 16:01 Anaerobic Culture - Final Elbow - Left 09/02/22 16:01 Anaerobic Culture - Final Elbow - Left Assessment and Plan Assessment: 1. Postop day 1: Stabilization and decompression of L1-2 fracture with T11-L2 stabilization and decompression L1-2; Post-Op Day 6: Left elbow olecranon bursa I&D 2. L2 fracture with L2-3 extension type injury, disc involvement, pending instability 3. Bilateral lower extremity paresis 4. s/p ffs at rehab 5. s/p L2-P decompression fusion 6. Complex medical patient Plan: Appreciate consult and team management Maintain Mclaughlin catheter at this time. Continue with pain management Continue to monitor bandage on the left upper extremity Large Blister over left hip; wound care consult placed. PT/OT DVT prophylaxis, continue current medication Internal medicine recommendations appreciated
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
[2022-09-08] MEDS: HEPARIN SODIUM,PORCINE/PF 5,000 UNIT/0.5 ML SYRINGE SQ SCH ×2 (11:10→20:53)
[2022-09-08] MEDS: SERTRALINE 100 MG TAB PO SCH (11:11)
[2022-09-08] MEDS: HYDROmorphone 0.5 MG/0.5 ML SYRINGE IVP PRN ×2 (11:26→14:32)
[2022-09-08 12:04] LABS: Glucose,Whole Blood 84 mg/dL (70-110)
[2022-09-08 12:56] LABS: ALT 22 U/L (4-49); African American GFR (CKD) >90 (>60 ml/min/1.73 sqM); Albumin/Globulin Ratio 0.8; Anion Gap 7 mmol/L; Blood Urea Nitrogen 18 mg/dL (9-20); Calcium 7.6 mg/dL (8.4-10.2); Carbon Dioxide 26 mmol/L (22-30); Chloride 104 mmol/L (98-107); Globulin 2.6 g/dL; Glucose 84 mg/dL (74-99); Non-African American GFR(CKD) >90 (>60 ml/min/1.73 sqM); Sodium 137 mmol/L (137-145); Total Bilirubin 0.5 mg/dL (0.2-1.3); Total Protein 4.6 g/dL (6.3-8.2)
[2022-09-08 13:01] LABS: AST 40 U/L (17-59); Alkaline Phosphatase 94 U/L (38-126); Potassium 5.3 mmol/L (3.5-5.1)
[2022-09-08] MEDS ORDERED: VANCOMYCIN 1,250 MG in SODIUM CHLORIDE 0.9% 250 ML IVPB SCH (14:00)
--- NOTE | 2022-09-08 14:58 | P.OP ---
Date of Procedure: 09/02/22 Preoperative Diagnosis: 1. Left septic olecranon bursitis 2. SIRS with sepsis Postoperative Diagnosis: 1. Left septic olecranon bursitis 2. SIRS with sepsis Procedure(s) Performed: 1. Left elbow incision and drainage with excisional debridement of olecranon bursa using the following: Knife to remove skin and tract curette to scrape bone, soft tissue and subq Rongure to remove infective material Anesthesia: MAC Surgeon: Abdi Curry Platinum Smith #1: Theo Jin (Was present and assisted with all aspects of the case from positioning to dressing placement) Estimated Blood Loss (ml): 5 IV fluids (ml): 700 Urine output (ml): 0 Pathology: other (2 left elbow septic bursa) Condition: stable Disposition: PACU Indications for Procedure: Lan Nixon is a 77-year-old male presenting for evaluation of sudden onset right elbow pain, painful range of motion and drainage. It was my pleasure to have seen and examined Lan Nixon. In our visit today we have had a chance to go over subjective complaints, physical examination findings and treatments including the natural course history without intervention and various interventional options. His imaging demonstrates no acute fracture or dislocation of the elbow no significant osseous abnormalities. CT of the lumbar spine shows postsurgical changes with hardware in good position no evidence of fracture dislocation interval changes or fluid collections.. On physical exam, Lan Nixon demonstrates pain with motion of left elbow with drainage from a lesion along the olecranon bursa, which is NV intact at this time. I have explained to the patient that this fracture needs stabilization. Based on the patients imaging, physical exam, and the rapid progression and disabling nature of her symptoms, at this time I recommend surgery in the form or a: Incision and drainage with irrigation debridement left elbow olecranon bursa I discussed the risk and benefits of this procedure at length with Lan Nixon and his family at bedside. Questions were invited and answered, and the patient wishes to proceed as outlined below. Currently, I am recommendin. Incision and drainage with irrigation and debridement left elbow olecranon bursa Description of Procedure: The patient was seen and examined in the preoperative area. All preoperative protocols were followed. Informed consent was obtained risks and benefits of the procedure were discussed at length. Risks including bleeding infection damage to the surrounding tissue and risk of reoperation were discussed with the patient. Risk of anesthesia up to and including was a discussed with the patient. These are outlined in the risk reviewed. They were willing to accept these risks and all of the risks of surgery. The patient was given a weight- based dose of antibiotics in the form of antibiotics from the floor vancomycin. The patient was seen and evaluated by the anesthesia team who deemed them fit for surgery. The site was marked, the patient was willing to proceed with the procedure. The patient was transferred to the operative suite by the Department of anesthesia. There were then drifted off to sleep by the department of anesthesia and [facility] anesthesia was used. Once adequate anesthesia had been obtained the patient was carefully transferred to the operative bed. All bony prominences were padded accordingly. SCDs were placed on the nonoperative lower extremities. Arms were well padded. Left upper extremity was exposed. It was stabilized across his chest. Preoperative briefing was done with the operative team and everyone was ready for the procedure to start. The patients left arm was then prepped and draped in the normal sterile fashion. Timeout was then performed and all parties in agreement with the procedure to be performed. Skin incision was then made over the olecranon bursa with her regarding been erosion through the tip of the bursal sac and skin in this area purulence was coming from this area. The tract was cut out with a knife. Blunt dissection was taken down to the elbow olecranon and the bursa which was extremely necrotic. This was removed entirely using Kerrison rongeurs as well as a knife. The area was thoroughly debrided using curettes rongeur and knife. The wound was then thoroughly irrigated with 3 L of normal sterile saline. Was irrigated and debrided the wound was then approximated using 0 Vicryl followed by #2 nylon. The wound edges approximated very well and there is no complications. The wound was then cleaned and dressed sterilely with Adaptic 4 x 4 ABDs and a Kerlix. Jules wrap was placed over this to hold the position. The patient was then transferred back to their hospital bed. There were awakened by department of anesthesia having tolerated the procedure very well with no complications. The patient was then transported to the postoperative care unit in stable condition.
--- NOTE | 2022-09-08 15:05 | P.PN ---
Subjective Progress Note Date: 09/08/22 Principal diagnosis: Left elbow infection and bacteremia Patient is a 77 year old male with multiple comorbidities has been sent to the hospital for evaluation of left elbow wound and drainage concerning for infection. Patient is status post left elbow bursectomy I&D completed on 09/02/2022, Patient was taken to the OR on 09/07/2022 patient was noticed to have epidural abscess T11-L1 and this patient was status post laminectomy any occlusion of the epidural abscess and also open treatment of L1-L2 fracture. On today's evaluation that is 09/08/2022, the patient continues to be afebrile , the patient is breathing comfortably on 2 L nasal cannula oxygen, the patient denies having any chest pain shortness of breath or cough pain to the left elbow is currently controlled and denies any worsening pain to lower back area, no diarrhea reported Objective - Vital Signs Vital signs: Vital Signs Temp 97.4 F L 09/08/22 07:27 Pulse 94 09/08/22 11:59 Resp 16 09/08/22 07:27 BP 96/71 09/08/22 07:27 Pulse Ox 99 09/08/22 07:27 FiO2 Intake & Output 09/07/22 09/08/22 09/08/22 18:59 06:59 18:59 Intake Total 850 900 Output Total 1450 980 400 Balance -600 -80 -400 Intake: IV 600 900 Intake, IV Titration 250 Amount Vancomycin 1,250 mg In 250 Sodium Chloride 0.9% 250 ml @ 125 mls/hr IVPB Q12H [facility] Rx#:[id number] Output: Drainage 160 100 Back 160 100 Urine 1250 800 300 Estimated Blood Loss 200 20 Other: Voiding Method Diaper Indwelling Catheter Indwelling Catheter Incontinent # Voids 2 # Bowel Movements 1 - Exam GENERAL DESCRIPTION: An elderly male lying in bed in no distress RESPIRATORY SYSTEM: Unlabored breathing , decreased breath sounds at bases HEART: S1 S2 regular rate and rhythm , ABDOMEN: Soft , no tenderness EXTREMITIES: Left elbow open wound with some slough tissue and surrounding swelling - Labs CBC & Chem 7: 09/07/22 08:45 09/08/22 12:12 Labs: Abnormal Lab Results - Last 24 Hours (Table) 09/08/22 Range/Units 12:12 Potassium 5.3 H (3.5-5.1) mmol/L Creatinine 0.61 L (0.66-1.25) mg/dL Calcium 7.6 L (8.4-10.2) mg/dL Total Protein 4.6 L (6.3-8.2) g/dL Albumin 2.0 L (3.5-5.0) g/dL Microbiology - Last 24 Hours (Table) 09/07/22 20:15 Gram Stain - Preliminary Other - Other Wound Culture - Preliminary 09/07/22 20:15 Fungal Culture - Preliminary Other - Other 09/07/22 20:15 Anaerobic Culture - Preliminary Other - Other 09/07/22 20:15 Fungal Culture - Preliminary Other - Other 09/07/22 20:15 Wound Culture - Preliminary Other - Other 09/07/22 20:15 Anaerobic Culture - Preliminary Other - Other Assessment and Plan (1) Olecranon bursitis, left elbow Current Visit: Yes Status: Acute Code(s): M70.22 - OLECRANON BURSITIS, LEFT ELBOW SNOMED Code(s): 974640549190992 (2) MRSA bacteremia Current Visit: Yes Status: Acute Code(s): R78.81 - BACTEREMIA; B95.62 - METHICILLIN RESIS STAPH IN[facility]CT [facility] Code(s): 57629188124967330 Plan: 1patient presented to hospital with sepsis since we did have a fever elevated white count has been complaining of pain and drainage from the left elbow area in this patient recently did have a trauma and nonhealing wound daily concern for possible olecranon bursitis and no need to cover for the gram-positive skin isaias to be the likely pathogen patient currently did have a negative UA chest x-ray was negative and the lumbosacral spine incision looks clean CT did not show any evidence of fluid collection suspicious for postoperative infection at that site, patient is status post I&D of the left elbow and bursectomy completed on 09/02/2022, those cultures are growing MRSA 2- patient did have a positive blood culture with MRSA and local cultures also growing MRSA likely the source of bacteremia, blood cultures has been be repeated on 09/01/2022 and they have been negative so far 3patient did have a acute L1 fracture on the CT being ordered by orthopedics and possible plan for stabilization of the spine surgery , patient also found to have T11-L1 epidural abscess status post drainage and the cultures currently pending 4patient to continue vancomycin while watching his kidney function closely Family the bedside questions were answered Time with Patient: Less than 30
[2022-09-08 16:55] LABS: Glucose,Whole Blood 125 mg/dL (70-110)
--- NOTE | 2022-09-08 19:34 | P.PN ---
Subjective I'm resuming the care of the patient today This is a pleasant 77 years old male with complex medical history, he was [facility] fever, tachycardia on 08/30. He has history of spinal fusion surgery about 3 weeks earlier with left skin lesion of the left elbow. Patient was admitted to the general medical floor, infectious disease team and orthopedic team evaluated the patient and will follow closely. Patient was fou nd to have left elbow bursitis with wound culture, MRSA status post bursectomy and I&D on 09/02. Further workup showing cardiomyopathy with ejection fraction of 20-25%. Also patient with history of L2-S1 spondylosis with severe spinal stenosis with lumbar radiculopathy of the left lower extremity with weakness and paresthesia status post L2 decompression and fusion. This time further workup showing L1 vertebral fracture yesterday patient was taken to OR again, for L1-2 Extension distraction injury, L2 vertebral body fracture with instability with LE weakness, paresis, and washout of his left AND BURSITIS. HE ALSO UNDERWENT LAMINECTOMY FOR evacuation of epidural abscess T11- L1, Open treatment of L1-2 fracture. Please refer to surgery for more details Today is postoperative day #0. Patient lying in bed does not look in distress he states that he has only mild lower back pain, no other pain anywhere else. Patient says that still has weakness in his legs and same paresthesia. He thin ks his left elbow bursitis is healing. He denies any other specific complaints. No chest pain or dyspnea. No abdominal pain vomiting or diarrhea. No urinary complaints. Patient says that this weakness and they both legs and paresthesia is the same with no improvement or worsening. Mclaughlin catheter in place. Vitals are stable. Patient denies any other symptoms like no chest pain dyspnea, no abdominal pain vomiting diarrhea or urinary complaints. WBCs 12.9 and hemoglobin 10.4 Active Medications Generic Name Dose Route Start Last Admin Trade Name Freq PRN Reason Stop Dose Admin Acetaminophen 650 mg 08/30/22 12:41 Acetaminophen Tab 325 Mg Tab PO Q6H PRN Mild Pain Hydrocodone Bitart/Acetaminophen 1 each 09/04/22 11:53 09/05/22 17:27 Hydrocodone/Apap 5-325mg 1 Each Tab PO 1 each Q6HR PRN Administration Pain Hydrocodone Bitart/Acetaminophen 1 each 09/07/22 20:38 09/07/22 22:24 Hydrocodone/Apap 10-325mg 1 Each Tab PO 1 each Q6H PRN Administration Pain Scale 7 - 10 Atorvastatin Calcium 20 mg 08/30/22 21:00 09/07/22 22:14 Atorvastatin 20 Mg Tab PO 20 mg HS FRANCY Administration Budesonide/Formoterol Fumarate 2 puff 08/30/22 20:00 09/08/22 09:01 Symbicort 80-4.5 Mcg Inhaler INHALATION 2 puff RT-BID FRANCY Administration Cyclobenzaprine HCl 5 mg 08/31/22 07:00 09/08/22 18:06 Cyclobenzaprine 5 Mg Tab PO 5 mg BID@0700,1900 FRANCY Administration Gabapentin 300 mg 08/30/22 18:00 09/08/22 18:06 Gabapentin 300 Mg Cap PO 300 mg BID@0700,1800 FRANCY Administration Glimepiride 1 mg 08/31/22 07:30 09/08/22 06:32 Glimepiride 1 Mg Tab PO 1 mg [id number] FRANYC Administration Heparin Sodium (Porcine) 5,000 unit 08/30/22 21:00 09/08/22 11:10 Heparin Sodium,Porcine/Pf 5,000 Unit/0.5 Ml Syringe SQ 5,000 unit Q12HR FRANCY Administration Hydromorphone HCl 0.5 mg 09/07/22 20:38 09/08/22 14:32 Hydromorphone 0.5 Mg/0.5 Ml Syringe IVP 0.5 mg Q3HR PRN Administration Pain Scale 4 - 6 Hydromorphone HCl 1 mg 09/07/22 20:38 Hydromorphone 1 Mg/Ml 1 Ml Syringe IVP Q3HR PRN Pain Scale of 7 - 10 Vancomycin HCl 1,250 mg/ 250 mls @ 125 mls/hr 09/09/22 06:00 Sodium Chloride IVPB Q16H [facility] Insulin Aspart 0 unit 08/31/22 17:30 09/08/22 16:56 Insulin Aspart (Novolog) 100 Unit/Ml Vial SQ Not Given ACHS [facility] Protocol Ipratropium Lawrence 0.5 mg 08/30/22 16:00 09/08/22 15:52 Ipratropium 0.5 Mg/2.5 Ml Nebu INHALATION 0.5 mg RT-QID FRANCY Administration Magnesium Hydroxide 2,400 mg 09/07/22 20:38 Magnesium Hydroxide 2,400 Mg/10 Ml Cup PO DAILY PRN Constipation Miscellaneous Information 1 each 09/05/22 14:19 Potassium Replacement Protocol 1 Each Misc MISCELLANE DAILY PRN Per Protocol Protocol Morphine Sulfate 1 mg 08/31/22 13:44 Morphine Sulfate 2 Mg/Ml Syringe IV Q4HR PRN Severe Pain (Scale 7 to 10) Naloxone HCl 0.2 mg 08/30/22 11:29 Naloxone 0.4 Mg/Ml 1 Ml Vial IV Q2M PRN Opioid Reversal Pantoprazole Sodium 40 mg 08/30/22 17:30 09/08/22 06:32 Pantoprazole 40 Mg Tablet PO 40 mg AC-BRKFST FRANCY Administration Sacubitril/Valsartan 1 each 08/30/22 21:00 09/08/22 11:11 Sacubitril/Valsartan 97 Mg-103 Mg Tablet PO 1 each BID FRANCY Administration Senna/Docusate Sodium 2 each 09/07/22 20:38 Sennosides-Docusate Sodium 1 Each Tab PO DAILY PRN Constipation Sertraline HCl 100 mg 08/31/22 09:00 09/08/22 11:11 Sertraline 100 Mg Tab PO 100 mg DAILY FRANCY Administration Silver Sulfadiazine 1 applic 09/05/22 21:00 09/08/22 11:11 Silver Sulfadiazine 1% Cream 25 Gm Tube TOPICAL 1 applic BID FRANCY Administration Protocol Sotalol HCl 80 mg 08/30/22 19:00 09/08/22 18:40 Sotalol 80 Mg Tab PO 80 mg BID@0700,1900 FRANCY Administration Objective - Vital Signs Vital signs: Vital Signs Temp 97.4 F L 09/08/22 07:27 Pulse 94 09/08/22 11:59 Resp 16 09/08/22 07:27 BP 96/71 09/08/22 07:27 Pulse Ox 99 09/08/22 07:27 FiO2 Intake & Output 09/07/22 09/08/22 09/08/22 18:59 06:59 18:59 Intake Total 850 900 Output Total 1450 980 400 Balance -600 -80 -400 Intake: IV 600 900 Intake, IV Titration 250 Amount Vancomycin 1,250 mg In 250 Sodium Chloride 0.9% 250 ml @ 125 mls/hr IVPB Q12H [facility] Rx#:[id number] Output: Drainage 160 100 Back 160 100 Urine 1250 800 300 Estimated Blood Loss 200 20 Other: Voiding Method Diaper Indwelling Catheter Indwelling Catheter Incontinent # Voids 2 # Bowel Movements 1 - Exam -GENERAL: The patient is alert and oriented x3, not in any acute distress. obese HEENT: Pupils are round and equally reacting to light. EOMI. No scleral icterus. No conjunctival pallor. Normocephalic, atraumatic. No pharyngeal erythema. No thyromegaly. CARDIOVASCULAR: S1 and S2 present. No murmurs, rubs, or gallops. PULMONARY: Chest is clear to auscultation, no wheezing or crackles. ABDOMEN: Soft, nontender, nondistended, normoactive bowel sounds. No palpable organomegaly. MUSCULOSKELETAL: No joint swelling or deformity. -EXTREMITIES: No cyanosis, clubbing, or pedal edema. Left elbow wounds disclose d was sutured in place and healing with no surrounding cellulitis and this is swollen --NEUROLOGICAL: Cranial nerves are grossly intact. Left lower extremity weakness with paresthesia. Bilateral lower extremity weakness, he can wiggle his toes. Perineal signs are absent -SKIN: No rashes. no petechiae. Ulcers of the left side - Labs CBC & Chem 7: 09/07/22 08:45 09/08/22 12:12 Labs: Abnormal Lab Results - Last 24 Hours (Table) 09/08/22 Range/Units 12:12 Potassium 5.3 H (3.5-5.1) mmol/L Creatinine 0.61 L (0.66-1.25) mg/dL Calcium 7.6 L (8.4-10.2) mg/dL Total Protein 4.6 L (6.3-8.2) g/dL Albumin 2.0 L (3.5-5.0) g/dL Microbiology - Last 24 Hours (Table) 09/07/22 20:15 Gram Stain - Preliminary Other - Other Wound Culture - Preliminary 09/07/22 20:15 Fungal Culture - Preliminary Other - Other 09/07/22 20:15 Anaerobic Culture - Preliminary Other - Other 09/07/22 20:15 Fungal Culture - Preliminary Other - Other 09/07/22 20:15 Wound Culture - Preliminary Other - Other 09/07/22 20:15 Anaerobic Culture - Preliminary Other - Other 09/01/22 08:35 Blood Culture - Final Blood No Growth after 144 hours Assessment and Plan Assessment: -Left elbow olecranon bursitis status post bursectomy and I&D on 09/02. Wound culture growing MRSA -L2 vertebral body fracture with instability -LE weakness, and paresthesia secondary to above -epidural abscess T11-L1 -MRSA bacteremia -Cardiomyopathy with ejection fraction 20-25% -Nonhealing ulceration of the left thigh -Recent history of L2-S1 spondylolisthesis and severe spinal stenosis with lumbar radiculopathy of the left lower extremity with weakness and paresthesia status post L2 decompression and fusion -Hypertension -Diabetes mellitus -Chronic anemia -obesity with BMI of 31.7 Plan: Continue with antibiotics as per ID team, currently on cefazolin and IV vancomycin Orthopedic team consult including postoperative care Pain management Continue with diabetes medications and a glucose Wound care Labs and medication were reviewed.. Continue same treatment. Continue with symptomatic treatment. Resume home medication. Monitor labs and vitals. DVT and GI prophylaxis. Further recommendations as per clinical course of the patient DVT prophylaxis: Subcutaneous heparin GI Prophylaxis: Pepcid PT/OT: Pending Prognosis is guarded
[2022-09-08 20:26] LABS: Glucose,Whole Blood 81 mg/dL (70-110)
[2022-09-08] MEDS: ATORVASTATIN 20 MG TAB PO SCH (20:52)
[2022-09-08 22:39] LABS: Basophils % (A) 0 %; Eosinophils # (A) 0.1 k/uL (0-0.7); Eosinophils % (A) 1 %; HCT 30.1 % (39.0-53.0); Hypochromasia Moderate; Lymphocytes # (A) 0.7 k/uL (1.0-4.8); Lymphocytes % (A) 5 %; MCH 26.6 pg (25.0-35.0); MCHC 30.6 g/dL (31.0-37.0); Mean Platelet Volume 8.3; Monocytes # (A) 0.5 k/uL (0-1.0); Monocytes % (A) 3 %; Neutrophils # (A) 12.1 k/uL (1.3-7.7); Neutrophils % (A) 90 %; Platelet Count 286 k/uL (150-450); RBC 3.46 m/uL (4.30-5.90); RDW 14.7 % (11.5-15.5); WBC 13.5 k/uL (3.8-10.6)
[2022-09-08 22:41] LABS: HGB 9.2 gm/dL (13.0-17.5)
[2022-09-09] MEDS: HYDROcodone/APAP 10-325MG 1 EACH TAB PO PRN ×3 (00:16→14:29)
[2022-09-09] MEDS: VANCOMYCIN 1,250 MG in SODIUM CHLORIDE 0.9% 250 ML IVPB SCH ×2 (06:07→21:43)
[2022-09-09] MEDS: GABAPENTIN 300 MG CAP PO SCH ×2 (06:21→17:10)
[2022-09-09] MEDS: SOTALOL 80 MG TAB PO SCH ×2 (06:21→18:16)
[2022-09-09] MEDS: PANTOPRAZOLE 40 MG TABLET PO SCH (06:21)
[2022-09-09] MEDS: INSULIN ASPART (NovoLOG) 100 UNIT/ML VIAL SQ SCH ×4 (06:22→21:35)
[2022-09-09] MEDS: CYCLOBENZAPRINE 5 MG TAB PO SCH ×2 (06:22→18:16)
[2022-09-09 06:23] LABS: Glucose,Whole Blood 92 mg/dL (70-110)
[2022-09-09 07:29] LABS: African American GFR (CKD) >90 (>60 ml/min/1.73 sqM); Anion Gap 0 mmol/L; Blood Urea Nitrogen 14 mg/dL (9-20); Calcium 6.8 mg/dL (8.4-10.2); Carbon Dioxide 32 mmol/L (22-30); Chloride 99 mmol/L (98-107); Glucose 95 mg/dL (74-99); Non-African American GFR(CKD) >90 (>60 ml/min/1.73 sqM); Sodium 131 mmol/L (137-145)
[2022-09-09 07:42] LABS: Potassium 4.2 mmol/L (3.5-5.1)
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
[2022-09-09] MEDS: SERTRALINE 100 MG TAB PO SCH (08:09)
[2022-09-09] MEDS: HEPARIN SODIUM,PORCINE/PF 5,000 UNIT/0.5 ML SYRINGE SQ SCH ×2 (08:10→21:43)
[2022-09-09] MEDS: SACUBITRIL/VALSARTAN 97 MG-103 MG TABLET PO SCH ×2 (08:10→21:43)
[2022-09-09] MEDS: GLIMEPIRIDE 1 MG TAB PO SCH (08:10)
[2022-09-09] MEDS: SYMBICORT 80-4.5 MCG INHALER INHALATION SCH ×2 (09:47→21:18)
[2022-09-09] MEDS: IPRATROPIUM 0.5 MG/2.5 ML NEBU INHALATION SCH ×4 (09:47→21:18)
[2022-09-09 11:19] LABS: Basophils # (A) 0.02 X 10*3/uL (0.00-0.10); Basophils % (A) 0.1 %; Eosinophils # (A) 0.13 X 10*3/uL (0.04-0.35); Eosinophils % (A) 0.9 %; HCT 27.2 % (39.6-50.0); Lymphocytes # (A) 1.17 X 10*3/uL (0.90-5.00); Lymphocytes % (A) 7.7 %; MCH 26.7 pg (27.0-32.0); MCHC 29.4 g/dL (32.0-37.0); MCV 90.7 fL (80.0-97.0); Mean Platelet Volume 11.6 fL (9.5-12.2); Monocytes # (A) 1.15 X 10*3/uL (0.20-1.00); Monocytes % (A) 7.5 %; NRBC Per 100 WBC 0 /100 WBCS (0.0-0.0); Neutrophils # (A) 12.62 X 10*3/uL (1.80-7.70); Neutrophils % (A) 82.8 %; Platelet Count 302 X 10*3/uL (140-440); RDW 14.9 % (11.5-14.5); WBC 15.24 X 10*3/uL (4.50-10.00)
[2022-09-09 11:21] LABS: Glucose,Whole Blood 93 mg/dL (70-110)
--- NOTE | 2022-09-09 13:08 | P.PN ---
Subjective I'm resuming the care of the patient today This is a pleasant 77 years old male with complex medical history, he was sent from [facility] for fever, tachycardia on 08/30. He has history of spinal fusion surgery about 3 weeks earlier with left skin lesion of the left elbow. Patient was admitted to the general medical floor, infectious disease team and orthopedic team evaluated the patient and will follow closely. Patient was fou nd to have left elbow bursitis with wound culture, MRSA status post bursectomy and I&D on 09/02. Further workup showing cardiomyopathy with ejection fraction of 20-25%. Also patient with history of L2-S1 spondylosis with severe spinal stenosis with lumbar radiculopathy of the left lower extremity with weakness and paresthesia status post L2 decompression and fusion. This time further workup showing L1 vertebral fracture yesterday patient was taken to OR again, for L1-2 Extension distraction injury, L2 vertebral body fracture with instability with LE weakness, paresis, and washout of his left AND BURSITIS. HE ALSO UNDERWENT LAMINECTOMY FOR evacuation of epidural abscess T11- L1, Open treatment of L1-2 fracture. Please refer to surgery for more details Today is postoperative day #0. Patient lying in bed does not look in distress he states that he has only mild lower back pain, no other pain anywhere else. Patient says that still has weakness in his legs and same paresthesia. He thin ks his left elbow bursitis is healing. He denies any other specific complaints. No chest pain or dyspnea. No abdominal pain vomiting or diarrhea. No urinary complaints. Patient says that this weakness and they both legs and paresthesia is the same with no improvement or worsening. Mclaughlin catheter in place. Vitals are stable. Patient denies any other symptoms like no chest pain dyspnea, no abdominal pain vomiting diarrhea or urinary complaints. WBCs 12.9 and hemoglobin 10.4 09/09/2022 Patient reports some improvement in his lower extremities especially his left le g however on examination he barely can move his foot little bit however patient states that this is improvement. Processes and looks the same in both lower extremities. Back pain is controlled. No other specific complaints by the patient. Left elbow area is also improving. Mclaughlin catheter in place. He remains on IV vancomycin WBCs 15,000 and hemoglobin down to 8 and sodium 131. Check labs in the morning Objective - Vital Signs Vital signs: Vital Signs Temp 97.9 F 09/09/22 07:58 Pulse 80 09/09/22 12:53 Resp 18 09/09/22 10:29 BP 112/75 09/09/22 07:58 Pulse Ox 96 09/09/22 09:47 FiO2 Intake & Output 09/08/22 09/09/22 09/09/22 18:59 06:59 18:59 Intake Total 250 Output Total 400 670 Balance -150 -670 Weight 97.522 kg Intake: Intake, IV Titration 250 Amount Vancomycin 1,250 mg In 250 Sodium Chloride 0.9% 250 ml @ 125 mls/hr IVPB Q16H [facility] Rx#:[id number] Output: Drainage 100 270 Back 100 270 Urine 300 400 Other: Voiding Method Indwelling Catheter Indwelling Catheter Indwelling Catheter - Exam -GENERAL: The patient is alert and oriented x3, not in any acute distress. obese HEENT: Pupils are round and equally reacting to light. EOMI. No scleral icterus. No conjunctival pallor. Normocephalic, atraumatic. No pharyngeal erythema. No thyromegaly. CARDIOVASCULAR: S1 and S2 present. No murmurs, rubs, or gallops. PULMONARY: Chest is clear to auscultation, no wheezing or crackles. ABDOMEN: Soft, nontender, nondistended, normoactive bowel sounds. No palpable organomegaly. MUSCULOSKELETAL: No joint swelling or deformity. -EXTREMITIES: No cyanosis, clubbing, or pedal edema. Left elbow wounds disclosed was sutured in place and healing with no surrounding cellulitis and this is swollen --NEUROLOGICAL: Cranial nerves are grossly intact. Left lower extremity weakness with paresthesia. Bilateral lower extremity weakness, he can wiggle his toes. Perineal signs are absent -SKIN: No rashes. no petechiae. Ulcers of the left side - Labs CBC & Chem 7: 09/09/22 06:45 09/09/22 06:45 Labs: Abnormal Lab Results - Last 24 Hours (Table) 09/08/22 09/08/22 09/09/22 Range/Units 16:54 22:00 06:45 WBC 13.5 H (3.8-10.6) k/uL RBC 3.46 L (4.30-5.90) m/uL Hgb 9.2 L D (13.0-17.5) gm/dL Hct 30.1 L (39.0-53.0) % MCH (27.0-32.0) pg MCHC 30.6 L (31.0-37.0) g/dL RDW (11.5-14.5) % Immature Gran # (0.00-0.04) X 10*3/uL Neutrophils # 12.1 H (1.3-7.7) k/uL Lymphocytes # 0.7 L (1.0-4.8) k/uL Monocytes # (0.20-1.00) X 10*3/uL Sodium 131 L (137-145) mmol/L Carbon Dioxide 32 H (22-30) mmol/L Creatinine 0.52 L (0.66-1.25) mg/dL POC Glucose (mg/dL) 125 H (70-110) mg/dL Calcium 6.8 L (8.4-10.2) mg/dL 09/09/22 Range/Units 06:45 WBC 15.24 H (3.8-10.6) k/uL RBC 3.00 L (4.30-5.90) m/uL Hgb 8.0 L (13.0-17.5) gm/dL Hct 27.2 L (39.0-53.0) % MCH 26.7 L (27.0-32.0) pg MCHC 29.4 L (31.0-37.0) g/dL RDW 14.9 H (11.5-14.5) % Immature Gran # 0.15 H (0.00-0.04) X 10*3/uL Neutrophils # 12.62 H (1.3-7.7) k/uL Lymphocytes # (1.0-4.8) k/uL Monocytes # 1.15 H (0.20-1.00) X 10*3/uL Sodium (137-145) mmol/L Carbon Dioxide (22-30) mmol/L Creatinine (0.66-1.25) mg/dL POC Glucose (mg/dL) (70-110) mg/dL Calcium (8.4-10.2) mg/dL Microbiology - Last 24 Hours (Table) 09/07/22 20:15 Gram Stain - Preliminary Other - Other Wound Culture - Preliminary 09/07/22 20:15 Gram Stain - Preliminary Other - Other Wound Culture - Preliminary 09/07/22 20:15 Fungal Culture - Preliminary Other - Other 09/07/22 20:15 Anaerobic Culture - Preliminary Other - Other 09/07/22 20:15 Fungal Culture - Preliminary Other - Other 09/07/22 20:15 Anaerobic Culture - Preliminary Other - Other Assessment and Plan Assessment: -Left elbow olecranon bursitis status post bursectomy and I&D on 09/02. Wound culture growing MRSA -L2 vertebral body fracture with instability -LE weakness, and paresthesia secondary to above -epidural abscess T11-L1 -MRSA bacteremia -Cardiomyopathy with ejection fraction 20-25% -Nonhealing ulceration of the left thigh -Recent history of L2-S1 spondylolisthesis and severe spinal stenosis with lumbar radiculopathy of the left lower extremity with weakness and paresthesia status post L2 decompression and fusion -Hypertension -Diabetes mellitus -Chronic anemia -obesity with BMI of 31.7 Plan: Continue with antibiotics as per ID team, currently on IV vancomycin Orthopedic team consult including postoperative care Pain management Continue with diabetes medications and a glucose Wound care Labs and medication were reviewed.. Continue same treatment. Continue with symptomatic treatment. Resume home medication. Monitor labs and vitals. DVT and GI prophylaxis. Further recommendations as per clinical course of the patient DVT prophylaxis: Subcutaneous heparin GI Prophylaxis: Pepcid PT/OT: Pending Prognosis is guarded
--- NOTE | 2022-09-09 15:41 | P.PN ---
Subjective Progress Note Date: 09/09/22 Principal diagnosis: Left elbow infection and bacteremia Patient is a 77 year old male with multiple comorbidities has been sent to the hospital for evaluation of left elbow wound and drainage concerning for infection. Patient is status post left elbow bursectomy I&D completed on 09/02/2022, Patient was taken to the OR on 09/07/2022 patient was noticed to have epidural abscess T11-L1 and this patient was status post laminectomy any occlusion of the epidural abscess and also open treatment of L1-L2 fracture. On today's evaluation that is 09/09/2022, the patient remains to be afebrile , the patient is breathing comfortably on 2 L nasal cannula oxygen, the patient is more awake and alert and is feeling better, patient denies having any chest pain shortness of breath or cough pain to the left elbow is currently controlled and denies any worsening pain to lower back area, no diarrhea reported Objective - Vital Signs Vital signs: Vital Signs Temp 97.9 F 09/09/22 07:58 Pulse 80 09/09/22 13:06 Resp 18 09/09/22 10:29 BP 112/75 09/09/22 07:58 Pulse Ox 96 09/09/22 09:47 FiO2 Intake & Output 09/08/22 09/09/22 09/09/22 18:59 06:59 18:59 Intake Total 250 200 Output Total 400 670 Balance -150 -670 200 Weight 97.522 kg Intake: Intake, IV Titration 250 Amount Vancomycin 1,250 mg In 250 Sodium Chloride 0.9% 250 ml @ 125 mls/hr IVPB Q16H [facility] Rx#:[id number] Oral 200 Output: Drainage 100 270 Back 100 270 Urine 300 400 Other: Voiding Method Indwelling Catheter Indwelling Catheter Indwelling Catheter - Exam GENERAL DESCRIPTION: An elderly male lying in bed in no distress RESPIRATORY SYSTEM: Unlabored breathing , decreased breath sounds at bases HEART: S1 S2 regular rate and rhythm , ABDOMEN: Soft , no tenderness EXTREMITIES: Left elbow open wound with some slough tissue and surrounding swelling - Labs CBC & Chem 7: 09/09/22 06:45 09/09/22 06:45 Labs: Abnormal Lab Results - Last 24 Hours (Table) 09/08/22 09/08/22 09/09/22 Range/Units 16:54 22:00 06:45 WBC 13.5 H (3.8-10.6) k/uL RBC 3.46 L (4.30-5.90) m/uL Hgb 9.2 L D (13.0-17.5) gm/dL Hct 30.1 L (39.0-53.0) % MCH (27.0-32.0) pg MCHC 30.6 L (31.0-37.0) g/dL RDW (11.5-14.5) % Immature Gran # (0.00-0.04) X 10*3/uL Neutrophils # 12.1 H (1.3-7.7) k/uL Lymphocytes # 0.7 L (1.0-4.8) k/uL Monocytes # (0.20-1.00) X 10*3/uL Sodium 131 L (137-145) mmol/L Carbon Dioxide 32 H (22-30) mmol/L Creatinine 0.52 L (0.66-1.25) mg/dL POC Glucose (mg/dL) 125 H (70-110) mg/dL Calcium 6.8 L (8.4-10.2) mg/dL 09/09/22 Range/Units 06:45 WBC 15.24 H (3.8-10.6) k/uL RBC 3.00 L (4.30-5.90) m/uL Hgb 8.0 L (13.0-17.5) gm/dL Hct 27.2 L (39.0-53.0) % MCH 26.7 L (27.0-32.0) pg MCHC 29.4 L (31.0-37.0) g/dL RDW 14.9 H (11.5-14.5) % Immature Gran # 0.15 H (0.00-0.04) X 10*3/uL Neutrophils # 12.62 H (1.3-7.7) k/uL Lymphocytes # (1.0-4.8) k/uL Monocytes # 1.15 H (0.20-1.00) X 10*3/uL Sodium (137-145) mmol/L Carbon Dioxide (22-30) mmol/L Creatinine (0.66-1.25) mg/dL POC Glucose (mg/dL) (70-110) mg/dL Calcium (8.4-10.2) mg/dL Microbiology - Last 24 Hours (Table) 09/07/22 20:15 Gram Stain - Preliminary Other - Other Wound Culture - Preliminary 09/07/22 20:15 Gram Stain - Preliminary Other - Other Wound Culture - Preliminary 09/07/22 20:15 Fungal Culture - Preliminary Other - Other 09/07/22 20:15 Anaerobic Culture - Preliminary Other - Other 09/07/22 20:15 Fungal Culture - Preliminary Other - Other 09/07/22 20:15 Anaerobic Culture - Preliminary Other - Other Assessment and Plan (1) Olecranon bursitis, left elbow Current Visit: Yes Status: Acute Code(s): M70.22 - OLECRANON BURSITIS, LEFT ELBOW SNOMED Code(s): 901432176608657 (2) MRSA bacteremia Current Visit: Yes Status: Acute Code(s): R78.81 - BACTEREMIA; B95.62 - METHICILLIN RESIS STAPH INFCT CAUSING DISEASES [facility]SD [facility] SNOMED Code(s): 13268622632094539 Plan: 1patient presented to hospital with sepsis since we did have a fever elevated white count has been complaining of pain and drainage from the left elbow area in this patient recently did have a trauma and nonhealing wound daily concern for possible olecranon bursitis and no need to cover for the gram-positive skin isaias to be the likely pathogen patient currently did have a negative UA chest x-ray was negative and the lumbosacral spine incision looks clean CT did not show any evidence of fluid collection suspicious for postoperative infection at that site, patient is status post I&D of the left elbow and bursectomy completed on 09/02/2022, those cultures are growing MRSA 2- patient did have a positive blood culture with MRSA and local cultures also growing MRSA likely the source of bacteremia, blood cultures has been be repeated on 09/01/2022 and they have been negative so far 3patient did have a acute L1 fracture on the CT being ordered by orthopedics and possible plan for stabilization of the spine surgery , patient also found to have T11-L1 epidural abscess status post drainage and the cultures currently pending 4patient to continue vancomycin while watching his kidney function closely and continue supportive care at the bedside questions were answered Time with Patient: Less than 30
[2022-09-09 16:45] LABS: Glucose,Whole Blood 102 mg/dL (70-110)
[2022-09-09 21:26] LABS: Glucose,Whole Blood 87 mg/dL (70-110)
[2022-09-09] MEDS: ATORVASTATIN 20 MG TAB PO SCH (21:43)
[2022-09-10] MEDS: SOTALOL 80 MG TAB PO SCH ×2 (06:05→22:00)
[2022-09-10] MEDS: GABAPENTIN 300 MG CAP PO SCH ×2 (06:05→18:31)
[2022-09-10] MEDS: PANTOPRAZOLE 40 MG TABLET PO SCH (06:05)
[2022-09-10] MEDS: CYCLOBENZAPRINE 5 MG TAB PO SCH ×2 (06:05→18:31)
[2022-09-10 06:10] LABS: Glucose,Whole Blood 103 mg/dL (70-110)
[2022-09-10] MEDS: INSULIN ASPART (NovoLOG) 100 UNIT/ML VIAL SQ SCH ×4 (06:11→21:40)
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
[2022-09-10] MEDS ORDERED: ALPRAZolam 0.5 MG TAB PO STA (08:40)
[2022-09-10] MEDS: SACUBITRIL/VALSARTAN 97 MG-103 MG TABLET PO SCH ×2 (09:09→22:00)
[2022-09-10] MEDS: GLIMEPIRIDE 1 MG TAB PO SCH (09:09)
[2022-09-10] MEDS: HEPARIN SODIUM,PORCINE/PF 5,000 UNIT/0.5 ML SYRINGE SQ SCH ×2 (09:09→21:31)
[2022-09-10] MEDS: SERTRALINE 100 MG TAB PO SCH (09:09)
[2022-09-10] MEDS: IPRATROPIUM 0.5 MG/2.5 ML NEBU INHALATION SCH ×4 (09:16→19:52)
[2022-09-10] MEDS: SYMBICORT 80-4.5 MCG INHALER INHALATION SCH ×2 (09:16→19:52)
[2022-09-10 10:47] LABS: Basophils # (A) 0.03 X 10*3/uL (0.00-0.10); Basophils % (A) 0.2 %; Eosinophils # (A) 0.11 X 10*3/uL (0.04-0.35); Eosinophils % (A) 0.8 %; HCT 27.7 % (39.6-50.0); HGB 8.4 g/dL (13.0-17.0); Lymphocytes # (A) 0.96 X 10*3/uL (0.90-5.00); Lymphocytes % (A) 6.6 %; MCH 26.9 pg (27.0-32.0); MCHC 30.3 g/dL (32.0-37.0); MCV 88.8 fL (80.0-97.0); Mean Platelet Volume 10.5 fL (9.5-12.2); Monocytes # (A) 1.02 X 10*3/uL (0.20-1.00); NRBC Per 100 WBC 0 /100 WBCS (0.0-0.0); Neutrophils # (A) 12.29 X 10*3/uL (1.80-7.70); Neutrophils % (A) 84.4 %; Platelet Count 295 X 10*3/uL (140-440); RBC 3.12 X 10*6/uL (4.40-5.60); RDW 14.9 % (11.5-14.5); WBC 14.55 X 10*3/uL (4.50-10.00)
[2022-09-10 11:05] LABS: African American GFR (CKD) 110.7 (60.0-200.0); Anion Gap 6.4 mmol/L (10.00-18.00); BUN/Creat Ratio 17.05 Ratio (12.00-20.00); Calcium 7.5 mg/dL (8.7-10.3); Carbon Dioxide 29.6 mmol/L (20.0-27.5); Non-African American GFR(CKD) 95.5 (60.0-200.0); Potassium 4.1 mmol/L (3.5-5.5)
[2022-09-10 11:29] LABS: Glucose,Whole Blood 132 mg/dL (70-110)
--- NOTE | 2022-09-10 12:26 | P.PN ---
Subjective I'm resuming the care of the patient today This is a pleasant 77 years old male with complex medical history, he was sent from [facility] for fever, tachycardia on 08/30. He has history of spinal fusion surgery about 3 weeks earlier with left skin lesion of the left elbow. Patient was admitted to the general medical floor, infectious disease team and orthopedic team evaluated the patient and will follow closely. Patient was fou nd to have left elbow bursitis with wound culture, MRSA status post bursectomy and I&D on 09/02. Further workup showing cardiomyopathy with ejection fraction of 20-25%. Also patient with history of L2-S1 spondylosis with severe spinal stenosis with lumbar radiculopathy of the left lower extremity with weakness and paresthesia status post L2 decompression and fusion. This time further workup showing L1 vertebral fracture yesterday patient was taken to OR again, for L1-2 Extension distraction injury, L2 vertebral body fracture with instability with LE weakness, paresis, and washout of his left AND BURSITIS. HE ALSO UNDERWENT LAMINECTOMY FOR evacuation of epidural abscess T11- L1, Open treatment of L1-2 fracture. Please refer to surgery for more details Today is postoperative day #0. Patient lying in bed does not look in distress he states that he has only mild lower back pain, no other pain anywhere else. Patient says that still has weakness in his legs and same paresthesia. He thin ks his left elbow bursitis is healing. He denies any other specific complaints. No chest pain or dyspnea. No abdominal pain vomiting or diarrhea. No urinary complaints. Patient says that this weakness and they both legs and paresthesia is the same with no improvement or worsening. Mclaughlin catheter in place. Vitals are stable. Patient denies any other symptoms like no chest pain dyspnea, no abdominal pain vomiting diarrhea or urinary complaints. WBCs 12.9 and hemoglobin 10.4 09/09/2022 Patient reports some improvement in his lower extremities especially his left le g however on examination he barely can move his foot little bit however patient states that this is improvement. Processes and looks the same in both lower extremities. Back pain is controlled. No other specific complaints by the patient. Left elbow area is also improving. Mclaughlin catheter in place. He remains on IV vancomycin WBCs 15,000 and hemoglobin down to 8 and sodium 131. Check labs in the morning 09/10/2022 Patient shows slight improvement today in his lower extremity, he states he can move both lower extremity better, he moves them very little from [id number] but he cannot lift them off the bed. Patient reports improvement in his paresthesia as well. No other new complaints. No chest pain or dyspnea. However patient has significant bilateral leg swelling and therefore we are going to give him a short course of IV Lasix This morning patient was feeling impending panic attack and requested Xanax one- time dose which is provided. His left elbow wound and infection is improving as well. His pain is controlled. Drain is in place. He remains on antibiotics per ID team and currently is on IV vancomycin. Wound culture is pending final results Prognosis remains guarded Objective - Vital Signs Vital signs: Vital Signs Temp 97.7 F 09/10/22 08:00 Pulse 80 09/10/22 09:28 Resp 16 09/10/22 08:00 BP 116/77 09/10/22 08:00 Pulse Ox 97 09/10/22 09:18 FiO2 Intake & Output 09/09/22 09/10/22 09/10/22 18:59 06:59 18:59 Intake Total 200 Output Total 950 220 820 Balance -750 -220 -820 Weight 97.522 kg Intake: Oral 200 Output: Drainage 220 20 Back 220 20 Urine 950 800 Other: Voiding Method Indwelling Catheter Indwelling Catheter Indwelling Catheter - Exam -GENERAL: The patient is alert and oriented x3, not in any acute distress. obese HEENT: Pupils are round and equally reacting to light. EOMI. No scleral icterus. No conjunctival pallor. Normocephalic, atraumatic. No pharyngeal erythema. No thyromegaly. CARDIOVASCULAR: S1 and S2 present. No murmurs, rubs, or gallops. PULMONARY: Chest is clear to auscultation, no wheezing or crackles. ABDOMEN: Soft, nontender, nondistended, normoactive bowel sounds. No palpable organomegaly. MUSCULOSKELETAL: No joint swelling or deformity. -EXTREMITIES: No cyanosis, clubbing, or pedal edema. Left elbow wounds disclosed was sutured in place and healing with no surrounding cellulitis and this is swollen --NEUROLOGICAL: Cranial nerves are grossly intact. Left lower extremity weakness with paresthesia. Bilateral lower extremity weakness, he can wiggle his toes. Perineal signs are absent -SKIN: No rashes. no petechiae. Ulcers of the left side - Labs CBC & Chem 7: 09/10/22 07:42 09/10/22 07:42 Labs: Abnormal Lab Results - Last 24 Hours (Table) 09/10/22 09/10/22 09/10/22 Range/Units 07:42 07:42 11:27 WBC 14.55 H (4.50-10.00) X 10*3/uL RBC 3.12 L (4.40-5.60) X 10*6/uL Hgb 8.4 L (13.0-17.0) g/dL Hct 27.7 L (39.6-50.0) % MCH 26.9 L (27.0-32.0) pg MCHC 30.3 L (32.0-37.0) g/dL RDW 14.9 H (11.5-14.5) % Immature Gran # 0.14 H (0.00-0.04) X 10*3/uL Neutrophils # 12.29 H (1.80-7.70) X 10*3/uL Monocytes # 1.02 H (0.20-1.00) X 10*3/uL Carbon Dioxide 29.6 H (20.0-27.5) mmol/L Anion Gap 6.40 L (10.00-18.00) mmol/L POC Glucose (mg/dL) 132 H (70-110) mg/dL Calcium 7.5 L (8.7-10.3) mg/dL Microbiology - Last 24 Hours (Table) 09/07/22 20:15 Anaerobic Culture - Preliminary Other - Other 09/07/22 20:15 Anaerobic Culture - Preliminary Other - Other 09/07/22 20:15 Gram Stain - Preliminary Other - Other Wound Culture - Preliminary 09/07/22 20:15 Gram Stain - Preliminary Other - Other Wound Culture - Preliminary Assessment and Plan Assessment: -Left elbow olecranon bursitis status post bursectomy and I&D on 09/02. Wound culture growing MRSA -L2 vertebral body fracture with instability -LE weakness, and paresthesia secondary to above -epidural abscess T11-L1 -MRSA bacteremia -Bilateral leg edema -Cardiomyopathy with ejection fraction 20-25% -Nonhealing ulceration of the left thigh -Recent history of L2-S1 spondylolisthesis and severe spinal stenosis with lumbar radiculopathy of the left lower extremity with weakness and paresthesia status post L2 decompression and fusion -Hypertension -Diabetes mellitus -Chronic anemia -obesity with BMI of 31.7 Plan: Continue with antibiotics as per ID team, currently on IV vancomycin Orthopedic team consult including postoperative care Pain management Continue with diabetes medications and a glucose Wound care Xanax x 1 Short course of IV Lasix Labs and medication were reviewed.. Continue same treatment. Continue with symptomatic treatment. Resume home medication. Monitor labs and vitals. DVT and GI prophylaxis. Further recommendations as per clinical course of the patie nt DVT prophylaxis: Subcutaneous heparin GI Prophylaxis: Pepcid PT/OT: Pending Prognosis is guarded
[2022-09-10] MEDS ORDERED: FUROSEMIDE 10 MG/ML 4 ML VIAL IV SCH (12:30)
[2022-09-10 13:16] LABS: African American GFR (CKD) >90 (>60 ml/min/1.73 sqM); Non-African American GFR(CKD) >90 (>60 ml/min/1.73 sqM)
[2022-09-10] MEDS: VANCOMYCIN 1,250 MG in SODIUM CHLORIDE 0.9% 250 ML IVPB SCH (13:51)
[2022-09-10 16:37] LABS: Glucose,Whole Blood 136 mg/dL (70-110)
[2022-09-10 20:50] LABS: Glucose,Whole Blood 154 mg/dL (70-110)
[2022-09-10] MEDS: ATORVASTATIN 20 MG TAB PO SCH (21:31)
[2022-09-11] MEDS: FUROSEMIDE 10 MG/ML 4 ML VIAL IV SCH ×2 (02:23→13:08)
[2022-09-11] MEDS: VANCOMYCIN 1,250 MG in SODIUM CHLORIDE 0.9% 250 ML IVPB SCH ×2 (05:45→21:06)
[2022-09-11 06:12] LABS: Glucose,Whole Blood 125 mg/dL (70-110)
[2022-09-11] MEDS: INSULIN ASPART (NovoLOG) 100 UNIT/ML VIAL SQ SCH ×4 (06:18→21:13)
[2022-09-11] MEDS: PANTOPRAZOLE 40 MG TABLET PO SCH (06:30)
[2022-09-11] MEDS: SOTALOL 80 MG TAB PO SCH ×2 (06:30→17:53)
[2022-09-11] MEDS: GLIMEPIRIDE 1 MG TAB PO SCH (06:30)
[2022-09-11] MEDS: GABAPENTIN 300 MG CAP PO SCH ×2 (06:30→17:53)
[2022-09-11] MEDS: CYCLOBENZAPRINE 5 MG TAB PO SCH ×2 (06:30→17:53)
[2022-09-11 07:12] LABS: African American GFR (CKD) >90 (>60 ml/min/1.73 sqM); Non-African American GFR(CKD) >90 (>60 ml/min/1.73 sqM)
[2022-09-11] MEDS: SYMBICORT 80-4.5 MCG INHALER INHALATION SCH ×2 (08:16→20:07)
[2022-09-11] MEDS: IPRATROPIUM 0.5 MG/2.5 ML NEBU INHALATION SCH ×4 (08:16→20:07)
--- NOTE | 2022-09-11 09:37 | P.PN ---
Subjective Progress Note Date: 09/11/22 Principal diagnosis: 1. . L2 fracture with L2-3 extension type injury, disc involvement, pending instability 2. Bilateral lower extremity paresis 3. s/p ffs at rehab 4. s/p L2-P decompression fusion Patient was seen at bedside this morning lying in semirecumbent position. Patient says he is still having some low back pain at this time however, every day since surgery the pain has been getting a little better. Patient says he is still unable to move his lower extremities much at all. Patient says he is able move his upper extremities. Patient does have a Mclaughlin in place at this time. Patient is looking forward to having a strain removed at bedside today. Patient denies any new changes. Patient denies chest pain, fever, shortness breath, nausea, vomiting, change in vision. Objective - Vital Signs Vital signs: Vital Signs Temp 97.7 F 09/11/22 07:07 Pulse 97 09/11/22 07:07 Resp 18 09/11/22 07:07 BP 93/59 09/11/22 07:07 Pulse Ox 96 09/11/22 07:07 FiO2 Intake & Output 09/10/22 09/11/22 09/11/22 18:59 06:59 18:59 Output Total 3190 3580 Balance -3190 -3580 Output: Drainage 90 80 Back 90 80 Urine 3100 3500 Other: Voiding Method Indwelling Catheter Indwelling Catheter - Exam Mclaughlin/Catheters in place currently. Drain is present at bedside. Drain was removed at bedside. 80 mL serosanguineous output overnight. Drain sponge and Tegaderm for placed over dressing incision. Main surgical dressing appears to be clean, dry, intact at this time. Patient sensation is equal, symmetric, bilaterally intact throughout the upper extremities. Sensation is diminished in the bilateral lower extremities on exam. There is some minor limited range of motion left elbow in flexion extension secondary to pain/surgery. Patient does have full range of motion throughout the rest of upper extremities. There is limited range of motion in the bilateral lower extremities secondary to pain referred from the back. Patient is unable to actively dorsi/plantar flex bilateral ankles. Patient is able to actively flex and extend ankles and hips. Patient does have full passive range of motion in bilateral lower extremity is in exam Motor exam by lower extremity is unable performed secondary to weakness. Radial pulses are intact bilaterally. Cap refill under 3 seconds in digits of her extremities. Negative Homans bilaterally. Negative Asif bilaterally. - Labs CBC & Chem 7: 09/10/22 07:42 09/11/22 06:02 Labs: Abnormal Lab Results - Last 24 Hours (Table) 09/10/22 09/10/22 09/10/22 Range/Units 07:42 07:42 11:27 WBC 14.55 H (4.50-10.00) X 10*3/uL RBC 3.12 L (4.40-5.60) X 10*6/uL Hgb 8.4 L (13.0-17.0) g/dL Hct 27.7 L (39.6-50.0) % MCH 26.9 L (27.0-32.0) pg MCHC 30.3 L (32.0-37.0) g/dL RDW 14.9 H (11.5-14.5) % Immature Gran # 0.14 H (0.00-0.04) X 10*3/uL Neutrophils # 12.29 H (1.80-7.70) X 10*3/uL Monocytes # 1.02 H (0.20-1.00) X 10*3/uL Carbon Dioxide 29.6 H (20.0-27.5) mmol/L Anion Gap 6.40 L (10.00-18.00) mmol/L Creatinine (0.66-1.25) mg/dL POC Glucose (mg/dL) 132 H (70-110) mg/dL Calcium 7.5 L (8.7-10.3) mg/dL 09/10/22 09/10/22 09/10/22 Range/Units 12:32 16:35 20:49 WBC (4.50-10.00) X 10*3/uL RBC (4.40-5.60) X 10*6/uL Hgb (13.0-17.0) g/dL Hct (39.6-50.0) % MCH (27.0-32.0) pg MCHC (32.0-37.0) g/dL RDW (11.5-14.5) % Immature Gran # (0.00-0.04) X 10*3/uL Neutrophils # (1.80-7.70) X 10*3/uL Monocytes # (0.20-1.00) X 10*3/uL Carbon Dioxide (20.0-27.5) mmol/L Anion Gap (10.00-18.00) mmol/L Creatinine 0.52 L (0.66-1.25) mg/dL POC Glucose (mg/dL) 136 H 154 H (70-110) mg/dL Calcium (8.7-10.3) mg/dL 09/11/22 Range/Units 06:11 WBC (4.50-10.00) X 10*3/uL RBC (4.40-5.60) X 10*6/uL Hgb (13.0-17.0) g/dL Hct (39.6-50.0) % MCH (27.0-32.0) pg MCHC (32.0-37.0) g/dL RDW (11.5-14.5) % Immature Gran # (0.00-0.04) X 10*3/uL Neutrophils # (1.80-7.70) X 10*3/uL Monocytes # (0.20-1.00) X 10*3/uL Carbon Dioxide (20.0-27.5) mmol/L Anion Gap (10.00-18.00) mmol/L Creatinine (0.66-1.25) mg/dL POC Glucose (mg/dL) 125 H (70-110) mg/dL Calcium (8.7-10.3) mg/dL Microbiology - Last 24 Hours (Table) 09/02/22 16:01 Fungal Culture - Preliminary Elbow - Left Chel albicans 09/07/22 20:15 Gram Stain - Final Other - Other Wound Culture - Final 09/07/22 20:15 Gram Stain - Final Other - Other Wound Culture - Final 09/07/22 20:15 Anaerobic Culture - Preliminary Other - Other 09/07/22 20:15 Anaerobic Culture - Preliminary Other - Other Assessment and Plan Assessment: 1. . L2 fracture with L2-3 extension type injury, disc involvement, pending instability 2. Bilateral lower extremity paresis 3. s/p ffs at rehab 4. s/p L2-P decompression fusion - Postop day 4: Stabilization and decompression of L1-2 fracture with T11-L2 stabilization and decompression L1-2; Post-Op Day 9: Left elbow olecranon bursa I&D Plan: 1. L2 fracture with L2-3 extension type injury, disc involvement, pending instability; Bilateral lower extremity paresis; s/p ffs at rehab; s/p L2-P decompression fusion - surgery performed 09/07/2022 Stabilization and decompression of L1-2 fracture with T11-L2 stabilization and decompression L1-2. Patient at bedside this morning lying in semirecumbent position with Mclaughlin in place and draining in place. Drain was removed at bedside. 80 mL serosanguineous output overnight. Drain sponge placed over drain incision. Surgical dressing over spine was left in place at this time. We will continue to follow patient during his stay in hospital. PT/OT daily. Pain medication as needed. Encourage ambulation. Discharge to rehab likely Tuesday. 2. Appreciate medical, ID, wound care management 3. Pain management - [place]; gabapentin; Flexeril; Tylenol 4. DVT prophylaxis - heparin; SCDs 5. GI prophylaxis - Protonix; senna 6. PT/OT recs 7. Encourage incentive spirometer use Time with Patient: Less than 30
[2022-09-11] MEDS: SERTRALINE 100 MG TAB PO SCH (10:06)
[2022-09-11] MEDS: SACUBITRIL/VALSARTAN 97 MG-103 MG TABLET PO SCH ×2 (10:06→21:05)
[2022-09-11] MEDS: HEPARIN SODIUM,PORCINE/PF 5,000 UNIT/0.5 ML SYRINGE SQ SCH ×2 (10:06→21:05)
[2022-09-11 11:33] LABS: Glucose,Whole Blood 131 mg/dL (70-110)
[2022-09-11 16:42] LABS: Glucose,Whole Blood 133 mg/dL (70-110)
--- NOTE | 2022-09-11 18:57 | P.PN ---
Subjective I'm resuming the care of the patient today This is a pleasant 77 years old male with complex medical history, he was sent from [facility] for fever, tachycardia on 08/30. He has history of spinal fusion surgery about 3 weeks earlier with left skin lesion of the left elbow. Patient was admitted to the general medical floor, infectious disease team and orthopedic team evaluated the patient and will follow closely. Patient was fou nd to have left elbow bursitis with wound culture, MRSA status post bursectomy and I&D on 09/02. Further workup showing cardiomyopathy with ejection fraction of 20-25%. Also patient with history of L2-S1 spondylosis with severe spinal stenosis with lumbar radiculopathy of the left lower extremity with weakness and paresthesia status post L2 decompression and fusion. This time further workup showing L1 vertebral fracture yesterday patient was taken to OR again, for L1-2 Extension distraction injury, L2 vertebral body fracture with instability with LE weakness, paresis, and washout of his left AND BURSITIS. HE ALSO UNDERWENT LAMINECTOMY FOR evacuation of epidural abscess T11- L1, Open treatment of L1-2 fracture. Please refer to surgery for more details Today is postoperative day #0. Patient lying in bed does not look in distress he states that he has only mild lower back pain, no other pain anywhere else. Patient says that still has weakness in his legs and same paresthesia. He thin ks his left elbow bursitis is healing. He denies any other specific complaints. No chest pain or dyspnea. No abdominal pain vomiting or diarrhea. No urinary complaints. Patient says that this weakness and they both legs and paresthesia is the same with no improvement or worsening. Mclaughlin catheter in place. Vitals are stable. Patient denies any other symptoms like no chest pain dyspnea, no abdominal pain vomiting diarrhea or urinary complaints. WBCs 12.9 and hemoglobin 10.4 09/09/2022 Patient reports some improvement in his lower extremities especially his left le g however on examination he barely can move his foot little bit however patient states that this is improvement. Processes and looks the same in both lower extremities. Back pain is controlled. No other specific complaints by the patient. Left elbow area is also improving. Mclaughlin catheter in place. He remains on IV vancomycin WBCs 15,000 and hemoglobin down to 8 and sodium 131. Check labs in the morning 09/10/2022 Patient shows slight improvement today in his lower extremity, he states he can move both lower extremity better, he moves them very little from [id number] but he cannot lift them off the bed. Patient reports improvement in his paresthesia as well. No other new complaints. No chest pain or dyspnea. However patient has significant bilateral leg swelling and therefore we are going to give him a short course of IV Lasix This morning patient was feeling impending panic attack and requested Xanax one- time dose which is provided. His left elbow wound and infection is improving as well. His pain is controlled. Drain is in place. He remains on antibiotics per ID team and currently is on IV vancomycin. Wound culture is pending final results Prognosis remains guarded 09/11/2022 Patient looks clinically the same, he had only mild improvement in the movement of his lower extremities, he can move them only a few millimeters on either way on the site, he cannot elevate his legs from the bed and this is was the same since first I saw him actually slightly better yesterday and today. Paresthesia is less reported by the patient No significant back pain and left olecranon SURGICAL WOUND IS healing. Today the and daughter were at bedside, discussed the case with them as well as the treatment plan. All their questions were answered. Patient was ambulating before he had the surgeries. However he fell in the [facility] prior to this admission. Also discussed the other labs and imaging and treatment with them. I discussed the echo cardiogram EJECTION fraction of 2024%, this still looks new finding. Patient was on IV Lasix and he looks euvolemic today therefore we switch the dose and to 40 mg daily from tomorrow. Start beta ty or SWEETIE inhibitor as blood pressure is low normal. I will recheck lipid panel Also will consider cardiology evaluation as inpatient or outpatient. Discussed treatment plan with them and they verbalized understanding and acceptance Objective - Vital Signs Vital signs: Vital Signs Temp 97.7 F 09/11/22 07:07 Pulse 90 09/11/22 11:31 Resp 18 09/11/22 11:31 BP 101/66 09/11/22 09:12 Pulse Ox 97 09/11/22 11:21 FiO2 Intake & Output 09/10/22 09/11/22 09/11/22 18:59 06:59 18:59 Output Total 3190 3580 Balance -3190 -3580 Output: Drainage 90 80 Back 90 80 Urine 3100 3500 Other: Voiding Method Indwelling Catheter Indwelling Catheter Indwelling Catheter - Exam -GENERAL: The patient is alert and oriented x3, not in any acute distress. obese HEENT: Pupils are round and equally reacting to light. EOMI. No scleral icterus. No conjunctival pallor. Normocephalic, atraumatic. No pharyngeal erythema. No thyromegaly. CARDIOVASCULAR: S1 and S2 present. No murmurs, rubs, or gallops. PULMONARY: Chest is clear to auscultation, no wheezing or crackles. ABDOMEN: Soft, nontender, nondistended, normoactive bowel sounds. No palpable organomegaly. MUSCULOSKELETAL: No joint swelling or deformity. -EXTREMITIES: No cyanosis, clubbing, or pedal edema. Left elbow wounds disclosed was sutured in place and healing with no surrounding cellulitis and this is swollen --NEUROLOGICAL: Cranial nerves are grossly intact. Left lower extremity weakness with paresthesia. Bilateral lower extremity weakness, he can wiggle his toes. Perineal signs are absent -SKIN: No rashes. no petechiae. Ulcers of the left side - Labs CBC & Chem 7: 09/10/22 07:42 09/11/22 06:02 Labs: Abnormal Lab Results - Last 24 Hours (Table) 09/10/22 09/10/22 09/11/22 Range/Units 16:35 20:49 06:11 POC Glucose (mg/dL) 136 H 154 H 125 H (70-110) mg/dL 09/11/22 Range/Units 11:32 POC Glucose (mg/dL) 131 H (70-110) mg/dL Microbiology - Last 24 Hours (Table) 09/02/22 16:01 Fungal Culture - Preliminary Elbow - Left Chel albicans 09/07/22 20:15 Gram Stain - Final Other - Other Wound Culture - Final 09/07/22 20:15 Gram Stain - Final Other - Other Wound Culture - Final Assessment and Plan Assessment: -Left elbow olecranon bursitis status post bursectomy and I&D on 09/02. Wound culture growing MRSA -L2 vertebral body fracture with instability -LE weakness, and paresthesia secondary to above -epidural abscess T11-L1 -MRSA bacteremia -Bilateral leg edema -Cardiomyopathy with ejection fraction 20-25% -Nonhealing ulceration of the left thigh -Recent history of L2-S1 spondylolisthesis and severe spinal stenosis with lumbar radiculopathy of the left lower extremity with weakness and paresthesia status post L2 decompression and fusion -Hypertension -Diabetes mellitus -Chronic anemia -obesity with BMI of 31.7 Plan: Continue with antibiotics as per ID team, currently on IV vancomycin Orthopedic team consult including postoperative care Pain management Continue with diabetes medications and a glucose Wound care Change Lasix to 40 mg daily Check lipid panel Consults cardiology consult Labs and medication were reviewed.. Continue same treatment. Continue with symptomatic treatment. Resume home medication. Monitor labs and vitals. DVT and GI prophylaxis. Further recommendations as per clinical course of the patient DVT prophylaxis: Subcutaneous heparin GI Prophylaxis: Pepcid PT/OT: Pending Prognosis is guarded
[2022-09-11 20:58] LABS: Glucose,Whole Blood 141 mg/dL (70-110)
[2022-09-11] MEDS: HYDROcodone/APAP 10-325MG 1 EACH TAB PO PRN (21:05)
[2022-09-11] MEDS: ATORVASTATIN 20 MG TAB PO SCH (21:05)
--- NOTE | 2022-09-11 22:57 | P.PN ---
Subjective Progress Note Date: 09/10/22 Principal diagnosis: Left elbow infection and bacteremia Patient is a 77 year old male with multiple comorbidities has been sent to the hospital for evaluation of left elbow wound and drainage concerning for infection. Patient is status post left elbow bursectomy I&D completed on 09/02/2022, Patient was taken to the OR on 09/07/2022 patient was noticed to have epidural abscess T11-L1 and this patient was status post laminectomy any occlusion of the epidural abscess and also open treatment of L1-L2 fracture. On today's evaluation that is 09/10/2022, the patient continues to be afebrile , the patient is breathing comfortably on 2 L nasal cannula oxygen, the patient denies having any chest pain shortness of breath or cough pain to the left elbow is currently controlled and denies any worsening pain to lower back area, no diarrhea reported Objective - Vital Signs Vital signs: Vital Signs Temp 97.7 F 09/10/22 08:00 Pulse 80 09/10/22 12:24 Resp 16 09/10/22 08:00 BP 116/77 09/10/22 08:00 Pulse Ox 97 09/10/22 09:18 FiO2 Intake & Output 09/09/22 09/10/22 09/10/22 18:59 06:59 18:59 Intake Total 200 Output Total 950 220 820 Balance -750 -220 -820 Weight 97.522 kg Intake: Oral 200 Output: Drainage 220 20 Back 220 20 Urine 950 800 Other: Voiding Method Indwelling Catheter Indwelling Catheter Indwelling Catheter - Exam GENERAL DESCRIPTION: An elderly male lying in bed in no distress RESPIRATORY SYSTEM: Unlabored breathing , decreased breath sounds at bases HEART: S1 S2 regular rate and rhythm , ABDOMEN: Soft , no tenderness EXTREMITIES: Left elbow open wound with some slough tissue and surrounding swelling - Labs CBC & Chem 7: 09/10/22 07:42 09/11/22 06:02 Labs: Abnormal Lab Results - Last 24 Hours (Table) 09/10/22 09/10/22 09/10/22 Range/Units 07:42 07:42 11:27 WBC 14.55 H (4.50-10.00) X 10*3/uL RBC 3.12 L (4.40-5.60) X 10*6/uL Hgb 8.4 L (13.0-17.0) g/dL Hct 27.7 L (39.6-50.0) % MCH 26.9 L (27.0-32.0) pg MCHC 30.3 L (32.0-37.0) g/dL RDW 14.9 H (11.5-14.5) % Immature Gran # 0.14 H (0.00-0.04) X 10*3/uL Neutrophils # 12.29 H (1.80-7.70) X 10*3/uL Monocytes # 1.02 H (0.20-1.00) X 10*3/uL Carbon Dioxide 29.6 H (20.0-27.5) mmol/L Anion Gap 6.40 L (10.00-18.00) mmol/L POC Glucose (mg/dL) 132 H (70-110) mg/dL Calcium 7.5 L (8.7-10.3) mg/dL Microbiology - Last 24 Hours (Table) 09/07/22 20:15 Anaerobic Culture - Preliminary Other - Other 09/07/22 20:15 Anaerobic Culture - Preliminary Other - Other 09/07/22 20:15 Gram Stain - Preliminary Other - Other Wound Culture - Preliminary 09/07/22 20:15 Gram Stain - Preliminary Other - Other Wound Culture - Preliminary Assessment and Plan (1) Olecranon bursitis, left elbow Current Visit: Yes Status: Acute Code(s): M70.22 - OLECRANON BURSITIS, LEFT ELBOW SNOMED Code(s): 539986245527612 (2) MRSA bacteremia Current Visit: Yes Status: Acute Code(s): R78.81 - BACTEREMIA; B95.62 - METHICILLIN RESIS STAPH INFCT CAUSING DISEASES CL[facility]SD [facility] SNOMED Code(s): 71424754348372183 Plan: 1patient presented to hospital with sepsis since we did have a fever elevated white count has been complaining of pain and drainage from the left elbow area in this patient recently did have a trauma and nonhealing wound daily concern for possible olecranon bursitis and no need to cover for the gram-positive skin isaias to be the likely pathogen patient currently did have a negative UA chest x-ray was negative and the lumbosacral spine incision looks clean CT did not show any evidence of fluid collection suspicious for postoperative infection at that site, patient is status post I&D of the left elbow and bursectomy completed on 09/02/2022, those cultures are growing MRSA 2- patient did have a positive blood culture with MRSA and local cultures also growing MRSA likely the source of bacteremia, blood cultures has been be repeated on 09/01/2022 and they have been negative so far 3patient did have a acute L1 fracture on the CT being ordered by orthopedics and is status post lumbar spine surgery, patient also found to have T11-L1 epidural abscess status post drainage and the cultures currently pending 4patient to continue vancomycin , the patient creatinine is currently stable and continue supportive care
--- NOTE | 2022-09-11 22:59 | P.PN ---
Subjective Progress Note Date: 09/11/22 Principal diagnosis: Left elbow infection and bacteremia Patient is a 77 year old male with multiple comorbidities has been sent to the hospital for evaluation of left elbow wound and drainage concerning for infection. Patient is status post left elbow bursectomy I&D completed on 09/02/2022, Patient was taken to the OR on 09/07/2022 patient was noticed to have epidural abscess T11-L1 and this patient was status post laminectomy any occlusion of the epidural abscess and also open treatment of L1-L2 fracture. On today's evaluation that is 09/11/2022, the patient remains to be afebrile , the patient is breathing comfortably on 2 L nasal cannula oxygen, the patient denies having any chest pain shortness of breath or cough , the patient pain to the left elbow as well as lower back area is controlled with the current medication, patient denies having any nausea no vomiting no abdominal pain and no diarrhea reported Objective - Vital Signs Vital signs: Vital Signs Temp 97.7 F 09/11/22 07:07 Pulse 97 09/11/22 07:07 Resp 18 09/11/22 07:07 BP 93/59 09/11/22 07:07 Pulse Ox 96 09/11/22 07:07 FiO2 Intake & Output 09/10/22 09/11/22 09/11/22 18:59 06:59 18:59 Output Total 3190 3580 Balance -3190 -3580 Output: Drainage 90 80 Back 90 80 Urine 3100 3500 Other: Voiding Method Indwelling Catheter Indwelling Catheter - Exam GENERAL DESCRIPTION: An elderly male lying in bed in no distress RESPIRATORY SYSTEM: Unlabored breathing , decreased breath sounds at bases HEART: S1 S2 regular rate and rhythm , ABDOMEN: Soft , no tenderness EXTREMITIES: Left elbow with stitches intact swelling redness has resolved - Labs CBC & Chem 7: 09/10/22 07:42 09/11/22 06:02 Labs: Abnormal Lab Results - Last 24 Hours (Table) 09/10/22 09/10/22 09/10/22 Range/Units 07:42 07:42 11:27 WBC 14.55 H (4.50-10.00) X 10*3/uL RBC 3.12 L (4.40-5.60) X 10*6/uL Hgb 8.4 L (13.0-17.0) g/dL Hct 27.7 L (39.6-50.0) % MCH 26.9 L (27.0-32.0) pg MCHC 30.3 L (32.0-37.0) g/dL RDW 14.9 H (11.5-14.5) % Immature Gran # 0.14 H (0.00-0.04) X 10*3/uL Neutrophils # 12.29 H (1.80-7.70) X 10*3/uL Monocytes # 1.02 H (0.20-1.00) X 10*3/uL Carbon Dioxide 29.6 H (20.0-27.5) mmol/L Anion Gap 6.40 L (10.00-18.00) mmol/L Creatinine (0.66-1.25) mg/dL POC Glucose (mg/dL) 132 H (70-110) mg/dL Calcium 7.5 L (8.7-10.3) mg/dL 09/10/22 09/10/22 09/10/22 Range/Units 12:32 16:35 20:49 WBC (4.50-10.00) X 10*3/uL RBC (4.40-5.60) X 10*6/uL Hgb (13.0-17.0) g/dL Hct (39.6-50.0) % MCH (27.0-32.0) pg MCHC (32.0-37.0) g/dL RDW (11.5-14.5) % Immature Gran # (0.00-0.04) X 10*3/uL Neutrophils # (1.80-7.70) X 10*3/uL Monocytes # (0.20-1.00) X 10*3/uL Carbon Dioxide (20.0-27.5) mmol/L Anion Gap (10.00-18.00) mmol/L Creatinine 0.52 L (0.66-1.25) mg/dL POC Glucose (mg/dL) 136 H 154 H (70-110) mg/dL Calcium (8.7-10.3) mg/dL 09/11/22 Range/Units 06:11 WBC (4.50-10.00) X 10*3/uL RBC (4.40-5.60) X 10*6/uL Hgb (13.0-17.0) g/dL Hct (39.6-50.0) % MCH (27.0-32.0) pg MCHC (32.0-37.0) g/dL RDW (11.5-14.5) % Immature Gran # (0.00-0.04) X 10*3/uL Neutrophils # (1.80-7.70) X 10*3/uL Monocytes # (0.20-1.00) X 10*3/uL Carbon Dioxide (20.0-27.5) mmol/L Anion Gap (10.00-18.00) mmol/L Creatinine (0.66-1.25) mg/dL POC Glucose (mg/dL) 125 H (70-110) mg/dL Calcium (8.7-10.3) mg/dL Microbiology - Last 24 Hours (Table) 09/02/22 16:01 Fungal Culture - Preliminary Elbow - Left Chel albicans 09/07/22 20:15 Gram Stain - Final Other - Other Wound Culture - Final 09/07/22 20:15 Gram Stain - Final Other - Other Wound Culture - Final 09/07/22 20:15 Anaerobic Culture - Preliminary Other - Other 09/07/22 20:15 Anaerobic Culture - Preliminary Other - Other Assessment and Plan (1) Olecranon bursitis, left elbow Current Visit: Yes Status: Acute Code(s): M70.22 - OLECRANON BURSITIS, LEFT ELBOW SNOMED Code(s): 392897739872938 (2) MRSA bacteremia Current Visit: Yes Status: Acute Code(s): R78.81 - BACTEREMIA; B95.62 - METHICILLIN RESIS STAPH INFCT CAUSING DISEASES CLASSD [facility] SNOMED Code(s): 09295264215734044 Plan: 1patient presented to hospital with sepsis since we did have a fever elevated white count has been complaining of pain and drainage from the left elbow area in this patient recently did have a trauma and nonhealing wound daily concern for possible olecranon bursitis and no need to cover for the gram-positive skin isaias to be the likely pathogen patient currently did have a negative UA chest x-ray was negative and the lumbosacral spine incision looks clean CT did not show any evidence of fluid collection suspicious for postoperative infection at that site, patient is status post I&D of the left elbow and bursectomy completed on 09/02/2022, those cultures are growing MRSA 2- patient did have a positive blood culture with MRSA and local cultures also growing MRSA likely the source of bacteremia, blood cultures has been be repeated on 09/01/2022 and they have been negative so far 3patient did have a acute L1 fracture on the CT being ordered by orthopedics and is status post lumbar spine surgery, patient also found to have T11-L1 epidural abscess status post drainage and the cultures currently pending 4patient seemed to have shown clinical improvement and well continue vancomycin , PICC line will be ordered for Tuesday for outpatient IV antibiotics This was a telehealth visit family the bedside questions were answered Time with Patient: Less than 30
[2022-09-12] MEDS: GABAPENTIN 300 MG CAP PO SCH ×2 (06:11→17:54)
[2022-09-12] MEDS: SOTALOL 80 MG TAB PO SCH ×2 (06:11→17:54)
[2022-09-12] MEDS: CYCLOBENZAPRINE 5 MG TAB PO SCH ×2 (06:11→17:54)
[2022-09-12] MEDS: GLIMEPIRIDE 1 MG TAB PO SCH (06:11)
[2022-09-12] MEDS: PANTOPRAZOLE 40 MG TABLET PO SCH (06:11)
[2022-09-12 06:32] LABS: Glucose,Whole Blood 102 mg/dL (70-110)
[2022-09-12] MEDS: INSULIN ASPART (NovoLOG) 100 UNIT/ML VIAL SQ SCH ×4 (06:34→21:02)
[2022-09-12] MEDS: IPRATROPIUM 0.5 MG/2.5 ML NEBU INHALATION SCH ×4 (08:31→20:24)
[2022-09-12] MEDS: SYMBICORT 80-4.5 MCG INHALER INHALATION SCH ×2 (08:31→20:24)
[2022-09-12] MEDS: SACUBITRIL/VALSARTAN 97 MG-103 MG TABLET PO SCH ×2 (09:21→21:33)
[2022-09-12] MEDS: HEPARIN SODIUM,PORCINE/PF 5,000 UNIT/0.5 ML SYRINGE SQ SCH ×2 (09:21→21:33)
[2022-09-12] MEDS: SERTRALINE 100 MG TAB PO SCH (09:21)
[2022-09-12] MEDS: FUROSEMIDE 40 MG TAB PO SCH (09:21)
--- NOTE | 2022-09-12 09:59 | P.PN ---
Subjective Progress Note Date: 09/12/22 Principal diagnosis: 1. . L2 fracture with L2-3 extension type injury, disc involvement, pending instability 2. Bilateral lower extremity paresis 3. s/p ffs at rehab 4. s/p L2-P decompression fusion Patient was seen at bedside this morning lying in semirecumbent position. Patient says he is still having some low back pain at this time however, every day since surgery the pain has been getting a little better. Patient says he is still unable to move his lower extremities much at all. Patient says he is able move his upper extremities. Patient does have a Mclaughlin in place at this time. Patient denies any new changes. Patient denies chest pain, fever, shortness breath, nausea, vomiting, change in vision. Objective - Vital Signs Vital signs: Vital Signs Temp 97.6 F 09/12/22 07:26 Pulse 88 09/12/22 08:41 Resp 16 09/12/22 08:41 BP 99/63 09/12/22 07:26 Pulse Ox 97 09/12/22 08:32 FiO2 Intake & Output 09/11/22 09/12/22 09/12/22 18:59 06:59 18:59 Output Total 1999 900 Balance -2000 -900 Output: Urine 1999 900 Other: Voiding Method Indwelling Catheter Indwelling Catheter Indwelling Catheter - Exam Mclaughlin/Catheter in place currently. Main surgical dressing appears to be clean, dry, intact at this time. Patient sensation is equal, symmetric, bilaterally intact throughout the upper extremities. Sensation is diminished in the bilateral lower extremities on exam. There is some minor limited range of motion left elbow in flexion extension secondary to pain/surgery. Patient does have full range of motion throughout the rest of upper extremities. There is limited range of motion in the bilateral lower extremities secondary to pain referred from the back. Patient is unable to actively dorsi/plantar flex bilateral ankles. Patient is able to actively flex and extend ankles and hips. Patient does have full passive range of motion in bilateral lower extremity is in exam Motor exam by lower extremity is unable performed secondary to weakness. Radial pulses are intact bilaterally. Cap refill under 3 seconds in digits of her extremities. Negative Homans bilaterally. Negative Asif bilaterally. - Labs CBC & Chem 7: 09/10/22 07:42 09/11/22 06:02 Labs: Abnormal Lab Results - Last 24 Hours (Table) 04/22/23 04/22/23 04/22/23 Range/Units 11:32 16:40 20:57 POC Glucose (mg/dL) 131 H 133 H 141 H (70-110) mg/dL Assessment and Plan Assessment: 1. . L2 fracture with L2-3 extension type injury, disc involvement, pending instability 2. Bilateral lower extremity paresis 3. s/p ffs at rehab 4. s/p L2-P decompression fusion - Postop day 5: Stabilization and decompression of L1-2 fracture with T11-L2 stabilization and decompression L1-2; Post-Op Day 10: Left elbow olecranon bursa I&D Plan: 1. L2 fracture with L2-3 extension type injury, disc involvement, pending instability; Bilateral lower extremity paresis; s/p ffs at rehab; s/p L2-P decompression fusion - surgery performed 09/07/2022 Stabilization and decompression of L1-2 fracture with T11-L2 stabilization and decompression L1-2. Patient at bedside this morning lying in semirecumbent position with Mclaughlin in place and draining in place. Dressing appears to be intact this time. We will continue to follow patient during his stay in hospital. PT/OT daily. Pain medication as needed. Encourage ambulation. Discharge to rehab likely Tuesday. 2. Appreciate medical, ID, wound care management 3. Pain management - Pioche; gabapentin; Flexeril; Tylenol 4. DVT prophylaxis - heparin; SCDs 5. GI prophylaxis - Protonix; senna 6. PT/OT recs 7. Encourage incentive spirometer use Time with Patient: Less than 30
[2022-09-12 10:27] LABS: Basophils # (A) 0.03 X 10*3/uL (0.00-0.10); Basophils % (A) 0.2 %; Eosinophils # (A) 0.08 X 10*3/uL (0.04-0.35); Eosinophils % (A) 0.7 %; HCT 25.8 % (39.6-50.0); HGB 7.8 g/dL (13.0-17.0); Immature Grans, Automated 0.5 %; Lymphocytes # (A) 1.21 X 10*3/uL (0.90-5.00); MCH 26.5 pg (27.0-32.0); MCHC 30.2 g/dL (32.0-37.0); MCV 87.8 fL (80.0-97.0); Mean Platelet Volume 11.9 fL (9.5-12.2); Monocytes % (A) 8.3 %; NRBC Per 100 WBC 0 /100 WBCS (0.0-0.0); Neutrophils # (A) 9.72 X 10*3/uL (1.80-7.70); Neutrophils % (A) 80.3 %; Platelet Count 337 X 10*3/uL (140-440); RBC 2.94 X 10*6/uL (4.40-5.60); RDW 14.9 % (11.5-14.5)
[2022-09-12 10:30] LABS: BUN/Creat Ratio 23.67 Ratio (12.00-20.00); Blood Urea Nitrogen 14.2 mg/dL (9.0-27.0); Calcium 7.7 mg/dL (8.7-10.3); Carbon Dioxide 35.3 mmol/L (20.0-27.5); Chloride 93 mmol/L (96-109); Chol/HDL Ratio 3.44 Ratio; Glucose 94 mg/dL (70-110); LDL Cholesterol,Calculated 46.3 mg/dL (0.0-131.0); Non-African American GFR(CKD) 98.4 (60.0-200.0); Potassium 3.3 mmol/L (3.5-5.5); Sodium 137 mmol/L (135-145)
[2022-09-12] MEDS ORDERED: Potassium Replacement Protocol 1 EACH MISC MISCELLANE PRN ×2 (11:01→11:27)
[2022-09-12 11:37] LABS: Glucose,Whole Blood 98 mg/dL (70-110)
[2022-09-12] MEDS: VANCOMYCIN 1,250 MG in SODIUM CHLORIDE 0.9% 250 ML IVPB SCH (13:20)
[2022-09-12] MEDS: POTASSIUM CHLORIDE ER 20 MEQ TAB.ER PO SCH ×2 (13:21→13:23)
[2022-09-12 16:30] LABS: Glucose,Whole Blood 116 mg/dL (70-110)
--- NOTE | 2022-09-12 20:39 | P.PN ---
Subjective Progress Note Date: 09/12/22 Principal diagnosis: Left elbow infection and bacteremia Patient is a 77 year old male with multiple comorbidities has been sent to the hospital for evaluation of left elbow wound and drainage concerning for infection. Patient is status post left elbow bursectomy I&D completed on 09/02/2022, Patient was taken to the OR on 09/07/2022 patient was noticed to have epidural abscess T11-L1 and this patient was status post laminectomy any occlusion of the epidural abscess and also open treatment of L1-L2 fracture. On today's evaluation that is 09/12/2022, the patient continues to be afebrile , the patient is breathing comfortably on 2 L nasal cannula oxygen, the patient denies chest pain shortness of breath or cough , the patient pain to the left elbow as well as lower back area is controlled, patient denies having any nausea no vomiting no abdominal pain and no diarrhea reported Objective - Vital Signs Vital signs: Vital Signs Temp 98.0 F 09/12/22 03:49 Pulse 80 09/12/22 03:49 Resp 18 09/12/22 03:49 BP 106/71 09/12/22 03:49 Pulse Ox 98 09/12/22 03:49 FiO2 Intake & Output 09/11/22 09/12/22 09/12/22 18:59 06:59 18:59 Output Total 1999 900 Balance -1999 Output: Urine 1999 900 Other: Voiding Method Indwelling Catheter Indwelling Catheter - Exam GENERAL DESCRIPTION: An elderly male lying in bed in no distress RESPIRATORY SYSTEM: Unlabored breathing , decreased breath sounds at bases HEART: S1 S2 regular rate and rhythm , ABDOMEN: Soft , no tenderness EXTREMITIES: Left elbow with stitches intact swelling redness has resolved - Labs CBC & Chem 7: 09/12/22 06:24 09/12/22 06:24 Labs: Abnormal Lab Results - Last 24 Hours (Table) 09/11/22 09/11/22 09/11/22 Range/Units 11:32 16:40 20:57 POC Glucose (mg/dL) 131 H 133 H 141 H (70-110) mg/dL Assessment and Plan (1) Olecranon bursitis, left elbow Current Visit: Yes Status: Acute Code(s): M70.22 - OLECRANON BURSITIS, LEFT ELBOW SNOMED Code(s): 390834270849203 (2) MRSA bacteremia Current Visit: Yes Status: Acute Code(s): R78.81 - BACTEREMIA; B95.62 - METHICILLIN RESIS STAPH INFCT CAUSING DISEASES CLASSD ELSWHR SNOMED Code(s): 36645673567953635 Plan: 1patient presented to hospital with sepsis since we did have a fever elevated white count has been complaining of pain and drainage from the left elbow area in this patient recently did have a trauma and nonhealing wound daily concern for possible olecranon bursitis and no need to cover for the gram-positive skin isaias to be the likely pathogen patient currently did have a negative UA chest x-ray was negative and the lumbosacral spine incision looks clean CT did not show any evidence of fluid collection suspicious for postoperative infection at that site, patient is status post I&D of the left elbow and bursectomy completed on 09/02/2022, those cultures are growing MRSA 2- patient did have a positive blood culture with MRSA and local cultures also growing MRSA likely the source of bacteremia, blood cultures has been be repeated on 09/01/2022 and they have been negative so far 3patient did have a acute L1 fracture on the CT being ordered by orthopedics and is status post lumbar spine surgery, patient also found to have T11-L1 epidural abscess status post drainage and the cultures currently pending 4patient seemed to have shown clinical improvement and well continue vancomycin , patient noticed to have significant induration at the peripheral IV site which will be discontinued discussed with the patient notes, PICC line has been ordered for Tuesday for outpatient IV antibiotics This was a telehealth visit
[2022-09-12 20:53] LABS: Glucose,Whole Blood 116 mg/dL (70-110)
[2022-09-12] MEDS: HYDROcodone/APAP 10-325MG 1 EACH TAB PO PRN (21:32)
[2022-09-12] MEDS: ATORVASTATIN 20 MG TAB PO SCH (21:33)
--- NOTE | 2022-09-12 21:45 | P.PN ---
Subjective I'm resuming the care of the patient today This is a pleasant 77 years old male with complex medical history, he was sent from [facility] for fever, tachycardia on 08/30. He has history of spinal fusion surgery about 3 weeks earlier with left skin lesion of the left elbow. Patient was admitted to the general medical floor, infectious disease team and orthopedic team evaluated the patient and will follow closely. Patient was fou nd to have left elbow bursitis with wound culture, MRSA status post bursectomy and I&D on 09/02. Further workup showing cardiomyopathy with ejection fraction of 20-25%. Also patient with history of L2-S1 spondylosis with severe spinal stenosis with lumbar radiculopathy of the left lower extremity with weakness and paresthesia status post L2 decompression and fusion. This time further workup showing L1 vertebral fracture yesterday patient was taken to OR again, for L1-2 Extension distraction injury, L2 vertebral body fracture with instability with LE weakness, paresis, and washout of his left AND BURSITIS. HE ALSO UNDERWENT LAMINECTOMY FOR evacuation of epidural abscess T11- L1, Open treatment of L1-2 fracture. Please refer to surgery for more details Today is postoperative day #0. Patient lying in bed does not look in distress he states that he has only mild lower back pain, no other pain anywhere else. Patient says that still has weakness in his legs and same paresthesia. He thin ks his left elbow bursitis is healing. He denies any other specific complaints. No chest pain or dyspnea. No abdominal pain vomiting or diarrhea. No urinary complaints. Patient says that this weakness and they both legs and paresthesia is the same with no improvement or worsening. Mclaughlin catheter in place. Vitals are stable. Patient denies any other symptoms like no chest pain dyspnea, no abdominal pain vomiting diarrhea or urinary complaints. WBCs 12.9 and hemoglobin 10.4 09/09/2022 Patient reports some improvement in his lower extremities especially his left le g however on examination he barely can move his foot little bit however patient states that this is improvement. Processes and looks the same in both lower extremities. Back pain is controlled. No other specific complaints by the patient. Left elbow area is also improving. Mclaughlin catheter in place. He remains on IV vancomycin WBCs 15,000 and hemoglobin down to 8 and sodium 131. Check labs in the morning 09/10/2022 Patient shows slight improvement today in his lower extremity, he states he can move both lower extremity better, he moves them very little from [id number] but he cannot lift them off the bed. Patient reports improvement in his paresthesia as well. No other new complaints. No chest pain or dyspnea. However patient has significant bilateral leg swelling and therefore we are going to give him a short course of IV Lasix This morning patient was feeling impending panic attack and requested Xanax one- time dose which is provided. His left elbow wound and infection is improving as well. His pain is controlled. Drain is in place. He remains on antibiotics per ID team and currently is on IV vancomycin. Wound culture is pending final results Prognosis remains guarded 09/11/2022 Patient looks clinically the same, he had only mild improvement in the movement of his lower extremities, he can move them only a few millimeters on either way on the site, he cannot elevate his legs from the bed and this is was the same since first I saw him actually slightly better yesterday and today. Paresthesia is less reported by the patient No significant back pain and left olecranon SURGICAL WOUND IS healing. Today the and daughter were at bedside, discussed the case with them as well as the treatment plan. All their questions were answered. Patient was ambulating before he had the surgeries. However he fell in the [facility] prior to this admission. Also discussed the other labs and imaging and treatment with them. I discussed the echo cardiogram EJECTION fraction of 2024%, this still looks new finding. Patient was on IV Lasix and he looks euvolemic today therefore we switch the dose and to 40 mg daily from tomorrow. Start beta ty or SWEETIE inhibitor as blood pressure is low normal. I will recheck lipid panel Also will consider cardiology evaluation as inpatient or outpatient. Discussed treatment plan with them and they verbalized understanding and acceptance 09/12/2022 Patient clinically looks the same as yesterday, still have severe weakness in his lower extremities and persistent numbness, he barely can move his both lower extremity off the plate or on either side. Mclaughlin catheter in place. He remains on IV vancomycin per ID team and his going to need IV antibiotics and PICC line placement upon discharge per ID team recommendation. Orthopedic team also on the case. Discussed with the patient daughter Mely after patient gave verbal consent and discussed the case with her and all her questions answered to her satisfaction. I discussed the case with him regarding his cardiomyopathy he told me he follow- up with [facility] Dr. dutton at [place], last saw him 3 months ago. I offered to call cardiology consult for him in the hospital but he declined, he does not want to see [facility] here in the hospital Objective - Vital Signs Vital signs: Vital Signs Temp 97.6 F 09/12/22 07:26 Pulse 88 09/12/22 11:25 Resp 16 09/12/22 11:25 BP 99/63 09/12/22 07:26 Pulse Ox 97 09/12/22 08:32 FiO2 Intake & Output 09/11/22 09/12/22 09/12/22 18:59 06:59 18:59 Output Total 1999 Balance -1999 Output: Urine 1999 Other: Voiding Method Indwelling Catheter Indwelling Catheter Indwelling Catheter - Exam -GENERAL: The patient is alert and oriented x3, not in any acute distress. obese HEENT: Pupils are round and equally reacting to light. EOMI. No scleral icterus. No conjunctival pallor. Normocephalic, atraumatic. No pharyngeal erythema. No thyromegaly. CARDIOVASCULAR: S1 and S2 present. No murmurs, rubs, or gallops. PULMONARY: Chest is clear to auscultation, no wheezing or crackles. ABDOMEN: Soft, nontender, nondistended, normoactive bowel sounds. No palpable organomegaly. MUSCULOSKELETAL: No joint swelling or deformity. -EXTREMITIES: No cyanosis, clubbing, or pedal edema. Left elbow wounds disclosed was sutured in place and healing with no surrounding cellulitis and this is swollen --NEUROLOGICAL: Cranial nerves are grossly intact. Left lower extremity weakness with paresthesia. Bilateral lower extremity weakness, he can wiggle his toes. Perineal signs are absent -SKIN: No rashes. no petechiae. Ulcers of the left side - Labs CBC & Chem 7: 09/12/22 06:24 09/12/22 06:24 Labs: Abnormal Lab Results - Last 24 Hours (Table) 09/11/22 09/11/22 09/12/22 Range/Units 16:40 20:57 06:24 WBC (4.50-10.00) X 10*3/uL RBC (4.40-5.60) X 10*6/uL Hgb (13.0-17.0) g/dL Hct (39.6-50.0) % MCH (27.0-32.0) pg MCHC (32.0-37.0) g/dL RDW (11.5-14.5) % Immature Gran # (0.00-0.04) X 10*3/uL Neutrophils # (1.80-7.70) X 10*3/uL Potassium (3.5-5.5) mmol/L Chloride (96-109) mmol/L Carbon Dioxide (20.0-27.5) mmol/L Anion Gap (10.00-18.00) mmol/L BUN/Creatinine Ratio (12.00-20.00) Ratio POC Glucose (mg/dL) 133 H 141 H (70-110) mg/dL Calcium (8.7-10.3) mg/dL HDL Cholesterol (40.00-60.00) mg/dL Procalcitonin 0.16 H (0.02-0.09) ng/mL 09/12/22 09/12/22 Range/Units 06:24 06:24 WBC 12.10 H (4.50-10.00) X 10*3/uL RBC 2.94 L (4.40-5.60) X 10*6/uL Hgb 7.8 L (13.0-17.0) g/dL Hct 25.8 L (39.6-50.0) % MCH 26.5 L (27.0-32.0) pg MCHC 30.2 L (32.0-37.0) g/dL RDW 14.9 H (11.5-14.5) % Immature Gran # 0.06 H (0.00-0.04) X 10*3/uL Neutrophils # 9.72 H (1.80-7.70) X 10*3/uL Potassium 3.3 L (3.5-5.5) mmol/L Chloride 93 L (96-109) mmol/L Carbon Dioxide 35.3 H (20.0-27.5) mmol/L Anion Gap 8.70 L (10.00-18.00) mmol/L BUN/Creatinine Ratio 23.67 H (12.00-20.00) Ratio POC Glucose (mg/dL) (70-110) mg/dL Calcium 7.7 L (8.7-10.3) mg/dL HDL Cholesterol 28.70 L (40.00-60.00) mg/dL Procalcitonin (0.02-0.09) ng/mL Assessment and Plan Assessment: -Left elbow olecranon bursitis status post bursectomy and I&D on 09/02. Wound culture growing MRSA -L2 vertebral body fracture with instability -LE weakness, and paresthesia secondary to above -epidural abscess T11-L1 -MRSA bacteremia -Bilateral leg edema -Cardiomyopathy with ejection fraction 20-25% -Nonhealing ulceration of the left thigh -Recent history of L2-S1 spondylolisthesis and severe spinal stenosis with lumbar radiculopathy of the left lower extremity with weakness and paresthesia status post L2 decompression and fusion -Hypertension -Diabetes mellitus -Chronic anemia -obesity with BMI of 31.7 Plan: Continue with antibiotics as per ID team, currently on IV vancomycin Orthopedic team consult including postoperative care Pain management Continue with diabetes medications and a glucose Wound care Change Lasix to 40 mg daily Check lipid panel Consults cardiology consult Labs and medication were reviewed.. Continue same treatment. Continue with symptomatic treatment. Resume home medication. Monitor labs and vitals. DVT and GI prophylaxis. Further recommendations as per clinical course of the patient DVT prophylaxis: Subcutaneous heparin GI Prophylaxis: Pepcid PT/OT: Pending Prognosis is guarded
[2022-09-13] MEDS: VANCOMYCIN 1,250 MG in SODIUM CHLORIDE 0.9% 250 ML IVPB SCH (06:31)
[2022-09-13] MEDS: HYDROcodone/APAP 10-325MG 1 EACH TAB PO PRN (06:31)
[2022-09-13] MEDS: CYCLOBENZAPRINE 5 MG TAB PO SCH (06:32)
[2022-09-13] MEDS: SOTALOL 80 MG TAB PO SCH (06:32)
[2022-09-13] MEDS: GLIMEPIRIDE 1 MG TAB PO SCH (06:32)
[2022-09-13] MEDS: GABAPENTIN 300 MG CAP PO SCH (06:32)
[2022-09-13] MEDS: PANTOPRAZOLE 40 MG TABLET PO SCH (06:32)
[2022-09-13 06:37] LABS: Glucose,Whole Blood 114 mg/dL (70-110)
[2022-09-13] MEDS: INSULIN ASPART (NovoLOG) 100 UNIT/ML VIAL SQ SCH ×2 (06:37→13:36)
[2022-09-13] MEDS: HEPARIN SODIUM,PORCINE/PF 5,000 UNIT/0.5 ML SYRINGE SQ SCH (08:00)
[2022-09-13] MEDS: FUROSEMIDE 40 MG TAB PO SCH (08:00)
[2022-09-13] MEDS: SACUBITRIL/VALSARTAN 97 MG-103 MG TABLET PO SCH (08:01)
[2022-09-13] MEDS: SERTRALINE 100 MG TAB PO SCH (08:03)
[2022-09-13 09:03] LABS: Basophils # (A) 0.03 X 10*3/uL (0.00-0.10); Basophils % (A) 0.3 %; Eosinophils # (A) 0.07 X 10*3/uL (0.04-0.35); Eosinophils % (A) 0.6 %; HCT 26.3 % (39.6-50.0); HGB 7.8 g/dL (13.0-17.0); Immature Grans, Automated 0.5 %; Lymphocytes # (A) 0.96 X 10*3/uL (0.90-5.00); Lymphocytes % (A) 8.7 %; MCH 25.9 pg (27.0-32.0); MCHC 29.7 g/dL (32.0-37.0); MCV 87.4 fL (80.0-97.0); Mean Platelet Volume 11.2 fL (9.5-12.2); Monocytes % (A) 9.1 %; NRBC Per 100 WBC 0 /100 WBCS (0.0-0.0); Neutrophils # (A) 8.86 X 10*3/uL (1.80-7.70); Neutrophils % (A) 80.8 %; Platelet Count 335 X 10*3/uL (140-440); RBC 3.01 X 10*6/uL (4.40-5.60); RDW 14.8 % (11.5-14.5); WBC 10.98 X 10*3/uL (4.50-10.00)
[2022-09-13] MEDS: IPRATROPIUM 0.5 MG/2.5 ML NEBU INHALATION SCH ×2 (09:19→12:45)
[2022-09-13] MEDS: SYMBICORT 80-4.5 MCG INHALER INHALATION SCH (09:19)
--- NOTE | 2022-09-13 09:35 | P.PN ---
Subjective Progress Note Date: 09/13/22 Principal diagnosis: Left elbow septic olecranon bursitis Sepsis History of recent back surgery: L2-Pelvis decompression and fusion Bilateral lower extremity paresis and a fracture at L2 s/p L2-P decompression and fusion Patient seen and examined this morning. Patient is resting comfortably in bed. No acute events overnight. Surgical dressing to the lumbar region is clean dry and intact. Surgical incision to the left elbow is well approximated and healing well, sutures have been removed. Area cleaned with rubbing alcohol and cool water. Elevated left elbow on pillow to take direct pressure off the site. Patient continues to be able to slightly move BLE with much concentration. Mclaughlin catheter is present and patent. Encouraged patient to continue with bed exercises and to work with PT/OT today. Patient has been afebrile, denies na usea/vomiting, or chest pain. Objective - Vital Signs Vital signs: Vital Signs Temp 97.4 F L 09/13/22 07:08 Pulse 74 09/13/22 07:08 Resp 18 09/13/22 07:08 BP 128/78 09/13/22 07:08 Pulse Ox 98 09/13/22 07:08 FiO2 Intake & Output 09/12/22 09/13/22 09/13/22 18:59 06:59 18:59 Output Total 600 1500 Balance -600 -1500 Output: Urine 600 1500 Other: Voiding Method Indwelling Catheter Indwelling Catheter # Bowel Movements 1 - Exam Physical Examination General: The patient is awake and alert, in no acute distress Skin: Skin is warm and dry with no obvious rashes, large blister over left hip from a liquid burn. Surgical incision to left elbow, sutures removed. Surgical incision into the lumbar region, dressing is clean dry and intact. Eye: Pupils are equal, round and reactive to light, extra-ocular movements are intact; there is normal conjunctiva bilaterally. Neck: The neck is supple, there is no tenderness and ROM intact. Cardiovascular: There is a regular rate and rhythm. No murmur, rub or gallop is appreciated. Respiratory: Lungs are clear to auscultation, respirations are non-labored, breath sounds are equal. Gastrointestinal: Soft, non-distended, non-tender abdomen. Back: There is moderate tenderness to palpation in the midline lumbar region. There is no obvious deformity . Musculoskeletal: ROM limited secondary to pain and stiffness from surgical pr ocedure. Muscle strength in all major muscle groups of bilateral upper extremities 4/5, right lower extremity 2/5, left lower extremity 3/5 Neurological: CN 2-12 intact. There are no obvious motor or sensory deficits. Movement and coordination equal and intact. Sensory exam to light touch intact C 5-T1 and intact from L2-S1. Reflexes 2/4 in bilateral upper and 1/4 in lower extremities. Negative Hoffmans, babinski, and clonus signs. Psychiatric: Cooperative, appropriate mood & affect, normal judgment. - Labs CBC & Chem 7: 09/13/22 05:44 09/12/22 06:24 Labs: Abnormal Lab Results - Last 24 Hours (Table) 09/12/22 09/12/22 09/12/22 Range/Units 06:24 06:24 06:24 WBC 12.10 H (4.50-10.00) X 10*3/uL RBC 2.94 L (4.40-5.60) X 10*6/uL Hgb 7.8 L (13.0-17.0) g/dL Hct 25.8 L (39.6-50.0) % MCH 26.5 L (27.0-32.0) pg MCHC 30.2 L (32.0-37.0) g/dL RDW 14.9 H (11.5-14.5) % Immature Gran # 0.06 H (0.00-0.04) X 10*3/uL Neutrophils # 9.72 H (1.80-7.70) X 10*3/uL Potassium 3.3 L (3.5-5.5) mmol/L Chloride 93 L (96-109) mmol/L Carbon Dioxide 35.3 H (20.0-27.5) mmol/L Anion Gap 8.70 L (10.00-18.00) mmol/L BUN/Creatinine Ratio 23.67 H (12.00-20.00) Ratio POC Glucose (mg/dL) (70-110) mg/dL Calcium 7.7 L (8.7-10.3) mg/dL HDL Cholesterol 28.70 L (40.00-60.00) mg/dL Procalcitonin 0.16 H (0.02-0.09) ng/mL 09/12/22 09/12/2209/13/23 Range/Units 16:28 20:52 06:35 WBC (4.50-10.00) X 10*3/uL RBC (4.40-5.60) X 10*6/uL Hgb (13.0-17.0) g/dL Hct (39.6-50.0) % MCH (27.0-32.0) pg MCHC (32.0-37.0) g/dL RDW (11.5-14.5) % Immature Gran # (0.00-0.04) X 10*3/uL Neutrophils # (1.80-7.70) X 10*3/uL Potassium (3.5-5.5) mmol/L Chloride (96-109) mmol/L Carbon Dioxide (20.0-27.5) mmol/L Anion Gap (10.00-18.00) mmol/L BUN/Creatinine Ratio (12.00-20.00) Ratio POC Glucose (mg/dL) 116 H 116 H 114 H (70-110) mg/dL Calcium (8.7-10.3) mg/dL HDL Cholesterol (40.00-60.00) mg/dL Procalcitonin (0.02-0.09) ng/mL Microbiology - Last 24 Hours (Table) 09/07/22 20:15 Anaerobic Culture - Final Other - Other 09/07/22 20:15 Anaerobic Culture - Final Other - Other Assessment and Plan Assessment: 1. Postop day 6: Stabilization and decompression of L1-2 fracture with T11-L2 stabilization and decompression L1-2; Post-Op Day 11: Left elbow olecranon bursa I&D 2. L2 fracture with L2-3 extension type injury, disc involvement, pending instability 3. Bilateral lower extremity paresis 4. s/p ffs at rehab 5. s/p L2-P decompression fusion 6. Complex medical patient Plan: Appreciate consult and team management Maintain Mclaughlin catheter at this time. Keep surgical dressing clean and dry, may change lumbar dressing as needed. Continue with pain management Daily PT/OT DVT prophylaxis, continue current medication Internal medicine recommendations appreciated -Dispo: Patient is cleared from orthopedic standpoint for discharge. No further recommendations. Our services will be signing off at this time. Patient may follow up in Dr. Curry's office in 1 week. Please feel free to reach out with any questions or concerns. *I reviewed and discussed this case with my attending Dr. Curry, whom has reviewed this chart and films and is in agreement with assessment and plan of care as outlined above. I have personally seen and examined the patient, performed the documentation and the assessment and plan as written. Number of minutes spent on the visit: 20m.
[2022-09-13 11:22] LABS: Glucose,Whole Blood 76 mg/dL (70-110)
[2022-09-13 11:28] LABS: Anion Gap 5.7 mmol/L (10.00-18.00); Blood Urea Nitrogen 16.2 mg/dL (9.0-27.0); Calcium 8.2 mg/dL (8.7-10.3); Carbon Dioxide 36.3 mmol/L (20.0-27.5); Non-African American GFR(CKD) 98.4 (60.0-200.0)
--- NOTE | 2022-09-13 11:30 | IR ---
PICC LINE PLACEMENT: HISTORY: Infection requiring long-term antibiotic therapy PROCEDURE: Ultrasound and fluoroscopic guidance of PICC line placement. COMPLICATIONS: None ANESTHESIA: 1. 1% Lidocaine locally. FINDINGS/TECHNIQUE: The procedure was explained to the patient. The risks, complications, benefits and alternatives were discussed and any questions were answered. Informed consent was obtained. The patient was placed supine on the fluoroscopic table and prepped and draped in the usual sterile fash ion. Utilizing a 21 gauge needle and sonographic and fluoroscopic guidance, access in the right bas ilic vein was achieved and there is placement of a 0.018 guidewire. The vein is patent. A 4-F sheat h was placed over the guidewire. The guidewire and dilator were removed and a 4-F. PICC line was pool emelia through the sheath with the tip at the level of the SVC. The sheath was removed, the catheter wa s flushed and sutured into position. The patient was stable throughout the procedure and remained st able upon discharge from the Department of Radiology. The vein puncture was patent under ultrasound. A de leon scale image was obtained to document patency of the vein punctured. All elements of the maximal barrier technique were utilized. FLUOROSCOPY TIME: DAP 0.0263Gy cm2 IMPRESSION: Successful PICC line placement under ultrasound and fluoroscopic guidance.
--- NOTE | 2022-09-13 12:08 | P.PN ---
Subjective Progress Note Date: 09/13/22 Principal diagnosis: Left elbow infection and bacteremia Patient is a 77 year old male with multiple comorbidities has been sent to the hospital for evaluation of left elbow wound and drainage concerning for infection. Patient is status post left elbow bursectomy I&D completed on 09/02/2022, Patient was taken to the OR on 09/07/2022 patient was noticed to have epidural abscess T11-L1 and this patient was status post laminectomy any occlusion of the epidural abscess and also open treatment of L1-L2 fracture. On today's evaluation that is 09/13/2022, the patient remains to be afebrile , the patient is breathing comfortably on 2 L nasal cannula oxygen, the patient slightly sleepy today and did not answer any question, no vomiting diarrhea or any other changes reported by the nursing staff Objective - Vital Signs Vital signs: Vital Signs Temp 97.4 F L 09/13/22 07:08 Pulse 80 09/13/22 09:31 Resp 18 09/13/22 07:08 BP 128/78 09/13/22 07:08 Pulse Ox 93 L 09/13/22 09:20 FiO2 Intake & Output 09/12/22 09/13/22 09/13/22 18:59 06:59 18:59 Output Total 600 1500 Balance -600 -1500 Output: Urine 600 1500 Other: Voiding Method Indwelling Catheter Indwelling Catheter Indwelling Catheter # Bowel Movements 1 - Exam GENERAL DESCRIPTION: An elderly male lying in bed in no distress RESPIRATORY SYSTEM: Unlabored breathing , decreased breath sounds at bases HEART: S1 S2 regular rate and rhythm , ABDOMEN: Soft , no tenderness EXTREMITIES: Left elbow with stitches intact swelling redness has resolved - Labs CBC & Chem 7: 09/13/22 05:44 09/13/22 05:44 Labs: Abnormal Lab Results - Last 24 Hours (Table) 09/12/22 09/12/22 09/13/22 Range/Units 16:28 20:52 05:44 WBC 10.98 H (4.50-10.00) X 10*3/uL RBC 3.01 L (4.40-5.60) X 10*6/uL Hgb 7.8 L (13.0-17.0) g/dL Hct 26.3 L (39.6-50.0) % MCH 25.9 L (27.0-32.0) pg MCHC 29.7 L (32.0-37.0) g/dL RDW 14.8 H (11.5-14.5) % Immature Gran # 0.06 H (0.00-0.04) X 10*3/uL Neutrophils # 8.86 H (1.80-7.70) X 10*3/uL Chloride (96-109) mmol/L Carbon Dioxide (20.0-27.5) mmol/L Anion Gap (10.00-18.00) mmol/L BUN/Creatinine Ratio (12.00-20.00) Ratio POC Glucose (mg/dL) 116 H 116 H (70-110) mg/dL Calcium (8.7-10.3) mg/dL 09/13/22 09/13/22 Range/Units 05:44 06:35 WBC (4.50-10.00) X 10*3/uL RBC (4.40-5.60) X 10*6/uL Hgb (13.0-17.0) g/dL Hct (39.6-50.0) % MCH (27.0-32.0) pg MCHC (32.0-37.0) g/dL RDW (11.5-14.5) % Immature Gran # (0.00-0.04) X 10*3/uL Neutrophils # (1.80-7.70) X 10*3/uL Chloride 95 L (96-109) mmol/L Carbon Dioxide 36.3 H (20.0-27.5) mmol/L Anion Gap 5.70 L (10.00-18.00) mmol/L BUN/Creatinine Ratio 27.00 H (12.00-20.00) Ratio POC Glucose (mg/dL) 114 H (70-110) mg/dL Calcium 8.2 L (8.7-10.3) mg/dL Microbiology - Last 24 Hours (Table) 09/02/22 16:01 Gram Stain - Final Elbow - Left Wound Culture - Final Methicillin resist S. aureus 09/07/22 20:15 Anaerobic Culture - Final Other - Other 09/07/22 20:15 Anaerobic Culture - Final Other - Other Assessment and Plan (1) Olecranon bursitis, left elbow Current Visit: Yes Status: Acute Code(s): M70.22 - OLECRANON BURSITIS, LEFT ELBOW SNOMED Code(s): 334033836118808 (2) MRSA bacteremia Current Visit: Yes Status: Acute Code(s): R78.81 - BACTEREMIA; B95.62 - METHICILLIN RESIS STAPH INFCT CAUSING DISEASES CLASSD ELSR SNOMED Code(s): 21702251122039646 Plan: 1patient presented to hospital with sepsis since we did have a fever elevated white count has been complaining of pain and drainage from the left elbow area in this patient recently did have a trauma and nonhealing wound daily concern for possible olecranon bursitis and no need to cover for the gram-positive skin isaias to be the likely pathogen patient currently did have a negative UA chest x-ray was negative and the lumbosacral spine incision looks clean CT did not show any evidence of fluid collection suspicious for postoperative infection at that site, patient is status post I&D of the left elbow and bursectomy completed on 09/02/2022, those cultures are growing MRSA 2- patient did have a positive blood culture with MRSA and local cultures also growing MRSA likely the source of bacteremia, blood cultures has been be repeated on 09/01/2022 and they have been negative so far 3patient did have a acute L1 fracture on the CT being ordered by orthopedics and is status post lumbar spine surgery, patient also found to have T11-L1 epidural abscess status post drainage and the cultures so far negative 4patient seemed to have shown clinical improvement and well continue vancomycin , plan is to get a PICC line and plan for at least 6 weeks of antibiotic therapy and close patient follow-up Time with Patient: Less than 30
--- NOTE | 2022-09-13 14:21 | XR ---
EXAMINATION TYPE: XR chest 1V DATE OF EXAM: 09/13/2022 CLINICAL HISTORY: PICC line placement. TECHNIQUE: Single AP portable upright view of the chest is obtained. COMPARISON: Chest x-ray from 6 days earlier FINDINGS: New right-sided PICC line terminating near the brachiocephalic confluence. No pneumothorax is evident. Persistent cardiomegaly with dual lead pacemaker/defibrillator. Low lung volumes and chr onic painful change with patchy bibasilar opacities favoring atelectatic change. Advanced degenerativ e change both shoulders worse in right shoulder. Surgical change lumbar spine partially imaged. New o verlying vertical dyllan are noted. IMPRESSION: As above.
--- NOTE | 2022-09-13 14:31 | P.DS ---
Providers Date of admission: 08/30/22 11:29 Attending physician: Marleny Knox Consults: 08/30/22 11:29 Consult Physician Routine Consulting Provider: Abdi Curry Consult Reason/Comments: recent spinal surgery Do you want consulting provider notified?: Yes 08/30/22 13:16 Consult Physician Routine Consulting Provider: La Nena Carney Consult Reason/Comments: Left elbow abcess Do you want consulting provider notified?: Yes Primary care physician: Renate Ardon DO Hospital Course: Final Diagnosis -Left elbow olecranon bursitis status post bursectomy and I&D on 09/02. Wound culture growing MRSA -L2 vertebral body fracture with instability -LE weakness, and paresthesia secondary to above -Epidural abscess T11-L1 -MRSA bacteremia -Bilateral leg edema -Cardiomyopathy with ejection fraction 20-25% -Nonhealing ulceration of the left thigh treated with silvadene cream BID -Recent history of L2-S1 spondylolisthesis and severe spinal stenosis with lumbar radiculopathy of the left lower extremity with weakness and paresthesia status post L2 decompression and fusion -Hypertension -Diabetes mellitus -Chronic anemia -obesity with BMI of 31.7 Do Not Resuscitate/Do Not Inubate Discharge Disposition Patient is stable for discharge to subacute rehab. Patient has PICC line in place and infectious disease recommending 6 weeks of outpatient IV antibiotic therapy with IV Vancomycin prescribed as pharmacy to dose. Per orthopedics - Change lumbar dressing daily and as needed if soiled. Once there is no drainage from surgical wound may leave open to air. Okay to use gauze and paper tape for dressing change. Follow up with Dr. Curry in 1 week. Patient to repeat labs as prescribed hospital follow up BMP and CBC in 2 to 3 days. Patient to have BMP, CRP, CBC, and ESR drawn per Dr Carney order and follow up with ID on discharge. Hospital Course Patient is a 77 year old male with medical history of cardiomyopathy with known EF of 20-25%, hypertension, diabetes mellitus, and chronic anemia. Patient additionally has history of L2-S1 spondylolisthesis and severe spinal stenosis was having symptoms of LE parasthesias and weakness. Patient underwent surgery for this on 08/03/22. Patient was sent to rehab. The Patient was sent to the hospital for evaluation of left elbow wound and drainage concerning for infection. Patient is status post left elbow bursectomy I&D completed on 09/02/2022. This culture of the left elbow did grow MRSA. Infectious disease was consulted for antibiotic recommendations. Patient continued to report lower extremity weakness and difficulty with mobility. Patient was taken to the OR on 09/07/2022 patient was noticed to have epidural abscess T11-L1 and this patient was status post laminectomy and evacuation of the epidural abscess and also open treatment of L1-L2 fracture. Patient had urinary retention and continues with indwelling catheter. This can be followed for outpatient voiding trial. Patient has been bedrest he has been working with physical therapy and will require rehabilitation on discharge. He has received PICC line and cleared for discharge to subacute rehab today. 6 weeks of outpatient antibiotics with IV vancomycin have been recommended. Close follow up with orthopedics and ID on discharge. 09/13/2022 Patient is evaluated today resting in bed, at bedside. Patient denies shortness of breath, denies chest pain. Alert x 3. Focal neurological exam shows no focal weakness. He has diffuse generalized weakness. He has lower extremity edema and has been placed on oral lasix. His lungs are clear. He is maintained on 2L nasal cannula and to continue on discharge. S1 S2 auscultated, abdomen is soft and nontender. He is having bowel movements. Most recent labs showing white count of 10.98, hgb 7.8, sodium 137, potassium 4.0, BUN 16.2, creatinine 0.6, blood glucose in the 110s, calcium 8.2. Temperature 97.4, heart rate of 74, blood pressure 128/78, 98% on 2L nasal cannula. Please see medication reconciliation for a list of current medication. Thank you for allowing us to participate in the care of this patient. The impression and plan of care has been dictated by Jennifer Rowland Nurse Practitioner as directed. Dr. Luc MD I have performed a history and physical examination and medical decision making of this patient, discussed the same with the dictator, and agree with the dictators assessment and plan as written, documented as a scribe. Based on total visit time, I have performed more than 50% of this visit. Patient Condition at Discharge: Fair Plan - Discharge Summary Discharge Rx Participant: No New Discharge Prescriptions: New Vancomycin HCl in 5 % Dextrose [Vancomycin 1 Gram/250 ml-D5w] 1 gm IV Q12HR 40 Days #250 ml Furosemide [Lasix] 40 mg PO DAILY #0 tab Magnesium Hydroxide [Milk of Magnesia Concentrate] 2,400 mg PO DAILY PRN ml PRN Reason: Constipation INSULIN ASPART (NovoLOG) [NovoLOG (formulary)] 0 unit SQ ACHS each HYDROcodone/APAP 10-325MG [[place] 10-325] 1 each PO Q6H PRN #4 tab PRN Reason: Pain Scale 7 - 10 HYDROcodone/APAP 5-325MG [[place] 5-325] 1 each PO Q6HR PRN #4 tab PRN Reason: Pain Scale 1 To 5 Sennosides-Docusate Sodium [Senokot-S] 2 each PO DAILY PRN tab PRN Reason: Constipation SILVER sulfADIAZINE CREAM [Silvadene Cream] 1 applic TOPICAL BID each Continue Sotalol [Betapace] 80 mg PO BID@0700,1900 Sertraline [Zoloft] 100 mg PO DAILY Sacubitril/Valsartan [Entresto 97 mg-103 mg Tablet] 1 tab PO BID Glimepiride [Amaryl] 1 mg PO AC-BRKFST Acetaminophen Tab [Tylenol] 650 mg PO Q6H PRN MDD 3 grams PRN Reason: Pain Or Fever > 100.5 Atorvastatin [Lipitor] 20 mg PO HS Cyclobenzaprine [Flexeril] 5 mg PO DIRECTED Omeprazole [PriLOSEC] 20 mg PO BID Gabapentin 300 mg PO BID@0700,1800 #4 cap Fluticasone/Umeclidin/Vilanter [Trelegy Ellipta 200-62.5-25] 1 puff INHALATION RT-DAILY Melatonin 3 mg PO HS PRN PRN Reason: Insomnia Discontinued HYDROcodone/APAP 10-325MG [[place] 10-325] 1 tab PO Q4HR PRN #56 tab PRN Reason: Pain Cephalexin [Keflex] 500 mg PO BID@0700,1900 Discharge Medication List Sertraline [Zoloft] 100 mg PO DAILY 08/01/19 [History] Sotalol [Betapace] 80 mg PO BID@0700,1900 08/01/19 [History] Sacubitril/Valsartan [Entresto 97 mg-103 mg Tablet] 1 tab PO BID 06/23/20 [History] Glimepiride [Amaryl] 1 mg PO AC-BRKFST 07/15/20 [History] Fluticasone/Umeclidin/Vilanter [Trelegy Ellipta 200-62.5-25] 1 puff INHALATION RT-DAILY 07/28/22 [History] Acetaminophen Tab [Tylenol] 650 mg PO Q6H PRN MDD 3 grams 08/30/22 [History] Atorvastatin [Lipitor] 20 mg PO HS 08/30/22 [History] Cyclobenzaprine [Flexeril] 5 mg PO DIRECTED 08/30/22 [History] Melatonin 3 mg PO HS PRN 08/30/22 [History] Omeprazole [PriLOSEC] 20 mg PO BID 08/30/22 [History] Furosemide [Lasix] 40 mg PO DAILY #0 tab 09/13/22 [Rx] Gabapentin 300 mg PO BID@0700,1800 #4 cap 09/13/22 [Rx] HYDROcodone/APAP 10-325MG [[place] 10-325] 1 each PO Q6H PRN #4 tab 09/13/22 [Rx] HYDROcodone/APAP 5-325MG [[place] 5-325] 1 each PO Q6HR PRN #4 tab 09/13/22 [Rx] INSULIN ASPART (NovoLOG) [NovoLOG (formulary)] 0 unit SQ ACHS each 09/13/22 [Rx] Magnesium Hydroxide [Milk of Magnesia Concentrate] 2,400 mg PO DAILY PRN ml 09/13/22 [Rx] SILVER sulfADIAZINE CREAM [Silvadene Cream] 1 applic TOPICAL BID each 09/13/22 [Rx] Sennosides-Docusate Sodium [Senokot-S] 2 each PO DAILY PRN tab 09/13/22 [Rx] Vancomycin HCl in 5 % Dextrose [Vancomycin 1 Gram/250 ml-D5w] 1 gm IV Q12HR 40 Days #250 ml 09/13/22 [Rx] Follow up Appointment(s)/Referral(s): Renate Ardon DO [Primary Care Provider] - 1-2 days Abdi Curry DO [Doctor of Osteopathic Medicine] - 2 Weeks La Nena Carney MD [STAFF PHYSICIAN] - 1 Week Ambulatory/Diagnostic Orders: Basic Metabolic Panel [LAB.AMB] Location: None Selected Basic Metabolic Panel [LAB.AMB] Time Frame: 3 Days, Location: None Selected C Reactive Protein [LAB.AMB] Location: None Selected Complete Blood Count w/diff [LAB.AMB] Location: None Selected Complete Blood Count w/diff [LAB.AMB] Time Frame: 3 Days, Location: None Selected Erythrocyte Sedimentation Rate [LAB.AMB] Location: None Selected Activity/Diet/Wound Care/Special Instructions: [facility] rehab on discharge 6 weeks of IV antibiotic therapy with IV vancomycin recommending Continue on bowel regimen while patient is using narcotics for pain management Any further recommendations from orthopedics. Patient to follow up with Per orthopedics - Change lumbar dressing daily and as needed if soiled. Once there is no drainage from surgical wound may leave open to air. Okay to use gauze and paper tape for dressing change. Change left lateral thigh
[2022-09-13 15:21] VITALS: BP 92/60; PULSE 78; RESP 16; TEMP 98.7
== END 2022-09-13 16:55 | DRG 853 ==
LOC: EC 07:59 → 5NMEDONC 11:29 → 4SSUR 09-07 20:55
PROVIDERS: ADMIT Hospitalist; ATTEND Hospitalist
PROC: 0MB40ZZ Excision of Left Elbow Bursa and Ligament, Open Approach (ICD-10-PCS; 2022-09-02)
PROC: 0M940ZZ Drainage of Left Elbow Bursa and Ligament, Open Approach (ICD-10-PCS; principal; 2022-09-02 15:15)
PROC: 0QS004Z Reposition Lumbar Vertebra with Internal Fixation Device, Open Approach (ICD-10-PCS; 2022-09-08)
PROC: 0RGA0AJ Fusion of Thoracolumbar Vertebral Joint with Interbody Fusion Device, Posterior Approach, Anterior Column, Open Approach (ICD-10-PCS; 2022-09-08)
PROC: 0RG60AJ Fusion of Thoracic Vertebral Joint with Interbody Fusion Device, Posterior Approach, Anterior Column, Open Approach (ICD-10-PCS; 2022-09-08)
PROC: 0SG10AJ Fusion of 2 or more Lumbar Vertebral Joints with Interbody Fusion Device, Posterior Approach, Anterior Column, Open Approach (ICD-10-PCS; 2022-09-08)
PROC: 0SG107J Fusion of 2 or more Lumbar Vertebral Joints with Autologous Tissue Substitute, Posterior Approach, Anterior Column, Open Approach (ICD-10-PCS; 2022-09-08)
PROC: 0QB00ZZ Excision of Lumbar Vertebra, Open Approach (ICD-10-PCS; 2022-09-08)
PROC: 0Q9 Lower Bones, Drainage (ICD-10-PCS; 2022-09-08)
PROC: 0QU00JZ Supplement Lumbar Vertebra with Synthetic Substitute, Open Approach (ICD-10-PCS; 2022-09-08)
PROC: 8E0WXBZ Computer Assisted Procedure of Trunk Region (ICD-10-PCS; 2022-09-08)
PROC: 02HV33Z Insertion of Infusion Device into Superior Vena Cava, Percutaneous Approach (ICD-10-PCS; 2022-09-13)
DX: A41.02 Sepsis due to Methicillin resistant Staphylococcus aureus (principal); G06.2 Extradural and subdural abscess, unspecified; G93.41 Metabolic encephalopathy; B37.89 Other sites of candidiasis; M00.822 Arthritis due to other bacteria, left elbow; S32.019A Unspecified fracture of first lumbar vertebra, initial encounter for closed fracture; I96 Gangrene, not elsewhere classified; I42.9 Cardiomyopathy, unspecified; E87.1 Hypo-osmolality and hyponatremia; L97.122 Non-pressure chronic ulcer of left thigh with fat layer exposed; I50.22 Chronic systolic (congestive) heart failure; L03.114 Cellulitis of left upper limb; I11.0 Hypertensive heart disease with heart failure; T31.0 Burns involving less than 10% of body surface; J84.10 Pulmonary fibrosis, unspecified; E11.622 Type 2 diabetes mellitus with other skin ulcer; J44.9 Chronic obstructive pulmonary disease, unspecified; E66.9 Obesity, unspecified; D64.9 Anemia, unspecified; Z66 Do not resuscitate; T24.212A Burn of second degree of left thigh, initial encounter; G89.29 Other chronic pain; E78.5 Hyperlipidemia, unspecified; M19.012 Primary osteoarthritis, left shoulder; M19.011 Primary osteoarthritis, right shoulder; M47.9 Spondylosis, unspecified; M71.122 Other infective bursitis, left elbow; M71.022 Abscess of bursa, left elbow; B95.62 Methicillin resistant Staphylococcus aureus infection as the cause of diseases classified elsewhere; M51.16 Intervertebral disc disorders with radiculopathy, lumbar region; M48.061 Spinal stenosis, lumbar region without neurogenic claudication; E87.6 Hypokalemia; I49.3 Ventricular premature depolarization; S51.012A Laceration without foreign body of left elbow, initial encounter; X10.0XXA Contact with hot drinks, initial encounter; M79.89 Other specified soft tissue disorders; G47.30 Sleep apnea, unspecified; R26.9 Unspecified abnormalities of gait and mobility; F41.0 Panic disorder [episodic paroxysmal anxiety]; B96.89 Other specified bacterial agents as the cause of diseases classified elsewhere; W19.XXXA Unspecified fall, initial encounter; R60.0 Localized edema; Z96.651 Presence of right artificial knee joint; Z20.822 Contact with and (suspected) exposure to COVID-19; Z68.31 Body mass index [BMI] 31.0-31.9, adult; Y92.129 Unspecified place in nursing home as the place of occurrence of the external cause; Z95.0 Presence of cardiac pacemaker; Z87.891 Personal history of nicotine dependence; Z79.899 Other long term (current) drug therapy; Z79.84 Long term (current) use of oral hypoglycemic drugs; Z79.51 Long term (current) use of inhaled steroids; Z98.1 Arthrodesis status
CPT/HCPCS: 36415; 36573; 70450; 71045; 71046; 72080; 72126; 72128; 72129; 72131; 72132; 72133; 80048; 80053; 80061; 80202; 81001; 82565; 83605; 83735; 84132; 84145; 85025; 85027; 85610; 85652; 85730; 86140; 86850; 86900; 86901; 87040; 87070; 87075; 87077; 87102; 87116; 87186; 87205; 87206; 87636; 90471; 90715; 93005; 93306; 94640; 94760; 96365; 96366; 96375; 99291